=== PATIENT | male | born 1940 | race Caucasian/White ===

== ENCOUNTER → 2017-03-16 | Outpatient (CLI) | payer MEDICARE, BC ==
[2014-08-28 11:11] VITALS: BP 137/82
[~2017-03-16] MED LIST: ACET500T68 PO; AMLO5TAB4 PO; BRIM5DRO2 OS; BRIN10DR OU; CLON1TAB PO; CYAN10005 IM; DULO30CA2 PO; FLUO40CA9 PO; GUAI600T47 PO; HYDR25TA PO; LATA2.5D2 OU; LOSA100T2 PO; MAG355OR17 PO; MAGN2400 PO; MELO15TA6 PO; METH29OI TP; MIRT15TA PO; NICO1PAT25 TD; OLAN10TA9 PO; TAMS0.4C2 PO; TIZA2CAP3 PO; TRAM50TA PO; VIT1TABL32 PO
--- NOTE | 2017-03-16 16:46 | RAD ---
CT head without contrast 03/16/2017 at 1642 hours Indication: Syncope, dizziness, abscess on face. Comparison: CT head 08/21/2014 Technique: Multiple axial CT images of the head were obtained from the skull base to the vertex without intravenous contrast. Findings: The ventricles, sulci and basal cisterns are normal for the patient's age. There is no acute intracranial hemorrhage. No mass, mass effect or midline shift. Normal urbina-white matter differentiation is preserved. Visualized orbits demonstrate bilateral lens replacement. Paranasal sinuses and mastoid air cells are well aerated. Scalp and calvarium are normal. No acute fracture is identified. Impression: No acute intracranial hemorrhage. No evidence for acute or subacute ischemia. PQRS Compliance Statement: One or more of the following individualized dose reduction techniques were utilized for this examination: 1. Automated exposure control 2. Adjustment of the mA and/or kV according to patient size 3. Use of iterative reconstruction technique
[2017-03-16 17:35] LABS: CALCIUM 8.1 mg/dL (8.5-10.1); CREATININE 1.3 mg/dL (0.7-1.3); GFR 53.8; POTASSIUM 4.1 mmol/L (3.5-5.1)
[2017-03-16 17:43] LABS: BASO % 0 % (0-3); EOS # 0.1 x10^3/uL (0.0-0.7); EOS % 0 % (0-3); HEMATOCRIT 34.2 % (39.0-53.0); HEMOGLOBIN 11.3 g/dL (13.0-17.5); LYMPH # 1.9 x10^3/uL (1.0-4.8); LYMPH % 13 % (24-48); MEAN CORPUSCULAR HEMOGLOBIN 30 pg (25-35); MEAN CORPUSCULAR HGB CONC 33 g/dL (31-37); MEAN CORPUSCULAR VOLUME 91 fL (79-100); MONO # 1.4 x10^3/uL (0.0-1.1); MONO % 10 % (0-9); NEUT # 10.5 x10^3uL (1.8-7.7); NEUT % 76 % (31-73); PLATELET COUNT 236 x10^3/uL (140-400); RED BLOOD COUNT 3.75 x10^6/uL (4.30-5.70); RED CELL DISTRIBUTION WIDTH 15.7 % (11.5-14.5); WHITE BLOOD COUNT 13.9 x10^3/uL (4.0-11.0)
--- NOTE | 2017-03-17 07:40 | RAD ---
Chest, 2 views, 03/16/2017: History: Shortness of breath Comparison is made to a study from 07/31/2014. The heart is at the upper limits of normal in size. There is calcific plaquing of the aorta. The pulmonary vascularity is normal. There are densities projected over both hemithoraces due to the patient's known calcific pleural plaquing. No superimposed acute pulmonary radius seen. There is no evidence of pleural fluid. There are mild scattered degenerative changes in the spine. IMPRESSION: 1. Bilateral calcific pleural plaquing. 2. No acute cardiopulmonary abnormality is detected.
[2017-03-17 13:22] LABS: FREE T4 1.04 ng/dL (0.76-1.46); THYROID STIM HORMONE (TSH) 0.451 uIU/mL (0.358-3.740)
== END | disposition home or self-care (01) ==
LOC: RAD 16:12
PROVIDERS: ATTEND Family Medicine
DX: L02.01 Cutaneous abscess of face (principal); J92.9 Pleural plaque without asbestos; R42 Dizziness and giddiness; R55 Syncope and collapse; R06.02 Shortness of breath
CPT/HCPCS: 36415; 70450; 71020; 80048; 84439; 84443; 85027

== ENCOUNTER → 2017-05-18 | Outpatient (CLI) | payer MEDICARE, BC ==
[2014-08-28 11:11] VITALS: BP 137/82
[~2017-05-18] MED LIST changes: +IOHEXOL 240 MG/ML 50ML VIAL. ONE; +IOHEXOL 240 MG/ML 50ML VIAL. PO ONE
--- NOTE | 2017-05-18 19:56 | RAD ---
CT scan of the abdomen and pelvis with oral contrast only 05/18/2017 CLINICAL HISTORY: Epigastric pain and bloating for one month. TECHNIQUE: After the oral and administration of contrast only, contiguous, 3 mm axial sections were obtained through the abdomen and pelvis. One or more of the following individualized dose reduction techniques were utilized for this study: 1. Automated exposure control. 2. Adjustment of the mA and/or kV according to patient size. 3. Use of iterative reconstruction technique. FINDINGS: Images through the lung bases demonstrate linear bands of subsegmental atelectasis involving both lower lobes. Calcified pleural plaques are seen bilaterally. The unenhanced CT appearance of the liver, spleen, pancreas, adrenal glands and kidneys are within normal limits. Moderate atherosclerotic calcification of the abdominal aorta is seen. The abdominal aorta tapers normally. The gallbladder is well-distended. No free fluid or free air is seen within the abdomen. There is no evidence of bowel obstruction. The appendix is well-visualized and is within normal limits. Images through the pelvis demonstrate the urinary bladder distended with urine. Calcifications are seen within the prostate gland. Calcifications are seen within the pelvis consistent with phleboliths. No free fluid is seen. Mild S-shaped curvature of the thoracolumbar spine is seen. Degenerative changes are seen involving the lower thoracic and throughout the lumbar spine and both hips. An acute appearing compression fracture is seen involving the superior endplate of the L3 vertebral body. This vertebral body has lost approximately 25 percent of its height, centrally. No retropulsion of bone fragments into the central spinal canal is seen. IMPRESSION: Acute compression fracture is seen involving the superior endplate of the L3 vertebral body. No retropulsion of bone fragments into the central spinal canal is seen. No additional acute abnormality is seen involving the abdomen or pelvis. Electronically signed by: Dave Mac MD (05/18/2017 7:53 PM) [id number]
== END | disposition home or self-care (01) ==
LOC: CT 17:11
PROVIDERS: ATTEND Family Medicine
DX: J98.11 Atelectasis (principal); J92.9 Pleural plaque without asbestos; I70.0 Atherosclerosis of aorta; K82.8 Other specified diseases of gallbladder; N42.89 Other specified disorders of prostate; M43.8X5 Other specified deforming dorsopathies, thoracolumbar region; M47.894 Other spondylosis, thoracic region; M47.896 Other spondylosis, lumbar region; M16.0 Bilateral primary osteoarthritis of hip; M48.56XA Collapsed vertebra, not elsewhere classified, lumbar region, initial encounter for fracture; R14.0 Abdominal distension (gaseous); R10.13 Epigastric pain
CPT/HCPCS: 74176; Q9966

== ENCOUNTER 2017-05-28 12:07 | Inpatient (IN) | payer MEDICARE, BC ==
[~2017-05-28] VITALS: Ht 167.6 cm; Wt 69.5 kg
[~2017-05-28 12:07] MED LIST changes: +BRIM5DRO2 LEFTEYE; -BRIM5DRO2 OS; -IOHEXOL 240 MG/ML 50ML VIAL. ONE; -IOHEXOL 240 MG/ML 50ML VIAL. PO ONE
--- NOTE | 2017-05-28 12:54 | EKG ---
[address] [address] Test Date: 2017-05-28 Test Time: 12:47:00 Pat Name: SCOTT DUFFY Department: Room: Gender: M Control Panel Tester: : 1940 Requested By: CASH HER Order Number: [id number] Reading MD: Kenneth Sanchez Measurements Intervals [place] Rate: 72 P: 5 SD: 160 QRS: 1 QRSD: 86 T: 19 QT: 380 QTc: 418 Interpretive Statements SINUS RHYTHM LOW LIMB LEAD VOLTAGE QRS(T) CONTOUR ABNORMALITY CONSIDER ANTEROLATERAL MYOCARDIAL DAMAGE POSSIBLY ABNORMAL ECG RI6.01 No previous ECG available for comparison Electronically Signed On 06-11-2017 12:05:08 CDT by Kenneth Sanchez
[2017-05-28 13:08] LABS: BASO # 0.1 x10^3/uL (0.0-0.2); BASO % 1 % (0-3); EOS # 0.1 x10^3/uL (0.0-0.7); EOS % 1 % (0-3); HEMATOCRIT 34.7 % (39.0-53.0); HEMOGLOBIN 12.1 g/dL (13.0-17.5); LYMPH # 2.8 x10^3/uL (1.0-4.8); LYMPH % 24 % (24-48); MEAN CORPUSCULAR HEMOGLOBIN 32 pg (25-35); MEAN CORPUSCULAR HGB CONC 35 g/dL (31-37); MEAN CORPUSCULAR VOLUME 92 fL (79-100); MONO # 0.9 x10^3/uL (0.0-1.1); MONO % 8 % (0-9); NEUT # 7.7 x10^3uL (1.8-7.7); NEUT % 67 % (31-73); PLATELET COUNT 237 x10^3/uL (140-400); RED BLOOD COUNT 3.78 x10^6/uL (4.30-5.70); RED CELL DISTRIBUTION WIDTH 15.9 % (11.5-14.5); WHITE BLOOD COUNT 11.5 x10^3/uL (4.0-11.0)
[2017-05-28 13:24] LABS: ALBUMIN 3.4 g/dL (3.4-5.0); CALCIUM 8.2 mg/dL (8.5-10.1); CREATININE 1.1 mg/dL (0.7-1.3); GFR 65.1; MAGNESIUM 1.9 mg/dL (1.8-2.4); TOTAL BILIRUBIN 0.6 mg/dL (0.2-1.0); TOTAL PROTEIN 6.9 g/dL (6.4-8.2)
[2017-05-28 13:52] LABS: BARBITURATES NEG (NEG); BENZODIAZEPINES POS (NEG); CANNABINOIDS NEG (NEG); COCAINE NEG (NEG); METHADONE NEG (NEG); OPIATES POS (NEG); PHENCYCLIDINE NEG (NEG)
[2017-05-28 13:53] LABS: AMPHETAMINE/METHAMPHETAMINE NEG (NEG)
[2017-05-28 14:05] LABS: BACTERIA,URINE 0 /HPF (0-FEW); BILIRUBIN,URINE NEG (NEG); CLARITY,URINE CLEAR; COLOR,URINE YELLOW; GLUCOSE,URINE NEG (NEG); NITRITE,URINE NEG (NEG); RBC,URINE 0 /HPF (0-2); SQUAMOUS EPITHELIAL CELL,UR OCC /LPF; UROBILINOGEN,URINE 0.2 mg/dL (0.2 mg/dL); WBC,URINE 0 /HPF (0-4)
--- NOTE | 2017-05-28 14:51 | PHYS DOC ---
General Chief Complaint: PSYCH EVALUATION Stated Complaint: DEMENTIA W/BD Time Seen by MD: 12:29 Source: patient, family Exam Limitations: clinical condition Problems: History of Present Illness Initial Comments Patient is a 77-year-old male brought to the ED by his psychiatric evaluation. Patient's spouse states that the patient has had worsening confusion in the last week or so. He was diagnosed with urinary tract infection last week and has been taking Cipro. His spouse states that he has been more confused and that he is a 31 year recovering alcoholic but began drinking alcohol again the past few days. On arrival he does not appear to be intoxicated no odor of alcohol is present, he is alert and interactive disoriented to time and place. He is cooperative and no history is related of DTs or seizure related to alcohol withdrawal. Vital signs are stable and the patient denies any current complaints. Timing/Duration: 1 week, getting worse, changing over time Severity: severe Modifying Factors: improves with other Associated Symptoms: other Allergies: Coded Allergies: Sulfa (Sulfonamide Antibiotics) (Verified Allergy, Intermediate, 05/28/17) prednisone (Verified Allergy, Intermediate, 05/28/17) Past Medical History Medical History: other (arthritis, glaucoma, hypertension, urinary tract infection, dementia) Psychosocial History: other (one prior [facility] admission) Social History Smoker: cigarettes Alcohol: other (31-year-old recovering alcoholic with recent relapse) Drugs: none Review of Systems Constitutional: denies chills, denies fever Respiratory: denies cough, denies shortness of breath Cardiovascular: denies chest pain, denies palpitations Gastrointestinal: denies nausea, denies vomiting Genitourinary: see HPI Musculoskeletal: see HPI, denies neck pain Psychiatric/Neurological: see HPI Physical Exam General Appearance: WD/WN, no apparent distress Eyes: bilateral eye normal inspection, bilateral eye PERRL, bilateral eye EOMI Ear, Nose, Throat: hearing grossly normal, normal ENT inspection (mildly dry mucous membranes), normal pharynx Neck: non-tender, supple Respiratory: chest non-tender, no respiratory distress, other (faint diffuse expiratory wheeze with good air movement) Cardiovascular: normal peripheral pulses, regular rate, rhythm Gastrointestinal: non tender, soft Back: no CVA tenderness, no vertebral tenderness Extremities: non-tender, normal inspection Neurologic/Psychiatric: traffic manager II-XII nml as tested, no motor/sensory deficits, alert, normal mood/affect, other (alert to self disoriented to time and place, cooperative and calm) Skin: normal color, warm/dry Orders, Labs, Meds EKG: Normal sinus rhythm 72 bpm, nonspecific T-wave, or abnormalities no STEMI changes. Interpreted by Dr. Owens. Sodium 138, urinalysis negative, drug screen positive for opiates and benzodiazepines otherwise reassuring workup. Staff notifies me that the patient has been accepted for [facility] admission, he is medically clear. He had his spouse have no questions at this time he has no new or progressive symptoms. IMPRESSIONS: Worsening dementia Urinary tract infection on Cipro Alcoholism relapse Hyponatremia Tobaccoism Departure Disposition: ADMITTED INPATIENT Condition: STABLE Additional Instructions: [facility] admission Dr. Ho is accepting. CASH OWENS DO May 28, 2017 14:51
[2017-05-28] MEDS ORDERED: DULO60CA6 PO (15:13)
[2017-05-28 15:23] VITALS: BP 119/71
[2017-05-28] MEDS ORDERED: DULO30CA2 PO (15:48)
[2017-05-28] MEDS ORDERED: CLOP75TA57 PO (15:48)
[2017-05-28] MEDS ORDERED: METO-239 PO (15:48)
[2017-05-28] MEDS ORDERED: ATOR40TA59 PO (15:48)
[2017-05-28] MEDS ORDERED: SERT50TA PO (15:51)
[2017-05-28] MEDS ORDERED: CIPR500T94 PO (15:51)
[2017-05-28] MEDS ORDERED: OLAN2.5T3 PO (15:51)
[2017-05-28] MEDS ORDERED: ALPR1TAB2 PO (15:51)
[2017-05-28] MEDS ORDERED: AMLO10TA2 PO (16:21)
[2017-05-28] MEDS ORDERED: ASPI81TA44 PO (16:21)
[2017-05-28] MEDS ORDERED: LOSA100T6 PO (16:21)
[2017-05-28] MEDS ORDERED: HYDR-2758 PO (16:21)
[2017-05-28] MEDS ORDERED: MAGNESIUM HYDROXIDE 2,400 MG/30 ML ORAL.SUSP. PO PRN (16:45)
[2017-05-28] MEDS ORDERED: MAG HYDROX/AL HYDROX/SIMETH 30 ML ORAL.SUSP PO PRN (16:45)
[2017-05-28] MEDS ORDERED: METHYL SALICYLATE/MENTHOL TOPICAL OINTMENT 29GM TUBE. TP PRN (16:45)
[2017-05-28] MEDS ORDERED: ALPRAZolam 0.5 MG TABLET PO PRN (19:30)
[2017-05-28] MEDS: OLANZapine 2.5 MG TABLET PO SCH (20:09)
[2017-05-28] MEDS ORDERED: DULoxetine HCL 30 MG CAPSULE.DR PO SCH (21:00)
--- NOTE | 2017-05-28 21:09 | PDOC ---
Exam Kel Demential Exam: Kel Note: Please also refer to the separate dictated note~for this date of service dictated separately.~Patient seen individually. Discussed the patient with Nursing staff reviewed the chart.~Reviewed interim history and current functioning. Reviewed vital signs,~Labs/ Radiology~and current medications noted below. Continue current treatment with the changes noted in the dictated addendum note Assessment: Vital Signs: Vital Signs Date Time Temp Pulse Resp B/P (MAP) Pulse Ox O2 Delivery O2 Flow Rate FiO2 05/28/17 15:23 97.8 79 20 119/71 (87) 98 05/28/17 14:29 Room Air I&O Intake and Output 05/29/17 07:00 Intake Total 240 ml Balance 240 ml Intake Oral 240 ml Labs: Laboratory Tests Test 05/28/17 12:58 05/28/17 13:28 White Blood Count 11.5 x10^3/uL (4.0-11.0) H Red Blood Count 3.78 x10^6/uL (4.30-5.70) L Hemoglobin 12.1 g/dL (13.0-17.5) L Hematocrit 34.7 % (39.0-53.0) L Mean Corpuscular Volume 92 fL (79-100) Mean Corpuscular Hemoglobin 32 pg (25-35) Mean Corpuscular Hemoglobin Concent 35 g/dL (31-37) Red Cell Distribution Width 15.9 % (11.5-14.5) H Platelet Count 237 x10^3/uL (140-400) Neutrophils (%) (Auto) 67 % (31-73) Lymphocytes (%) (Auto) 24 % (24-48) Monocytes (%) (Auto) 8 % (0-9) Eosinophils (%) (Auto) 1 % (0-3) Basophils (%) (Auto) 1 % (0-3) Neutrophils # (Auto) 7.7 x10^3uL (1.8-7.7) Lymphocytes # (Auto) 2.8 x10^3/uL (1.0-4.8) Monocytes # (Auto) 0.9 x10^3/uL (0.0-1.1) Eosinophils # (Auto) 0.1 x10^3/uL (0.0-0.7) Basophils # (Auto) 0.1 x10^3/uL (0.0-0.2) Sodium Level 130 mmol/L (136-145) L Potassium Level 4.0 mmol/L (3.5-5.1) Chloride Level 100 mmol/L (98-107) Carbon Dioxide Level 24 mmol/L (21-32) Anion Gap 6 (6-14) Blood Urea Nitrogen 9 mg/dL (8-26) Creatinine 1.1 mg/dL (0.7-1.3) Estimated GFR (Cockcroft-Gault) 65.1 BUN/Creatinine Ratio 8 (6-20) Glucose Level 100 mg/dL (70-99) H Calcium Level 8.2 mg/dL (8.5-10.1) L Magnesium Level 1.9 mg/dL (1.8-2.4) Total Bilirubin 0.6 mg/dL (0.2-1.0) Aspartate Amino Transferase (AST) 12 U/L (15-37) L Alanine Aminotransferase (ALT) 14 U/L (16-63) L Alkaline Phosphatase 90 U/L (46-116) Total Protein 6.9 g/dL (6.4-8.2) Albumin 3.4 g/dL (3.4-5.0) Albumin/Globulin Ratio 1.0 (1.0-1.7) Ethyl Alcohol Level < 10 mg/dL (0-10) Urine Collection Type Unknown Urine Color Yellow Urine Clarity Clear Urine pH 6.5 Urine Specific [place] <=1.005 Urine Protein Neg (NEG-TRACE) Urine Glucose (UA) Neg mg/dL (NEG) Urine Ketones (Stick) Neg mg/dL (NEG) Urine Blood Neg (NEG) Urine Nitrite Neg (NEG) Urine Bilirubin Neg (NEG) Urine Urobilinogen Dipstick 0.2 mg/dL (0.2 mg/dL) Urine Leukocyte Esterase Neg (NEG) Urine RBC 0 /HPF (0-2) Urine WBC 0 /HPF (0-4) Urine Squamous Epithelial Cells Occ /LPF Urine Bacteria 0 /HPF (0-FEW) Urine Opiates Screen Pos (NEG) Urine Methadone Screen Neg (NEG) Urine Barbiturates Neg (NEG) Urine Phencyclidine Screen Neg (NEG) Urine Amphetamine/Methamphetamine Neg (NEG) Urine Benzodiazepines Screen Pos (NEG) Urine Cocaine Screen Neg (NEG) Urine Cannabinoids Screen Neg (NEG) Urine Ethyl Alcohol Neg (NEG) Current Medications: Meds: Current Medications Influenza Virus Vaccine Quadrival (Fluarix Quad [id number] Syringe) 0.5 ml 1X ONCE VAX IM ; Start 05/29/17 at 09:00; Stop 05/29/17 at 09:01 Acetaminophen (Tylenol) 650 mg PRN Q6HRS PRN PO PAIN / TEMP; Start 05/28/17 at 16:45 Multi-Ingredient Ointment (Analgesic [place]) 1 aubree PRN QID PRN TP MUSCLE PAIN; Start 05/28/17 at 16:45 Al Hydroxide/Mg Hydroxide (Mylanta Plus Xs) 15 ml PRN AFTMEALHC PRN PO DYSPEPSIA; Start 05/28/17 at 16:45 Magnesium Hydroxide (Milk Of Magnesia) 2,400 mg PRN QHS PRN PO CONSTIPATION; Start 05/28/17 at 16:45 Nicotine (Nicoderm Cq 21mg) 1 patch DAILY TD ; Start 05/29/17 at 09:00 Duloxetine HCl (Cymbalta) 90 mg BID PO ; Start 05/28/17 at 21:00; Stop 05/28/17 at 21:00; Status DC Olanzapine (ZyPREXA) 2.5 mg QHS PO Last administered on 05/28/17 20:09; Start 05/28/17 at 21:00 Alprazolam (Xanax) 1 mg PRN TID PRN PO ANXIETY / AGITATION Last administered on 05/28/17 20:09; Start 05/28/17 at 19:30 Duloxetine HCl (Cymbalta) 90 mg DAILY PO ; Start 05/29/17 at 09:00 Active Scripts Active Reported Hydrocodone-Apap 5-325 (Hydrocodone Bit/Acetaminophen) 1 Each Tablet 1 Tab PO PRN Q6HRS PRN Losartan Potassium 100 Mg Tablet 100 Mg PO DAILY Children's Aspirin (Aspirin) 81 Mg Tab.chew 81 Mg PO DAILY Amlodipine Besylate 10 Mg Tablet 1 Tab PO DAILY Cipro (Ciprofloxacin Hcl) 500 Mg Tablet 1 Tab PO BID 8 Days LAST DOSE GIVEN: DATE: TIME: NEXT DOSE DUE: DATE: TIME: FINISH THIS PRESCRIPTION AFTER DOSES ON 06-04-17 Xanax (Alprazolam) 1 Mg Tablet 1 Tab PO TID PRN LAST DOSE GIVEN: DATE: TIME: NEXT DOSE DUE: DATE: TIME: Zyprexa (Olanzapine) 2.5 Mg Tablet 1 Tab PO QHS LAST DOSE GIVEN: DATE: TIME: NEXT DOSE DUE: DATE: TIME: Atorvastatin Calcium 40 Mg Tablet 1 Tab PO DAILY LAST DOSE GIVEN: DATE: TIME: NEXT DOSE DUE: DATE: TIME: Metoprolol Succinate ( Xl ) (Metoprolol Succinate) 25 Mg Tab.er.24h 1 Tab PO DAILY LAST DOSE GIVEN: DATE: TIME: NEXT DOSE DUE: DATE: TIME: Plavix (Clopidogrel Bisulfate) 75 Mg Tablet 1 Tab PO DAILY LAST DOSE GIVEN: DATE: TIME: NEXT DOSE DUE: DATE: TIME: Cymbalta (Duloxetine Hcl) 30 Mg Capsule.dr 3 Cap PO DAILY LAST DOSE GIVEN: DATE: TIME: NEXT DOSE DUE: DATE: TIME: Ocuvite Tablet (Vit A,C & E/Lutein/Minerals) 1 Each Tablet 1 Each PO DAILY LAST DOSE GIVEN: DATE: TIME: NEXT DOSE DUE: DATE: TIME: Tramadol Hcl (Tramadol HCl) 50 Mg Tablet 50 Mg PO PRN BID PRN LAST DOSE GIVEN: DATE: TIME: NEXT DOSE DUE: DATE: TIME: Tamsulosin Hcl 0.4 Mg Cap.er.24h 1 Cap PO HS LAST DOSE GIVEN: DATE: TIME: NEXT DOSE DUE: DATE: TIME: Xalatan (Latanoprost) 2.5 Ml Drops 1 Drop OU HS LAST DOSE GIVEN: DATE: TIME: NEXT DOSE DUE: DATE: TIME: Azopt (Brinzolamide) 10 Ml Drops.susp 1 Drop OU HS LAST DOSE GIVEN: DATE: TIME: NEXT DOSE DUE: DATE: TIME: Combigan Eye Drops (Brimonidine Tartrate/Timolol) 5 Ml Drops 1 Drop LEFTEYE BID LAST DOSE GIVEN: DATE: TIME: NEXT DOSE DUE: DATE: TIME: Diagnosis: Problems: (1) Alzheimer's dementia (2) Dementia with behavioral disturbance (3) Anxiety disorder (4) Impulse control disorder (5) Major depressive disorder, recurrent episode JO DEWEY MD May 28, 2017 21:09
[2017-05-29] MEDS ORDERED: CARV6.25 PO (04:20)
[2017-05-29] MEDS ORDERED: VIT1CAPS17 PO (04:20)
[2017-05-29] MEDS ORDERED: ALPR0.5T6 PO (04:20)
[2017-05-29] MEDS ORDERED: ATORVASTATIN CA80 MG PO (04:59)
[2017-05-29 05:11] LABS: HEMOGLOBIN A1C 5.5 % (4.8-5.6)
[2017-05-29 06:26] VITALS: BP 105/78
[2017-05-29] MEDS: DULoxetine HCL 30 MG CAPSULE.DR PO SCH (07:56)
[2017-05-29] MEDS: NICOTINE 21MG PATCH. TD SCH (07:56)
[2017-05-29] MEDS ORDERED: FLU VACC QS2017-18 (36MOS+)/PF 0.5 ML SYRINGE. VAX IM ONE (09:00)
--- NOTE | 2017-05-29 10:08 | HP ---
ADMIT DATE: 05/28/2017 PSYCHIATRIC ADMISSION HISTORY AND EVALUATION This late entry for 05/28/2017, covers elements not covered in my initial note of 05/28/2017. IDENTIFYING DATA: The patient is a 77-year-old male who was sent to the Emergency Room at [facility] by his primary care physician, Dr. Dalton on account of increased confusion with a relapse of his alcohol abuse within the context of a recent UTI and worsening agitation, behaviors that were unmanageable at home where he lives with his . The patient has failed outpatient psychiatric interventions. Behaviors were deemed dangerous. He was referred by Dr. Dalton to the Emergency Room and after he was evaluated there, felt he needed inpatient psychiatric stabilization and referred to us. CHIEF COMPLAINT: "Yes, I started drinking again. Not very much. Yes, I get confused." HISTORY OF PRESENT ILLNESS: The patient has a history of major depressive disorder; anxiety disorder and impulse control disorder, history of alcohol abuse. He had not been using alcohol for sometime almost 30 years and then restarted use about a week back. This has been progressively increasing with worsening confusion, paranoia, delusion, restlessness, deemed to be a danger living at home with his . He has had sleep and appetite changes. No active suicidal or homicidal ideation, but quite impulsive. PAST PSYCHIATRIC HISTORY: The patient was an inpatient with us several years ago. Since then followed outpatient with Dr. Dalton. He does have short term memory deficits. PAST MEDICAL HISTORY: Recurrent UTIs, hypertension, hyperlipidemia, coronary artery disease, fibromyalgia, arthritis, macular degeneration, stents, back surgery in 11/2016, angina, glaucoma. CT head, no acute changes noted in March of this year. CODE STATUS: Full. Accu-Cheks: None. DIET: Regular. Takes his medications whole. CURRENT PSYCHOTROPICS: Apparently, the patient's was administrating Cymbalta to him 180 mg twice a day and he was in fact prescribed 90 mg twice a day and recently Zoloft was added. We will reduce the Cymbalta down to 90 mg a day for now. He is also on Zyprexa 2.5 mg at bedtime. During his last hospitalization with us few years back, he was on Cymbalta 30 mg a day, Remeron 7.5 at bedtime, Klonopin 1 mg twice a day, Zyprexa 10 mg at bedtime. FAMILY HISTORY: Noncontributory. SOCIAL HISTORY: The patient lives at home with his . Alcohol abuse history as noted above. No physical, sexual or elder abuse history is noted. Not known to be a perpetrator. MENTAL STATUS EXAMINATION: The patient was seen individually evening of 05/28/2017, he was aware that he had arrived from the Emergency Room, a short while prior to my visit with him. He was confused about the date, knew the year was 2016, was getting mixed up about what city this was. Speech is coherent, abstraction fair, computation impaired, short term memory is impaired. Mood is somewhat dysphoric, anxious. Affect is mood congruent, appears somewhat paranoid. No active suicidal or homicidal ideation. Attention span short. Language function intact. Intellect average. Insight limited. Judgment marginal. IMPRESSION: Major depressive disorder, recurrent versus psychotic features; anxiety disorder, unspecified; history of alcohol abuse dependence with recent relapse. Mild cognitive impairment versus major neurocognitive disorder, multifactorial vascular secondary to alcohol with depression, delusions. Rest diagnosis is unchanged as above. PLAN: Admit to the geropsychiatry unit at [facility]. I will see the patient daily individually from a psychiatric standpoint. Medical followup per Dr. Mejia/Dr. Barksdale. Continue current psychotropics, observe baseline, adjust further as clinically indicated. We have reduced the Cymbalta from 180 mg twice a day down to 90 mg a day. Continue Zyprexa 2.5 mg at bedtime for now. MAN Eduin DEWEY MD DR: SANJEEV/margo JOB#: [id number] / [id number]
[2017-05-29 10:36] LABS: THYROID STIM HORMONE (TSH) 3.371 uIU/mL (0.358-3.740)
[2017-05-29] MEDS: ACETAMINOPHEN 325 MG TABLET PO PRN ×2 (11:06→18:20)
[2017-05-29 12:09] LABS: T3 TOTAL 89 ng/dL (71-180); THYROXINE 6.2 ug/dL (4.5-12.0)
--- NOTE | 2017-05-29 16:28 | PDOC1 ---
History of Present Illness Reason for Visit: Confusion History of Present Illness Pt is admitted from home, where he has been living w/ his . His was concerned that pt had started drinking again, and was having a downturn in his behavior. Pt was seen by his PCP's office and advised to be admitted to the [facility] unit. On speaking to pt this afternoon, he states "I am here because my fibromyalgia is acting up." Pt reportedly has a long history of alcoholism but has not drank in some time. He also has anxiety, depression, and dementia. He was diagnosed w/ a UTI on 05/24 and treated w/ Cipro per nursing staff. Pt denies CP, SOA, fever, n/v, difficulty urinating, tremors, hallucinations, or abnormal thoughts. Chief Complaint: PSYCH EVALUATION Allergies: Coded Allergies: Sulfa (Sulfonamide Antibiotics) (Verified Allergy, Intermediate, 05/28/17) prednisone (Verified Allergy, Intermediate, 05/28/17) Past Medical History Cardiac: HTN [employer]: Dementia Psych: Anxiety, Depression Rheumatologic: Fibromyalgia ENT: Other (Glaucoma) Renal/: UTI, Benign prostatic enlarg. Past Surgical History: No pertinent history Family History: No pertinent hx Past Social History Smoke: No Alcohol: other Drugs: None Lives: with Family Review of Systems Review Of Systems Fourteen system , review of systems has been reviewed. See HPI for pertinent positives and negative responses, other chang all other systems are negative, non pertinent or non contributory Allergies: Coded Allergies: Sulfa (Sulfonamide Antibiotics) (Verified Allergy, Intermediate, 05/28/17) prednisone (Verified Allergy, Intermediate, 05/28/17) Medications Current Medications Influenza Virus Vaccine Quadrival (Fluarix Quad [id number] Syringe) 0.5 ml 1X ONCE VAX IM Last administered on 05/29/17 11:28; Start 05/29/17 at 09:00; Stop 05/29/17 at 09:01; Status DC Acetaminophen (Tylenol) 650 mg PRN Q6HRS PRN PO PAIN / TEMP Last administered on 05/29/17 11:06; Start 05/28/17 at 16:45 Multi-Ingredient Ointment (Analgesic [place]) 1 aubree PRN QID PRN TP MUSCLE PAIN; Start 05/28/17 at 16:45 Al Hydroxide/Mg Hydroxide (Mylanta Plus Xs) 15 ml PRN AFTMEALHC PRN PO DYSPEPSIA; Start 05/28/17 at 16:45 Magnesium Hydroxide (Milk Of Magnesia) 2,400 mg PRN QHS PRN PO CONSTIPATION; Start 05/28/17 at 16:45 Nicotine (Nicoderm Cq 21mg) 1 patch DAILY TD Last administered on 05/29/17 07: 56; Start 05/29/17 at 09:00 Duloxetine HCl (Cymbalta) 90 mg BID PO ; Start 05/28/17 at 21:00; Stop 05/28/17 at 21:00; Status DC Olanzapine (ZyPREXA) 2.5 mg QHS PO Last administered on 05/28/17 20:09; Start 05/28/17 at 21:00 Alprazolam (Xanax) 1 mg PRN TID PRN PO ANXIETY / AGITATION Last administered on 05/28/17 20:09; Start 05/28/17 at 19:30; Stop 05/29/17 at 04:22; Status DC Duloxetine HCl (Cymbalta) 90 mg DAILY PO Last administered on 05/29/17 07:56; Start 05/29/17 at 09:00 Alprazolam (Xanax) 0.5 mg PRN TID PRN PO ANXIETY / AGITATION; Start 05/29/17 at 04:30 Active Scripts Active Reported Atorvastatin Calcium 80 Mg Tablet 80 Mg PO QHS Alprazolam 0.5 Mg Tablet 0.5 Mg PO PRN TID PRN Coreg (Carvedilol) 6.25 Mg Tablet 6.25 Mg PO BIDWMEALS Preservision Lutein Softgel (Vit C/[place] Ac/Lut/Copper/Znox) 1 Each Capsule 1 Cap PO DAILY Hydrocodone-Apap 5-325 (Hydrocodone Bit/Acetaminophen) 1 Each Tablet 1 Tab PO PRN Q6HRS PRN Losartan Potassium 100 Mg Tablet 100 Mg PO DAILY Children's Aspirin (Aspirin) 81 Mg Tab.chew 81 Mg PO DAILY Amlodipine Besylate 10 Mg Tablet 10 Mg PO DAILY Zyprexa (Olanzapine) 2.5 Mg Tablet 2.5 Mg PO QHS Metoprolol Succinate ( Xl ) (Metoprolol Succinate) 25 Mg Tab.er.24h 25 Mg PO DAILY Plavix (Clopidogrel Bisulfate) 75 Mg Tablet 75 Mg PO DAILY Cymbalta (Duloxetine Hcl) 30 Mg Capsule. 90 Mg PO DAILY Tamsulosin Hcl 0.4 Mg Cap.er.24h 0.4 Mg PO QHS Xalatan (Latanoprost) 2.5 Ml Drops 1 Drop OU QHS Combigan Eye Drops (Brimonidine Tartrate/Timolol) 5 Ml Drops 1 Drop LEFTEYE BID Exam Vital Signs Vital Signs Date Time Temp Pulse Resp B/P (MAP) Pulse Ox O2 Delivery O2 Flow Rate FiO2 05/29/17 06:26 97.8 81 16 105/78 (87) 95 05/28/17 14:29 Room Air General Appearance: Alert, Oriented X3, Cooperative, No acute distress HEENT: Atraumatic, PERRLA, EOMI, Mucous membr. moist/pink, Other (Neck supple, full ROM, nO JVD, no LAD, no thyromegaly) Respiratory: Clear to auscultation, Normal air movement Heart: Regular rate, Normal S1, Normal S2, No murmurs Abdominal: Normal bowel sounds, Soft, No tenderness, No hepatospenomegaly, No masses Skin: No rashes Neuro: Normal gait, Normal speech, Strength at 5/5 X4 ext, Normal tone, Sensation intact, Cranial nerves 3-12 NL Psych/Mental Status: Mental status NL, Mood NL Assessment/Plan Assessment/Plan 1. Dementia w/ behavioral disturbance: Per Dr. Ho. 2. Depression/anxiety: Per Dr. Ho 3. Hx of alcoholism: Monitor for signs of withdrawal, but pt has not drank in some time. 4. Fibromyalgia: Resume home pain medications. Pt to f/u with PCP after discharge. 5. Hx of UTI: Culture pending. Pt asymptomatic at this time. 6. DVT proph: Unnecessary, pt is fully ambulatory, which he does frequently. COURSE Allergies Coded Allergies Type Severity Reaction Last Updated Verified Sulfa (Sulfonamide Antibiotics) Allergy Intermediate 05/28/17 Yes prednisone Allergy Intermediate 05/28/17 Yes Laboratory Tests Test 05/28/17 19:10 Thyroxine (T4) 6.2 ug/dL (4.5-12.0) Total Triiodothyronine 89 ng/dL (71-180) Current Medications Medications (Trade) Dose Ordered Sig/Vimal Route PRN Reason Start Time Stop Time Status Last Admin Dose Admin Influenza Virus Vaccine Quadrival (Fluarix Quad [id number] Syringe) 0.5 ml 1X ONCE VAX IM 05/29/17 09:00 05/29/17 09:01 DC 05/29/17 11:28 Acetaminophen (Tylenol) 650 mg PRN Q6HRS PRN PO PAIN / TEMP 05/28/17 16:45 05/29/17 11:06 Multi-Ingredient Ointment (Analgesic Asher) 1 aubree PRN QID PRN TP MUSCLE PAIN 05/28/17 16:45 Al Hydroxide/Mg Hydroxide (Mylanta Plus Xs) 15 ml PRN AFTMEALHC PRN PO DYSPEPSIA 05/28/17 16:45 Magnesium Hydroxide (Milk Of Magnesia) 2,400 mg PRN QHS PRN PO CONSTIPATION 05/28/17 16:45 Nicotine (Nicoderm Cq 21mg) 1 patch DAILY TD 05/29/17 09:00 05/29/17 07:56 Duloxetine HCl (Cymbalta) 90 mg BID PO 05/28/17 21:00 05/28/17 21:00 DC Olanzapine (ZyPREXA) 2.5 mg QHS PO 05/28/17 21:00 05/28/17 20:09 Alprazolam (Xanax) 1 mg PRN TID PRN PO ANXIETY / AGITATION 05/28/17 19:30 05/29/17 04:22 DC 05/28/17 20:09 Duloxetine HCl (Cymbalta) 90 mg DAILY PO 05/29/17 09:00 05/29/17 07:56 Alprazolam (Xanax) 0.5 mg PRN TID PRN PO ANXIETY / AGITATION 05/29/17 04:30 I & O 05/30/17 00:00 Intake Total 1320 ml Balance 1320 ml Or Vital Signs Date Time Temp Pulse Resp B/P (MAP) Pulse Ox O2 Delivery O2 Flow Rate FiO2 05/29/17 06:26 97.8 81 16 105/78 (87) 95 05/28/17 14:29 Room Air EKG: NSR w/ no acute ischemic changes. TIGRE TREVINO MD May 29, 2017 16:28
[2017-05-29 17:13] VITALS: BP 150/93
[2017-05-29] MEDS: CARVEDILOL 6.25 MG TABLET PO SCH (17:37)
[2017-05-29] MEDS: ALPRAZolam 0.5 MG TABLET PO PRN (18:58)
[2017-05-29] MEDS: HYDROcodone/APAP 5/325MG 1 TAB TABLET PO PRN (21:05)
[2017-05-29] MEDS: OLANZapine 2.5 MG TABLET PO SCH (21:05)
[2017-05-29] MEDS: ATORVASTATIN CALCIUM 20 MG TABLET PO SCH (21:08)
[2017-05-29] MEDS: TAMSULOSIN 0.4 MG CAP.ER.24H. PO SCH (21:08)
[2017-05-29] MEDS: TIMOLOL 0.5% OPHTH SOLUTION 5ML BOTTLE. OS SCH (21:08)
[2017-05-29] MEDS: BRIMONIDINE 0.2% OPHTH SOLUTION 5ML BOTTLE. OS SCH (21:08)
[2017-05-29] MEDS: LATANOPROST 0.005% OPHTH SOLUTION 2.5ML BOTTLE. OU SCH (21:08)
--- NOTE | 2017-05-29 21:20 | PDOC ---
Exam Kel Demential Exam: Kel Note: Please also refer to the separate dictated note~for this date of service dictated separately.~Patient seen individually. Discussed the patient with Nursing staff reviewed the chart.~Reviewed interim history and current functioning. Reviewed vital signs,~Labs/ Radiology~and current medications noted below. Continue current treatment with the changes noted in the dictated addendum note Assessment: Vital Signs: Vital Signs Date Time Temp Pulse Resp B/P (MAP) Pulse Ox O2 Delivery O2 Flow Rate FiO2 05/29/17 17:37 94 150/93 05/29/17 17:13 98.6 16 98 Room Air I&O Intake and Output 05/30/17 07:00 Intake Total 1680 ml Balance 1680 ml Intake Oral 1680 ml Current Medications: Meds: Current Medications Influenza Virus Vaccine Quadrival (Fluarix Quad [id number] Syringe) 0.5 ml 1X ONCE VAX IM Last administered on 05/29/17 11:28; Start 05/29/17 at 09:00; Stop 05/29/17 at 09:01; Status DC Acetaminophen (Tylenol) 650 mg PRN Q6HRS PRN PO PAIN / TEMP Last administered on 05/29/17 18:20; Start 05/28/17 at 16:45 Multi-Ingredient Ointment (Analgesic [place]) 1 aubree PRN QID PRN TP MUSCLE PAIN; Start 05/28/17 at 16:45 Al Hydroxide/Mg Hydroxide (Mylanta Plus Xs) 15 ml PRN AFTMEALHC PRN PO DYSPEPSIA; Start 05/28/17 at 16:45 Magnesium Hydroxide (Milk Of Magnesia) 2,400 mg PRN QHS PRN PO CONSTIPATION; Start 05/28/17 at 16:45 Nicotine (Nicoderm Cq 21mg) 1 patch DAILY TD Last administered on 05/29/17 07: 56; Start 05/29/17 at 09:00 Duloxetine HCl (Cymbalta) 90 mg BID PO ; Start 05/28/17 at 21:00; Stop 05/28/17 at 21:00; Status DC Olanzapine (ZyPREXA) 2.5 mg QHS PO Last administered on 05/29/17 21:05; Start 05/28/17 at 21:00 Alprazolam (Xanax) 1 mg PRN TID PRN PO ANXIETY / AGITATION Last administered on 05/28/17 20:09; Start 05/28/17 at 19:30; Stop 05/29/17 at 04:22; Status DC Duloxetine HCl (Cymbalta) 90 mg DAILY PO Last administered on 05/29/17 07:56; Start 05/29/17 at 09:00 Alprazolam (Xanax) 0.5 mg PRN TID PRN PO ANXIETY / AGITATION Last administered on 05/29/17 18:58; Start 05/29/17 at 04:30 Amlodipine Besylate (Norvasc) 10 mg DAILY PO ; Start 05/30/17 at 09:00 Aspirin (Children'S Aspirin) 81 mg DAILY PO ; Start 05/30/17 at 09:00 Carvedilol (Coreg) 6.25 mg BIDWMEALS PO Last administered on 05/29/17 17:37; Start 05/29/17 at 17:00 Clopidogrel Bisulfate (Plavix) 75 mg DAILY PO ; Start 05/30/17 at 09:00 Acetaminophen/ Hydrocodone Bitart (Lortab 5/325) 1 tab PRN Q6HRS PRN PO PAIN Last administered on 05/29/17 21:05; Start 05/29/17 at 16:30 Latanoprost (Xalatan) 1 drop QHS OU Last administered on 05/29/17 21:08; Start 05/29/17 at 21:00 Metoprolol Succinate (Toprol Xl) 25 mg DAILY PO ; Start 05/30/17 at 09:00 Tamsulosin HCl (Flomax) 0.4 mg QHS PO Last administered on 05/29/17 21:08; Start 05/29/17 at 21:00 Atorvastatin Calcium (Lipitor) 80 mg QHS PO Last administered on 05/29/17 21: 08; Start 05/29/17 at 21:00 Brimonidine Tartrate (Alphagan) 1 drop BID OS Last administered on 05/29/17 21 :08; Start 05/29/17 at 21:00 Losartan Potassium (Cozaar) 100 mg DAILY PO ; Start 05/30/17 at 09:00 Multivitamins/ Minerals (I-Korey) 1 tab DAILY PO ; Start 05/30/17 at 09:00 Timolol Maleate (Timoptic 0.5% Oph) 1 drop BID OS Last administered on t 21:08; Start 05/29/17 at 21:00 Active Scripts Active Reported Atorvastatin Calcium 80 Mg Tablet 80 Mg PO QHS Alprazolam 0.5 Mg Tablet 0.5 Mg PO PRN TID PRN Coreg (Carvedilol) 6.25 Mg Tablet 6.25 Mg PO BIDWMEALS Preservision Lutein Softgel (Vit C/[place] Ac/Lut/Copper/Znox) 1 Each Capsule 1 Cap PO DAILY Hydrocodone-Apap 5-325 (Hydrocodone Bit/Acetaminophen) 1 Each Tablet 1 Tab PO PRN Q6HRS PRN Losartan Potassium 100 Mg Tablet 100 Mg PO DAILY Children's Aspirin (Aspirin) 81 Mg Tab.chew 81 Mg PO DAILY Amlodipine Besylate 10 Mg Tablet 10 Mg PO DAILY Zyprexa (Olanzapine) 2.5 Mg Tablet 2.5 Mg PO QHS Metoprolol Succinate ( Xl ) (Metoprolol Succinate) 25 Mg Tab.er.24h 25 Mg PO DAILY Plavix (Clopidogrel Bisulfate) 75 Mg Tablet 75 Mg PO DAILY Cymbalta (Duloxetine Hcl) 30 Mg Capsule.dr 90 Mg PO DAILY Tamsulosin Hcl 0.4 Mg Cap.er.24h 0.4 Mg PO QHS Xalatan (Latanoprost) 2.5 Ml Drops 1 Drop OU QHS Combigan Eye Drops (Brimonidine Tartrate/Timolol) 5 Ml Drops 1 Drop LEFTEYE BID Diagnosis: Problems: (1) Alzheimer's dementia (2) Dementia with behavioral disturbance (3) Anxiety disorder (4) Impulse control disorder (5) Major depressive disorder, recurrent episode JO DEWEY MD May 29, 2017 21:20
[2017-05-30 06:25] VITALS: BP 133/66
[2017-05-30] MEDS: CARVEDILOL 6.25 MG TABLET PO SCH ×2 (07:57→16:19)
[2017-05-30] MEDS: NICOTINE 21MG PATCH. TD SCH (07:57)
[2017-05-30] MEDS: DULoxetine HCL 30 MG CAPSULE.DR PO SCH (07:57)
[2017-05-30] MEDS: LOSARTAN 50 MG TABLET. PO SCH (08:00)
[2017-05-30] MEDS: ALPRAZolam 0.5 MG TABLET PO PRN ×3 (08:00→23:34)
[2017-05-30] MEDS: amLODIPine BESYLATE 10 MG TABLET PO SCH (08:00)
[2017-05-30] MEDS: HYDROcodone/APAP 5/325MG 1 TAB TABLET PO PRN ×3 (08:00→21:18)
[2017-05-30] MEDS: MULTIVITAMIN I-VITE TABLET. PO SCH (08:01)
[2017-05-30] MEDS: METOPROLOL SUCC 24HR ER 25 MG TAB.ER.24H. PO SCH (08:01)
[2017-05-30] MEDS: ASPIRIN 81 MG TAB.CHEW PO SCH (08:01)
[2017-05-30] MEDS: CLOPIDOGREL BISULFATE 75 MG TABLET PO SCH (08:01)
[2017-05-30] MEDS: TIMOLOL 0.5% OPHTH SOLUTION 5ML BOTTLE. OS SCH ×2 (08:06→21:07)
[2017-05-30] MEDS: BRIMONIDINE 0.2% OPHTH SOLUTION 5ML BOTTLE. OS SCH ×2 (08:07→21:07)
[2017-05-30] MEDS: busPIRone 5 MG TABLET. PO SCH (16:19)
[2017-05-30 16:34] VITALS: BP 113/76
[2017-05-30] MEDS: LIDOCAINE (700MG/PATCH) PATCH. TD SCH (18:00)
--- NOTE | 2017-05-30 20:15 | PN ---
DATE: 05/29/2017 PSYCHIATRIC PROGRESS NOTE This is a late entry for 05/29/2017, covers elements not covered in my initial note of 05/29/2017. SUBJECTIVE: I met with the patient the evening of 05/29/2017 in his room. He is very anxious, has short term memory deficits, somewhat obsessive, preoccupied, medication compliant, admits to being somewhat sad. REVIEW OF SYSTEMS: No CV, , pulmonary, eye, ENT system symptoms on review. MENTAL STATUS EXAM: Oriented to himself and situation. Insight, judgment, recent memory is impaired. Language function intact. Attention span short. Mood and affect somewhat dysphoric. He does complain of some back pain. IMPRESSION: Unchanged from initial note. PLAN: Continue Zyprexa 2.5 mg at bedtime, Xanax p.r.n., Cymbalta 90 mg a day, both as an antidepressant antianxiety agent and to help with his pain. May also consider adding BuSpar in fact starting 05/30/2017. We will start BuSpar 5 mg twice a day for anxiety. Make further adjustments as clinically indicated. Reviewed drug interactions. Risk/benefit ratio favors no further change. JO DEWEY MD DR: [email or web address]/margo JOB#: [id number] / [id number]
[2017-05-30] MEDS: LATANOPROST 0.005% OPHTH SOLUTION 2.5ML BOTTLE. OU SCH (21:07)
[2017-05-30] MEDS: TAMSULOSIN 0.4 MG CAP.ER.24H. PO SCH (21:08)
[2017-05-30] MEDS: ATORVASTATIN CALCIUM 20 MG TABLET PO SCH (21:08)
[2017-05-30] MEDS: OLANZapine 2.5 MG TABLET PO SCH (21:08)
--- NOTE | 2017-05-30 22:55 | PDOC ---
Exam Kel Demential Exam: Kel Note: Please also refer to the separate dictated note~for this date of service dictated separately.~Patient seen individually. Discussed the patient with Nursing staff reviewed the chart.~Reviewed interim history and current functioning. Reviewed vital signs,~Labs/ Radiology~and current medications noted below. Continue current treatment with the changes noted in the dictated addendum note Assessment: Vital Signs: Vital Signs Date Time Temp Pulse Resp B/P (MAP) Pulse Ox O2 Delivery O2 Flow Rate FiO2 05/30/17 16:34 97.1 78 16 113/76 (88) 96 05/29/17 17:13 Room Air I&O Intake and Output 05/31/17 07:00 Intake Total 600 ml Balance 600 ml Intake Oral 600 ml Current Medications: Meds: Current Medications Influenza Virus Vaccine Quadrival (Fluarix Quad [id number] Syringe) 0.5 ml 1X ONCE VAX IM Last administered on 05/29/17 11:28; Start 05/29/17 at 09:00; Stop 05/29/17 at 09:01; Status DC Acetaminophen (Tylenol) 650 mg PRN Q6HRS PRN PO PAIN / TEMP Last administered on 05/29/17 18:20; Start 05/28/17 at 16:45 Multi-Ingredient Ointment (Analgesic [place]) 1 aubree PRN QID PRN TP MUSCLE PAIN; Start 05/28/17 at 16:45 Al Hydroxide/Mg Hydroxide (Mylanta Plus Xs) 15 ml PRN AFTMEALHC PRN PO DYSPEPSIA; Start 05/28/17 at 16:45 Magnesium Hydroxide (Milk Of Magnesia) 2,400 mg PRN QHS PRN PO CONSTIPATION; Start 05/28/17 at 16:45 Nicotine (Nicoderm Cq 21mg) 1 patch DAILY TD Last administered on 05/30/17 07: 57; Start 05/29/17 at 09:00 Duloxetine HCl (Cymbalta) 90 mg BID PO ; Start 05/28/17 at 21:00; Stop 05/28/17 at 21:00; Status DC Olanzapine (ZyPREXA) 2.5 mg QHS PO Last administered on 05/30/17 21:08; Start 05/28/17 at 21:00 Alprazolam (Xanax) 1 mg PRN TID PRN PO ANXIETY / AGITATION Last administered on 05/28/17 20:09; Start 05/28/17 at 19:30; Stop 05/29/17 at 04:22; Status DC Duloxetine HCl (Cymbalta) 90 mg DAILY PO Last administered on 05/30/17 07:57; Start 05/29/17 at 09:00 Alprazolam (Xanax) 0.5 mg PRN TID PRN PO ANXIETY / AGITATION Last administered on 05/30/17 11:40; Start 05/29/17 at 04:30; Stop 05/30/17 at 18:49; Status DC Amlodipine Besylate (Norvasc) 10 mg DAILY PO Last administered on 05/30/17 08: 00; Start 05/30/17 at 09:00 Aspirin (Children'S Aspirin) 81 mg DAILY PO Last administered on 05/30/17 08: 01; Start 05/30/17 at 09:00 Carvedilol (Coreg) 6.25 mg BIDWMEALS PO Last administered on 05/30/17 16:19; Start 05/29/17 at 17:00 Clopidogrel Bisulfate (Plavix) 75 mg DAILY PO Last administered on 05/30/17 08 :01; Start 05/30/17 at 09:00 Acetaminophen/ Hydrocodone Bitart (Lortab 5/325) 1 tab PRN Q6HRS PRN PO PAIN Last administered on 05/30/17 21:18; Start 05/29/17 at 16:30 Latanoprost (Xalatan) 1 drop QHS OU Last administered on 05/30/17 21:07; Start 05/29/17 at 21:00 Metoprolol Succinate (Toprol Xl) 25 mg DAILY PO Last administered on 05/30/17 08:01; Start 05/30/17 at 09:00 Tamsulosin HCl (Flomax) 0.4 mg QHS PO Last administered on 05/30/17 21:08; Start 05/29/17 at 21:00 Atorvastatin Calcium (Lipitor) 80 mg QHS PO Last administered on 05/30/17 21: 08; Start 05/29/17 at 21:00 Brimonidine Tartrate (Alphagan) 1 drop BID OS Last administered on 05/30/17 21 :07; Start 05/29/17 at 21:00 Losartan Potassium (Cozaar) 100 mg DAILY PO Last administered on 05/30/17 08: 00; Start 05/30/17 at 09:00 Multivitamins/ Minerals (I-[place]) 1 tab DAILY PO Last administered on 05/30/17 08:01; Start 05/30/17 at 09:00 Timolol Maleate (Timoptic 0.5% Oph) 1 drop BID OS Last administered on 21:07; Start 05/29/17 at 21:00 Olanzapine (ZyPREXA ZYDIS) 1.25 mg PRN Q2HR PRN PO ANXIETY; Start 05/30/17 at 12:00 Buspirone HCl (Buspar) 5 mg BID92 PO Last administered on 05/30/17 16:19; Start 05/30/17 at 14:00 Lidocaine (Lidoderm) 1 patch DAILY TD Last administered on 05/30/17 18:00; Start 05/30/17 at 18:00 Alprazolam (Xanax) 0.25 mg PRN Q2HR PRN PO ANXIETY / AGITATION; Start 05/30/17 at 19:00 Naltrexone HCl (Depade) 25 mg DAILY PO ; Start 05/31/17 at 09:00; Stop 05/31/17 at 09:00; Status DC Active Scripts Active Reported Atorvastatin Calcium 80 Mg Tablet 80 Mg PO QHS Alprazolam 0.5 Mg Tablet 0.5 Mg PO PRN TID PRN Coreg (Carvedilol) 6.25 Mg Tablet 6.25 Mg PO BIDWMEALS Preservision Lutein Softgel (Vit C/[place] Ac/Lut/Copper/Znox) 1 Each Capsule 1 Cap PO DAILY Hydrocodone-Apap 5-325 (Hydrocodone Bit/Acetaminophen) 1 Each Tablet 1 Tab PO PRN Q6HRS PRN Losartan Potassium 100 Mg Tablet 100 Mg PO DAILY Children's Aspirin (Aspirin) 81 Mg Tab.chew 81 Mg PO DAILY Amlodipine Besylate 10 Mg Tablet 10 Mg PO DAILY Zyprexa (Olanzapine) 2.5 Mg Tablet 2.5 Mg PO QHS Metoprolol Succinate ( Xl ) (Metoprolol Succinate) 25 Mg Tab.er.24h 25 Mg PO DAILY Plavix (Clopidogrel Bisulfate) 75 Mg Tablet 75 Mg PO DAILY Cymbalta (Duloxetine Hcl) 30 Mg Capsule.dr 90 Mg PO DAILY Tamsulosin Hcl 0.4 Mg Cap.er.24h 0.4 Mg PO QHS Xalatan (Latanoprost) 2.5 Ml Drops 1 Drop OU QHS Combigan Eye Drops (Brimonidine Tartrate/Timolol) 5 Ml Drops 1 Drop LEFTEYE BID Diagnosis: Problems: (1) Alzheimer's dementia (2) Dementia with behavioral disturbance (3) Anxiety disorder (4) Impulse control disorder (5) Major depressive disorder, recurrent episode JO DEWEY MD May 30, 2017 22:55
[2017-05-31 06:34] VITALS: BP 146/79
[2017-05-31] MEDS ORDERED: NALTREXONE HCL 50 MG TABLET PO SCH (09:00)
[2017-05-31] MEDS: MULTIVITAMIN I-VITE TABLET. PO SCH (09:04)
[2017-05-31] MEDS: CARVEDILOL 6.25 MG TABLET PO SCH ×2 (09:04→18:22)
[2017-05-31] MEDS: busPIRone 5 MG TABLET. PO SCH ×2 (09:04→14:57)
[2017-05-31] MEDS: CLOPIDOGREL BISULFATE 75 MG TABLET PO SCH (09:04)
[2017-05-31] MEDS: METOPROLOL SUCC 24HR ER 25 MG TAB.ER.24H. PO SCH (09:04)
[2017-05-31] MEDS: ASPIRIN 81 MG TAB.CHEW PO SCH (09:04)
[2017-05-31] MEDS: amLODIPine BESYLATE 10 MG TABLET PO SCH (09:05)
[2017-05-31] MEDS: DULoxetine HCL 30 MG CAPSULE.DR PO SCH (09:05)
[2017-05-31] MEDS: NICOTINE 21MG PATCH. TD SCH (09:05)
[2017-05-31] MEDS: LIDOCAINE (700MG/PATCH) PATCH. TD SCH (09:07)
[2017-05-31] MEDS: LOSARTAN 50 MG TABLET. PO SCH (09:10)
[2017-05-31] MEDS: BRIMONIDINE 0.2% OPHTH SOLUTION 5ML BOTTLE. OS SCH ×2 (09:11→21:25)
[2017-05-31] MEDS: TIMOLOL 0.5% OPHTH SOLUTION 5ML BOTTLE. OS SCH ×2 (09:11→21:25)
[2017-05-31 09:33] LABS: BASO # 0.1 x10^3/uL (0.0-0.2); BASO % 1 % (0-3); EOS % 0 % (0-3); HEMATOCRIT 35.5 % (39.0-53.0); HEMOGLOBIN 12.2 g/dL (13.0-17.5); LYMPH % 17 % (24-48); MEAN CORPUSCULAR HEMOGLOBIN 31 pg (25-35); MEAN CORPUSCULAR HGB CONC 34 g/dL (31-37); MEAN CORPUSCULAR VOLUME 91 fL (79-100); MONO # 0.5 x10^3/uL (0.0-1.1); MONO % 4 % (0-9); NEUT # 9.5 x10^3uL (1.8-7.7); NEUT % 78 % (31-73); PLATELET COUNT 281 x10^3/uL (140-400); RED BLOOD COUNT 3.89 x10^6/uL (4.30-5.70); RED CELL DISTRIBUTION WIDTH 16.1 % (11.5-14.5); WHITE BLOOD COUNT 12.1 x10^3/uL (4.0-11.0)
[2017-05-31 09:41] LABS: ALBUMIN 3.7 g/dL (3.4-5.0); ALBUMIN/GLOBULIN RATIO 1.1 (1.0-1.7); CALCIUM 8.6 mg/dL (8.5-10.1); CREATININE 1.1 mg/dL (0.7-1.3); GFR 65.1; POTASSIUM 3.9 mmol/L (3.5-5.1); TOTAL BILIRUBIN 0.6 mg/dL (0.2-1.0); TOTAL PROTEIN 7.2 g/dL (6.4-8.2)
[2017-05-31] MEDS: ALPRAZolam 0.5 MG TABLET PO PRN ×2 (11:03→14:58)
[2017-05-31] MEDS: CHOLECALCIFEROL (VITAMIN D3) 50,000 UNIT CAPSULE PO SCH (14:57)
[2017-05-31 16:30] VITALS: BP 133/87
[2017-05-31] MEDS: ATORVASTATIN CALCIUM 20 MG TABLET PO SCH (20:25)
[2017-05-31] MEDS: TAMSULOSIN 0.4 MG CAP.ER.24H. PO SCH (20:25)
[2017-05-31] MEDS: HYDROcodone/APAP 5/325MG 1 TAB TABLET PO PRN (20:28)
[2017-05-31] MEDS ORDERED: QUEtiapine 25 MG TABLET. PO SCH (21:00)
--- NOTE | 2017-05-31 21:11 | PDOC ---
Exam Kel Demential Exam: Kel Note: Please also refer to the separate dictated note~for this date of service dictated separately.~Patient seen individually. Discussed the patient with Nursing staff reviewed the chart.~Reviewed interim history and current functioning. Reviewed vital signs,~Labs/ Radiology~and current medications noted below. Continue current treatment with the changes noted in the dictated addendum note Assessment: Vital Signs: Vital Signs Date Time Temp Pulse Resp B/P (MAP) Pulse Ox O2 Delivery O2 Flow Rate FiO2 05/31/17 20:28 18 Room Air 05/31/17 18:22 95 133/87 05/31/17 16:30 97.6 97 I&O Intake and Output 06/01/17 07:00 Intake Total 1080 ml Balance 1080 ml Intake Oral 1080 ml Labs: Laboratory Tests Test 05/31/17 09:17 White Blood Count 12.1 x10^3/uL (4.0-11.0) H Red Blood Count 3.89 x10^6/uL (4.30-5.70) L Hemoglobin 12.2 g/dL (13.0-17.5) L Hematocrit 35.5 % (39.0-53.0) L Mean Corpuscular Volume 91 fL (79-100) Mean Corpuscular Hemoglobin 31 pg (25-35) Mean Corpuscular Hemoglobin Concent 34 g/dL (31-37) Red Cell Distribution Width 16.1 % (11.5-14.5) H Platelet Count 281 x10^3/uL (140-400) Neutrophils (%) (Auto) 78 % (31-73) H Lymphocytes (%) (Auto) 17 % (24-48) L Monocytes (%) (Auto) 4 % (0-9) Eosinophils (%) (Auto) 0 % (0-3) Basophils (%) (Auto) 1 % (0-3) Neutrophils # (Auto) 9.5 x10^3uL (1.8-7.7) H Lymphocytes # (Auto) 2.0 x10^3/uL (1.0-4.8) Monocytes # (Auto) 0.5 x10^3/uL (0.0-1.1) Eosinophils # (Auto) 0.0 x10^3/uL (0.0-0.7) Basophils # (Auto) 0.1 x10^3/uL (0.0-0.2) Sodium Level 133 mmol/L (136-145) L Potassium Level 3.9 mmol/L (3.5-5.1) Chloride Level 99 mmol/L (98-107) Carbon Dioxide Level 25 mmol/L (21-32) Anion Gap 9 (6-14) Blood Urea Nitrogen 10 mg/dL (8-26) Creatinine 1.1 mg/dL (0.7-1.3) Estimated GFR (Cockcroft-Gault) 65.1 BUN/Creatinine Ratio 9 (6-20) Glucose Level 147 mg/dL (70-99) H Calcium Level 8.6 mg/dL (8.5-10.1) Total Bilirubin 0.6 mg/dL (0.2-1.0) Aspartate Amino Transferase (AST) 18 U/L (15-37) Alanine Aminotransferase (ALT) 19 U/L (16-63) Alkaline Phosphatase 89 U/L (46-116) Total Protein 7.2 g/dL (6.4-8.2) Albumin 3.7 g/dL (3.4-5.0) Albumin/Globulin Ratio 1.1 (1.0-1.7) Current Medications: Meds: Current Medications Influenza Virus Vaccine Quadrival (Fluarix Quad 6806-0249 Syringe) 0.5 ml 1X ONCE VAX IM Last administered on 05/29/17 11:28; Start 05/29/17 at 09:00; Stop 05/29/17 at 09:01; Status DC Acetaminophen (Tylenol) 650 mg PRN Q6HRS PRN PO PAIN / TEMP Last administered on 05/29/17 18:20; Start 05/28/17 at 16:45 Multi-Ingredient Ointment (Analgesic [employer]) 1 aubree PRN QID PRN TP MUSCLE PAIN; Start 05/28/17 at 16:45 Al Hydroxide/Mg Hydroxide (Mylanta Plus Xs) 15 ml PRN AFTMEALHC PRN PO DYSPEPSIA; Start 05/28/17 at 16:45 Magnesium Hydroxide (Milk Of Magnesia) 2,400 mg PRN QHS PRN PO CONSTIPATION; Start 05/28/17 at 16:45 Nicotine (Nicoderm Cq 21mg) 1 patch DAILY TD Last administered on 05/31/17 09: 05; Start 05/29/17 at 09:00 Duloxetine HCl (Cymbalta) 90 mg BID PO ; Start 05/28/17 at 21:00; Stop 05/28/17 at 21:00; Status DC Olanzapine (ZyPREXA) 2.5 mg QHS PO Last administered on 05/30/17 21:08; Start 05/28/17 at 21:00; Stop 05/31/17 at 18:37; Status DC Alprazolam (Xanax) 1 mg PRN TID PRN PO ANXIETY / AGITATION Last administered on 05/28/17 20:09; Start 05/28/17 at 19:30; Stop 05/29/17 at 04:22; Status DC Duloxetine HCl (Cymbalta) 90 mg DAILY PO Last administered on 05/31/17 09:05; Start 05/29/17 at 09:00 Alprazolam (Xanax) 0.5 mg PRN TID PRN PO ANXIETY / AGITATION Last administered on 05/30/17 11:40; Start 05/29/17 at 04:30; Stop 05/30/17 at 18:49; Status DC Amlodipine Besylate (Norvasc) 10 mg DAILY PO Last administered on 05/31/17 09: 05; Start 05/30/17 at 09:00 Aspirin (Children'S Aspirin) 81 mg DAILY PO Last administered on 05/31/17 09: 04; Start 05/30/17 at 09:00 Carvedilol (Coreg) 6.25 mg BIDWMEALS PO Last administered on 05/31/17 18:22; Start 05/29/17 at 17:00 Clopidogrel Bisulfate (Plavix) 75 mg DAILY PO Last administered on 05/31/17 09 :04; Start 05/30/17 at 09:00 Acetaminophen/ Hydrocodone Bitart (Lortab 5/325) 1 tab PRN Q6HRS PRN PO PAIN Last administered on 05/31/17 20:28; Start 05/29/17 at 16:30 Latanoprost (Xalatan) 1 drop QHS OU Last administered on 05/30/17 21:07; Start 05/29/17 at 21:00 Metoprolol Succinate (Toprol Xl) 25 mg DAILY PO Last administered on 05/31/17 09:04; Start 05/30/17 at 09:00 Tamsulosin HCl (Flomax) 0.4 mg QHS PO Last administered on 05/31/17 20:25; Start 05/29/17 at 21:00 Atorvastatin Calcium (Lipitor) 80 mg QHS PO Last administered on 05/31/17 20: 25; Start 05/29/17 at 21:00 Brimonidine Tartrate (Alphagan) 1 drop BID OS Last administered on 05/31/17 09 :11; Start 05/29/17 at 21:00 Losartan Potassium (Cozaar) 100 mg DAILY PO Last administered on 05/31/17 09: 10; Start 05/30/17 at 09:00 Multivitamins/ Minerals (I-[place]) 1 tab DAILY PO Last administered on 05/31/17 09:04; Start 05/30/17 at 09:00 Timolol Maleate (Timoptic 0.5% [facility]) 1 drop BID OS Last administered on 09:11; Start 05/29/17 at 21:00 Olanzapine (ZyPREXA ZYDIS) 1.25 mg PRN Q2HR PRN PO ANXIETY; Start 05/30/17 at 12:00 Buspirone HCl (Buspar) 5 mg BID92 PO Last administered on 05/31/17 14:57; Start 05/30/17 at 14:00 Lidocaine (Lidoderm) 1 patch DAILY TD Last administered on 05/31/17 09:07; Start 05/30/17 at 18:00 Alprazolam (Xanax) 0.25 mg PRN Q2HR PRN PO ANXIETY / AGITATION Last administered on 05/31/17 14:58; Start 05/30/17 at 19:00 Naltrexone HCl (Depade) 25 mg DAILY PO ; Start 05/31/17 at 09:00; Stop 05/31/17 at 09:00; Status DC Vitamin D (Vitamin D3) 50,000 unit WEEKLY PO Last administered on 05/31/17 14: 57; Start 05/31/17 at 14:30 Quetiapine Fumarate (SEROquel) 25 mg QHS PO Last administered on 05/31/17 20: 27; Start 05/31/17 at 21:00 Active Scripts Active Reported Atorvastatin Calcium 80 Mg Tablet 80 Mg PO QHS Alprazolam 0.5 Mg Tablet 0.5 Mg PO PRN TID PRN Coreg (Carvedilol) 6.25 Mg Tablet 6.25 Mg PO BIDWMEALS Preservision Lutein Softgel (Vit C/[place] Ac/Lut/Copper/Znox) 1 Each Capsule 1 Cap PO DAILY Hydrocodone-Apap 5-325 (Hydrocodone Bit/Acetaminophen) 1 Each Tablet 1 Tab PO PRN Q6HRS PRN Losartan Potassium 100 Mg Tablet 100 Mg PO DAILY Children's Aspirin (Aspirin) 81 Mg Tab.chew 81 Mg PO DAILY Amlodipine Besylate 10 Mg Tablet 10 Mg PO DAILY Zyprexa (Olanzapine) 2.5 Mg Tablet 2.5 Mg PO QHS Metoprolol Succinate ( Xl ) (Metoprolol Succinate) 25 Mg Tab.er.24h 25 Mg PO DAILY Plavix (Clopidogrel Bisulfate) 75 Mg Tablet 75 Mg PO DAILY Cymbalta (Duloxetine Hcl) 30 Mg Capsule.dr 90 Mg PO DAILY Tamsulosin Hcl 0.4 Mg Cap.er.24h 0.4 Mg PO QHS Xalatan (Latanoprost) 2.5 Ml Drops 1 Drop OU QHS Combigan Eye Drops (Brimonidine Tartrate/Timolol) 5 Ml Drops 1 Drop LEFTEYE BID Diagnosis: Problems: (1) Alzheimer's dementia (2) Dementia with behavioral disturbance (3) Anxiety disorder (4) Impulse control disorder (5) Major depressive disorder, recurrent episode JO DEWEY MD May 31, 2017 21:11
[2017-05-31] MEDS: LATANOPROST 0.005% OPHTH SOLUTION 2.5ML BOTTLE. OU SCH (21:25)
[2017-06-01 06:27] VITALS: BP 149/73
[2017-06-01] MEDS: NICOTINE 21MG PATCH. TD SCH (08:57)
[2017-06-01] MEDS: LIDOCAINE (700MG/PATCH) PATCH. TD SCH (08:58)
[2017-06-01] MEDS: amLODIPine BESYLATE 10 MG TABLET PO SCH (08:59)
[2017-06-01] MEDS: busPIRone 5 MG TABLET. PO SCH ×2 (08:59→14:35)
[2017-06-01] MEDS: CLOPIDOGREL BISULFATE 75 MG TABLET PO SCH (08:59)
[2017-06-01] MEDS: METOPROLOL SUCC 24HR ER 25 MG TAB.ER.24H. PO SCH (08:59)
[2017-06-01] MEDS: ASPIRIN 81 MG TAB.CHEW PO SCH (09:00)
[2017-06-01] MEDS: DULoxetine HCL 30 MG CAPSULE.DR PO SCH (09:00)
[2017-06-01] MEDS: CARVEDILOL 6.25 MG TABLET PO SCH ×2 (09:00→16:30)
[2017-06-01] MEDS: LOSARTAN 50 MG TABLET. PO SCH (09:00)
[2017-06-01] MEDS: MULTIVITAMIN I-VITE TABLET. PO SCH (09:01)
[2017-06-01] MEDS: TIMOLOL 0.5% OPHTH SOLUTION 5ML BOTTLE. OS SCH ×2 (09:02→20:38)
[2017-06-01] MEDS: BRIMONIDINE 0.2% OPHTH SOLUTION 5ML BOTTLE. OS SCH ×2 (09:02→20:38)
[2017-06-01] MEDS: HYDROcodone/APAP 5/325MG 1 TAB TABLET PO PRN ×2 (11:44→18:49)
[2017-06-01] MEDS: ALPRAZolam 0.5 MG TABLET PO PRN (14:35)
[2017-06-01 16:13] VITALS: BP 103/66
--- NOTE | 2017-06-01 18:01 | PN ---
DATE: 05/30/2017 This is a late entry 05/30/2017, covers the elements not covered in my initial note of 05/30/2017. SUBJECTIVE: I met with the patient evening of 05/30/2017. The patient remains somewhat anxious, restless at times, responds to Xanax, but seems inadequate and we will change the schedule to 0.25 mg q.2 hours p.r.n. anxiety max 2 mg in 24 hours. REVIEW OF SYSTEMS: I met with him in his room. No CV, , pulmonary, eye, ENT system symptoms on review. MENTAL STATUS EXAM: Oriented to himself and situation. Speech is coherent, has some latency. Abstraction fair, computation impaired, language function intact. Short-term memory is impaired. Mood and affect withdrawn. LABORATORY DATA: Reviewed. IMPRESSION: Unchanged from initial note. PLAN: Continue psychotropics as mentioned in my initial note. I had considered adding naltrexone given his history of alcohol abuse. The fact he will be going back home, but he is on narcotics and this may precipitated withdrawal and ineffectiveness of the narcotics and we will avoid this. We will clarify whether we have had to institute something given his history of alcohol abuse and then reconsider other options. Review drug contractions, risk/benefit ratio favors no further. JO DEWEY MD DR: SANJEEV/margo JOB#: [id number] / [id number]
[2017-06-01] MEDS: ATORVASTATIN CALCIUM 20 MG TABLET PO SCH (20:36)
[2017-06-01] MEDS: TAMSULOSIN 0.4 MG CAP.ER.24H. PO SCH (20:38)
[2017-06-01] MEDS: LATANOPROST 0.005% OPHTH SOLUTION 2.5ML BOTTLE. OU SCH (20:39)
[2017-06-01] MEDS: QUEtiapine 50 MG TABLET. PO SCH (20:43)
--- NOTE | 2017-06-01 21:05 | PDOC ---
Exam Kel Demential Exam: Kel Note: Please also refer to the separate dictated note~for this date of service dictated separately.~Patient seen individually. Discussed the patient with Nursing staff reviewed the chart.~Reviewed interim history and current functioning. Reviewed vital signs,~Labs/ Radiology~and current medications noted below. Continue current treatment with the changes noted in the dictated addendum note Assessment: Vital Signs: Vital Signs Date Time Temp Pulse Resp B/P (MAP) Pulse Ox O2 Delivery O2 Flow Rate FiO2 06/01/17 20:31 18 Room Air 06/01/17 18:49 98 06/01/17 16:30 77 103/66 06/01/17 16:13 97.1 I&O Intake and Output 06/02/17 07:00 Intake Total 960 ml Balance 960 ml Intake Oral 960 ml Current Medications: Meds: Current Medications Influenza Virus Vaccine Quadrival (Fluarix Quad 2451-7360 Syringe) 0.5 ml 1X ONCE VAX IM Last administered on 05/29/17 11:28; Start 05/29/17 at 09:00; Stop 05/29/17 at 09:01; Status DC Acetaminophen (Tylenol) 650 mg PRN Q6HRS PRN PO PAIN / TEMP Last administered on 05/29/17 18:20; Start 05/28/17 at 16:45 Multi-Ingredient Ointment (Analgesic [place]) 1 aubree PRN QID PRN TP MUSCLE PAIN; Start 05/28/17 at 16:45 Al Hydroxide/Mg Hydroxide (Mylanta Plus Xs) 15 ml PRN AFTMEALHC PRN PO DYSPEPSIA; Start 05/28/17 at 16:45 Magnesium Hydroxide (Milk Of Magnesia) 2,400 mg PRN QHS PRN PO CONSTIPATION; Start 05/28/17 at 16:45 Nicotine (Nicoderm Cq 21mg) 1 patch DAILY TD Last administered on 06/01/17 08: 57; Start 05/29/17 at 09:00 Duloxetine HCl (Cymbalta) 90 mg BID PO ; Start 05/28/17 at 21:00; Stop 05/28/17 at 21:00; Status DC Olanzapine (ZyPREXA) 2.5 mg QHS PO Last administered on 05/30/17 21:08; Start 05/28/17 at 21:00; Stop 05/31/17 at 18:37; Status DC Alprazolam (Xanax) 1 mg PRN TID PRN PO ANXIETY / AGITATION Last administered on 05/28/17 20:09; Start 05/28/17 at 19:30; Stop 05/29/17 at 04:22; Status DC Duloxetine HCl (Cymbalta) 90 mg DAILY PO Last administered on 06/01/17 09:00; Start 05/29/17 at 09:00 Alprazolam (Xanax) 0.5 mg PRN TID PRN PO ANXIETY / AGITATION Last administered on 05/30/17 11:40; Start 05/29/17 at 04:30; Stop 05/30/17 at 18:49; Status DC Amlodipine Besylate (Norvasc) 10 mg DAILY PO Last administered on 06/01/17 08: 59; Start 05/30/17 at 09:00 Aspirin (Children'S Aspirin) 81 mg DAILY PO Last administered on 06/01/17 09: 00; Start 05/30/17 at 09:00 Carvedilol (Coreg) 6.25 mg BIDWMEALS PO Last administered on 06/01/17 09:00; Start 05/29/17 at 17:00 Clopidogrel Bisulfate (Plavix) 75 mg DAILY PO Last administered on 06/01/17 08 :59; Start 05/30/17 at 09:00 Acetaminophen/ Hydrocodone Bitart (Lortab 5/325) 1 tab PRN Q6HRS PRN PO PAIN Last administered on 06/01/17 18:49; Start 05/29/17 at 16:30 Latanoprost (Xalatan) 1 drop QHS OU Last administered on 06/01/17 20:39; Start 05/29/17 at 21:00 Metoprolol Succinate (Toprol Xl) 25 mg DAILY PO Last administered on 06/01/17 08:59; Start 05/30/17 at 09:00 Tamsulosin HCl (Flomax) 0.4 mg QHS PO Last administered on 06/01/17 20:38; Start 05/29/17 at 21:00 Atorvastatin Calcium (Lipitor) 80 mg QHS PO Last administered on 06/01/17 20: 36; Start 05/29/17 at 21:00 Brimonidine Tartrate (Alphagan) 1 drop BID OS Last administered on 06/01/17 20 :38; Start 05/29/17 at 21:00 Losartan Potassium (Cozaar) 100 mg DAILY PO Last administered on 06/01/17 09: 00; Start 05/30/17 at 09:00 Multivitamins/ Minerals (I-[place]) 1 tab DAILY PO Last administered on 06/01/17 09:01; Start 05/30/17 at 09:00 Timolol Maleate (Timoptic 0.5% [facility]) 1 drop BID OS Last administered on 20:38; Start 05/29/17 at 21:00 Olanzapine (ZyPREXA ZYDIS) 1.25 mg PRN Q2HR PRN PO ANXIETY; Start 05/30/17 at 12:00 Buspirone HCl (Buspar) 5 mg BID92 PO Last administered on 06/01/17 14:35; Start 05/30/17 at 14:00 Lidocaine (Lidoderm) 1 patch DAILY TD Last administered on 06/01/17 08:58; Start 05/30/17 at 18:00 Alprazolam (Xanax) 0.25 mg PRN Q2HR PRN PO ANXIETY / AGITATION Last administered on 06/01/17 14:35; Start 05/30/17 at 19:00 Naltrexone HCl (Depade) 25 mg DAILY PO ; Start 05/31/17 at 09:00; Stop 05/31/17 at 09:00; Status DC Vitamin D (Vitamin D3) 50,000 unit WEEKLY PO Last administered on 05/31/17 14: 57; Start 05/31/17 at 14:30 Quetiapine Fumarate (SEROquel) 25 mg QHS PO Last administered on 05/31/17 20: 27; Start 05/31/17 at 21:00; Stop 06/01/17 at 18:24; Status DC Quetiapine Fumarate (SEROquel) 50 mg QHS PO Last administered on 06/01/17 20: 43; Start 06/01/17 at 21:00 Active Scripts Active Reported Atorvastatin Calcium 80 Mg Tablet 80 Mg PO QHS Alprazolam 0.5 Mg Tablet 0.5 Mg PO PRN TID PRN Coreg (Carvedilol) 6.25 Mg Tablet 6.25 Mg PO BIDWMEALS Preservision Lutein Softgel (Vit C/[place] Ac/Lut/Copper/Znox) 1 Each Capsule 1 Cap PO DAILY Hydrocodone-Apap 5-325 (Hydrocodone Bit/Acetaminophen) 1 Each Tablet 1 Tab PO PRN Q6HRS PRN Losartan Potassium 100 Mg Tablet 100 Mg PO DAILY Children's Aspirin (Aspirin) 81 Mg Tab.chew 81 Mg PO DAILY Amlodipine Besylate 10 Mg Tablet 10 Mg PO DAILY Zyprexa (Olanzapine) 2.5 Mg Tablet 2.5 Mg PO QHS Metoprolol Succinate ( Xl ) (Metoprolol Succinate) 25 Mg Tab.er.24h 25 Mg PO DAILY Plavix (Clopidogrel Bisulfate) 75 Mg Tablet 75 Mg PO DAILY Cymbalta (Duloxetine Hcl) 30 Mg Capsule.dr 90 Mg PO DAILY Tamsulosin Hcl 0.4 Mg Cap.er.24h 0.4 Mg PO QHS Xalatan (Latanoprost) 2.5 Ml Drops 1 Drop OU QHS Combigan Eye Drops (Brimonidine Tartrate/Timolol) 5 Ml Drops 1 Drop LEFTEYE BID Diagnosis: Problems: (1) Alzheimer's dementia (2) Dementia with behavioral disturbance (3) Anxiety disorder (4) Impulse control disorder (5) Major depressive disorder, recurrent episode JO DEWEY MD Jun 01, 2017 21:05
[2017-06-02 06:30] VITALS: BP 114/69
[2017-06-02] MEDS: MULTIVITAMIN I-VITE TABLET. PO SCH (08:26)
[2017-06-02] MEDS: ASPIRIN 81 MG TAB.CHEW PO SCH (08:26)
[2017-06-02] MEDS: CLOPIDOGREL BISULFATE 75 MG TABLET PO SCH (08:26)
[2017-06-02] MEDS: LOSARTAN 50 MG TABLET. PO SCH (08:27)
[2017-06-02] MEDS: CARVEDILOL 6.25 MG TABLET PO SCH ×2 (08:28→16:50)
[2017-06-02] MEDS: amLODIPine BESYLATE 10 MG TABLET PO SCH (08:29)
[2017-06-02] MEDS: busPIRone 5 MG TABLET. PO SCH ×2 (08:29→13:37)
[2017-06-02] MEDS: DULoxetine HCL 30 MG CAPSULE.DR PO SCH (08:29)
[2017-06-02] MEDS: METOPROLOL SUCC 24HR ER 25 MG TAB.ER.24H. PO SCH (08:29)
[2017-06-02] MEDS: NICOTINE 21MG PATCH. TD SCH (08:30)
[2017-06-02] MEDS: LIDOCAINE (700MG/PATCH) PATCH. TD SCH (08:31)
[2017-06-02] MEDS: TIMOLOL 0.5% OPHTH SOLUTION 5ML BOTTLE. OS SCH ×2 (08:32→19:31)
[2017-06-02] MEDS: BRIMONIDINE 0.2% OPHTH SOLUTION 5ML BOTTLE. OS SCH ×2 (08:32→19:31)
[2017-06-02] MEDS: HYDROcodone/APAP 5/325MG 1 TAB TABLET PO PRN ×2 (10:27→16:51)
[2017-06-02] MEDS: ALPRAZolam 0.5 MG TABLET PO PRN ×2 (11:23→16:51)
[2017-06-02 16:21] VITALS: BP 120/70
--- NOTE | 2017-06-02 17:14 | PN ---
DATE: 05/31/2017 This is late entry for 05/31/2017, covers elements not covered in the initial note of 05/31/2017. SUBJECTIVE: I met with the patient on the evening of 05/31/2017. Previous evening, the patient was somewhat withdrawn. During the day on 05/31/2017, he had been wandering, anxious in the evening, obsessive about calling his , somewhat delusional, believes someone hurt him the previous evening. REVIEW OF SYSTEMS: No CV, , pulmonary, eye, ENT system symptoms on review. He does complain of ongoing pain, which is fairly persistent. MENTAL STATUS EXAM: Oriented to himself and situation. Speech is coherent. Abstraction fair, computation impaired, language function intact, attention span short. Mood and affect somewhat depressed, anxious. No suicidal or homicidal ideation. LABORATORY DATA: Reviewed. IMPRESSION: Unchanged from initial note. PLAN: Change the Zyprexa 2.5 mg at bedtime to Seroquel 25 mg at bedtime, may need to increase this in due course. Maintain rest of the psychotropics unchanged. Reviewed drug interactions, risk/benefit ratio favors no further change. MAN Eduin DEWEY MD DR: SANJEEV/margo JOB#: [id number] / [id number]
[2017-06-02] MEDS: QUEtiapine 50 MG TABLET. PO SCH (19:25)
[2017-06-02] MEDS: TAMSULOSIN 0.4 MG CAP.ER.24H. PO SCH (19:25)
[2017-06-02] MEDS: ATORVASTATIN CALCIUM 20 MG TABLET PO SCH (19:28)
[2017-06-02] MEDS: oxyCODONE ER 10 MG TAB.ER.12H PO SCH (19:31)
[2017-06-02] MEDS: LATANOPROST 0.005% OPHTH SOLUTION 2.5ML BOTTLE. OU SCH (19:31)
--- NOTE | 2017-06-02 21:01 | PDOC ---
Exam Kel Demential Exam: Kel Note: Please also refer to the separate dictated note~for this date of service dictated separately.~Patient seen individually. Discussed the patient with Nursing staff reviewed the chart.~Reviewed interim history and current functioning. Reviewed vital signs,~Labs/ Radiology~and current medications noted below. Continue current treatment with the changes noted in the dictated addendum note Assessment: Vital Signs: Vital Signs Date Time Temp Pulse Resp B/P (MAP) Pulse Ox O2 Delivery O2 Flow Rate FiO2 06/02/17 19:31 18 Room Air 06/02/17 16:50 81 120/70 06/02/17 16:21 98.1 97 I&O Intake and Output 06/03/17 07:00 Intake Total 960 ml Balance 960 ml Intake Oral 960 ml Current Medications: Meds: Current Medications Influenza Virus Vaccine Quadrival (Fluarix Quad [id number] Syringe) 0.5 ml 1X ONCE VAX IM Last administered on 05/29/17 11:28; Start 05/29/17 at 09:00; Stop 05/29/17 at 09:01; Status DC Acetaminophen (Tylenol) 650 mg PRN Q6HRS PRN PO PAIN / TEMP Last administered on 05/29/17 18:20; Start 05/28/17 at 16:45 Multi-Ingredient Ointment (Analgesic [place]) 1 aubree PRN QID PRN TP MUSCLE PAIN; Start 05/28/17 at 16:45 Al Hydroxide/Mg Hydroxide (Mylanta Plus Xs) 15 ml PRN AFTMEALHC PRN PO DYSPEPSIA; Start 05/28/17 at 16:45 Magnesium Hydroxide (Milk Of Magnesia) 2,400 mg PRN QHS PRN PO CONSTIPATION; Start 05/28/17 at 16:45 Nicotine (Nicoderm Cq 21mg) 1 patch DAILY TD Last administered on 06/02/17 08: 30; Start 05/29/17 at 09:00 Duloxetine HCl (Cymbalta) 90 mg BID PO ; Start 05/28/17 at 21:00; Stop 05/28/17 at 21:00; Status DC Olanzapine (ZyPREXA) 2.5 mg QHS PO Last administered on 05/30/17 21:08; Start 05/28/17 at 21:00; Stop 05/31/17 at 18:37; Status DC Alprazolam (Xanax) 1 mg PRN TID PRN PO ANXIETY / AGITATION Last administered on 05/28/17 20:09; Start 05/28/17 at 19:30; Stop 05/29/17 at 04:22; Status DC Duloxetine HCl (Cymbalta) 90 mg DAILY PO Last administered on 06/02/17 08:29; Start 05/29/17 at 09:00 Alprazolam (Xanax) 0.5 mg PRN TID PRN PO ANXIETY / AGITATION Last administered on 05/30/17 11:40; Start 05/29/17 at 04:30; Stop 05/30/17 at 18:49; Status DC Amlodipine Besylate (Norvasc) 10 mg DAILY PO Last administered on 06/02/17 08: 29; Start 05/30/17 at 09:00 Aspirin (Children'S Aspirin) 81 mg DAILY PO Last administered on 06/02/17 08: 26; Start 05/30/17 at 09:00 Carvedilol (Coreg) 6.25 mg BIDWMEALS PO Last administered on 06/02/17 16:50; Start 05/29/17 at 17:00 Clopidogrel Bisulfate (Plavix) 75 mg DAILY PO Last administered on 06/02/17 08 :26; Start 05/30/17 at 09:00 Acetaminophen/ Hydrocodone Bitart (Lortab 5/325) 1 tab PRN Q6HRS PRN PO PAIN Last administered on 06/02/17 16:51; Start 05/29/17 at 16:30 Latanoprost (Xalatan) 1 drop QHS OU Last administered on 06/02/17 19:31; Start 05/29/17 at 21:00 Metoprolol Succinate (Toprol Xl) 25 mg DAILY PO Last administered on 06/02/17 08:29; Start 05/30/17 at 09:00 Tamsulosin HCl (Flomax) 0.4 mg QHS PO Last administered on 06/02/17 19:25; Start 05/29/17 at 21:00 Atorvastatin Calcium (Lipitor) 80 mg QHS PO Last administered on 06/02/17 19: 28; Start 05/29/17 at 21:00 Brimonidine Tartrate (Alphagan) 1 drop BID OS Last administered on 06/02/17 19 :31; Start 05/29/17 at 21:00 Losartan Potassium (Cozaar) 100 mg DAILY PO Last administered on 06/02/17 08: 27; Start 05/30/17 at 09:00 Multivitamins/ Minerals (I-[place]) 1 tab DAILY PO Last administered on 06/02/17 08:26; Start 05/30/17 at 09:00 Timolol Maleate (Timoptic 0.5% [facility]) 1 drop BID OS Last administered on 19:31; Start 05/29/17 at 21:00 Olanzapine (ZyPREXA ZYDIS) 1.25 mg PRN Q2HR PRN PO ANXIETY; Start 05/30/17 at 12:00 Buspirone HCl (Buspar) 5 mg BID92 PO Last administered on 06/02/17 13:37; Start 05/30/17 at 14:00 Lidocaine (Lidoderm) 1 patch DAILY TD Last administered on 06/02/17 08:31; Start 05/30/17 at 18:00 Alprazolam (Xanax) 0.25 mg PRN Q2HR PRN PO ANXIETY / AGITATION Last administered on 06/02/17 16:51; Start 05/30/17 at 19:00 Naltrexone HCl (Depade) 25 mg DAILY PO ; Start 05/31/17 at 09:00; Stop 05/31/17 at 09:00; Status DC Vitamin D (Vitamin D3) 50,000 unit WEEKLY PO Last administered on 05/31/17 14: 57; Start 05/31/17 at 14:30 Quetiapine Fumarate (SEROquel) 25 mg QHS PO Last administered on 05/31/17 20: 27; Start 05/31/17 at 21:00; Stop 06/01/17 at 18:24; Status DC Quetiapine Fumarate (SEROquel) 50 mg QHS PO Last administered on 06/02/17 19: 25; Start 06/01/17 at 21:00 Oxycodone HCl (OxyCONTIN) 10 mg Q12HR PO Last administered on 06/02/17 19:31; Start 06/02/17 at 21:00 Quetiapine Fumarate (SEROquel) 12.5 mg BID@0900,1400 PO ; Start 06/03/17 at 09: 00 Active Scripts Active Reported Atorvastatin Calcium 80 Mg Tablet 80 Mg PO QHS Alprazolam 0.5 Mg Tablet 0.5 Mg PO PRN TID PRN Coreg (Carvedilol) 6.25 Mg Tablet 6.25 Mg PO BIDWMEALS Preservision Lutein Softgel (Vit C/[place] Ac/Lut/Copper/Znox) 1 Each Capsule 1 Cap PO DAILY Hydrocodone-Apap 5-325 (Hydrocodone Bit/Acetaminophen) 1 Each Tablet 1 Tab PO PRN Q6HRS PRN Losartan Potassium 100 Mg Tablet 100 Mg PO DAILY Children's Aspirin (Aspirin) 81 Mg Tab.chew 81 Mg PO DAILY Amlodipine Besylate 10 Mg Tablet 10 Mg PO DAILY Zyprexa (Olanzapine) 2.5 Mg Tablet 2.5 Mg PO QHS Metoprolol Succinate ( Xl ) (Metoprolol Succinate) 25 Mg Tab.er.24h 25 Mg PO DAILY Plavix (Clopidogrel Bisulfate) 75 Mg Tablet 75 Mg PO DAILY Cymbalta (Duloxetine Hcl) 30 Mg Capsule.dr 90 Mg PO DAILY Tamsulosin Hcl 0.4 Mg Cap.er.24h 0.4 Mg PO QHS Xalatan (Latanoprost) 2.5 Ml Drops 1 Drop OU QHS Combigan Eye Drops (Brimonidine Tartrate/Timolol) 5 Ml Drops 1 Drop LEFTEYE BID Diagnosis: Problems: (1) Alzheimer's dementia (2) Dementia with behavioral disturbance (3) Anxiety disorder (4) Impulse control disorder (5) Major depressive disorder, recurrent episode JO DEWEY MD Jun 02, 2017 21:01
[2017-06-03 06:04] VITALS: BP 97/56
[2017-06-03] MEDS: busPIRone 5 MG TABLET. PO SCH ×2 (07:52→13:17)
[2017-06-03] MEDS: amLODIPine BESYLATE 10 MG TABLET PO SCH (07:52)
[2017-06-03] MEDS: DULoxetine HCL 30 MG CAPSULE.DR PO SCH (07:53)
[2017-06-03] MEDS: METOPROLOL SUCC 24HR ER 25 MG TAB.ER.24H. PO SCH (07:53)
[2017-06-03] MEDS: CARVEDILOL 6.25 MG TABLET PO SCH ×2 (07:53→15:56)
[2017-06-03] MEDS: NICOTINE 21MG PATCH. TD SCH (07:54)
[2017-06-03] MEDS: CLOPIDOGREL BISULFATE 75 MG TABLET PO SCH (07:54)
[2017-06-03] MEDS: ASPIRIN 81 MG TAB.CHEW PO SCH (07:54)
[2017-06-03] MEDS: MULTIVITAMIN I-VITE TABLET. PO SCH (07:54)
[2017-06-03] MEDS: LOSARTAN 50 MG TABLET. PO SCH (07:54)
[2017-06-03] MEDS: LIDOCAINE (700MG/PATCH) PATCH. TD SCH (07:55)
[2017-06-03] MEDS: TIMOLOL 0.5% OPHTH SOLUTION 5ML BOTTLE. OS SCH ×2 (07:59→19:36)
[2017-06-03] MEDS: oxyCODONE ER 10 MG TAB.ER.12H PO SCH ×2 (07:59→19:36)
[2017-06-03] MEDS: BRIMONIDINE 0.2% OPHTH SOLUTION 5ML BOTTLE. OS SCH ×2 (07:59→19:36)
[2017-06-03] MEDS: QUEtiapine 25 MG TABLET. PO SCH ×2 (08:00→13:17)
[2017-06-03 08:20] VITALS: BP 124/78
--- NOTE | 2017-06-03 08:23 | PN ---
DATE: 06/01/2017 PSYCHIATRIC PROGRESS NOTE This is a late entry 06/01/2017, covers elements not covered in my initial order on 06/01/2017. I met with the patient evening of 06/01/2017. He continues to be somewhat anxious, preoccupied with pain, slept 5-3/4 hours previous night. He is either asking for pain medications or anxiety medications per nursing report. REVIEW OF SYSTEMS: Positive for chronic pain. No CV, , pulmonary, eye, ENT system symptoms on review. MENTAL STATUS EXAM: Oriented to himself and situation. Speech is coherent, abstraction fair, computation impaired, language function intact. Attention span short. No active suicidal or homicidal ideation. LABORATORY DATA: Reviewed. IMPRESSION: Unchanged from initial note. PLAN: Increase Seroquel from 25 mg at bedtime to 50 mg at bedtime. Rest of the psychotropics will remain unchanged. Reviewed drug interactions. Risk/benefit ratio favors no further. JO DEWEY MD DR: SANJEEV/margo JOB#: [id number] / [id number]
[2017-06-03] MEDS: ALPRAZolam 0.5 MG TABLET PO PRN ×2 (09:47→15:55)
[2017-06-03] MEDS: ACETAMINOPHEN 325 MG TABLET PO PRN (10:30)
[2017-06-03] MEDS: HYDROcodone/APAP 5/325MG 1 TAB TABLET PO PRN (13:17)
[2017-06-03 16:27] VITALS: BP 125/85
[2017-06-03] MEDS: QUEtiapine 50 MG TABLET. PO SCH (19:34)
[2017-06-03] MEDS: TAMSULOSIN 0.4 MG CAP.ER.24H. PO SCH (19:34)
[2017-06-03] MEDS: ATORVASTATIN CALCIUM 20 MG TABLET PO SCH (19:35)
[2017-06-03] MEDS: LATANOPROST 0.005% OPHTH SOLUTION 2.5ML BOTTLE. OU SCH (19:36)
--- NOTE | 2017-06-03 20:54 | PDOC ---
Exam Kel Demential Exam: Kel Note: Please also refer to the separate dictated note~for this date of service dictated separately.~Patient seen individually. Discussed the patient with Nursing staff reviewed the chart.~Reviewed interim history and current functioning. Reviewed vital signs,~Labs/ Radiology~and current medications noted below. Continue current treatment with the changes noted in the dictated addendum note Assessment: Vital Signs: Vital Signs Date Time Temp Pulse Resp B/P (MAP) Pulse Ox O2 Delivery O2 Flow Rate FiO2 06/03/17 19:36 18 98 Room Air 06/03/17 16:27 98.9 79 125/85 (98) I&O Intake and Output 06/04/17 07:00 Intake Total 1520 ml Balance 1520 ml Intake Oral 1520 ml Current Medications: Meds: Current Medications Influenza Virus Vaccine Quadrival (Fluarix Quad 7134-0896 Syringe) 0.5 ml 1X ONCE VAX IM Last administered on 05/29/17 11:28; Start 05/29/17 at 09:00; Stop 05/29/17 at 09:01; Status DC Acetaminophen (Tylenol) 650 mg PRN Q6HRS PRN PO PAIN / TEMP Last administered on 06/03/17 10:30; Start 05/28/17 at 16:45 Multi-Ingredient Ointment (Analgesic [place]) 1 aubree PRN QID PRN TP MUSCLE PAIN; Start 05/28/17 at 16:45 Al Hydroxide/Mg Hydroxide (Mylanta Plus Xs) 15 ml PRN AFTMEALHC PRN PO DYSPEPSIA; Start 05/28/17 at 16:45 Magnesium Hydroxide (Milk Of Magnesia) 2,400 mg PRN QHS PRN PO CONSTIPATION; Start 05/28/17 at 16:45 Nicotine (Nicoderm Cq 21mg) 1 patch DAILY TD Last administered on 06/03/17 07: 54; Start 05/29/17 at 09:00 Duloxetine HCl (Cymbalta) 90 mg BID PO ; Start 05/28/17 at 21:00; Stop 05/28/17 at 21:00; Status DC Olanzapine (ZyPREXA) 2.5 mg QHS PO Last administered on 05/30/17 21:08; Start 05/28/17 at 21:00; Stop 05/31/17 at 18:37; Status DC Alprazolam (Xanax) 1 mg PRN TID PRN PO ANXIETY / AGITATION Last administered on 05/28/17 20:09; Start 05/28/17 at 19:30; Stop 05/29/17 at 04:22; Status DC Duloxetine HCl (Cymbalta) 90 mg DAILY PO Last administered on 06/03/17 07:53; Start 05/29/17 at 09:00 Alprazolam (Xanax) 0.5 mg PRN TID PRN PO ANXIETY / AGITATION Last administered on 05/30/17 11:40; Start 05/29/17 at 04:30; Stop 05/30/17 at 18:49; Status DC Amlodipine Besylate (Norvasc) 10 mg DAILY PO Last administered on 06/03/17 07: 52; Start 05/30/17 at 09:00 Aspirin (Children'S Aspirin) 81 mg DAILY PO Last administered on 06/03/17 07: 54; Start 05/30/17 at 09:00 Carvedilol (Coreg) 6.25 mg BIDWMEALS PO Last administered on 06/03/17 15:56; Start 05/29/17 at 17:00 Clopidogrel Bisulfate (Plavix) 75 mg DAILY PO Last administered on 06/03/17 07 :54; Start 05/30/17 at 09:00 Acetaminophen/ Hydrocodone Bitart (Lortab 5/325) 1 tab PRN Q6HRS PRN PO PAIN Last administered on 06/03/17 13:17; Start 05/29/17 at 16:30 Latanoprost (Xalatan) 1 drop QHS OU Last administered on 06/03/17 19:36; Start 05/29/17 at 21:00 Metoprolol Succinate (Toprol Xl) 25 mg DAILY PO Last administered on 06/03/17 07:53; Start 05/30/17 at 09:00 Tamsulosin HCl (Flomax) 0.4 mg QHS PO Last administered on 06/03/17 19:34; Start 05/29/17 at 21:00 Atorvastatin Calcium (Lipitor) 80 mg QHS PO Last administered on 06/03/17 19: 35; Start 05/29/17 at 21:00 Brimonidine Tartrate (Alphagan) 1 drop BID OS Last administered on 06/03/17 19 :36; Start 05/29/17 at 21:00 Losartan Potassium (Cozaar) 100 mg DAILY PO Last administered on 06/03/17 07: 54; Start 05/30/17 at 09:00 Multivitamins/ Minerals (I-[place]) 1 tab DAILY PO Last administered on 06/03/17 07:54; Start 05/30/17 at 09:00 Timolol Maleate (Timoptic 0.5% [facility]) 1 drop BID OS Last administered on 19:36; Start 05/29/17 at 21:00 Olanzapine (ZyPREXA ZYDIS) 1.25 mg PRN Q2HR PRN PO ANXIETY; Start 05/30/17 at 12:00 Buspirone HCl (Buspar) 5 mg BID92 PO Last administered on 06/03/17 13:17; Start 05/30/17 at 14:00 Lidocaine (Lidoderm) 1 patch DAILY TD Last administered on 06/03/17 07:55; Start 05/30/17 at 18:00 Alprazolam (Xanax) 0.25 mg PRN Q2HR PRN PO ANXIETY / AGITATION Last administered on 06/03/17 15:55; Start 05/30/17 at 19:00 Naltrexone HCl (Depade) 25 mg DAILY PO ; Start 05/31/17 at 09:00; Stop 05/31/17 at 09:00; Status DC Vitamin D (Vitamin D3) 50,000 unit WEEKLY PO Last administered on 05/31/17 14: 57; Start 05/31/17 at 14:30 Quetiapine Fumarate (SEROquel) 25 mg QHS PO Last administered on 05/31/17 20: 27; Start 05/31/17 at 21:00; Stop 06/01/17 at 18:24; Status DC Quetiapine Fumarate (SEROquel) 50 mg QHS PO Last administered on 06/03/17 19: 34; Start 06/01/17 at 21:00 Oxycodone HCl (OxyCONTIN) 10 mg Q12HR PO Last administered on 06/03/17 19:36; Start 06/02/17 at 21:00 Quetiapine Fumarate (SEROquel) 12.5 mg BID@0900,1400 PO Last administered on t 13:17; Start 06/03/17 at 09:00 Active Scripts Active Reported Atorvastatin Calcium 80 Mg Tablet 80 Mg PO QHS Alprazolam 0.5 Mg Tablet 0.5 Mg PO PRN TID PRN Coreg (Carvedilol) 6.25 Mg Tablet 6.25 Mg PO BIDWMEALS Preservision Lutein Softgel (Vit C/[place] Ac/Lut/Copper/Znox) 1 Each Capsule 1 Cap PO DAILY Hydrocodone-Apap 5-325 (Hydrocodone Bit/Acetaminophen) 1 Each Tablet 1 Tab PO PRN Q6HRS PRN Losartan Potassium 100 Mg Tablet 100 Mg PO DAILY Children's Aspirin (Aspirin) 81 Mg Tab.chew 81 Mg PO DAILY Amlodipine Besylate 10 Mg Tablet 10 Mg PO DAILY Zyprexa (Olanzapine) 2.5 Mg Tablet 2.5 Mg PO QHS Metoprolol Succinate ( Xl ) (Metoprolol Succinate) 25 Mg Tab.er.24h 25 Mg PO DAILY Plavix (Clopidogrel Bisulfate) 75 Mg Tablet 75 Mg PO DAILY Cymbalta (Duloxetine Hcl) 30 Mg Capsule.dr 90 Mg PO DAILY Tamsulosin Hcl 0.4 Mg Cap.er.24h 0.4 Mg PO QHS Xalatan (Latanoprost) 2.5 Ml Drops 1 Drop OU QHS Combigan Eye Drops (Brimonidine Tartrate/Timolol) 5 Ml Drops 1 Drop LEFTEYE BID Diagnosis: Problems: (1) Alzheimer's dementia (2) Dementia with behavioral disturbance (3) Anxiety disorder (4) Impulse control disorder (5) Major depressive disorder, recurrent episode JO DEWEY MD Jun 03, 2017 20:54
[2017-06-04 06:23] VITALS: BP 111/73
[2017-06-04] MEDS: NICOTINE 21MG PATCH. TD SCH (08:31)
[2017-06-04] MEDS: busPIRone 5 MG TABLET. PO SCH ×2 (08:32→12:58)
[2017-06-04] MEDS: MULTIVITAMIN I-VITE TABLET. PO SCH (08:32)
[2017-06-04] MEDS: METOPROLOL SUCC 24HR ER 25 MG TAB.ER.24H. PO SCH (08:32)
[2017-06-04] MEDS: QUEtiapine 25 MG TABLET. PO SCH ×2 (08:32→12:58)
[2017-06-04] MEDS: LIDOCAINE (700MG/PATCH) PATCH. TD SCH (08:32)
[2017-06-04] MEDS: CLOPIDOGREL BISULFATE 75 MG TABLET PO SCH (08:32)
[2017-06-04] MEDS: DULoxetine HCL 30 MG CAPSULE.DR PO SCH (08:33)
[2017-06-04] MEDS: ASPIRIN 81 MG TAB.CHEW PO SCH (08:33)
[2017-06-04] MEDS: CARVEDILOL 6.25 MG TABLET PO SCH ×2 (08:33→17:14)
[2017-06-04] MEDS: amLODIPine BESYLATE 10 MG TABLET PO SCH (08:33)
[2017-06-04] MEDS: LOSARTAN 50 MG TABLET. PO SCH (08:33)
[2017-06-04] MEDS: TIMOLOL 0.5% OPHTH SOLUTION 5ML BOTTLE. OS SCH ×2 (08:34→19:42)
[2017-06-04] MEDS: BRIMONIDINE 0.2% OPHTH SOLUTION 5ML BOTTLE. OS SCH ×2 (08:34→19:42)
[2017-06-04] MEDS: oxyCODONE ER 10 MG TAB.ER.12H PO SCH ×2 (08:35→19:43)
--- NOTE | 2017-06-04 08:46 | PN ---
DATE: 06/02/2017 PSYCHIATRIC PROGRESS NOTE This late entry 06/02/2017, covers elements not covered in my initial note on 06/02/2017. I met with the patient evening of 06/02/2017. He continues to be medication seeking per nursing staff, asking either for his narcotics or something for anxiety, he seems fairly persistent. REVIEW OF SYSTEMS: Positive for back pain, somatic symptoms. No CV, , pulmonary, eye system symptoms on review. MENTAL STATUS EXAM: I met with the patient several times as he would follow me around after the initial visit, ____ further questions but reasonably oriented. Speech is coherent, abstraction fair, computation impaired, language function intact, attention span short. Mood and affect, somewhat anxious, dysphoric. No suicidal or homicidal ideation. LABORATORY DATA: Reviewed. IMPRESSION: Unchanged from initial note. PLAN: Start Seroquel 12.5 mg at 9:00 a.m., 2:00 p.m. Maintain the rest of the psychotropics including Seroquel 50 mg at bedtime, Cymbalta 90 mg a day, Xanax p.r.n., BuSpar 5 mg twice a day. Reviewed drug interactions risk/benefit ratio favors no further change at this time. JO DEWEY MD DR: SANJEEV/margo JOB#: [id number] / [id number]
[2017-06-04] MEDS: ALPRAZolam 0.5 MG TABLET PO PRN ×2 (09:11→19:38)
[2017-06-04] MEDS: ACETAMINOPHEN 325 MG TABLET PO PRN (16:00)
[2017-06-04 16:35] VITALS: BP 116/82
[2017-06-04] MEDS: ATORVASTATIN CALCIUM 20 MG TABLET PO SCH (19:38)
[2017-06-04] MEDS: TAMSULOSIN 0.4 MG CAP.ER.24H. PO SCH (19:38)
[2017-06-04] MEDS: QUEtiapine 50 MG TABLET. PO SCH (19:38)
[2017-06-04] MEDS: LATANOPROST 0.005% OPHTH SOLUTION 2.5ML BOTTLE. OU SCH (19:42)
--- NOTE | 2017-06-04 22:24 | PDOC ---
Exam Kel Demential Exam: Kel Note: Please also refer to the separate dictated note~for this date of service dictated separately.~Patient seen individually. Discussed the patient with Nursing staff reviewed the chart.~Reviewed interim history and current functioning. Reviewed vital signs,~Labs/ Radiology~and current medications noted below. Continue current treatment with the changes noted in the dictated addendum note Assessment: Vital Signs: Vital Signs Date Time Temp Pulse Resp B/P (MAP) Pulse Ox O2 Delivery O2 Flow Rate FiO2 06/04/17 19:43 95 06/04/17 17:14 80 116/82 06/04/17 16:35 98.2 16 06/03/17 23:38 Room Air I&O Intake and Output 06/05/17 07:00 Intake Total 1200 ml Balance 1200 ml Intake Oral 1200 ml Current Medications: Meds: Current Medications Influenza Virus Vaccine Quadrival (Fluarix Quad 4224-4948 Syringe) 0.5 ml 1X ONCE VAX IM Last administered on 05/29/17 11:28; Start 05/29/17 at 09:00; Stop 05/29/17 at 09:01; Status DC Acetaminophen (Tylenol) 650 mg PRN Q6HRS PRN PO PAIN / TEMP Last administered on 06/04/17 16:00; Start 05/28/17 at 16:45 Multi-Ingredient Ointment (Analgesic [place]) 1 aubree PRN QID PRN TP MUSCLE PAIN; Start 05/28/17 at 16:45 Al Hydroxide/Mg Hydroxide (Mylanta Plus Xs) 15 ml PRN AFTMEALHC PRN PO DYSPEPSIA; Start 05/28/17 at 16:45 Magnesium Hydroxide (Milk Of Magnesia) 2,400 mg PRN QHS PRN PO CONSTIPATION; Start 05/28/17 at 16:45 Nicotine (Nicoderm Cq 21mg) 1 patch DAILY TD Last administered on 06/04/17 08: 31; Start 05/29/17 at 09:00 Duloxetine HCl (Cymbalta) 90 mg BID PO ; Start 05/28/17 at 21:00; Stop 05/28/17 at 21:00; Status DC Olanzapine (ZyPREXA) 2.5 mg QHS PO Last administered on 05/30/17 21:08; Start 05/28/17 at 21:00; Stop 05/31/17 at 18:37; Status DC Alprazolam (Xanax) 1 mg PRN TID PRN PO ANXIETY / AGITATION Last administered on 05/28/17 20:09; Start 05/28/17 at 19:30; Stop 05/29/17 at 04:22; Status DC Duloxetine HCl (Cymbalta) 90 mg DAILY PO Last administered on 06/04/17 08:33; Start 05/29/17 at 09:00 Alprazolam (Xanax) 0.5 mg PRN TID PRN PO ANXIETY / AGITATION Last administered on 05/30/17 11:40; Start 05/29/17 at 04:30; Stop 05/30/17 at 18:49; Status DC Amlodipine Besylate (Norvasc) 10 mg DAILY PO Last administered on 06/04/17 08: 33; Start 05/30/17 at 09:00 Aspirin (Children'S Aspirin) 81 mg DAILY PO Last administered on 06/04/17 08: 33; Start 05/30/17 at 09:00 Carvedilol (Coreg) 6.25 mg BIDWMEALS PO Last administered on 06/04/17 17:14; Start 05/29/17 at 17:00 Clopidogrel Bisulfate (Plavix) 75 mg DAILY PO Last administered on 06/04/17 08 :32; Start 05/30/17 at 09:00 Acetaminophen/ Hydrocodone Bitart (Lortab 5/325) 1 tab PRN Q6HRS PRN PO PAIN Last administered on 06/03/17 13:17; Start 05/29/17 at 16:30 Latanoprost (Xalatan) 1 drop QHS OU Last administered on 06/04/17 19:42; Start 05/29/17 at 21:00 Metoprolol Succinate (Toprol Xl) 25 mg DAILY PO Last administered on 06/04/17 08:32; Start 05/30/17 at 09:00 Tamsulosin HCl (Flomax) 0.4 mg QHS PO Last administered on 06/04/17 19:38; Start 05/29/17 at 21:00 Atorvastatin Calcium (Lipitor) 80 mg QHS PO Last administered on 06/04/17 19: 38; Start 05/29/17 at 21:00 Brimonidine Tartrate (Alphagan) 1 drop BID OS Last administered on 06/04/17 19 :42; Start 05/29/17 at 21:00 Losartan Potassium (Cozaar) 100 mg DAILY PO Last administered on 06/04/17 08: 33; Start 05/30/17 at 09:00 Multivitamins/ Minerals (I-[place]) 1 tab DAILY PO Last administered on 06/04/17 08:32; Start 05/30/17 at 09:00 Timolol Maleate (Timoptic 0.5% [facility]) 1 drop BID OS Last administered on 19:42; Start 05/29/17 at 21:00 Olanzapine (ZyPREXA ZYDIS) 1.25 mg PRN Q2HR PRN PO ANXIETY; Start 05/30/17 at 12:00 Buspirone HCl (Buspar) 5 mg BID92 PO Last administered on 06/04/17 12:58; Start 05/30/17 at 14:00; Stop 06/04/17 at 18:52; Status DC Lidocaine (Lidoderm) 1 patch DAILY TD Last administered on 06/04/17 08:32; Start 05/30/17 at 18:00 Alprazolam (Xanax) 0.25 mg PRN Q2HR PRN PO ANXIETY / AGITATION Last administered on 06/04/17 19:38; Start 05/30/17 at 19:00 Naltrexone HCl (Depade) 25 mg DAILY PO ; Start 05/31/17 at 09:00; Stop 05/31/17 at 09:00; Status DC Vitamin D (Vitamin D3) 50,000 unit WEEKLY PO Last administered on 05/31/17 14: 57; Start 05/31/17 at 14:30 Quetiapine Fumarate (SEROquel) 25 mg QHS PO Last administered on 05/31/17 20: 27; Start 05/31/17 at 21:00; Stop 06/01/17 at 18:24; Status DC Quetiapine Fumarate (SEROquel) 50 mg QHS PO Last administered on 06/04/17 19: 38; Start 06/01/17 at 21:00 Oxycodone HCl (OxyCONTIN) 10 mg Q12HR PO Last administered on 9/29/17at 19:43; Start 06/02/17 at 21:00 Quetiapine Fumarate (SEROquel) 12.5 mg BID@0900,1400 PO Last administered on t 12:58; Start 06/03/17 at 09:00; Stop 06/04/17 at 18:52; Status DC Quetiapine Fumarate (SEROquel) 25 mg BID@0900,1400 PO ; Start 06/05/17 at 09:00 Active Scripts Active Reported Atorvastatin Calcium 80 Mg Tablet 80 Mg PO QHS Alprazolam 0.5 Mg Tablet 0.5 Mg PO PRN TID PRN Coreg (Carvedilol) 6.25 Mg Tablet 6.25 Mg PO BIDWMEALS Preservision Lutein Softgel (Vit C/[place] Ac/Lut/Copper/Znox) 1 Each Capsule 1 Cap PO DAILY Hydrocodone-Apap 5-325 (Hydrocodone Bit/Acetaminophen) 1 Each Tablet 1 Tab PO PRN Q6HRS PRN Losartan Potassium 100 Mg Tablet 100 Mg PO DAILY Children's Aspirin (Aspirin) 81 Mg Tab.chew 81 Mg PO DAILY Amlodipine Besylate 10 Mg Tablet 10 Mg PO DAILY Zyprexa (Olanzapine) 2.5 Mg Tablet 2.5 Mg PO QHS Metoprolol Succinate ( Xl ) (Metoprolol Succinate) 25 Mg Tab.er.24h 25 Mg PO DAILY Plavix (Clopidogrel Bisulfate) 75 Mg Tablet 75 Mg PO DAILY Cymbalta (Duloxetine Hcl) 30 Mg Capsule.dr 90 Mg PO DAILY Tamsulosin Hcl 0.4 Mg Cap.er.24h 0.4 Mg PO QHS Xalatan (Latanoprost) 2.5 Ml Drops 1 Drop OU QHS Combigan Eye Drops (Brimonidine Tartrate/Timolol) 5 Ml Drops 1 Drop LEFTEYE BID Diagnosis: Problems: (1) Alzheimer's dementia (2) Dementia with behavioral disturbance (3) Anxiety disorder (4) Impulse control disorder (5) Major depressive disorder, recurrent episode JO DEWEY MD Jun 04, 2017 22:24
[2017-06-05 06:13] VITALS: BP 100/63
[2017-06-05] MEDS: DULoxetine HCL 30 MG CAPSULE.DR PO SCH (08:23)
[2017-06-05] MEDS: ASPIRIN 81 MG TAB.CHEW PO SCH (08:23)
[2017-06-05] MEDS: METOPROLOL SUCC 24HR ER 25 MG TAB.ER.24H. PO SCH (08:23)
[2017-06-05] MEDS: MULTIVITAMIN I-VITE TABLET. PO SCH (08:24)
[2017-06-05] MEDS: LOSARTAN 50 MG TABLET. PO SCH (08:24)
[2017-06-05] MEDS: CLOPIDOGREL BISULFATE 75 MG TABLET PO SCH (08:24)
[2017-06-05] MEDS: CARVEDILOL 6.25 MG TABLET PO SCH ×2 (08:24→18:03)
[2017-06-05] MEDS: oxyCODONE ER 10 MG TAB.ER.12H PO SCH ×2 (08:25→19:59)
[2017-06-05] MEDS: amLODIPine BESYLATE 10 MG TABLET PO SCH (08:25)
[2017-06-05] MEDS: NICOTINE 21MG PATCH. TD SCH (08:27)
[2017-06-05] MEDS: TIMOLOL 0.5% OPHTH SOLUTION 5ML BOTTLE. OS SCH ×2 (08:29→19:56)
[2017-06-05] MEDS: BRIMONIDINE 0.2% OPHTH SOLUTION 5ML BOTTLE. OS SCH ×2 (08:29→19:56)
[2017-06-05] MEDS: LIDOCAINE (700MG/PATCH) PATCH. TD SCH (08:29)
[2017-06-05] MEDS: QUEtiapine 25 MG TABLET. PO SCH ×2 (08:29→14:11)
--- NOTE | 2017-06-05 09:56 | PN ---
DATE: 06/03/2017 This late entry for 06/03/2017 covers elements not covered in my initial note of 06/03/2017. SUBJECTIVE: The patient was staffed at a treatment team meeting in the morning of 06/03/2017 and the patient's attended this conference. Lengthy discussion about the patient's history, chronic pain, anxiety, no recent alcohol usage, even though at being led to believe he had been abusing alcohol right before admission. In fact, he has not used any for 30 years, did buy some recently, but took it away. Sleeping 6 to 7 hours. Appetite greater than 80%, somewhat withdrawn. REVIEW OF SYSTEMS: Still has some complaints of back pain. No CV, , pulmonary, eye, ENT system symptoms on review, but for the first time evening of 06/03/2017, he told me the pain was better. MENTAL STATUS EXAM: Oriented to himself and situation. Speech is coherent, has some latency. Abstraction fair, computation impaired, language function intact, attention span short. Mood and affect still somewhat dysphoric, anxious, but improved. LABORATORY DATA: Reviewed. IMPRESSION: Unchanged from initial note. PLAN: Continue current psychotropics. May need to increase Seroquel in due course. Discussed with the about the dosage of Cymbalta at 180 mg twice a day prior to admission and cautioned her to keep close tabs on his psychotropics post-discharge and that he was down to 90 mg a day of Cymbalta. JO DEWEY MD DR: SANJEEV/margo JOB#: [id number] / [id number]
[2017-06-05 17:19] VITALS: BP_SYST 66
[2017-06-05] MEDS: QUEtiapine 50 MG TABLET. PO SCH (19:56)
[2017-06-05] MEDS: LATANOPROST 0.005% OPHTH SOLUTION 2.5ML BOTTLE. OU SCH (19:56)
[2017-06-05] MEDS: ATORVASTATIN CALCIUM 20 MG TABLET PO SCH (19:56)
[2017-06-05] MEDS: TAMSULOSIN 0.4 MG CAP.ER.24H. PO SCH (19:56)
--- NOTE | 2017-06-05 23:09 | PDOC ---
Exam Kel Demential Exam: Kel Note: Please also refer to the separate dictated note~for this date of service dictated separately.~Patient seen individually. Discussed the patient with Nursing staff reviewed the chart.~Reviewed interim history and current functioning. Reviewed vital signs,~Labs/ Radiology~and current medications noted below. Continue current treatment with the changes noted in the dictated addendum note Assessment: Vital Signs: Vital Signs Date Time Temp Pulse Resp B/P (MAP) Pulse Ox O2 Delivery O2 Flow Rate FiO2 06/05/17 18:03 73 133/74 06/05/17 17:19 98.1 20 99 06/05/17 08:25 Room Air I&O Intake and Output 06/06/17 07:00 Intake Total 840 ml Balance 840 ml Intake Oral 840 ml Current Medications: Meds: Current Medications Influenza Virus Vaccine Quadrival (Fluarix Quad [id number] Syringe) 0.5 ml 1X ONCE VAX IM Last administered on 05/29/17 11:28; Start 05/29/17 at 09:00; Stop 05/29/17 at 09:01; Status DC Acetaminophen (Tylenol) 650 mg PRN Q6HRS PRN PO PAIN / TEMP Last administered on 06/04/17 16:00; Start 05/28/17 at 16:45 Multi-Ingredient Ointment (Analgesic [place]) 1 aubree PRN QID PRN TP MUSCLE PAIN; Start 05/28/17 at 16:45 Al Hydroxide/Mg Hydroxide (Mylanta Plus Xs) 15 ml PRN AFTMEALHC PRN PO DYSPEPSIA; Start 05/28/17 at 16:45 Magnesium Hydroxide (Milk Of Magnesia) 2,400 mg PRN QHS PRN PO CONSTIPATION; Start 05/28/17 at 16:45 Nicotine (Nicoderm Cq 21mg) 1 patch DAILY TD Last administered on 06/05/17 08: 27; Start 05/29/17 at 09:00 Duloxetine HCl (Cymbalta) 90 mg BID PO ; Start 05/28/17 at 21:00; Stop 05/28/17 at 21:00; Status DC Olanzapine (ZyPREXA) 2.5 mg QHS PO Last administered on 05/30/17 21:08; Start 05/28/17 at 21:00; Stop 05/31/17 at 18:37; Status DC Alprazolam (Xanax) 1 mg PRN TID PRN PO ANXIETY / AGITATION Last administered on 05/28/17 20:09; Start 05/28/17 at 19:30; Stop 05/29/17 at 04:22; Status DC Duloxetine HCl (Cymbalta) 90 mg DAILY PO Last administered on 06/05/17 08:23; Start 05/29/17 at 09:00 Alprazolam (Xanax) 0.5 mg PRN TID PRN PO ANXIETY / AGITATION Last administered on 05/30/17 11:40; Start 05/29/17 at 04:30; Stop 05/30/17 at 18:49; Status DC Amlodipine Besylate (Norvasc) 10 mg DAILY PO Last administered on 06/05/17 08: 25; Start 05/30/17 at 09:00 Aspirin (Children'S Aspirin) 81 mg DAILY PO Last administered on 06/05/17 08: 23; Start 05/30/17 at 09:00 Carvedilol (Coreg) 6.25 mg BIDWMEALS PO Last administered on 06/05/17 18:03; Start 05/29/17 at 17:00 Clopidogrel Bisulfate (Plavix) 75 mg DAILY PO Last administered on 06/05/17 08 :24; Start 05/30/17 at 09:00 Acetaminophen/ Hydrocodone Bitart (Lortab 5/325) 1 tab PRN Q6HRS PRN PO PAIN Last administered on 06/03/17 13:17; Start 05/29/17 at 16:30 Latanoprost (Xalatan) 1 drop QHS OU Last administered on 06/05/17 19:56; Start 05/29/17 at 21:00 Metoprolol Succinate (Toprol Xl) 25 mg DAILY PO Last administered on 06/05/17 08:23; Start 05/30/17 at 09:00 Tamsulosin HCl (Flomax) 0.4 mg QHS PO Last administered on 06/05/17 19:56; Start 05/29/17 at 21:00 Atorvastatin Calcium (Lipitor) 80 mg QHS PO Last administered on 06/05/17 19: 56; Start 05/29/17 at 21:00 Brimonidine Tartrate (Alphagan) 1 drop BID OS Last administered on 06/05/17 19 :56; Start 05/29/17 at 21:00 Losartan Potassium (Cozaar) 100 mg DAILY PO Last administered on 06/05/17 08: 24; Start 05/30/17 at 09:00 Multivitamins/ Minerals (I-[place]) 1 tab DAILY PO Last administered on 06/05/17 08:24; Start 05/30/17 at 09:00 Timolol Maleate (Timoptic 0.5% [facility]) 1 drop BID OS Last administered on 19:56; Start 05/29/17 at 21:00 Olanzapine (ZyPREXA ZYDIS) 1.25 mg PRN Q2HR PRN PO ANXIETY; Start 05/30/17 at 12:00 Buspirone HCl (Buspar) 5 mg BID92 PO Last administered on 06/04/17 12:58; Start 05/30/17 at 14:00; Stop 06/04/17 at 18:52; Status DC Lidocaine (Lidoderm) 1 patch DAILY TD Last administered on 06/05/17 08:29; Start 05/30/17 at 18:00 Alprazolam (Xanax) 0.25 mg PRN Q2HR PRN PO ANXIETY / AGITATION Last administered on 06/04/17 19:38; Start 05/30/17 at 19:00 Naltrexone HCl (Depade) 25 mg DAILY PO ; Start 05/31/17 at 09:00; Stop 05/31/17 at 09:00; Status DC Vitamin D (Vitamin D3) 50,000 unit WEEKLY PO Last administered on 05/31/17 14: 57; Start 05/31/17 at 14:30 Quetiapine Fumarate (SEROquel) 25 mg QHS PO Last administered on 05/31/17 20: 27; Start 05/31/17 at 21:00; Stop 06/01/17 at 18:24; Status DC Quetiapine Fumarate (SEROquel) 50 mg QHS PO Last administered on 06/05/17 19: 56; Start 06/01/17 at 21:00 Oxycodone HCl (OxyCONTIN) 10 mg Q12HR PO Last administered on 06/05/17 19:59; Start 06/02/17 at 21:00 Quetiapine Fumarate (SEROquel) 12.5 mg BID@0900,1400 PO Last administered on 12:58; Start 06/03/17 at 09:00; Stop 06/04/17 at 18:52; Status DC Quetiapine Fumarate (SEROquel) 25 mg BID@0900,1400 PO Last administered on 06/05 14:11; Start 06/05/17 at 09:00 Active Scripts Active Reported Atorvastatin Calcium 80 Mg Tablet 80 Mg PO QHS Alprazolam 0.5 Mg Tablet 0.5 Mg PO PRN TID PRN Coreg (Carvedilol) 6.25 Mg Tablet 6.25 Mg PO BIDWMEALS Preservision Lutein Softgel (Vit C/[place] Ac/Lut/Copper/Znox) 1 Each Capsule 1 Cap PO DAILY Hydrocodone-Apap 5-325 (Hydrocodone Bit/Acetaminophen) 1 Each Tablet 1 Tab PO PRN Q6HRS PRN Losartan Potassium 100 Mg Tablet 100 Mg PO DAILY Children's Aspirin (Aspirin) 81 Mg Tab.chew 81 Mg PO DAILY Amlodipine Besylate 10 Mg Tablet 10 Mg PO DAILY Zyprexa (Olanzapine) 2.5 Mg Tablet 2.5 Mg PO QHS Metoprolol Succinate ( Xl ) (Metoprolol Succinate) 25 Mg Tab.er.24h 25 Mg PO DAILY Plavix (Clopidogrel Bisulfate) 75 Mg Tablet 75 Mg PO DAILY Cymbalta (Duloxetine Hcl) 30 Mg Capsule.dr 90 Mg PO DAILY Tamsulosin Hcl 0.4 Mg Cap.er.24h 0.4 Mg PO QHS Xalatan (Latanoprost) 2.5 Ml Drops 1 Drop OU QHS Combigan Eye Drops (Brimonidine Tartrate/Timolol) 5 Ml Drops 1 Drop LEFTEYE BID Diagnosis: Problems: (1) Alzheimer's dementia (2) Dementia with behavioral disturbance (3) Anxiety disorder (4) Impulse control disorder (5) Major depressive disorder, recurrent episode JO DEWEY MD Jun 05, 2017 23:09
--- NOTE | 2017-06-06 01:22 | PN ---
DATE: 06/04/2017 This late entry for 06/04/2017 covers elements not covered in my initial note of 06/04/2017. SUBJECTIVE: I met with the patient the evening of 06/04/2017 in his room and in the dining room separately. He has been withdrawn medication seeking, anxious, a little labile, per nursing report, not as well as he was doing the day before. REVIEW OF SYSTEMS: Positive for some back pain. No CV, , pulmonary, eye, ENT system symptoms on review. MENTAL STATUS EXAMINATION: Reasonably oriented. Speech is coherent, abstraction fair, computation impaired, language function intact, attention span short. Mood and affect still somewhat anxious, labile, but showing improvement. LABORATORY DATA: Reviewed. IMPRESSION: Unchanged from initial note. PLAN: Increase Seroquel from 12.5 mg b.i.d. to 25 mg b.i.d., stop the BuSpar as it probably has a little beneficial effect at this stage. Maintain Cymbalta along with Xanax p.r.n., Seroquel 50 mg at bedtime, Zyprexa p.r.n. Adjust further as clinically indicated. Reviewed drug interactions, risk/benefit ratio favors no further change. JO DEWEY MD DR: SANJEEV/margo JOB#: [id number] / [id number]
[2017-06-06 06:19] VITALS: BP 93/54
[2017-06-06] MEDS: CARVEDILOL 6.25 MG TABLET PO SCH ×2 (08:00→17:00)
[2017-06-06] MEDS: MULTIVITAMIN I-VITE TABLET. PO SCH (08:13)
[2017-06-06] MEDS: CLOPIDOGREL BISULFATE 75 MG TABLET PO SCH (08:14)
[2017-06-06] MEDS: oxyCODONE ER 10 MG TAB.ER.12H PO SCH ×2 (08:14→19:50)
[2017-06-06] MEDS: QUEtiapine 25 MG TABLET. PO SCH ×2 (08:14→14:45)
[2017-06-06] MEDS: ASPIRIN 81 MG TAB.CHEW PO SCH (08:14)
[2017-06-06] MEDS: DULoxetine HCL 30 MG CAPSULE.DR PO SCH (08:14)
[2017-06-06] MEDS: LIDOCAINE (700MG/PATCH) PATCH. TD SCH (08:15)
[2017-06-06] MEDS: NICOTINE 21MG PATCH. TD SCH (08:15)
[2017-06-06] MEDS: METOPROLOL SUCC 24HR ER 25 MG TAB.ER.24H. PO SCH (08:16)
[2017-06-06] MEDS: amLODIPine BESYLATE 10 MG TABLET PO SCH (08:16)
[2017-06-06] MEDS: LOSARTAN 50 MG TABLET. PO SCH (08:17)
[2017-06-06] MEDS: TIMOLOL 0.5% OPHTH SOLUTION 5ML BOTTLE. OS SCH ×2 (08:18→19:51)
[2017-06-06] MEDS: BRIMONIDINE 0.2% OPHTH SOLUTION 5ML BOTTLE. OS SCH ×2 (08:18→19:51)
[2017-06-06] MEDS: HYDROcodone/APAP 5/325MG 1 TAB TABLET PO PRN (14:46)
[2017-06-06 16:42] VITALS: BP 100/69
[2017-06-06] MEDS: QUEtiapine 50 MG TABLET. PO SCH (19:48)
[2017-06-06] MEDS: TAMSULOSIN 0.4 MG CAP.ER.24H. PO SCH (19:49)
[2017-06-06] MEDS: ATORVASTATIN CALCIUM 20 MG TABLET PO SCH (19:49)
[2017-06-06] MEDS: LATANOPROST 0.005% OPHTH SOLUTION 2.5ML BOTTLE. OU SCH (19:51)
--- NOTE | 2017-06-06 21:22 | PDOC ---
Exam Kel Demential Exam: Kel Note: Please also refer to the separate dictated note~for this date of service dictated separately.~Patient seen individually. Discussed the patient with Nursing staff reviewed the chart.~Reviewed interim history and current functioning. Reviewed vital signs,~Labs/ Radiology~and current medications noted below. Continue current treatment with the changes noted in the dictated addendum note Assessment: Vital Signs: Vital Signs Date Time Temp Pulse Resp B/P (MAP) Pulse Ox O2 Delivery O2 Flow Rate FiO2 06/06/17 19:50 22 Room Air 06/06/17 17:00 83 100/69 06/06/17 16:42 98.9 96 I&O Intake and Output 06/07/17 07:00 Intake Total 840 ml Balance 840 ml Intake Oral 840 ml Current Medications: Meds: Current Medications Influenza Virus Vaccine Quadrival (Fluarix Quad 8847-6269 Syringe) 0.5 ml 1X ONCE VAX IM Last administered on 05/29/17 11:28; Start 05/29/17 at 09:00; Stop 05/29/17 at 09:01; Status DC Acetaminophen (Tylenol) 650 mg PRN Q6HRS PRN PO PAIN / TEMP Last administered on 06/04/17 16:00; Start 05/28/17 at 16:45 Multi-Ingredient Ointment (Analgesic [place]) 1 aubree PRN QID PRN TP MUSCLE PAIN; Start 05/28/17 at 16:45 Al Hydroxide/Mg Hydroxide (Mylanta Plus Xs) 15 ml PRN AFTMEALHC PRN PO DYSPEPSIA; Start 05/28/17 at 16:45 Magnesium Hydroxide (Milk Of Magnesia) 2,400 mg PRN QHS PRN PO CONSTIPATION; Start 05/28/17 at 16:45 Nicotine (Nicoderm Cq 21mg) 1 patch DAILY TD Last administered on 06/06/17 08: 15; Start 05/29/17 at 09:00 Duloxetine HCl (Cymbalta) 90 mg BID PO ; Start 05/28/17 at 21:00; Stop 05/28/17 at 21:00; Status DC Olanzapine (ZyPREXA) 2.5 mg QHS PO Last administered on 05/30/17 21:08; Start 05/28/17 at 21:00; Stop 05/31/17 at 18:37; Status DC Alprazolam (Xanax) 1 mg PRN TID PRN PO ANXIETY / AGITATION Last administered on 05/28/17 20:09; Start 05/28/17 at 19:30; Stop 05/29/17 at 04:22; Status DC Duloxetine HCl (Cymbalta) 90 mg DAILY PO Last administered on 06/06/17 08:14; Start 05/29/17 at 09:00 Alprazolam (Xanax) 0.5 mg PRN TID PRN PO ANXIETY / AGITATION Last administered on 05/30/17 11:40; Start 05/29/17 at 04:30; Stop 05/30/17 at 18:49; Status DC Amlodipine Besylate (Norvasc) 10 mg DAILY PO Last administered on 06/05/17 08: 25; Start 05/30/17 at 09:00 Aspirin (Children'S Aspirin) 81 mg DAILY PO Last administered on 06/06/17 08: 14; Start 05/30/17 at 09:00 Carvedilol (Coreg) 6.25 mg BIDWMEALS PO Last administered on 06/05/17 18:03; Start 05/29/17 at 17:00 Clopidogrel Bisulfate (Plavix) 75 mg DAILY PO Last administered on 06/06/17 08 :14; Start 05/30/17 at 09:00 Acetaminophen/ Hydrocodone Bitart (Lortab 5/325) 1 tab PRN Q6HRS PRN PO PAIN Last administered on 06/06/17 14:46; Start 05/29/17 at 16:30 Latanoprost (Xalatan) 1 drop QHS OU Last administered on 06/06/17 19:51; Start 05/29/17 at 21:00 Metoprolol Succinate (Toprol Xl) 25 mg DAILY PO Last administered on 06/05/17 08:23; Start 05/30/17 at 09:00 Tamsulosin HCl (Flomax) 0.4 mg QHS PO Last administered on 06/06/17 19:49; Start 05/29/17 at 21:00 Atorvastatin Calcium (Lipitor) 80 mg QHS PO Last administered on 06/06/17 19: 49; Start 05/29/17 at 21:00 Brimonidine Tartrate (Alphagan) 1 drop BID OS Last administered on 06/06/17 19 :51; Start 05/29/17 at 21:00 Losartan Potassium (Cozaar) 100 mg DAILY PO Last administered on 06/05/17 08: 24; Start 05/30/17 at 09:00 Multivitamins/ Minerals (I-[place]) 1 tab DAILY PO Last administered on 06/06/17 08:13; Start 05/30/17 at 09:00 Timolol Maleate (Timoptic 0.5% [facility]) 1 drop BID OS Last administered on 19:51; Start 05/29/17 at 21:00 Olanzapine (ZyPREXA ZYDIS) 1.25 mg PRN Q2HR PRN PO ANXIETY; Start 05/30/17 at 12:00 Buspirone HCl (Buspar) 5 mg BID92 PO Last administered on 06/04/17 12:58; Start 05/30/17 at 14:00; Stop 06/04/17 at 18:52; Status DC Lidocaine (Lidoderm) 1 patch DAILY TD Last administered on 06/06/17 08:15; Start 05/30/17 at 18:00 Alprazolam (Xanax) 0.25 mg PRN Q2HR PRN PO ANXIETY / AGITATION Last administered on 06/04/17 19:38; Start 05/30/17 at 19:00 Naltrexone HCl (Depade) 25 mg DAILY PO ; Start 05/31/17 at 09:00; Stop 05/31/17 at 09:00; Status DC Vitamin D (Vitamin D3) 50,000 unit WEEKLY PO Last administered on 05/31/17 14: 57; Start 05/31/17 at 14:30 Quetiapine Fumarate (SEROquel) 25 mg QHS PO Last administered on 05/31/17 20: 27; Start 05/31/17 at 21:00; Stop 06/01/17 at 18:24; Status DC Quetiapine Fumarate (SEROquel) 50 mg QHS PO Last administered on 06/06/17 19: 48; Start 06/01/17 at 21:00 Oxycodone HCl (OxyCONTIN) 10 mg Q12HR PO Last administered on 06/06/17 19:50; Start 06/02/17 at 21:00 Quetiapine Fumarate (SEROquel) 12.5 mg BID@0900,1400 PO Last administered on 12:58; Start 06/03/17 at 09:00; Stop 06/04/17 at 18:52; Status DC Quetiapine Fumarate (SEROquel) 25 mg BID@0900,1400 PO Last administered on 06/06 14:45; Start 06/05/17 at 09:00 Active Scripts Active Reported Atorvastatin Calcium 80 Mg Tablet 80 Mg PO QHS Alprazolam 0.5 Mg Tablet 0.5 Mg PO PRN TID PRN Coreg (Carvedilol) 6.25 Mg Tablet 6.25 Mg PO BIDWMEALS Preservision Lutein Softgel (Vit C/[place] Ac/Lut/Copper/Znox) 1 Each Capsule 1 Cap PO DAILY Hydrocodone-Apap 5-325 (Hydrocodone Bit/Acetaminophen) 1 Each Tablet 1 Tab PO PRN Q6HRS PRN Losartan Potassium 100 Mg Tablet 100 Mg PO DAILY Children's Aspirin (Aspirin) 81 Mg Tab.chew 81 Mg PO DAILY Amlodipine Besylate 10 Mg Tablet 10 Mg PO DAILY Zyprexa (Olanzapine) 2.5 Mg Tablet 2.5 Mg PO QHS Metoprolol Succinate ( Xl ) (Metoprolol Succinate) 25 Mg Tab.er.24h 25 Mg PO DAILY Plavix (Clopidogrel Bisulfate) 75 Mg Tablet 75 Mg PO DAILY Cymbalta (Duloxetine Hcl) 30 Mg Capsule.dr 90 Mg PO DAILY Tamsulosin Hcl 0.4 Mg Cap.er.24h 0.4 Mg PO QHS Xalatan (Latanoprost) 2.5 Ml Drops 1 Drop OU QHS Combigan Eye Drops (Brimonidine Tartrate/Timolol) 5 Ml Drops 1 Drop LEFTEYE BID Diagnosis: Problems: (1) Alzheimer's dementia (2) Dementia with behavioral disturbance (3) Anxiety disorder (4) Impulse control disorder (5) Major depressive disorder, recurrent episode JO DEWEY MD Jun 06, 2017 21:22
--- NOTE | 2017-06-07 05:03 | PN ---
DATE: 06/05/2017 PSYCHIATRIC PROGRESS NOTE This late entry 06/05/2017, covers elements not covered in my initial note of 06/05/2017. I met with the patient evening on 06/05/2017. Overall, the patient has been anxious, cooperative, still complaining of back pain. He is cooperative with meds and , somewhat withdrawn. REVIEW OF SYSTEMS: Positive for pain. No CV, , pulmonary, eye system symptoms on review, still complains of being anxious. MENTAL STATUS EXAM: Reasonably oriented. Speech is coherent, abstraction fair, computation impaired, language function intact. Mood and affect still remains anxious, labile at times, but better. LABORATORY DATA: Reviewed. IMPRESSION: Unchanged from initial note. PLAN: Seroquel has been increased to 25 mg twice a day. Reviewed drug interactions, risk/benefit ratio favors no further change, continue psychotropics mentioned in my initial note. JO DEWEY MD DR: SANJEEV/margo JOB#: [id number] / [id number]
[2017-06-07 06:02] VITALS: BP 112/72
[2017-06-07] MEDS: TIMOLOL 0.5% OPHTH SOLUTION 5ML BOTTLE. OS SCH ×2 (08:38→19:51)
[2017-06-07] MEDS: BRIMONIDINE 0.2% OPHTH SOLUTION 5ML BOTTLE. OS SCH ×2 (08:38→19:51)
[2017-06-07] MEDS: ASPIRIN 81 MG TAB.CHEW PO SCH (08:39)
[2017-06-07] MEDS: MULTIVITAMIN I-VITE TABLET. PO SCH (08:39)
[2017-06-07] MEDS: DULoxetine HCL 30 MG CAPSULE.DR PO SCH (08:39)
[2017-06-07] MEDS: CLOPIDOGREL BISULFATE 75 MG TABLET PO SCH (08:40)
[2017-06-07] MEDS: oxyCODONE ER 10 MG TAB.ER.12H PO SCH ×2 (08:40→19:50)
[2017-06-07] MEDS: NICOTINE 21MG PATCH. TD SCH (08:40)
[2017-06-07] MEDS: CHOLECALCIFEROL (VITAMIN D3) 50,000 UNIT CAPSULE PO SCH (08:40)
[2017-06-07] MEDS: LIDOCAINE (700MG/PATCH) PATCH. TD SCH (08:40)
[2017-06-07] MEDS: QUEtiapine 25 MG TABLET. PO SCH ×2 (08:40→14:08)
[2017-06-07 10:11] LABS: BASO # 0.1 x10^3/uL (0.0-0.2); BASO % 1 % (0-3); EOS % 0 % (0-3); HEMATOCRIT 32.6 % (39.0-53.0); HEMOGLOBIN 11.5 g/dL (13.0-17.5); LYMPH # 1.8 x10^3/uL (1.0-4.8); LYMPH % 19 % (24-48); MEAN CORPUSCULAR HEMOGLOBIN 33 pg (25-35); MEAN CORPUSCULAR HGB CONC 35 g/dL (31-37); MEAN CORPUSCULAR VOLUME 92 fL (79-100); MONO # 0.5 x10^3/uL (0.0-1.1); MONO % 5 % (0-9); NEUT # 7.1 x10^3uL (1.8-7.7); NEUT % 75 % (31-73); PLATELET COUNT 249 x10^3/uL (140-400); RED BLOOD COUNT 3.53 x10^6/uL (4.30-5.70); RED CELL DISTRIBUTION WIDTH 15.8 % (11.5-14.5); WHITE BLOOD COUNT 9.5 x10^3/uL (4.0-11.0)
[2017-06-07 10:30] LABS: ALBUMIN 3.5 g/dL (3.4-5.0); ALBUMIN/GLOBULIN RATIO 1.1 (1.0-1.7); CALCIUM 8.5 mg/dL (8.5-10.1); GFR 72.6; POTASSIUM 4.2 mmol/L (3.5-5.1); TOTAL BILIRUBIN 0.5 mg/dL (0.2-1.0); TOTAL PROTEIN 6.7 g/dL (6.4-8.2)
[2017-06-07 11:59] VITALS: BP 147/79
[2017-06-07] MEDS: CARVEDILOL 6.25 MG TABLET PO SCH ×2 (12:02→17:26)
[2017-06-07] MEDS: amLODIPine BESYLATE 10 MG TABLET PO SCH (12:03)
[2017-06-07] MEDS: LOSARTAN 50 MG TABLET. PO SCH (12:03)
[2017-06-07] MEDS: METOPROLOL SUCC 24HR ER 25 MG TAB.ER.24H. PO SCH (12:04)
[2017-06-07] MEDS: HYDROcodone/APAP 5/325MG 1 TAB TABLET PO PRN (14:08)
[2017-06-07 16:52] VITALS: BP 120/77
[2017-06-07] MEDS: TAMSULOSIN 0.4 MG CAP.ER.24H. PO SCH (19:49)
[2017-06-07] MEDS: ACETAMINOPHEN 325 MG TABLET PO PRN (19:50)
[2017-06-07] MEDS: ATORVASTATIN CALCIUM 20 MG TABLET PO SCH (19:50)
[2017-06-07] MEDS: QUEtiapine 50 MG TABLET. PO SCH (19:50)
[2017-06-07] MEDS: LATANOPROST 0.005% OPHTH SOLUTION 2.5ML BOTTLE. OU SCH (19:51)
--- NOTE | 2017-06-07 21:14 | PDOC ---
Exam Kel Demential Exam: Kel Note: Please also refer to the separate dictated note~for this date of service dictated separately.~Patient seen individually. Discussed the patient with Nursing staff reviewed the chart.~Reviewed interim history and current functioning. Reviewed vital signs,~Labs/ Radiology~and current medications noted below. Continue current treatment with the changes noted in the dictated addendum note Assessment: Vital Signs: Vital Signs Date Time Temp Pulse Resp B/P (MAP) Pulse Ox O2 Delivery O2 Flow Rate FiO2 06/07/17 19:50 18 97 Room Air 06/07/17 17:26 70 120/77 06/07/17 16:52 99.0 I&O Intake and Output 06/08/17 07:00 Intake Total 930 ml Balance 930 ml Intake Oral 930 ml Labs: Laboratory Tests Test 06/07/17 10:01 White Blood Count 9.5 x10^3/uL (4.0-11.0) Red Blood Count 3.53 x10^6/uL (4.30-5.70) L Hemoglobin 11.5 g/dL (13.0-17.5) L Hematocrit 32.6 % (39.0-53.0) L Mean Corpuscular Volume 92 fL (79-100) Mean Corpuscular Hemoglobin 33 pg (25-35) Mean Corpuscular Hemoglobin Concent 35 g/dL (31-37) Red Cell Distribution Width 15.8 % (11.5-14.5) H Platelet Count 249 x10^3/uL (140-400) Neutrophils (%) (Auto) 75 % (31-73) H Lymphocytes (%) (Auto) 19 % (24-48) L Monocytes (%) (Auto) 5 % (0-9) Eosinophils (%) (Auto) 0 % (0-3) Basophils (%) (Auto) 1 % (0-3) Neutrophils # (Auto) 7.1 x10^3uL (1.8-7.7) Lymphocytes # (Auto) 1.8 x10^3/uL (1.0-4.8) Monocytes # (Auto) 0.5 x10^3/uL (0.0-1.1) Eosinophils # (Auto) 0.0 x10^3/uL (0.0-0.7) Basophils # (Auto) 0.1 x10^3/uL (0.0-0.2) Sodium Level 134 mmol/L (136-145) L Potassium Level 4.2 mmol/L (3.5-5.1) Chloride Level 103 mmol/L (98-107) Carbon Dioxide Level 27 mmol/L (21-32) Anion Gap 4 (6-14) L Blood Urea Nitrogen 15 mg/dL (8-26) Creatinine 1.0 mg/dL (0.7-1.3) Estimated GFR (Cockcroft-Gault) 72.6 BUN/Creatinine Ratio 15 (6-20) Glucose Level 112 mg/dL (70-99) H Calcium Level 8.5 mg/dL (8.5-10.1) Total Bilirubin 0.5 mg/dL (0.2-1.0) Aspartate Amino Transferase (AST) 13 U/L (15-37) L Alanine Aminotransferase (ALT) 18 U/L (16-63) Alkaline Phosphatase 77 U/L (46-116) Total Protein 6.7 g/dL (6.4-8.2) Albumin 3.5 g/dL (3.4-5.0) Albumin/Globulin Ratio 1.1 (1.0-1.7) Current Medications: Meds: Current Medications Influenza Virus Vaccine Quadrival (Fluarix Quad [id number] Syringe) 0.5 ml 1X ONCE VAX IM Last administered on 05/29/17 11:28; Start 05/29/17 at 09:00; Stop 05/29/17 at 09:01; Status DC Acetaminophen (Tylenol) 650 mg PRN Q6HRS PRN PO PAIN / TEMP Last administered on 06/07/17 19:50; Start 05/28/17 at 16:45 Multi-Ingredient Ointment (Analgesic [place]) 1 aubree PRN QID PRN TP MUSCLE PAIN; Start 05/28/17 at 16:45 Al Hydroxide/Mg Hydroxide (Mylanta Plus Xs) 15 ml PRN AFTMEALHC PRN PO DYSPEPSIA; Start 05/28/17 at 16:45 Magnesium Hydroxide (Milk Of Magnesia) 2,400 mg PRN QHS PRN PO CONSTIPATION; Start 05/28/17 at 16:45 Nicotine (Nicoderm Cq 21mg) 1 patch DAILY TD Last administered on 06/07/17 08: 40; Start 05/29/17 at 09:00 Duloxetine HCl (Cymbalta) 90 mg BID PO ; Start 05/28/17 at 21:00; Stop 05/28/17 at 21:00; Status DC Olanzapine (ZyPREXA) 2.5 mg QHS PO Last administered on 05/30/17 21:08; Start 05/28/17 at 21:00; Stop 05/31/17 at 18:37; Status DC Alprazolam (Xanax) 1 mg PRN TID PRN PO ANXIETY / AGITATION Last administered on 05/28/17 20:09; Start 05/28/17 at 19:30; Stop 05/29/17 at 04:22; Status DC Duloxetine HCl (Cymbalta) 90 mg DAILY PO Last administered on 06/07/17 08:39; Start 05/29/17 at 09:00 Alprazolam (Xanax) 0.5 mg PRN TID PRN PO ANXIETY / AGITATION Last administered on 05/30/17 11:40; Start 05/29/17 at 04:30; Stop 05/30/17 at 18:49; Status DC Amlodipine Besylate (Norvasc) 10 mg DAILY PO Last administered on 06/07/17 12: 03; Start 05/30/17 at 09:00 Aspirin (Children'S Aspirin) 81 mg DAILY PO Last administered on 06/07/17 08: 39; Start 05/30/17 at 09:00 Carvedilol (Coreg) 6.25 mg BIDWMEALS PO Last administered on 06/07/17 17:26; Start 05/29/17 at 17:00 Clopidogrel Bisulfate (Plavix) 75 mg DAILY PO Last administered on 06/07/17 08 :40; Start 05/30/17 at 09:00 Acetaminophen/ Hydrocodone Bitart (Lortab 5/325) 1 tab PRN Q6HRS PRN PO PAIN Last administered on 06/07/17 14:08; Start 05/29/17 at 16:30 Latanoprost (Xalatan) 1 drop QHS OU Last administered on 06/07/17 19:51; Start 05/29/17 at 21:00 Metoprolol Succinate (Toprol Xl) 25 mg DAILY PO Last administered on 06/07/17 12:04; Start 05/30/17 at 09:00 Tamsulosin HCl (Flomax) 0.4 mg QHS PO Last administered on 06/07/17 19:49; Start 05/29/17 at 21:00 Atorvastatin Calcium (Lipitor) 80 mg QHS PO Last administered on 06/07/17 19: 50; Start 05/29/17 at 21:00 Brimonidine Tartrate (Alphagan) 1 drop BID OS Last administered on 06/07/17 19 :51; Start 05/29/17 at 21:00 Losartan Potassium (Cozaar) 100 mg DAILY PO Last administered on 06/07/17 12: 03; Start 05/30/17 at 09:00 Multivitamins/ Minerals (I-[place]) 1 tab DAILY PO Last administered on 06/07/17 08:39; Start 05/30/17 at 09:00 Timolol Maleate (Timoptic 0.5% [facility]) 1 drop BID OS Last administered on 19:51; Start 05/29/17 at 21:00 Olanzapine (ZyPREXA ZYDIS) 1.25 mg PRN Q2HR PRN PO ANXIETY; Start 05/30/17 at 12:00 Buspirone HCl (Buspar) 5 mg BID92 PO Last administered on 06/04/17 12:58; Start 05/30/17 at 14:00; Stop 06/04/17 at 18:52; Status DC Lidocaine (Lidoderm) 1 patch DAILY TD Last administered on 06/07/17 08:40; Start 05/30/17 at 18:00 Alprazolam (Xanax) 0.25 mg PRN Q2HR PRN PO ANXIETY / AGITATION Last administered on 06/04/17 19:38; Start 05/30/17 at 19:00 Naltrexone HCl (Depade) 25 mg DAILY PO ; Start 05/31/17 at 09:00; Stop 05/31/17 at 09:00; Status DC Vitamin D (Vitamin D3) 50,000 unit WEEKLY PO Last administered on 06/07/17 08: 40; Start 05/31/17 at 14:30 Quetiapine Fumarate (SEROquel) 25 mg QHS PO Last administered on 05/31/17 20: 27; Start 05/31/17 at 21:00; Stop 06/01/17 at 18:24; Status DC Quetiapine Fumarate (SEROquel) 50 mg QHS PO Last administered on 06/07/17 19: 50; Start 06/01/17 at 21:00 Oxycodone HCl (OxyCONTIN) 10 mg Q12HR PO Last administered on 06/07/17 19:50; Start 06/02/17 at 21:00 Quetiapine Fumarate (SEROquel) 12.5 mg BID@0900,1400 PO Last administered on 12:58; Start 06/03/17 at 09:00; Stop 06/04/17 at 18:52; Status DC Quetiapine Fumarate (SEROquel) 25 mg BID@0900,1400 PO Last administered on 06/07 14:08; Start 06/05/17 at 09:00; Stop 06/07/17 at 18:15; Status DC Quetiapine Fumarate (SEROquel) 37.5 mg BID@0900,1400 PO ; Start 06/08/17 at 09: 00 Active Scripts Active Reported Atorvastatin Calcium 80 Mg Tablet 80 Mg PO QHS Alprazolam 0.5 Mg Tablet 0.5 Mg PO PRN TID PRN Coreg (Carvedilol) 6.25 Mg Tablet 6.25 Mg PO BIDWMEALS Preservision Lutein Softgel (Vit C/[place] Ac/Lut/Copper/Znox) 1 Each Capsule 1 Cap PO DAILY Hydrocodone-Apap 5-325 (Hydrocodone Bit/Acetaminophen) 1 Each Tablet 1 Tab PO PRN Q6HRS PRN Losartan Potassium 100 Mg Tablet 100 Mg PO DAILY Children's Aspirin (Aspirin) 81 Mg Tab.chew 81 Mg PO DAILY Amlodipine Besylate 10 Mg Tablet 10 Mg PO DAILY Zyprexa (Olanzapine) 2.5 Mg Tablet 2.5 Mg PO QHS Metoprolol Succinate ( Xl ) (Metoprolol Succinate) 25 Mg Tab.er.24h 25 Mg PO DAILY Plavix (Clopidogrel Bisulfate) 75 Mg Tablet 75 Mg PO DAILY Cymbalta (Duloxetine Hcl) 30 Mg Capsule.dr 90 Mg PO DAILY Tamsulosin Hcl 0.4 Mg Cap.er.24h 0.4 Mg PO QHS Xalatan (Latanoprost) 2.5 Ml Drops 1 Drop OU QHS Combigan Eye Drops (Brimonidine Tartrate/Timolol) 5 Ml Drops 1 Drop LEFTEYE BID Diagnosis: Problems: (1) Alzheimer's dementia (2) Dementia with behavioral disturbance (3) Anxiety disorder (4) Impulse control disorder (5) Major depressive disorder, recurrent episode JO DEWEY MD Jun 07, 2017 21:14
--- NOTE | 2017-06-08 01:24 | PN ---
DATE: 06/06/2017 PSYCHIATRIC PROGRESS NOTE This is a late entry for 06/06/2017, covers elements not covered in my initial note of 06/06/2017. SUBJECTIVE: I met with the patient the evening of 06/06/2017. The patient slept 8 hours the previous evening, still fixated on pain. States pain is 10/10, somewhat withdrawn as I met with him; however, he stated he felt better, felt less anxious. REVIEW OF SYSTEMS: Positive for ongoing pain. No CV, , pulmonary, eye system symptoms on review. MENTAL STATUS EXAM: Reasonably oriented. Speech is coherent, pleasant, verbal, abstraction fair, computation impaired, language function intact, attention span short. Mood and affect, less anxious, less labile. Mood is somewhat better. LABORATORY DATA: Reviewed. IMPRESSION: Unchanged from initial note. PLAN: Continue current psychotropics mentioned in my initial note. Reviewed drug interactions. Risk/benefit ratio favors no further change. JO DEWEY MD DR: SANJEEV/margo JOB#: [id number] / [id number]
[2017-06-08 05:57] VITALS: BP 136/81
[2017-06-08] MEDS: LIDOCAINE (700MG/PATCH) PATCH. TD SCH (08:17)
[2017-06-08] MEDS: NICOTINE 21MG PATCH. TD SCH (08:17)
[2017-06-08] MEDS: METOPROLOL SUCC 24HR ER 25 MG TAB.ER.24H. PO SCH (08:18)
[2017-06-08] MEDS: ASPIRIN 81 MG TAB.CHEW PO SCH (08:18)
[2017-06-08] MEDS: amLODIPine BESYLATE 10 MG TABLET PO SCH (08:18)
[2017-06-08] MEDS: MULTIVITAMIN I-VITE TABLET. PO SCH (08:19)
[2017-06-08] MEDS: CARVEDILOL 6.25 MG TABLET PO SCH ×2 (08:19→16:43)
[2017-06-08] MEDS: DULoxetine HCL 30 MG CAPSULE.DR PO SCH (08:19)
[2017-06-08] MEDS: LOSARTAN 50 MG TABLET. PO SCH (08:19)
[2017-06-08] MEDS: CLOPIDOGREL BISULFATE 75 MG TABLET PO SCH (08:19)
[2017-06-08] MEDS: QUEtiapine 25 MG TABLET. PO SCH ×2 (08:23→14:37)
[2017-06-08] MEDS: CYANOCOBALAMIN (VITAMIN B-12) 1,000 MCG TABLET. PO SCH (08:23)
[2017-06-08] MEDS: oxyCODONE ER 10 MG TAB.ER.12H PO SCH ×2 (08:23→20:09)
[2017-06-08] MEDS: BRIMONIDINE 0.2% OPHTH SOLUTION 5ML BOTTLE. OS SCH ×2 (08:26→20:09)
[2017-06-08] MEDS: TIMOLOL 0.5% OPHTH SOLUTION 5ML BOTTLE. OS SCH ×2 (08:26→20:09)
[2017-06-08] MEDS: ACETAMINOPHEN 325 MG TABLET PO PRN (11:25)
[2017-06-08 16:01] VITALS: BP 139/67
[2017-06-08] MEDS: HYDROcodone/APAP 5/325MG 1 TAB TABLET PO PRN (16:43)
[2017-06-08] MEDS: QUEtiapine 50 MG TABLET. PO SCH (20:04)
[2017-06-08] MEDS: ATORVASTATIN CALCIUM 20 MG TABLET PO SCH (20:04)
[2017-06-08] MEDS: TAMSULOSIN 0.4 MG CAP.ER.24H. PO SCH (20:04)
[2017-06-08] MEDS: LATANOPROST 0.005% OPHTH SOLUTION 2.5ML BOTTLE. OU SCH (20:09)
--- NOTE | 2017-06-08 20:57 | PDOC ---
Exam Kel Demential Exam: Kel Note: Please also refer to the separate dictated note~for this date of service dictated separately.~Patient seen individually. Discussed the patient with Nursing staff reviewed the chart.~Reviewed interim history and current functioning. Reviewed vital signs,~Labs/ Radiology~and current medications noted below. Continue current treatment with the changes noted in the dictated addendum note Assessment: Vital Signs: Vital Signs Date Time Temp Pulse Resp B/P (MAP) Pulse Ox O2 Delivery O2 Flow Rate FiO2 06/08/17 17:56 94 06/08/17 16:43 72 139/67 06/08/17 16:01 97.4 18 06/08/17 05:57 Room Air I&O Intake and Output 06/09/17 07:00 Intake Total 1080 ml Balance 1080 ml Intake Oral 1080 ml Current Medications: Meds: Current Medications Influenza Virus Vaccine Quadrival (Fluarix Quad [id number] Syringe) 0.5 ml 1X ONCE VAX IM Last administered on 05/29/17 11:28; Start 05/29/17 at 09:00; Stop 05/29/17 at 09:01; Status DC Acetaminophen (Tylenol) 650 mg PRN Q6HRS PRN PO PAIN / TEMP Last administered on 06/08/17 11:25; Start 05/28/17 at 16:45 Multi-Ingredient Ointment (Analgesic [place]) 1 aubree PRN QID PRN TP MUSCLE PAIN; Start 05/28/17 at 16:45 Al Hydroxide/Mg Hydroxide (Mylanta Plus Xs) 15 ml PRN AFTMEALHC PRN PO DYSPEPSIA; Start 05/28/17 at 16:45 Magnesium Hydroxide (Milk Of Magnesia) 2,400 mg PRN QHS PRN PO CONSTIPATION; Start 05/28/17 at 16:45 Nicotine (Nicoderm Cq 21mg) 1 patch DAILY TD Last administered on 06/08/17 08: 17; Start 05/29/17 at 09:00 Duloxetine HCl (Cymbalta) 90 mg BID PO ; Start 05/28/17 at 21:00; Stop 05/28/17 at 21:00; Status DC Olanzapine (ZyPREXA) 2.5 mg QHS PO Last administered on 05/30/17 21:08; Start 05/28/17 at 21:00; Stop 05/31/17 at 18:37; Status DC Alprazolam (Xanax) 1 mg PRN TID PRN PO ANXIETY / AGITATION Last administered on 05/28/17 20:09; Start 05/28/17 at 19:30; Stop 05/29/17 at 04:22; Status DC Duloxetine HCl (Cymbalta) 90 mg DAILY PO Last administered on 06/08/17 08:19; Start 05/29/17 at 09:00 Alprazolam (Xanax) 0.5 mg PRN TID PRN PO ANXIETY / AGITATION Last administered on 05/30/17 11:40; Start 05/29/17 at 04:30; Stop 05/30/17 at 18:49; Status DC Amlodipine Besylate (Norvasc) 10 mg DAILY PO Last administered on 06/08/17 08: 18; Start 05/30/17 at 09:00 Aspirin (Children'S Aspirin) 81 mg DAILY PO Last administered on 06/08/17 08: 18; Start 05/30/17 at 09:00 Carvedilol (Coreg) 6.25 mg BIDWMEALS PO Last administered on 06/08/17 16:43; Start 05/29/17 at 17:00 Clopidogrel Bisulfate (Plavix) 75 mg DAILY PO Last administered on 06/08/17 08 :19; Start 05/30/17 at 09:00 Acetaminophen/ Hydrocodone Bitart (Lortab 5/325) 1 tab PRN Q6HRS PRN PO PAIN Last administered on 06/08/17 16:43; Start 05/29/17 at 16:30 Latanoprost (Xalatan) 1 drop QHS OU Last administered on 06/08/17 20:09; Start 05/29/17 at 21:00 Metoprolol Succinate (Toprol Xl) 25 mg DAILY PO Last administered on 06/08/17 08:18; Start 05/30/17 at 09:00 Tamsulosin HCl (Flomax) 0.4 mg QHS PO Last administered on 06/08/17 20:04; Start 05/29/17 at 21:00 Atorvastatin Calcium (Lipitor) 80 mg QHS PO Last administered on 06/08/17 20: 04; Start 05/29/17 at 21:00 Brimonidine Tartrate (Alphagan) 1 drop BID OS Last administered on 06/08/17 20 :09; Start 05/29/17 at 21:00 Losartan Potassium (Cozaar) 100 mg DAILY PO Last administered on 06/08/17 08: 19; Start 05/30/17 at 09:00 Multivitamins/ Minerals (I-[place]) 1 tab DAILY PO Last administered on 06/08/17 08:19; Start 05/30/17 at 09:00 Timolol Maleate (Timoptic 0.5% [facility]) 1 drop BID OS Last administered on 20:09; Start 05/29/17 at 21:00 Olanzapine (ZyPREXA ZYDIS) 1.25 mg PRN Q2HR PRN PO ANXIETY; Start 05/30/17 at 12:00 Buspirone HCl (Buspar) 5 mg BID92 PO Last administered on 06/04/17 12:58; Start 05/30/17 at 14:00; Stop 06/04/17 at 18:52; Status DC Lidocaine (Lidoderm) 1 patch DAILY TD Last administered on 06/08/17 08:17; Start 05/30/17 at 18:00 Alprazolam (Xanax) 0.25 mg PRN Q2HR PRN PO ANXIETY / AGITATION Last administered on 06/04/17 19:38; Start 05/30/17 at 19:00 Naltrexone HCl (Depade) 25 mg DAILY PO ; Start 05/31/17 at 09:00; Stop 05/31/17 at 09:00; Status DC Vitamin D (Vitamin D3) 50,000 unit WEEKLY PO Last administered on 06/07/17 08: 40; Start 05/31/17 at 14:30 Quetiapine Fumarate (SEROquel) 25 mg QHS PO Last administered on 05/31/17 20: 27; Start 05/31/17 at 21:00; Stop 06/01/17 at 18:24; Status DC Quetiapine Fumarate (SEROquel) 50 mg QHS PO Last administered on 06/08/17 20: 04; Start 06/01/17 at 21:00 Oxycodone HCl (OxyCONTIN) 10 mg Q12HR PO Last administered on 10/3/17at 20:09; Start 06/02/17 at 21:00 Quetiapine Fumarate (SEROquel) 12.5 mg BID@0900,1400 PO Last administered on 12:58; Start 06/03/17 at 09:00; Stop 06/04/17 at 18:52; Status DC Quetiapine Fumarate (SEROquel) 25 mg BID@0900,1400 PO Last administered on 06/07 14:08; Start 06/05/17 at 09:00; Stop 06/07/17 at 18:15; Status DC Quetiapine Fumarate (SEROquel) 37.5 mg BID@0900,1400 PO Last administered on 14:37; Start 06/08/17 at 09:00 Cyanocobalamin (Vitamin B-12) 1,000 mcg DAILY PO Last administered on 08:23; Start 06/08/17 at 09:00 Active Scripts Active Reported Atorvastatin Calcium 80 Mg Tablet 80 Mg PO QHS Alprazolam 0.5 Mg Tablet 0.5 Mg PO PRN TID PRN Coreg (Carvedilol) 6.25 Mg Tablet 6.25 Mg PO BIDWMEALS Preservision Lutein Softgel (Vit C/[place] Ac/Lut/Copper/Znox) 1 Each Capsule 1 Cap PO DAILY Hydrocodone-Apap 5-325 (Hydrocodone Bit/Acetaminophen) 1 Each Tablet 1 Tab PO PRN Q6HRS PRN Losartan Potassium 100 Mg Tablet 100 Mg PO DAILY Children's Aspirin (Aspirin) 81 Mg Tab.chew 81 Mg PO DAILY Amlodipine Besylate 10 Mg Tablet 10 Mg PO DAILY Zyprexa (Olanzapine) 2.5 Mg Tablet 2.5 Mg PO QHS Metoprolol Succinate ( Xl ) (Metoprolol Succinate) 25 Mg Tab.er.24h 25 Mg PO DAILY Plavix (Clopidogrel Bisulfate) 75 Mg Tablet 75 Mg PO DAILY Cymbalta (Duloxetine Hcl) 30 Mg Capsule.dr 90 Mg PO DAILY Tamsulosin Hcl 0.4 Mg Cap.er.24h 0.4 Mg PO QHS Xalatan (Latanoprost) 2.5 Ml Drops 1 Drop OU QHS Combigan Eye Drops (Brimonidine Tartrate/Timolol) 5 Ml Drops 1 Drop LEFTEYE BID Diagnosis: Problems: (1) Dementia with behavioral disturbance (2) Alzheimer's dementia (3) Anxiety disorder (4) Impulse control disorder (5) Major depressive disorder, recurrent episode JO DEWEY MD Jun 08, 2017 20:57
--- NOTE | 2017-06-08 23:30 | PN ---
DATE: 06/07/2017 This late entry 06/07/2017 covers elements not covered in my initial note of 06/07/2017. I met with the patient evening of 06/07/2017. Overall, the patient still remains somatically preoccupied, but as I met with him, he is less fixated on this and said he felt better. REVIEW OF SYSTEMS: Still positive for back pain. No CV, , pulmonary, eye, ENT system symptoms on review. MENTAL STATUS EXAM: Reasonably oriented. Speech is coherent, abstraction fair, computation impaired, language function intact, attention span short. Mood and affect less labile, less anxious, less dysphoric. LABORATORY DATA: Reviewed. IMPRESSION: Unchanged from initial note. PLAN: Increase Seroquel from 25 mg twice a day to 37.5 mg twice a day. Maintain Cymbalta along with Seroquel 50 mg at bedtime, Zyprexa p.r.n., Xanax p.r.n. Reviewed drug interactions, risk/benefit ratio favors no further. MAN Eduin DEWEY MD DR: SANJEEV/margo JOB#: [id number] / [id number]
[2017-06-09 06:32] VITALS: BP 145/64
[2017-06-09] MEDS: LOSARTAN 50 MG TABLET. PO SCH (07:29)
[2017-06-09] MEDS: ASPIRIN 81 MG TAB.CHEW PO SCH (07:29)
[2017-06-09] MEDS: QUEtiapine 25 MG TABLET. PO SCH ×2 (07:31→13:54)
[2017-06-09] MEDS: CYANOCOBALAMIN (VITAMIN B-12) 1,000 MCG TABLET. PO SCH (07:31)
[2017-06-09] MEDS: CLOPIDOGREL BISULFATE 75 MG TABLET PO SCH (07:31)
[2017-06-09] MEDS: CARVEDILOL 6.25 MG TABLET PO SCH ×2 (07:31→17:00)
[2017-06-09] MEDS: MULTIVITAMIN I-VITE TABLET. PO SCH (07:32)
[2017-06-09] MEDS: METOPROLOL SUCC 24HR ER 25 MG TAB.ER.24H. PO SCH (07:32)
[2017-06-09] MEDS: amLODIPine BESYLATE 10 MG TABLET PO SCH (07:32)
[2017-06-09] MEDS: DULoxetine HCL 30 MG CAPSULE.DR PO SCH (07:32)
[2017-06-09] MEDS: NICOTINE 21MG PATCH. TD SCH (07:33)
[2017-06-09] MEDS: TIMOLOL 0.5% OPHTH SOLUTION 5ML BOTTLE. OS SCH ×2 (07:33→19:30)
[2017-06-09] MEDS: LIDOCAINE (700MG/PATCH) PATCH. TD SCH (07:33)
[2017-06-09] MEDS: BRIMONIDINE 0.2% OPHTH SOLUTION 5ML BOTTLE. OS SCH ×2 (07:33→19:29)
[2017-06-09] MEDS: oxyCODONE ER 10 MG TAB.ER.12H PO SCH ×2 (07:36→19:29)
[2017-06-09] MEDS: ACETAMINOPHEN 325 MG TABLET PO PRN ×2 (13:54→19:29)
[2017-06-09 16:49] VITALS: BP 98/62
[2017-06-09] MEDS: TAMSULOSIN 0.4 MG CAP.ER.24H. PO SCH (19:29)
[2017-06-09] MEDS: LATANOPROST 0.005% OPHTH SOLUTION 2.5ML BOTTLE. OU SCH (19:29)
[2017-06-09] MEDS: QUEtiapine 50 MG TABLET. PO SCH (19:29)
[2017-06-09] MEDS: ATORVASTATIN CALCIUM 20 MG TABLET PO SCH (19:39)
--- NOTE | 2017-06-09 21:09 | PDOC ---
Exam Kel Demential Exam: Kel Note: Please also refer to the separate dictated note~for this date of service dictated separately.~Patient seen individually. Discussed the patient with Nursing staff reviewed the chart.~Reviewed interim history and current functioning. Reviewed vital signs,~Labs/ Radiology~and current medications noted below. Continue current treatment with the changes noted in the dictated addendum note Assessment: Vital Signs: Vital Signs Date Time Temp Pulse Resp B/P (MAP) Pulse Ox O2 Delivery O2 Flow Rate FiO2 06/09/17 19:29 Room Air 06/09/17 16:49 99.4 76 16 98/62 (14) 96 I&O Intake and Output 06/10/17 07:00 Intake Total 1380 ml Balance 1380 ml Intake Oral 1380 ml Current Medications: Meds: Current Medications Influenza Virus Vaccine Quadrival (Fluarix Quad 1259-5820 Syringe) 0.5 ml 1X ONCE VAX IM Last administered on 05/29/17 11:28; Start 05/29/17 at 09:00; Stop 05/29/17 at 09:01; Status DC Acetaminophen (Tylenol) 650 mg PRN Q6HRS PRN PO PAIN / TEMP Last administered on 06/09/17 19:29; Start 05/28/17 at 16:45 Multi-Ingredient Ointment (Analgesic [place]) 1 aubree PRN QID PRN TP MUSCLE PAIN; Start 05/28/17 at 16:45 Al Hydroxide/Mg Hydroxide (Mylanta Plus Xs) 15 ml PRN AFTMEALHC PRN PO DYSPEPSIA; Start 05/28/17 at 16:45 Magnesium Hydroxide (Milk Of Magnesia) 2,400 mg PRN QHS PRN PO CONSTIPATION; Start 05/28/17 at 16:45 Nicotine (Nicoderm Cq 21mg) 1 patch DAILY TD Last administered on 06/09/17 07: 33; Start 05/29/17 at 09:00 Duloxetine HCl (Cymbalta) 90 mg BID PO ; Start 05/28/17 at 21:00; Stop 05/28/17 at 21:00; Status DC Olanzapine (ZyPREXA) 2.5 mg QHS PO Last administered on 05/30/17 21:08; Start 05/28/17 at 21:00; Stop 05/31/17 at 18:37; Status DC Alprazolam (Xanax) 1 mg PRN TID PRN PO ANXIETY / AGITATION Last administered on 05/28/17 20:09; Start 05/28/17 at 19:30; Stop 05/29/17 at 04:22; Status DC Duloxetine HCl (Cymbalta) 90 mg DAILY PO Last administered on 06/09/17 07:32; Start 05/29/17 at 09:00 Alprazolam (Xanax) 0.5 mg PRN TID PRN PO ANXIETY / AGITATION Last administered on 05/30/17 11:40; Start 05/29/17 at 04:30; Stop 05/30/17 at 18:49; Status DC Amlodipine Besylate (Norvasc) 10 mg DAILY PO Last administered on 06/09/17 07: 32; Start 05/30/17 at 09:00 Aspirin (Children'S Aspirin) 81 mg DAILY PO Last administered on 06/09/17 07: 29; Start 05/30/17 at 09:00 Carvedilol (Coreg) 6.25 mg BIDWMEALS PO Last administered on 06/09/17 07:31; Start 05/29/17 at 17:00 Clopidogrel Bisulfate (Plavix) 75 mg DAILY PO Last administered on 06/09/17 07 :31; Start 05/30/17 at 09:00 Acetaminophen/ Hydrocodone Bitart (Lortab 5/325) 1 tab PRN Q6HRS PRN PO PAIN Last administered on 06/08/17 16:43; Start 05/29/17 at 16:30 Latanoprost (Xalatan) 1 drop QHS OU Last administered on 06/09/17 19:29; Start 05/29/17 at 21:00 Metoprolol Succinate (Toprol Xl) 25 mg DAILY PO Last administered on 06/09/17 07:32; Start 05/30/17 at 09:00 Tamsulosin HCl (Flomax) 0.4 mg QHS PO Last administered on 06/09/17 19:29; Start 05/29/17 at 21:00 Atorvastatin Calcium (Lipitor) 80 mg QHS PO Last administered on 06/09/17 19: 39; Start 05/29/17 at 21:00 Brimonidine Tartrate (Alphagan) 1 drop BID OS Last administered on 06/09/17 19 :29; Start 05/29/17 at 21:00 Losartan Potassium (Cozaar) 100 mg DAILY PO Last administered on 06/09/17 07: 29; Start 05/30/17 at 09:00 Multivitamins/ Minerals (I-[place]) 1 tab DAILY PO Last administered on 06/09/17 07:32; Start 05/30/17 at 09:00 Timolol Maleate (Timoptic 0.5% [facility]) 1 drop BID OS Last administered on 19:30; Start 05/29/17 at 21:00 Olanzapine (ZyPREXA ZYDIS) 1.25 mg PRN Q2HR PRN PO ANXIETY; Start 05/30/17 at 12:00 Buspirone HCl (Buspar) 5 mg BID92 PO Last administered on 06/04/17 12:58; Start 05/30/17 at 14:00; Stop 06/04/17 at 18:52; Status DC Lidocaine (Lidoderm) 1 patch DAILY TD Last administered on 06/09/17 07:33; Start 05/30/17 at 18:00 Alprazolam (Xanax) 0.25 mg PRN Q2HR PRN PO ANXIETY / AGITATION Last administered on 06/04/17 19:38; Start 05/30/17 at 19:00 Naltrexone HCl (Depade) 25 mg DAILY PO ; Start 05/31/17 at 09:00; Stop 05/31/17 at 09:00; Status DC Vitamin D (Vitamin D3) 50,000 unit WEEKLY PO Last administered on 06/07/17 08: 40; Start 05/31/17 at 14:30 Quetiapine Fumarate (SEROquel) 25 mg QHS PO Last administered on 05/31/17 20: 27; Start 05/31/17 at 21:00; Stop 06/01/17 at 18:24; Status DC Quetiapine Fumarate (SEROquel) 50 mg QHS PO Last administered on 06/09/17 19: 29; Start 06/01/17 at 21:00 Oxycodone HCl (OxyCONTIN) 10 mg Q12HR PO Last administered on 06/09/17 19:29; Start 9/27/17 at 21:00 Quetiapine Fumarate (SEROquel) 12.5 mg BID@0900,1400 PO Last administered on 12:58; Start 06/03/17 at 09:00; Stop 06/04/17 at 18:52; Status DC Quetiapine Fumarate (SEROquel) 25 mg BID@0900,1400 PO Last administered on 06/07 14:08; Start 06/05/17 at 09:00; Stop 06/07/17 at 18:15; Status DC Quetiapine Fumarate (SEROquel) 37.5 mg BID@0900,1400 PO Last administered on 13:54; Start 06/08/17 at 09:00 Cyanocobalamin (Vitamin B-12) 1,000 mcg DAILY PO Last administered on 07:31; Start 06/08/17 at 09:00 Active Scripts Active Reported Atorvastatin Calcium 80 Mg Tablet 80 Mg PO QHS Alprazolam 0.5 Mg Tablet 0.5 Mg PO PRN TID PRN Coreg (Carvedilol) 6.25 Mg Tablet 6.25 Mg PO BIDWMEALS Preservision Lutein Softgel (Vit C/[place] Ac/Lut/Copper/Znox) 1 Each Capsule 1 Cap PO DAILY Hydrocodone-Apap 5-325 (Hydrocodone Bit/Acetaminophen) 1 Each Tablet 1 Tab PO PRN Q6HRS PRN Losartan Potassium 100 Mg Tablet 100 Mg PO DAILY Children's Aspirin (Aspirin) 81 Mg Tab.chew 81 Mg PO DAILY Amlodipine Besylate 10 Mg Tablet 10 Mg PO DAILY Zyprexa (Olanzapine) 2.5 Mg Tablet 2.5 Mg PO QHS Metoprolol Succinate ( Xl ) (Metoprolol Succinate) 25 Mg Tab.er.24h 25 Mg PO DAILY Plavix (Clopidogrel Bisulfate) 75 Mg Tablet 75 Mg PO DAILY Cymbalta (Duloxetine Hcl) 30 Mg Capsule.dr 90 Mg PO DAILY Tamsulosin Hcl 0.4 Mg Cap.er.24h 0.4 Mg PO QHS Xalatan (Latanoprost) 2.5 Ml Drops 1 Drop OU QHS Combigan Eye Drops (Brimonidine Tartrate/Timolol) 5 Ml Drops 1 Drop LEFTEYE BID Diagnosis: Problems: (1) Alzheimer's dementia (2) Dementia with behavioral disturbance (3) Anxiety disorder (4) Impulse control disorder (5) Major depressive disorder, recurrent episode JO DEWEY MD Jun 09, 2017 21:09
--- NOTE | 2017-06-09 23:33 | PN ---
DATE: 06/08/2017 PSYCHIATRIC PROGRESS NOTE This is a late entry for 06/08/2017, covers elements not covered in my initial note of 06/08/2017. SUBJECTIVE: I met with the patient the evening of 06/08/2017. The patient has been up and about, and states the pain is less 5 on a scale of 0 to 10, perhaps 7 at times whereas it was consistently 10/10 in the past. He is less anxious as well. REVIEW OF SYSTEMS: Still complains of back pain. No CV, , pulmonary, eye, ENT system symptoms on review. MENTAL STATUS EXAM: Reasonably oriented. Speech is coherent, abstraction fair, computation impaired, language function intact, attention span short. Mood and affect, less anxious, less labile. LABORATORY DATA: Reviewed. IMPRESSION: Unchanged from initial note. PLAN: Continue current psychotropics. Seroquel was increased. Cymbalta is 90 mg a day, Zyprexa as p.r.n. Reviewed drug interactions. Risk/benefit ratio favors no further change. MAN Eduin DEWEY MD DR: SANJEEV/margo JOB#: [id number] / [id number]
[2017-06-10 06:47] VITALS: BP 123/69
[2017-06-10] MEDS: NICOTINE 21MG PATCH. TD SCH (08:40)
[2017-06-10] MEDS: LIDOCAINE (700MG/PATCH) PATCH. TD SCH (08:40)
[2017-06-10] MEDS: ASPIRIN 81 MG TAB.CHEW PO SCH (08:41)
[2017-06-10] MEDS: DULoxetine HCL 30 MG CAPSULE.DR PO SCH (08:41)
[2017-06-10] MEDS: CLOPIDOGREL BISULFATE 75 MG TABLET PO SCH (08:41)
[2017-06-10] MEDS: CARVEDILOL 6.25 MG TABLET PO SCH ×2 (08:41→17:00)
[2017-06-10] MEDS: MULTIVITAMIN I-VITE TABLET. PO SCH (08:41)
[2017-06-10] MEDS: LOSARTAN 50 MG TABLET. PO SCH (08:42)
[2017-06-10] MEDS: amLODIPine BESYLATE 10 MG TABLET PO SCH (08:42)
[2017-06-10] MEDS: METOPROLOL SUCC 24HR ER 25 MG TAB.ER.24H. PO SCH (08:42)
[2017-06-10] MEDS: TIMOLOL 0.5% OPHTH SOLUTION 5ML BOTTLE. OS SCH ×2 (08:43→19:54)
[2017-06-10] MEDS: CYANOCOBALAMIN (VITAMIN B-12) 1,000 MCG TABLET. PO SCH (08:43)
[2017-06-10] MEDS: QUEtiapine 25 MG TABLET. PO SCH ×2 (08:43→13:30)
[2017-06-10] MEDS: BRIMONIDINE 0.2% OPHTH SOLUTION 5ML BOTTLE. OS SCH ×2 (08:44→19:54)
[2017-06-10] MEDS: oxyCODONE ER 10 MG TAB.ER.12H PO SCH ×2 (08:44→19:50)
[2017-06-10] MEDS: ACETAMINOPHEN 325 MG TABLET PO PRN (13:29)
[2017-06-10 16:30] VITALS: BP 98/66
[2017-06-10] MEDS: TAMSULOSIN 0.4 MG CAP.ER.24H. PO SCH (19:51)
[2017-06-10] MEDS: ATORVASTATIN CALCIUM 20 MG TABLET PO SCH (19:51)
[2017-06-10] MEDS: QUEtiapine 50 MG TABLET. PO SCH (19:54)
[2017-06-10] MEDS: LATANOPROST 0.005% OPHTH SOLUTION 2.5ML BOTTLE. OU SCH (19:54)
--- NOTE | 2017-06-10 21:12 | PDOC ---
Exam Kel Demential Exam: Kel Note: Please also refer to the separate dictated note~for this date of service dictated separately.~Patient seen individually. Discussed the patient with Nursing staff reviewed the chart.~Reviewed interim history and current functioning. Reviewed vital signs,~Labs/ Radiology~and current medications noted below. Continue current treatment with the changes noted in the dictated addendum note Assessment: Vital Signs: Vital Signs Date Time Temp Pulse Resp B/P (MAP) Pulse Ox O2 Delivery O2 Flow Rate FiO2 06/10/17 19:50 Room Air 06/10/17 17:00 72 98/66 06/10/17 16:30 97.8 18 98 I&O Intake and Output 06/11/17 07:00 Intake Total 1020 ml Balance 1020 ml Intake Oral 1020 ml Current Medications: Meds: Current Medications Influenza Virus Vaccine Quadrival (Fluarix Quad 0868-5684 Syringe) 0.5 ml 1X ONCE VAX IM Last administered on 05/29/17 11:28; Start 05/29/17 at 09:00; Stop 05/29/17 at 09:01; Status DC Acetaminophen (Tylenol) 650 mg PRN Q6HRS PRN PO PAIN / TEMP Last administered on 06/10/17 13:29; Start 05/28/17 at 16:45 Multi-Ingredient Ointment (Analgesic [place]) 1 aubree PRN QID PRN TP MUSCLE PAIN; Start 05/28/17 at 16:45 Al Hydroxide/Mg Hydroxide (Mylanta Plus Xs) 15 ml PRN AFTMEALHC PRN PO DYSPEPSIA; Start 05/28/17 at 16:45 Magnesium Hydroxide (Milk Of Magnesia) 2,400 mg PRN QHS PRN PO CONSTIPATION; Start 05/28/17 at 16:45 Nicotine (Nicoderm Cq 21mg) 1 patch DAILY TD Last administered on 06/10/17 08: 40; Start 05/29/17 at 09:00 Duloxetine HCl (Cymbalta) 90 mg BID PO ; Start 05/28/17 at 21:00; Stop 05/28/17 at 21:00; Status DC Olanzapine (ZyPREXA) 2.5 mg QHS PO Last administered on 05/30/17 21:08; Start 05/28/17 at 21:00; Stop 05/31/17 at 18:37; Status DC Alprazolam (Xanax) 1 mg PRN TID PRN PO ANXIETY / AGITATION Last administered on 05/28/17 20:09; Start 05/28/17 at 19:30; Stop 05/29/17 at 04:22; Status DC Duloxetine HCl (Cymbalta) 90 mg DAILY PO Last administered on 06/10/17 08:41; Start 05/29/17 at 09:00 Alprazolam (Xanax) 0.5 mg PRN TID PRN PO ANXIETY / AGITATION Last administered on 05/30/17 11:40; Start 05/29/17 at 04:30; Stop 05/30/17 at 18:49; Status DC Amlodipine Besylate (Norvasc) 10 mg DAILY PO Last administered on 06/10/17 08: 42; Start 05/30/17 at 09:00 Aspirin (Children'S Aspirin) 81 mg DAILY PO Last administered on 06/10/17 08: 41; Start 05/30/17 at 09:00 Carvedilol (Coreg) 6.25 mg BIDWMEALS PO Last administered on 06/10/17 08:41; Start 05/29/17 at 17:00 Clopidogrel Bisulfate (Plavix) 75 mg DAILY PO Last administered on 06/10/17 08 :41; Start 05/30/17 at 09:00 Acetaminophen/ Hydrocodone Bitart (Lortab 5/325) 1 tab PRN Q6HRS PRN PO PAIN Last administered on 06/08/17 16:43; Start 05/29/17 at 16:30 Latanoprost (Xalatan) 1 drop QHS OU Last administered on 06/10/17 19:54; Start 05/29/17 at 21:00 Metoprolol Succinate (Toprol Xl) 25 mg DAILY PO Last administered on 06/10/17 08:42; Start 05/30/17 at 09:00 Tamsulosin HCl (Flomax) 0.4 mg QHS PO Last administered on 06/10/17 19:51; Start 05/29/17 at 21:00 Atorvastatin Calcium (Lipitor) 80 mg QHS PO Last administered on 06/10/17 19: 51; Start 05/29/17 at 21:00 Brimonidine Tartrate (Alphagan) 1 drop BID OS Last administered on 06/10/17 19 :54; Start 05/29/17 at 21:00 Losartan Potassium (Cozaar) 100 mg DAILY PO Last administered on 06/10/17 08: 42; Start 05/30/17 at 09:00 Multivitamins/ Minerals (I-[place]) 1 tab DAILY PO Last administered on 06/10/17 08:41; Start 05/30/17 at 09:00 Timolol Maleate (Timoptic 0.5% [facility]) 1 drop BID OS Last administered on 19:54; Start 05/29/17 at 21:00 Olanzapine (ZyPREXA ZYDIS) 1.25 mg PRN Q2HR PRN PO ANXIETY; Start 05/30/17 at 12:00 Buspirone HCl (Buspar) 5 mg BID92 PO Last administered on 06/04/17 12:58; Start 05/30/17 at 14:00; Stop 06/04/17 at 18:52; Status DC Lidocaine (Lidoderm) 1 patch DAILY TD Last administered on 06/10/17 08:40; Start 05/30/17 at 18:00 Alprazolam (Xanax) 0.25 mg PRN Q2HR PRN PO ANXIETY / AGITATION Last administered on 06/04/17 19:38; Start 05/30/17 at 19:00 Naltrexone HCl (Depade) 25 mg DAILY PO ; Start 05/31/17 at 09:00; Stop 05/31/17 at 09:00; Status DC Vitamin D (Vitamin D3) 50,000 unit WEEKLY PO Last administered on 06/07/17 08: 40; Start 05/31/17 at 14:30 Quetiapine Fumarate (SEROquel) 25 mg QHS PO Last administered on 05/31/17 20: 27; Start 05/31/17 at 21:00; Stop 06/01/17 at 18:24; Status DC Quetiapine Fumarate (SEROquel) 50 mg QHS PO Last administered on 06/10/17 19: 54; Start 06/01/17 at 21:00 Oxycodone HCl (OxyCONTIN) 10 mg Q12HR PO Last administered on 06/10/17 19:50; Start 06/02/17 at 21:00 Quetiapine Fumarate (SEROquel) 12.5 mg BID@0900,1400 PO Last administered on 12:58; Start 06/03/17 at 09:00; Stop 06/04/17 at 18:52; Status DC Quetiapine Fumarate (SEROquel) 25 mg BID@0900,1400 PO Last administered on 06/07 14:08; Start 06/05/17 at 09:00; Stop 06/07/17 at 18:15; Status DC Quetiapine Fumarate (SEROquel) 37.5 mg BID@0900,1400 PO Last administered on 13:30; Start 06/08/17 at 09:00 Cyanocobalamin (Vitamin B-12) 1,000 mcg DAILY PO Last administered on 08:43; Start 06/08/17 at 09:00 Active Scripts Active Reported Atorvastatin Calcium 80 Mg Tablet 80 Mg PO QHS Alprazolam 0.5 Mg Tablet 0.5 Mg PO PRN TID PRN Coreg (Carvedilol) 6.25 Mg Tablet 6.25 Mg PO BIDWMEALS Preservision Lutein Softgel (Vit C/[place] Ac/Lut/Copper/Znox) 1 Each Capsule 1 Cap PO DAILY Hydrocodone-Apap 5-325 (Hydrocodone Bit/Acetaminophen) 1 Each Tablet 1 Tab PO PRN Q6HRS PRN Losartan Potassium 100 Mg Tablet 100 Mg PO DAILY Children's Aspirin (Aspirin) 81 Mg Tab.chew 81 Mg PO DAILY Amlodipine Besylate 10 Mg Tablet 10 Mg PO DAILY Zyprexa (Olanzapine) 2.5 Mg Tablet 2.5 Mg PO QHS Metoprolol Succinate ( Xl ) (Metoprolol Succinate) 25 Mg Tab.er.24h 25 Mg PO DAILY Plavix (Clopidogrel Bisulfate) 75 Mg Tablet 75 Mg PO DAILY Cymbalta (Duloxetine Hcl) 30 Mg Capsule.dr 90 Mg PO DAILY Tamsulosin Hcl 0.4 Mg Cap.er.24h 0.4 Mg PO QHS Xalatan (Latanoprost) 2.5 Ml Drops 1 Drop OU QHS Combigan Eye Drops (Brimonidine Tartrate/Timolol) 5 Ml Drops 1 Drop LEFTEYE BID Diagnosis: Problems: (1) Alzheimer's dementia (2) Dementia with behavioral disturbance (3) Anxiety disorder (4) Impulse control disorder (5) Major depressive disorder, recurrent episode JO DEWEY MD Jun 10, 2017 21:12
[2017-06-11] MEDS ORDERED: ACET500T68 PO (00:16)
[2017-06-11] MEDS ORDERED: CYAN10005 PO (00:28)
[2017-06-11] MEDS ORDERED: MAG30ORA2 PO (00:37)
[2017-06-11] MEDS ORDERED: MAGN400O7 PO (00:44)
[2017-06-11] MEDS ORDERED: METH29OI TP (00:46)
[2017-06-11] MEDS ORDERED: NICO1PAT21 TD (00:51)
[2017-06-11] MEDS ORDERED: OLAN2.5T3 PO (00:56)
[2017-06-11] MEDS ORDERED: QUET50TA5 PO ×2 (01:01→01:04)
[2017-06-11] MEDS ORDERED: OXYC10TA45 PO (01:06)
[2017-06-11] MEDS ORDERED: LIDO700A39 TP (01:12)
[2017-06-11] MEDS ORDERED: CHOL500050 PO (01:16)
[2017-06-11] MEDS ORDERED: QUET25TA5 PO (01:20)
[2017-06-11] MEDS ORDERED: OLAN5TAB5 PO (01:23)
[2017-06-11 06:10] VITALS: BP 126/75
[2017-06-11] MEDS: CARVEDILOL 6.25 MG TABLET PO SCH (08:10)
[2017-06-11] MEDS: MULTIVITAMIN I-VITE TABLET. PO SCH (08:10)
[2017-06-11] MEDS: NICOTINE 21MG PATCH. TD SCH (08:10)
[2017-06-11] MEDS: ASPIRIN 81 MG TAB.CHEW PO SCH (08:10)
[2017-06-11] MEDS: CYANOCOBALAMIN (VITAMIN B-12) 1,000 MCG TABLET. PO SCH (08:10)
[2017-06-11] MEDS: DULoxetine HCL 30 MG CAPSULE.DR PO SCH (08:11)
[2017-06-11] MEDS: CLOPIDOGREL BISULFATE 75 MG TABLET PO SCH (08:11)
[2017-06-11] MEDS: amLODIPine BESYLATE 10 MG TABLET PO SCH (08:11)
[2017-06-11] MEDS: METOPROLOL SUCC 24HR ER 25 MG TAB.ER.24H. PO SCH (08:11)
[2017-06-11 08:12] VITALS: BP 126/75
[2017-06-11] MEDS: LOSARTAN 50 MG TABLET. PO SCH (08:12)
[2017-06-11] MEDS: QUEtiapine 25 MG TABLET. PO SCH (08:13)
[2017-06-11] MEDS: TIMOLOL 0.5% OPHTH SOLUTION 5ML BOTTLE. OS SCH (08:15)
[2017-06-11] MEDS: BRIMONIDINE 0.2% OPHTH SOLUTION 5ML BOTTLE. OS SCH (08:15)
[2017-06-11] MEDS: LIDOCAINE (700MG/PATCH) PATCH. TD SCH (08:15)
[2017-06-11] MEDS: oxyCODONE ER 10 MG TAB.ER.12H PO SCH (08:15)
--- NOTE | 2017-06-11 21:13 | PN ---
DATE: 06/09/2017 This late entry 06/09/2017 covers elements not covered in my initial order of 06/09/2017. SUBJECTIVE: I met with the patient evening of 06/09/2017. Overall, the patient has been coming out for activities, states his pain is better, 6 on a scale of 0-10, which is an improvement from the 7-10 he was having previously. REVIEW OF SYSTEMS: Still complains of some back pain. No CV, , pulmonary, eye, ENT system symptoms on review. MENTAL STATUS EXAM: Reasonably oriented. Speech is coherent, abstraction fair, computation impaired, language function intact. Mood and affect showing improvement. LABORATORY DATA: Reviewed. IMPRESSION: Unchanged from initial note. PLAN: Continue current psychotropics, reviewed drug interactions. Risk/benefit ratio favors no further change. MAN Eduin DEWEY MD DR: SANJEEV/margo JOB#: [id number] / [id number]
--- NOTE | 2017-06-11 21:22 | PDOC ---
Exam Kel Demential Exam: Kel Note: Please also refer to the separate dictated note~for this date of service dictated separately.~Patient seen individually. Discussed the patient with Nursing staff reviewed the chart.~Reviewed interim history and current functioning. Reviewed vital signs,~Labs/ Radiology~and current medications noted below. Continue current treatment with the changes noted in the dictated addendum note Assessment: Vital Signs: Vital Signs Date Time Temp Pulse Resp B/P (MAP) Pulse Ox O2 Delivery O2 Flow Rate FiO2 06/11/17 08:15 97 06/11/17 08:12 84 126/75 06/11/17 06:10 97.6 18 06/10/17 19:50 Room Air I&O Intake and Output 06/12/17 07:00 Intake Total 480 ml Balance 480 ml Intake Oral 480 ml Current Medications: Meds: Current Medications Influenza Virus Vaccine Quadrival (Fluarix Quad [id number] Syringe) 0.5 ml 1X ONCE VAX IM Last administered on 05/29/17 11:28; Start 05/29/17 at 09:00; Stop 05/29/17 at 09:01; Status DC Acetaminophen (Tylenol) 650 mg PRN Q6HRS PRN PO PAIN / TEMP Last administered on 06/10/17 13:29; Start 05/28/17 at 16:45; Stop 06/11/17 at 11:16; Status DC Multi-Ingredient Ointment (Analgesic [place]) 1 mónica PRN QID PRN TP MUSCLE PAIN; Start 05/28/17 at 16:45; Stop 06/11/17 at 11:16; Status DC Al Hydroxide/Mg Hydroxide (Mylanta Plus Xs) 15 ml PRN AFTMEALHC PRN PO DYSPEPSIA; Start 05/28/17 at 16:45; Stop 06/11/17 at 11:16; Status DC Magnesium Hydroxide (Milk Of Magnesia) 2,400 mg PRN QHS PRN PO CONSTIPATION; Start 05/28/17 at 16:45; Stop 06/11/17 at 11:16; Status DC Nicotine (Nicoderm Cq 21mg) 1 patch DAILY TD Last administered on 06/11/17 08: 10; Start 05/29/17 at 09:00; Stop 06/11/17 at 11:16; Status DC Duloxetine HCl (Cymbalta) 90 mg BID PO ; Start 05/28/17 at 21:00; Stop 05/28/17 at 21:00; Status DC Olanzapine (ZyPREXA) 2.5 mg QHS PO Last administered on 05/30/17 21:08; Start 05/28/17 at 21:00; Stop 05/31/17 at 18:37; Status DC Alprazolam (Xanax) 1 mg PRN TID PRN PO ANXIETY / AGITATION Last administered on 05/28/17 20:09; Start 05/28/17 at 19:30; Stop 05/29/17 at 04:22; Status DC Duloxetine HCl (Cymbalta) 90 mg DAILY PO Last administered on 06/11/17 08:11; Start 05/29/17 at 09:00; Stop 06/11/17 at 11:16; Status DC Alprazolam (Xanax) 0.5 mg PRN TID PRN PO ANXIETY / AGITATION Last administered on 05/30/17 11:40; Start 05/29/17 at 04:30; Stop 05/30/17 at 18:49; Status DC Amlodipine Besylate (Norvasc) 10 mg DAILY PO Last administered on 06/11/17 08: 11; Start 05/30/17 at 09:00; Stop 06/11/17 at 11:16; Status DC Aspirin (Children'S Aspirin) 81 mg DAILY PO Last administered on 06/11/17 08: 10; Start 05/30/17 at 09:00; Stop 06/11/17 at 11:16; Status DC Carvedilol (Coreg) 6.25 mg BIDWMEALS PO Last administered on 06/11/17 08:10; Start 05/29/17 at 17:00; Stop 06/11/17 at 11:16; Status DC Clopidogrel Bisulfate (Plavix) 75 mg DAILY PO Last administered on 06/11/17 08 :11; Start 05/30/17 at 09:00; Stop 06/11/17 at 11:16; Status DC Acetaminophen/ Hydrocodone Bitart (Lortab 5/325) 1 tab PRN Q6HRS PRN PO PAIN Last administered on 06/08/17 16:43; Start 05/29/17 at 16:30; Stop 06/11/17 at 11:16; Status DC Latanoprost (Xalatan) 1 drop QHS OU Last administered on 06/10/17 19:54; Start 05/29/17 at 21:00; Stop 06/11/17 at 11:16; Status DC Metoprolol Succinate (Toprol Xl) 25 mg DAILY PO Last administered on 06/11/17 08:11; Start 05/30/17 at 09:00; Stop 06/11/17 at 11:16; Status DC Tamsulosin HCl (Flomax) 0.4 mg QHS PO Last administered on 06/10/17 19:51; Start 05/29/17 at 21:00; Stop 06/11/17 at 11:16; Status DC Atorvastatin Calcium (Lipitor) 80 mg QHS PO Last administered on 06/10/17 19: 51; Start 05/29/17 at 21:00; Stop 06/11/17 at 11:16; Status DC Brimonidine Tartrate (Alphagan) 1 drop BID OS Last administered on 06/11/17 08 :15; Start 05/29/17 at 21:00; Stop 06/11/17 at 11:16; Status DC Losartan Potassium (Cozaar) 100 mg DAILY PO Last administered on 06/11/17 08: 12; Start 05/30/17 at 09:00; Stop 06/11/17 at 11:16; Status DC Multivitamins/ Minerals (I-[place]) 1 tab DAILY PO Last administered on 06/11/17 08:10; Start 05/30/17 at 09:00; Stop 06/11/17 at 11:16; Status DC Timolol Maleate (Timoptic 0.5% [facility]) 1 drop BID OS Last administered on 08:15; Start 05/29/17 at 21:00; Stop 06/11/17 at 11:16; Status DC Olanzapine (ZyPREXA ZYDIS) 1.25 mg PRN Q2HR PRN PO ANXIETY; Start 05/30/17 at 12:00; Stop 06/11/17 at 11:16; Status DC Buspirone HCl (Buspar) 5 mg BID92 PO Last administered on 06/04/17 12:58; Start 05/30/17 at 14:00; Stop 06/04/17 at 18:52; Status DC Lidocaine (Lidoderm) 1 patch DAILY TD Last administered on 06/11/17 08:15; Start 05/30/17 at 18:00; Stop 06/11/17 at 11:16; Status DC Alprazolam (Xanax) 0.25 mg PRN Q2HR PRN PO ANXIETY / AGITATION Last administered on 06/04/17 19:38; Start 05/30/17 at 19:00; Stop 06/11/17 at 11:16 ; Status DC Naltrexone HCl (Depade) 25 mg DAILY PO ; Start 05/31/17 at 09:00; Stop 05/31/17 at 09:00; Status DC Vitamin D (Vitamin D3) 50,000 unit WEEKLY PO Last administered on 06/07/17 08: 40; Start 05/31/17 at 14:30; Stop 06/11/17 at 11:16; Status DC Quetiapine Fumarate (SEROquel) 25 mg QHS PO Last administered on 05/31/17 20: 27; Start 05/31/17 at 21:00; Stop 06/01/17 at 18:24; Status DC Quetiapine Fumarate (SEROquel) 50 mg QHS PO Last administered on 06/10/17 19: 54; Start 06/01/17 at 21:00; Stop 06/11/17 at 11:16; Status DC Oxycodone HCl (OxyCONTIN) 10 mg Q12HR PO Last administered on 06/11/17 08:15; Start 06/02/17 at 21:00; Stop 06/11/17 at 11:16; Status DC Quetiapine Fumarate (SEROquel) 12.5 mg BID@0900,1400 PO Last administered on 12:58; Start 06/03/17 at 09:00; Stop 06/04/17 at 18:52; Status DC Quetiapine Fumarate (SEROquel) 25 mg BID@0900,1400 PO Last administered on 06/07 14:08; Start 06/05/17 at 09:00; Stop 06/07/17 at 18:15; Status DC Quetiapine Fumarate (SEROquel) 37.5 mg BID@0900,1400 PO Last administered on 08:13; Start 06/08/17 at 09:00; Stop 06/11/17 at 11:16; Status DC Cyanocobalamin (Vitamin B-12) 1,000 mcg DAILY PO Last administered on 08:10; Start 06/08/17 at 09:00; Stop 06/11/17 at 11:16; Status DC Active Scripts Active Reported Zyprexa Zydis (Olanzapine) 5 Mg Tab.rapdis 1.25 Mg PO PRN Q2HR PRN MDD 10mg/ 24hrs Seroquel (Quetiapine Fumarate) 25 Mg Tablet 37.5 Mg PO BID92 Vitamin D3 (Cholecalciferol (Vitamin D3)) 50,000 Unit Capsule 50,000 Unit PO QM start date: 05/31/17 Lidocaine 1 Each Adh..patch 1 Patch TP DAILY Oxycontin (Oxycodone HCl) 10 Mg Tab.er.12h 10 Mg PO BID Seroquel (Quetiapine Fumarate) 50 Mg Tablet 50 Mg PO QHS NICODERM CQ 21mg (Nicotine) 1 Each Patch.td24 1 Patch TD DAILY Analgesic [place] (Methyl Salicylate/Menthol) 28 Gm Oint...g. 1 Mónica TP QIDPRN PRN Milk Of Magnesia (Magnesium Hydroxide) 400 Mg/5 Ml Oral.susp 2,400 Mg PO PRN HS Mag-Al Plus Xs Suspension (Mag Hydrox/Al Hydrox/Simeth) 30 Ml Oral.susp 15 Ml PO PRN AFTMEALHC PRN Vitamin B-12 (Cyanocobalamin (Vitamin B-12)) 1,000 Mcg Tablet 1,000 Mcg PO DAILY Acetaminophen 500 Mg Tablet 650 Mg PO PRN Q6HRS PRN MDD 4000 mg/24 hrs Atorvastatin Calcium 80 Mg Tablet 80 Mg PO QHS Coreg (Carvedilol) 6.25 Mg Tablet 6.25 Mg PO BIDWMEALS Preservision Lutein Softgel (Vit C/[place] Ac/Lut/Copper/Znox) 1 Each Capsule 1 Cap PO DAILY Hydrocodone-Apap 5-325 (Hydrocodone Bit/Acetaminophen) 1 Each Tablet 1 Tab PO PRN Q6HRS PRN MDD 4000 mg/ 24 hrs Losartan Potassium 100 Mg Tablet 100 Mg PO DAILY Children's Aspirin (Aspirin) 81 Mg Tab.chew 81 Mg PO DAILY Amlodipine Besylate 10 Mg Tablet 10 Mg PO DAILY Metoprolol Succinate ( Xl ) (Metoprolol Succinate) 25 Mg Tab.er.24h 25 Mg PO DAILY Plavix (Clopidogrel Bisulfate) 75 Mg Tablet 75 Mg PO DAILY Cymbalta (Duloxetine Hcl) 30 Mg Capsule.dr 90 Mg PO DAILY Tamsulosin Hcl 0.4 Mg Cap.er.24h 0.4 Mg PO QHS Xalatan (Latanoprost) 2.5 Ml Drops 1 Drop OU QHS Combigan Eye Drops (Brimonidine Tartrate/Timolol) 5 Ml Drops 1 Drop LEFTEYE BID Diagnosis: Problems: (1) Alzheimer's dementia (2) Anxiety disorder (3) Impulse control disorder (4) Major depressive disorder, recurrent episode JO DEWEY MD Jun 11, 2017 21:22
--- NOTE | 2017-06-12 02:21 | PN ---
DATE: 06/10/2017 PSYCHIATRIC PROGRESS NOTE This is a late entry for 06/10/2017, covers elements not covered in my initial note of 06/10/2017. SUBJECTIVE: I met with the patient individually the evening of 06/10/2017. Staffed at treatment team meeting with the entire team the morning of 06/10/2017 and the patient's attended the conference. Discussed the patient's progress. was pleased that he is much less anxious, less fixated on his pain. REVIEW OF SYSTEMS: Still complains of back pain 5 on a scale of 0-10, which is an improvement. No CV, , pulmonary, eye system symptoms on review. MENTAL STATUS EXAM: Reasonably oriented. Speech is coherent, abstraction fair, computation impaired, language function intact, attention span short. Mood and affect showing improvement and less lability. LABORATORY DATA: Reviewed. IMPRESSION: Unchanged from initial note. PLAN: Continue current psychotropics. Reviewed drug interactions. Risk/benefit ratio favors no further change. Seroquel was increased and seems to be helping. JO DEWEY MD DR: [email or web address]/margo JOB#: [id number] / [id number]
--- NOTE | 2017-06-12 12:18 | DS ---
DATE OF DISCHARGE: 06/11/2017 This is a late entry 06/11 covers elements not covered in my initial note of 06/11. REASON FOR ADMISSION: Please refer to the admission history for details. Briefly, the patient is a 77-year-old male who lives at home with his , referred from the Emergency Room at [facility] where he presented with increased confusion. Reportedly, he was drinking again after 30 years, but this was clarified during the hospitalization that even though he went and bought some alcohol, the removed it and he in fact did not have a drink. He had just recovered from the UTI. He was more anxious, labile, depressed, confused. He had failed outpatient psychiatric interventions. Behaviors were deemed dangerous, unmanageable outside the acute inpatient facility, referred for inpatient psychiatric stabilization. SIGNIFICANT FINDING AND CLINICAL COURSE: He is referred by his primary care physician, Dr. Dalton. Following admission, the patient was seen daily individually by myself, followed medically by Dr. Mejia/Dr. Barksdale. Adjustments were made in his psychotropics. At one point, it appears as an outpatient on account of some communication difficulties. He was on Cymbalta 180 mg twice a day. He was dropped down to 90 mg a day of Cymbalta, seemed to respond additionally to a combination of Seroquel 50 mg at bedtime and 37.5 mg 0900 and 1400 and Zyprexa p.r.n. along with Xanax p.r.n. Gradually, the patient's mood appeared to improve. Anxiety was better. He was less fixated on this pain and somatic symptoms even though they persisted. Prior to discharge on 06/11/2017, he still complained of some back pain. REVIEW OF SYSTEMS: No CV, , pulmonary, eye, ENT system symptoms on review. MENTAL STATUS EXAM: The patient is reasonably oriented. Speech coherent, abstraction fair, computation somewhat impaired, language function intact. Mood and affect improved. No suicidal or homicidal ideation, no psychotic symptoms prior to discharge. FINAL DIAGNOSES: Major depressive disorder, recurrent, severe, in partial remission; anxiety disorder, unspecified; cognitive disorder, unspecified; chronic. Rest diagnosis is unchanged from admission. DISCHARGE MEDICATIONS: Please refer to the MRAD. Outpatient psychiatric and medical followup at the alf. Time for discharge day management is greater than 30 minutes. MAN Eduin DEWEY MD DR: Fernanda JOB#: [id number] / [id number]
== END 2017-06-11 11:16 | disposition home or self-care (01) | DRG 57 ==
LOC: ER 12:07 → GEROPSY 14:36
PROVIDERS: ADMIT Psychiatry & Neurology Psychiatry; ATTEND Psychiatry & Neurology Psychiatry
DX: G30.9 Alzheimer's disease, unspecified (principal); F02.81 Dementia in other diseases classified elsewhere, unspecified severity, with behavioral disturbance; F33.2 Major depressive disorder, recurrent severe without psychotic features; E87.1 Hypo-osmolality and hyponatremia; F22 Delusional disorders; E78.5 Hyperlipidemia, unspecified; F10.21 Alcohol dependence, in remission; F17.210 Nicotine dependence, cigarettes, uncomplicated; F41.9 Anxiety disorder, unspecified; F33.41 Major depressive disorder, recurrent, in partial remission; F63.9 Impulse disorder, unspecified; G89.29 Other chronic pain; M19.90 Unspecified osteoarthritis, unspecified site; M54.9 Dorsalgia, unspecified; H35.30 Unspecified macular degeneration; H40.9 Unspecified glaucoma; I10 Essential (primary) hypertension; I25.10 Atherosclerotic heart disease of native coronary artery without angina pectoris; M79.7 Fibromyalgia; Z87.440 Personal history of urinary (tract) infections; Z79.899 Other long term (current) drug therapy; Z88.8 Allergy status to other drugs, medicaments and biological substances; Z88.2 Allergy status to sulfonamides
CPT/HCPCS: 36415; 51701; 80053; 80061; 80307; 81001; 82306; 82607; 83036; 83540; 83550; 83735; 84436; 84443; 84480; 85025; 86592; 86593; 90686; 93005; 99406; G0480; 99285-25; G0479

== ENCOUNTER 2018-05-20 11:17 | Inpatient (IN) | payer MEDICARE, BC ==
[~2018-05-20] VITALS: Ht 167.6 cm; Wt 71.7 kg
[~2018-05-20 11:17] MED LIST changes: +ALPR0.5T6 PO; +ALPR1TAB2 PO; +AMLO10TA6 PO; +ASPI81TA59 PO; +ATOR40TA59 PO; +ATORVASTATIN CA80 MG PO; +CARV6.25 PO; +CHOL500050 PO; +CIPR500T94 PO; +CLOP75TA57 PO; +CYAN10005 PO; +DULO60CA6 PO; +HYDR-2758 PO; +LIDO700A39 TP; +LOSA100T7 PO; +MAG30ORA2 PO; +MAGN400O7 PO; +METO-239 PO; +NICO1PAT21 TD; +OLAN2.5T3 PO; +OLAN5TAB5 PO; +OXYC10TA45 PO; +QUET25TA5 PO; +QUET50TA5 PO; +SERT50TA PO; +VIT1CAPS17 PO
--- NOTE | 2018-05-20 12:29 | EKG ---
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
[2018-05-20 12:32] LABS: BASO # 0.1 x10^3/uL (0.0-0.2); BASO % 1 % (0-3); EOS # 0.1 x10^3/uL (0.0-0.7); EOS % 1 % (0-3); HEMOGLOBIN 11.4 g/dL (13.0-17.5); LYMPH # 2.3 x10^3/uL (1.0-4.8); LYMPH % 20 % (24-48); MEAN CORPUSCULAR HEMOGLOBIN 32 pg (25-35); MEAN CORPUSCULAR HGB CONC 34 g/dL (31-37); MEAN CORPUSCULAR VOLUME 93 fL (79-100); MONO # 0.8 x10^3/uL (0.0-1.1); MONO % 7 % (0-9); NEUT # 8.1 x10^3uL (1.8-7.7); NEUT % 72 % (31-73); PLATELET COUNT 280 x10^3/uL (140-400); RED BLOOD COUNT 3.53 x10^6/uL (4.30-5.70); WHITE BLOOD COUNT 11.3 x10^3/uL (4.0-11.0)
[2018-05-20 12:48] LABS: ALBUMIN 3.6 g/dL (3.4-5.0); ALBUMIN/GLOBULIN RATIO 1.1 (1.0-1.7); CALCIUM 8.4 mg/dL (8.5-10.1); GFR 72.5; MAGNESIUM 1.8 mg/dL (1.8-2.4); POTASSIUM 4.1 mmol/L (3.5-5.1); TOTAL BILIRUBIN 0.5 mg/dL (0.2-1.0); TOTAL PROTEIN 6.9 g/dL (6.4-8.2)
--- NOTE | 2018-05-20 13:13 | PHYS DOC ---
Past History Past Medical History: Arthritis, Glaucoma, Hypertension, UTI Past Surgical History: Other Alcohol Use: Heavy Drug Use: None Adult General Chief Complaint Chief Complaint: PSYCH EVALUATION [facility] Patient is a 78 year old male who brought in for psychiatric evaluation. Patient states he had remote history of alcoholism and was sober for about 30 years but for the last 2 weeks started to drink 1 pint of hard liquor every day. Patient told his that he wanted to drink alcohol to patient states he had several guns in home and she has to hide them from him. Patient denies suicidal and homicidal ideation and states he is drinking alcohol because of his chronic back pain does not getting better with pain medication. Review of Systems Review of Systems Constitutional: Denies fever or chills [] Eyes: Denies change in visual acuity, redness, or eye pain [] HENT: Denies nasal congestion or sore throat [] Respiratory: Denies cough or shortness of breath [] Cardiovascular: No additional information not addressed in HPI [] GI: Denies abdominal pain, nausea, vomiting, bloody stools or diarrhea [] : Denies dysuria or hematuria [] Musculoskeletal: Reports back pain Integument: Denies rash or skin lesions [] Neurologic: Denies headache, focal weakness or sensory changes [] Endocrine: Denies polyuria or polydipsia [] All other systems were reviewed and found to be within normal limits, except as documented in this note. Allergies Allergies Allergies Coded Allergies Type Severity Reaction Last Updated Verified Sulfa (Sulfonamide Antibiotics) Allergy Intermediate 05/28/17 Yes prednisone Allergy Intermediate 05/28/17 Yes Physical Exam Physical Exam Constitutional: Well nourished, mild distress, non-toxic appearance. [] HENT: Normocephalic, atraumatic, bilateral external ears normal, oropharynx moist, no oral exudates, nose normal. [] Eyes: PERRLA, EOMI, conjunctiva normal, no discharge. [] Neck: Normal range of motion, no tenderness, supple, no stridor. [] Cardiovascular:Heart rate regular rhythm, no murmur [] Lungs & Thorax: Bilateral breath sounds clear to auscultation [] Abdomen: Bowel sounds normal, soft, no tenderness, no masses, no pulsatile masses. [] Skin: Warm, dry, no erythema, no rash. [] Back: No tenderness, no CVA tenderness. [] Extremities: No tenderness, no cyanosis, no clubbing, ROM intact, no edema. [] Neurologic: Alert and oriented X 3, normal motor function, normal sensory function, no focal deficits noted. [] Psychologic: Affect anxious, judgement normal, mood normal. [] Current Patient Data Lab Results Laboratory Tests Test 05/20/18 12:17 White Blood Count 11.3 x10^3/uL (4.0-11.0) H Red Blood Count 3.53 x10^6/uL (4.30-5.70) L Hemoglobin 11.4 g/dL (13.0-17.5) L Hematocrit 33.0 % (39.0-53.0) L Mean Corpuscular Volume 93 fL (79-100) Mean Corpuscular Hemoglobin 32 pg (25-35) Mean Corpuscular Hemoglobin Concent 34 g/dL (31-37) Red Cell Distribution Width 15.0 % (11.5-14.5) H Platelet Count 280 x10^3/uL (140-400) Neutrophils (%) (Auto) 72 % (31-73) Lymphocytes (%) (Auto) 20 % (24-48) L Monocytes (%) (Auto) 7 % (0-9) Eosinophils (%) (Auto) 1 % (0-3) Basophils (%) (Auto) 1 % (0-3) Neutrophils # (Auto) 8.1 x10^3uL (1.8-7.7) H Lymphocytes # (Auto) 2.3 x10^3/uL (1.0-4.8) Monocytes # (Auto) 0.8 x10^3/uL (0.0-1.1) Eosinophils # (Auto) 0.1 x10^3/uL (0.0-0.7) Basophils # (Auto) 0.1 x10^3/uL (0.0-0.2) Sodium Level 129 mmol/L (136-145) L Potassium Level 4.1 mmol/L (3.5-5.1) Chloride Level 95 mmol/L (98-107) L Carbon Dioxide Level 25 mmol/L (21-32) Anion Gap 9 (6-14) Blood Urea Nitrogen 9 mg/dL (8-26) Creatinine 1.0 mg/dL (0.7-1.3) Estimated GFR (Cockcroft-Gault) 72.5 BUN/Creatinine Ratio 9 (6-20) Glucose Level 87 mg/dL (70-99) Calcium Level 8.4 mg/dL (8.5-10.1) L Magnesium Level 1.8 mg/dL (1.8-2.4) Total Bilirubin 0.5 mg/dL (0.2-1.0) Aspartate Amino Transferase (AST) 15 U/L (15-37) Alanine Aminotransferase (ALT) 16 U/L (16-63) Alkaline Phosphatase 81 U/L (46-116) Total Protein 6.9 g/dL (6.4-8.2) Albumin 3.6 g/dL (3.4-5.0) Albumin/Globulin Ratio 1.1 (1.0-1.7) Ethyl Alcohol Level < 10 mg/dL (0-10) EKG EKG Interpreted by me. EKG at 1225 showed normal sinus rhythm at rate of 67, leftward axis, no acute ST and T wave abnormality Radiology/Procedures Radiology/Procedures EKG interpreted by me. EKG at 1220 showed normal sinus rhythm at rate of 67, no acute ST and T-wave abnormalities Course & Med Decision Making Course & Med Decision Making Pertinent Labs reviewed. (See chart for details) Evaluation of patient in ER showed 78-year-old male patient with history of alcoholism was started to drink alcohol for the last 2 week every day and sounded suicidal for his . Patient had unremarkable physical exam in ER except for anxiety. Because of history of drinking alcohol daily for 2 weeks plan to admit patient to hospitalist for detox and thenpossible admission for suicidal evaluation. Dr. Owens accepted admission at 1247. [] Dragon Disclaimer Dragon Disclaimer This electronic medical record was generated, in whole or in part, using a voice recognition dictation system. Departure Departure: Impression: Primary Impression: Delirium tremens Additional Impressions: Alcohol abuse Tobacco abuse Anxiety disorder Chronic back pain Suicidal ideation Disposition: 09 ADMITTED INPATIENT (1248) Admitting Physician: Other (Dr Owens) Condition: IMPROVED Referrals: GWEN LLANOS DO (PCP) Problem Qualifiers CURLY WINSTON MD May 20, 2018 13:13
[2018-05-20 13:19] LABS: BARBITURATES NEG (NEG); BENZODIAZEPINES NEG (NEG); CANNABINOIDS NEG (NEG); COCAINE NEG (NEG); METHADONE NEG (NEG); OPIATES NEG (NEG); PHENCYCLIDINE NEG (NEG)
[2018-05-20 13:21] LABS: AMPHETAMINE/METHAMPHETAMINE NEG (NEG)
[2018-05-20 13:23] LABS: BILIRUBIN,URINE NEG (NEG); CLARITY,URINE HAZY; COLOR,URINE YELLOW; GLUCOSE,URINE NEG (NEG)
[2018-05-20 13:24] LABS: BACTERIA,URINE 0 /HPF (0-FEW); NITRITE,URINE NEG (NEG); SQUAMOUS EPITHELIAL CELL,UR OCC /LPF; UROBILINOGEN,URINE 0.2 mg/dL (0.2 mg/dL)
[2018-05-20] MEDS ORDERED: LORazepam 2 MG/ML VIAL IV ONE (14:15)
[2018-05-20 16:16] VITALS: BP 166/91
[2018-05-20] MEDS ORDERED: LORazepam 1 MG TABLET PO PRN (16:30)
[2018-05-20] MEDS ORDERED: diphenhydrAMINE 50 MG/ML VIAL IVP PRN (16:30)
[2018-05-20] MEDS ORDERED: cloNIDine HCL 0.1 MG TABLET PO PRN (16:30)
[2018-05-20] MEDS ORDERED: HALOPERIDOL LACT 5 MG/ML VIAL. IM PRN (16:30)
[2018-05-20] MEDS ORDERED: CLON1TAB4 PO (16:32)
[2018-05-20] MEDS ORDERED: TIZA4TAB8 PO (16:32)
[2018-05-20] MEDS ORDERED: PANT40TA5 PO (16:32)
[2018-05-20] MEDS: CARVEDILOL 6.25 MG TABLET PO SCH (17:01)
[2018-05-20] MEDS: oxyCODONE IR 5 MG TABLET PO PRN (17:02)
[2018-05-20] MEDS: MVI, ADULT NO.4 WITH VIT K 10 ML, THIAMINE INJ 100 MG, FOLIC ACID INJ 1 MG in IV NORMAL... IV SCH ×4 (18:17)
[2018-05-20 18:27] VITALS: BP 144/82
[2018-05-20] MEDS: LORazepam 2 MG/ML VIAL IV PRN (19:07)
[2018-05-20] MEDS: tiZANidine 4 MG TABLET. PO SCH (19:46)
[2018-05-20] MEDS: BRIMONIDINE 0.2% OPHTH SOLUTION 5ML BOTTLE. OS SCH (19:46)
[2018-05-20] MEDS: LATANOPROST 0.005% OPHTH SOLUTION 2.5ML BOTTLE. OU SCH (19:46)
[2018-05-20] MEDS: TIMOLOL 0.5% OPHTH SOLUTION 5ML BOTTLE. OS SCH (19:46)
[2018-05-20] MEDS: QUEtiapine 50 MG TABLET. PO SCH (19:47)
[2018-05-20] MEDS: TAMSULOSIN 0.4 MG CAP.ER.24H. PO SCH (19:47)
[2018-05-20] MEDS: ATORVASTATIN CALCIUM 20 MG TABLET PO SCH (19:50)
[2018-05-20 22:19] VITALS: BP 127/72
[2018-05-21] MEDS: oxyCODONE IR 5 MG TABLET PO PRN ×3 (00:27→23:28)
[2018-05-21] MEDS ORDERED: Influenza vaccine per PROTOCOL. MC PRN (04:30)
[2018-05-21 06:38] VITALS: BP 137/75
[2018-05-21 06:46] LABS: BASO # 0.1 x10^3/uL (0.0-0.2); BASO % 1 % (0-3); EOS # 0.1 x10^3/uL (0.0-0.7); EOS % 2 % (0-3); HEMATOCRIT 35.7 % (39.0-53.0); HEMOGLOBIN 11.7 g/dL (13.0-17.5); LYMPH % 38 % (24-48); MEAN CORPUSCULAR HEMOGLOBIN 33 pg (25-35); MEAN CORPUSCULAR HGB CONC 33 g/dL (31-37); MEAN CORPUSCULAR VOLUME 100 fL (79-100); MONO # 0.7 x10^3/uL (0.0-1.1); MONO % 9 % (0-9); NEUT % 51 % (31-73); PLATELET COUNT 248 x10^3/uL (140-400); RED BLOOD COUNT 3.56 x10^6/uL (4.30-5.70); RED CELL DISTRIBUTION WIDTH 15.6 % (11.5-14.5); WHITE BLOOD COUNT 7.9 x10^3/uL (4.0-11.0)
[2018-05-21 06:57] LABS: ALBUMIN 2.7 g/dL (3.4-5.0); ALBUMIN/GLOBULIN RATIO 0.8 (1.0-1.7); CALCIUM 8.1 mg/dL (8.5-10.1); CREATININE 0.8 mg/dL (0.7-1.3); GFR 93.7; TOTAL BILIRUBIN 0.4 mg/dL (0.2-1.0); TOTAL PROTEIN 6.2 g/dL (6.4-8.2)
[2018-05-21 06:58] LABS: POTASSIUM 4.3 mmol/L (3.5-5.1)
[2018-05-21] MEDS: METOPROLOL SUCC 24HR ER 25 MG TAB.ER.24H. PO SCH (08:54)
[2018-05-21] MEDS: MULTIVITAMIN I-VITE TABLET. PO SCH (08:54)
[2018-05-21] MEDS: DULoxetine HCL 30 MG CAPSULE.DR PO SCH (08:54)
[2018-05-21] MEDS: CLOPIDOGREL BISULFATE 75 MG TABLET PO SCH (08:55)
[2018-05-21] MEDS: tiZANidine 4 MG TABLET. PO SCH ×3 (08:55→20:24)
[2018-05-21] MEDS: PANTOPRAZOLE 40 MG TABLET. PO SCH (08:55)
[2018-05-21] MEDS: QUEtiapine 25 MG TABLET. PO SCH ×2 (08:55→16:14)
[2018-05-21] MEDS: CARVEDILOL 6.25 MG TABLET PO SCH ×2 (08:56→16:35)
[2018-05-21] MEDS: LIDOCAINE (700MG/PATCH) PATCH. TD SCH (08:56)
[2018-05-21] MEDS: ASPIRIN 81 MG TAB.CHEW PO SCH (08:56)
[2018-05-21] MEDS: CYANOCOBALAMIN (VITAMIN B-12) 1,000 MCG TABLET. PO SCH (08:56)
[2018-05-21] MEDS: TIMOLOL 0.5% OPHTH SOLUTION 5ML BOTTLE. OS SCH ×2 (08:57→20:24)
[2018-05-21] MEDS: BRIMONIDINE 0.2% OPHTH SOLUTION 5ML BOTTLE. OS SCH ×2 (08:57→20:24)
[2018-05-21] MEDS: MVI, ADULT NO.4 WITH VIT K 10 ML, THIAMINE INJ 100 MG, FOLIC ACID INJ 1 MG in IV NORMAL... IV SCH ×4 (08:58)
[2018-05-21 11:00] VITALS: BP 116/74
--- NOTE | 2018-05-21 14:39 | PDOC1 ---
History of Present Illness History of Present Illness 78-year-old male brought to the ED by his for psychiatric evaluation. 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 He is followed by pain management and was scheduled for an ablation in however suffered an CT and is status post stent. He cannot undergo any procedures until June due to the stent. His PCP move away from the area and his current doctor discontinued his pain medications. Patient has extensive alcohol abuse history and has been sober for 30 years. Two weeks ago, reportedly to treat his back pain and insomnia he started drinking again 1/2-1 pint liquor per day. His found out about a week ago and has been "encouraging" him to stop drinking. Yesterday patient reportedly said something to his about not wanting to live with this pain. She reportedly hid the guns in the home and brought him to the ED. He does have history of D/Ts 30 years ago, and his last drink was 0400 on 05/20. His EKG was normal sinus rhythm [address] abnormalities, sodium 119 overall labs were unremarkable urine drug screen was negative and alcohol level <10. I find him today eating lunch in no distress. He denies any withdrawal symptoms and no tremor is noted. He denies suicidal ideation, he is frustrated about his back pain complaints which have been controlled since admission with oxycodone 5 mg every 6 hours when necessary. 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 See HPI for pertinent positives and negative responses, other chang all other systems are negative, non pertinent or non contributory Medications Current Medications Lorazepam (Ativan) 1 mg 1X ONCE IV Last administered on 05/20/18at 14:00; Start 05/20/18 at 14:15; Stop 05/20/18 at 14:16; Status DC Multivitamins/ Minerals 10 ml/ Thiamine HCl 100 mg/Folic Acid 1 mg/Sodium Chloride 1,011.2 ml @ 100 mls/ hr DAILY IV ; Start 05/21/18 at 18:00; Stop at 18:00; Status DC Lorazepam (Ativan) 4 mg PRN Q1HR PRN PO For CIWA 8-14 Last administered on 05/20at 17:00; Start 05/20/18 at 16:30 Lorazepam (Ativan) 2 mg PRN Q1HR PRN IV For CIWA 8-14 Last administered on 05/20at 19:07; Start 05/20/18 at 16:30 Haloperidol Lactate (Haldol) 5 mg PRN Q4HRS PRN IM Hallucinatns,Confusn, Delirium; Start 05/20/18 at 16:30 Diphenhydramine HCl (Benadryl) 25 mg PRN Q15MIN PRN IVP EPS symptoms 2'Haldol admin; Start 05/20/18 at 16:30 Clonidine HCl (Catapres) 0.1 mg PRN Q1HR PRN PO SBP>180 OR DBP>100, MR X 3; Start 05/20/18 at 16:30 Multivitamins/ Minerals 10 ml/ Thiamine HCl 100 mg/Folic Acid 1 mg/Sodium Chloride 1,011.2 ml @ 100 mls/ hr DAILY IV Last administered on 05/21/18at 08: 58; Start 05/20/18 at 18:00 Vitamin D (Vitamin D3) 50,000 unit QM PO ; Start 05/23/18 at 16:00 Clopidogrel Bisulfate (Plavix) 75 mg DAILY PO Last administered on 05/21/18at 08 :55; Start 05/21/18 at 09:00 Cyanocobalamin (Vitamin B-12) 1,000 mcg DAILY PO Last administered on at 08:56; Start 05/21/18 at 09:00 Metoprolol Succinate (Toprol Xl) 25 mg DAILY PO Last administered on 05/21/18at 08:54; Start 05/21/18 at 09:00 Olanzapine (ZyPREXA ZYDIS) 1.25 mg PRN Q2HR PRN PO PSYCHOSIS Last administered on 05/20/18at 19:46; Start 05/20/18 at 16:45 Tamsulosin HCl (Flomax) 0.4 mg QHS PO Last administered on 05/20/18 19:47; Start 05/20/18 at 21:00 Aspirin (Children'S Aspirin) 81 mg DAILYWBKFT PO Last administered on 08:56; Start 05/21/18 at 08:00 Atorvastatin Calcium (Lipitor) 80 mg QHS PO Last administered on 05/20/18 19: 50; Start 05/20/18 at 21:00 Brimonidine Tartrate (Alphagan) 1 drop BID OS Last administered on 05/21/18 08 :57; Start 05/20/18 at 21:00 Carvedilol (Coreg) 6.25 mg BIDWMEALS PO Last administered on 05/21/18 08:56; Start 05/20/18 at 17:00 Duloxetine HCl (Cymbalta) 90 mg DAILY PO Last administered on 05/21/18 08:54; Start 05/21/18 at 09:00 Latanoprost (Xalatan) 1 drop QHS OU Last administered on 05/20/18 19:46; Start 05/20/18 at 21:00 Lidocaine (Lidoderm) 1 patch DAILY TD Last administered on 05/21/18 08:56; Start 05/21/18 at 09:00 Pantoprazole Sodium (Protonix) 40 mg DAILYAC PO Last administered on 05/21/18 08:55; Start 05/21/18 at 07:30 Quetiapine Fumarate (SEROquel) 37.5 mg BID92 PO Last administered on 05/21/18 08:55; Start 05/21/18 at 09:00 Quetiapine Fumarate (SEROquel) 50 mg QHS PO Last administered on 05/20/18 19: 47; Start 05/20/18 at 21:00 Tizanidine HCl (Zanaflex) 2 mg TID PO Last administered on 05/21/18 08:55; Start 05/20/18 at 21:00 Multivitamins/ Minerals (I-Korey) 1 tab DAILY PO Last administered on 05/21/18at 08:54; Start 05/21/18 at 09:00 Oxycodone HCl (Roxicodone) 5 mg PRN Q6HRS PRN PO PAIN Last administered on 05/21at 00:27; Start 05/20/18 at 16:45 Timolol Maleate (Timoptic 0.5% [facility]) 1 drop BID OS Last administered on at 08:57; Start 05/20/18 at 21:00 Info (FLU VACCINE per PROTOCOL) 1 ea PRN 1X PRN MC PER PROTOCOL; Start at 04:30; Status UNV Influenza Virus Vaccine (Afluria Trivalent [id number] Syringe) 0.5 ml ONCE ONCE VAX IM ; Start 05/21/18 at 09:00; Stop 05/21/18 at 09:01; Status DC Active Scripts Active Reported Pantoprazole Sodium 40 Mg Tablet.dr 1 Tab PO DAILY Zanaflex (Tizanidine HCl) 4 Mg Tablet 2 Mg PO TID Clonazepam 1 Mg Tablet 1 Tab PO BID Zyprexa Zydis (Olanzapine) 5 Mg Tab.rapdis 1.25 Mg PO PRN Q2HR PRN MDD 10mg/ 24hrs Seroquel (Quetiapine Fumarate) 25 Mg Tablet 37.5 Mg PO BID92 Vitamin D3 (Cholecalciferol (Vitamin D3)) 50,000 Unit Capsule 50,000 Unit PO QM start date: 05/31/17 Lidocaine 1 Each Adh..patch 1 Patch TP DAILY Seroquel (Quetiapine Fumarate) 50 Mg Tablet 50 Mg PO QHS Milk Of Magnesia (Magnesium Hydroxide) 400 Mg/5 Ml Oral.susp 2,400 Mg PO PRN HS Vitamin B-12 (Cyanocobalamin (Vitamin B-12)) 1,000 Mcg Tablet 1,000 Mcg PO DAILY Atorvastatin Calcium 80 Mg Tablet 80 Mg PO QHS Coreg (Carvedilol) 6.25 Mg Tablet 6.25 Mg PO BIDWMEALS Preservision Lutein Softgel (Vit C/Korey Ac/Lut/Copper/Znox) 1 Each Capsule 1 Cap PO DAILY Children's Aspirin (Aspirin) 81 Mg Tab.chew 81 Mg PO DAILY Metoprolol Succinate ( Xl ) (Metoprolol Succinate) 25 Mg Tab.er.24h 25 Mg PO DAILY Plavix (Clopidogrel Bisulfate) 75 Mg Tablet 75 Mg PO DAILY Cymbalta (Duloxetine Hcl) 30 Mg Capsule.dr 90 Mg PO DAILY Tamsulosin Hcl 0.4 Mg Cap.er.24h 0.4 Mg PO QHS Xalatan (Latanoprost) 2.5 Ml Drops 1 Drop OU QHS Combigan Eye Drops (Brimonidine Tartrate/Timolol) 5 Ml Drops 1 Drop LEFTEYE BID Exam Vital Signs Vital Signs Date Time Temp Pulse Resp B/P (MAP) Pulse Ox O2 Delivery O2 Flow Rate FiO2 05/21/18 11:00 98.1 116/74 (88) 96 Room Air 05/21/18 08:56 58 05/21/18 06:38 18 General Appearance: Alert, Oriented X3, Cooperative, No acute distress HEENT: Atraumatic, PERRLA, EOMI, Mucous membr. moist/pink Respiratory: Clear to auscultation, Normal air movement Heart: Regular rate, No murmurs Abdominal: Normal bowel sounds, Soft, No tenderness Extremities: No clubbing, No cyanosis, No edema Neuro: Normal speech, Strength at 5/5 X4 ext, Normal tone (no tremor), Sensation intact, Cranial nerves 3-12 NL Psych/Mental Status: Mental status NL (mildly anxious speech and affect appear to be normal) Assessment/Plan Assessment/Plan Worsening depression: Consult Dr. Ho for evaluation Chronic back pain: Controlled with oxycodone 5 mg every 6 hours when necessary Alcoholism relapse: No evidence of DTs at this time Hyponatremia: Sodium improved from 129 up to 135 with IV hydration COURSE Allergies Coded Allergies Type Severity Reaction Last Updated Verified Sulfa (Sulfonamide Antibiotics) Allergy Intermediate 05/28/17 Yes prednisone Allergy Intermediate 05/28/17 Yes Laboratory Tests Test 05/21/18 06:33 White Blood Count 7.9 x10^3/uL (4.0-11.0) Red Blood Count 3.56 x10^6/uL (4.30-5.70) Hemoglobin 11.7 g/dL (13.0-17.5) Hematocrit 35.7 % (39.0-53.0) Mean Corpuscular Volume 100 fL (79-100) Mean Corpuscular Hemoglobin 33 pg (25-35) Mean Corpuscular Hemoglobin Concent 33 g/dL (31-37) Red Cell Distribution Width 15.6 % (11.5-14.5) Platelet Count 248 x10^3/uL (140-400) Neutrophils (%) (Auto) 51 % (31-73) Lymphocytes (%) (Auto) 38 % (24-48) Monocytes (%) (Auto) 9 % (0-9) Eosinophils (%) (Auto) 2 % (0-3) Basophils (%) (Auto) 1 % (0-3) Neutrophils # (Auto) 4.0 x10^3uL (1.8-7.7) Lymphocytes # (Auto) 3.0 x10^3/uL (1.0-4.8) Monocytes # (Auto) 0.7 x10^3/uL (0.0-1.1) Eosinophils # (Auto) 0.1 x10^3/uL (0.0-0.7) Basophils # (Auto) 0.1 x10^3/uL (0.0-0.2) Sodium Level 135 mmol/L (136-145) Potassium Level 4.3 mmol/L (3.5-5.1) Chloride Level 105 mmol/L (98-107) Carbon Dioxide Level 22 mmol/L (21-32) Anion Gap 8 (6-14) Blood Urea Nitrogen 9 mg/dL (8-26) Creatinine 0.8 mg/dL (0.7-1.3) Estimated GFR (Cockcroft-Gault) 93.7 BUN/Creatinine Ratio 11 (6-20) Glucose Level 75 mg/dL (70-99) Calcium Level 8.1 mg/dL (8.5-10.1) Total Bilirubin 0.4 mg/dL (0.2-1.0) Aspartate Amino Transf (AST/SGOT) 16 U/L (15-37) Alanine Aminotransferase (ALT/SGPT) 15 U/L (16-63) Alkaline Phosphatase 67 U/L (46-116) Total Protein 6.2 g/dL (6.4-8.2) Albumin 2.7 g/dL (3.4-5.0) Albumin/Globulin Ratio 0.8 (1.0-1.7) Current Medications Medications (Trade) Dose Ordered Sig/Vimal Route PRN Reason Start Time Stop Time Status Last Admin Dose Admin Multivitamins/ Minerals 10 ml/ Thiamine HCl 100 mg/Folic Acid 1 mg/Sodium Chloride 1,011.2 ml @ 100 mls/ hr DAILY IV 05/21/18 18:00 05/21/18 18:00 DC Lorazepam (Ativan) 4 mg PRN Q1HR PRN PO For CIWA 8-14 05/20/18 16:30 05/20/18 17:00 Lorazepam (Ativan) 2 mg PRN Q1HR PRN IV For CIWA 8-14 05/20/18 16:30 05/20/18 19:07 Haloperidol Lactate (Haldol) 5 mg PRN Q4HRS PRN IM Hallucinatns,Confusn,Delirium 05/20/18 16:30 Diphenhydramine HCl (Benadryl) 25 mg PRN Q15MIN PRN IVP EPS symptoms 2'Haldol admin 05/20/18 16:30 Clonidine HCl (Catapres) 0.1 mg PRN Q1HR PRN PO SBP>180 OR DBP>100, MR X 3 05/20/18 16:30 Multivitamins/ Minerals 10 ml/ Thiamine HCl 100 mg/Folic Acid 1 mg/Sodium Chloride 1,011.2 ml @ 100 mls/ hr DAILY IV 05/20/18 18:00 05/21/18 08:58 Vitamin D (Vitamin D3) 50,000 unit QM PO 05/23/18 16:00 Clopidogrel Bisulfate (Plavix) 75 mg DAILY PO 05/21/18 09:00 05/21/18 08:55 Cyanocobalamin (Vitamin B-12) 1,000 mcg DAILY PO 05/21/18 09:00 05/21/18 08:56 Metoprolol Succinate (Toprol Xl) 25 mg DAILY PO 05/21/18 09:00 05/21/18 08:54 Olanzapine (ZyPREXA ZYDIS) 1.25 mg PRN Q2HR PRN PO PSYCHOSIS 05/20/18 16:45 05/20/18 19:46 Tamsulosin HCl (Flomax) 0.4 mg QHS PO 05/20/18 21:00 05/20/18 19:47 Aspirin (Children'S Aspirin) 81 mg DAILYWBKFT PO 05/21/18 08:00 05/21/18 08:56 Atorvastatin Calcium (Lipitor) 80 mg QHS PO 05/20/18 21:00 05/20/18 19:50 Brimonidine Tartrate (Alphagan) 1 drop BID OS 05/20/18 21:00 05/21/18 08:57 Carvedilol (Coreg) 6.25 mg BIDWMEALS PO 05/20/18 17:00 05/21/18 08:56 Duloxetine HCl (Cymbalta) 90 mg DAILY PO 05/21/18 09:00 05/21/18 08:54 Latanoprost (Xalatan) 1 drop QHS OU 05/20/18 21:00 05/20/18 19:46 Lidocaine (Lidoderm) 1 patch DAILY TD 05/21/18 09:00 05/21/18 08:56 Pantoprazole Sodium (Protonix) 40 mg DAILYAC PO 05/21/18 07:30 05/21/18 08:55 Quetiapine Fumarate (SEROquel) 37.5 mg BID92 PO 05/21/18 09:00 05/21/18 08:55 Quetiapine Fumarate (SEROquel) 50 mg QHS PO 05/20/18 21:00 05/20/18 19:47 Tizanidine HCl (Zanaflex) 2 mg TID PO 05/20/18 21:00 05/21/18 08:55 Multivitamins/ Minerals (I-Korey) 1 tab DAILY PO 05/21/18 09:00 05/21/18 08:54 Oxycodone HCl (Roxicodone) 5 mg PRN Q6HRS PRN PO PAIN 05/20/18 16:45 05/21/18 00:27 Timolol Maleate (Timoptic 0.5% Ophth) 1 drop BID OS 05/20/18 21:00 05/21/18 08:57 Info (FLU VACCINE per PROTOCOL) 1 ea PRN 1X PRN MC PER PROTOCOL 05/21/18 04:30 UNV Influenza Virus Vaccine (Afluria Trivalent [id number] Syringe) 0.5 ml ONCE ONCE VAX IM 05/21/18 09:00 05/21/18 09:01 DC I & O 05/21/18 00:00 Intake Total 120 ml Balance 120 ml Orders Procedure Category Date Status Time Mvi, Adult No.4 With PHA 05/21/18 Complete Vit K (Infuvite Kenan 18:00 Lorazepam (Ativan) PHA 05/20/18 In Process 16:30 Lorazepam (Ativan) PHA 05/20/18 In Process 16:30 Haloperidol Lact PHA 05/20/18 In Process (Haldol) 16:30 Diphenhydramine PHA 05/20/18 In Process (Benadryl) 16:30 Clonidine Hcl PHA 05/20/18 In Process (Catapres) 16:30 Cbc W Autodiff LAB 05/21/18 Complete 05:00 Comprehensive LAB 05/21/18 Complete Metabolic Panel 05:00 Seizure Precautions, SHEY 05/20/18 In Process Implement 16:21 Mvi, Adult No.4 With PHA 05/20/18 In Process Vit K (Infuvite Kenan 18:00 Cholecalciferol PHA 05/23/18 In Process (Vitamin D3) (Vitamin 16:00 Clopidogrel Bisulfate PHA 05/21/18 In Process (Plavix) 09:00 Cyanocobalamin PHA 05/21/18 In Process (Vitamin B-12) 09:00 Metoprolol Succ 24hr PHA 05/21/18 In Process Er (Toprol Xl) 09:00 Olanzapine Zydis PHA 05/20/18 In Process (Zyprexa Zydis) 16:45 Tamsulosin (Flomax) PHA 05/20/18 In Process 21:00 Aspirin (Children's PHA 05/21/18 In Process Aspirin) 08:00 Atorvastatin Calcium PHA 05/20/18 In Process (Lipitor) 21:00 Brimonidine 0.2% PHA 05/20/18 In Process Ophth (Alphagan) 21:00 Carvedilol (Coreg) PHA 05/20/18 In Process 17:00 Duloxetine Hcl PHA 05/21/18 In Process (Cymbalta) 09:00 Latanoprost 0.005% PHA 05/20/18 In Process Ophth (Xalatan) 21:00 Lidocaine PHA 05/21/18 In Process (700mg/Patch) 09:00 Pantoprazole PHA 05/21/18 In Process (Protonix) 07:30 Quetiapine (Seroquel) PHA 05/21/18 In Process 09:00 Quetiapine (Seroquel) PHA 18 In Process 21:00 Tizanidine (Zanaflex) PHA 18 In Process 21:00 Multivitamin I-Korey PHA 05/21/18 In Process Tablet. (I-Korey) 09:00 Oxycodone Ir PHA 05/20/18 In Process (Roxicodone) 16:45 Admit Orders ADT 05/20/18 Transmitted Timolol 0.5% Ophth PHA 05/20/18 In Process (Timoptic 0.5% Ophth) 21:00 Apply Henri Stockings SHEY 05/20/18 In Process And Kwaku Wr 17:22 Pneumatic Compression SHEY 05/20/18 In Process Device 17:22 Suicide Precautions SHEY 05/20/18 Complete 17:33 Case Management CM1 05/21/18 Transmitted Referral 07:00 Rehab Screening (Pt, REHAB 05/21/18 Logged [address], [address]) 07:00 Admission Screening CONS 05/20/18 Transmitted 17:39 Smoking Cessation RT 05/20/18 Logged 3-10 Min 17:39 Regular DIET 05/21/18 Transmitted Breakfast Consult Physician By CONS 05/20/18 Transmitted Name 19:18 Nutrition Consult NOURISH 05/20/18 Transmitted 22:13 Flu Vacc Ts 2017- PHA 05/21/18 Complete (5yr+)/Pf (Afluria T 09:00 Consult Physician By CONS 05/21/18 Transmitted Name 14:31 Vital Signs Date Time Temp Pulse Resp B/P (MAP) Pulse Ox O2 Delivery O2 Flow Rate FiO2 05/21/18 11:00 98.1 116/74 (88) 96 Room Air 05/21/18 08:56 58 05/21/18 06:38 18 YARELY HER DO May 21, 2018 14:39
[2018-05-21 15:00] VITALS: BP 129/76
[2018-05-21] MEDS: LORazepam 2 MG/ML VIAL IV PRN (16:35)
[2018-05-21] MEDS ORDERED: MVI, ADULT NO.4 WITH VIT K 10 ML, THIAMINE INJ 100 MG, FOLIC ACID INJ 1 MG in IV NORMAL... IV SCH ×4 (18:00)
[2018-05-21 19:21] VITALS: BP 99/69
--- NOTE | 2018-05-21 19:54 | PDOC ---
Exam Note: Kel Note: Please also refer to the separate dictated note~for this date of service dictated separately.~Patient seen individually. Discussed the patient with Nursing staff reviewed the chart.~Reviewed interim history and current functioning. Reviewed vital signs,~Labs/ Radiology~and current medications noted below. Continue current treatment with the changes noted in the dictated addendum note Assessment: Vital Signs: Vital Signs Date Time Temp Pulse Resp B/P (MAP) Pulse Ox O2 Delivery O2 Flow Rate FiO2 05/21/18 19:21 98.2 67 18 99/69 (79) 97 Room Air I&O Intake and Output 05/21/18 07:00 Intake Total 1110 ml Balance 1110 ml Intake Oral 120 ml IV Total 990 ml # Voids 5 Labs: Laboratory Tests Test 05/21/18 06:33 White Blood Count 7.9 x10^3/uL (4.0-11.0) Red Blood Count 3.56 x10^6/uL (4.30-5.70) L Hemoglobin 11.7 g/dL (13.0-17.5) L Hematocrit 35.7 % (39.0-53.0) L Mean Corpuscular Volume 100 fL (79-100) # Mean Corpuscular Hemoglobin 33 pg (25-35) Mean Corpuscular Hemoglobin Concent 33 g/dL (31-37) Red Cell Distribution Width 15.6 % (11.5-14.5) H Platelet Count 248 x10^3/uL (140-400) Neutrophils (%) (Auto) 51 % (31-73) Lymphocytes (%) (Auto) 38 % (24-48) Monocytes (%) (Auto) 9 % (0-9) Eosinophils (%) (Auto) 2 % (0-3) Basophils (%) (Auto) 1 % (0-3) Neutrophils # (Auto) 4.0 x10^3uL (1.8-7.7) Lymphocytes # (Auto) 3.0 x10^3/uL (1.0-4.8) Monocytes # (Auto) 0.7 x10^3/uL (0.0-1.1) Eosinophils # (Auto) 0.1 x10^3/uL (0.0-0.7) Basophils # (Auto) 0.1 x10^3/uL (0.0-0.2) Sodium Level 135 mmol/L (136-145) L Potassium Level 4.3 mmol/L (3.5-5.1) Chloride Level 105 mmol/L (98-107) Carbon Dioxide Level 22 mmol/L (21-32) Anion Gap 8 (6-14) Blood Urea Nitrogen 9 mg/dL (8-26) Creatinine 0.8 mg/dL (0.7-1.3) Estimated GFR (Cockcroft-Gault) 93.7 BUN/Creatinine Ratio 11 (6-20) Glucose Level 75 mg/dL (70-99) Calcium Level 8.1 mg/dL (8.5-10.1) L Total Bilirubin 0.4 mg/dL (0.2-1.0) Aspartate Amino Transferase (AST) 16 U/L (15-37) Alanine Aminotransferase (ALT) 15 U/L (16-63) L Alkaline Phosphatase 67 U/L (46-116) Total Protein 6.2 g/dL (6.4-8.2) L Albumin 2.7 g/dL (3.4-5.0) L Albumin/Globulin Ratio 0.8 (1.0-1.7) L Current Medications: Meds: Current Medications Lorazepam (Ativan) 1 mg 1X ONCE IV Last administered on 05/20/18at 14:00; Start 05/20/18 at 14:15; Stop 05/20/18 at 14:16; Status DC Multivitamins/ Minerals 10 ml/ Thiamine HCl 100 mg/Folic Acid 1 mg/Sodium Chloride 1,011.2 ml @ 100 mls/ hr DAILY IV ; Start 05/21/18 at 18:00; Stop at 18:00; Status DC Lorazepam (Ativan) 4 mg PRN Q1HR PRN PO For CIWA 8-14 Last administered on 05/20at 17:00; Start 05/20/18 at 16:30 Lorazepam (Ativan) 2 mg PRN Q1HR PRN IV For CIWA 8-14 Last administered on 05/21at 16:35; Start 05/20/18 at 16:30 Haloperidol Lactate (Haldol) 5 mg PRN Q4HRS PRN IM Hallucinatns,Confusn, Delirium; Start 05/20/18 at 16:30 Diphenhydramine HCl (Benadryl) 25 mg PRN Q15MIN PRN IVP EPS symptoms 2'Haldol admin; Start 05/20/18 at 16:30 Clonidine HCl (Catapres) 0.1 mg PRN Q1HR PRN PO SBP>180 OR DBP>100, MR X 3; Start 05/20/18 at 16:30 Multivitamins/ Minerals 10 ml/ Thiamine HCl 100 mg/Folic Acid 1 mg/Sodium Chloride 1,011.2 ml @ 100 mls/ hr DAILY IV Last administered on 05/21/18at 08: 58; Start 05/20/18 at 18:00 Vitamin D (Vitamin D3) 50,000 unit QM PO ; Start 05/23/18 at 16:00 Clopidogrel Bisulfate (Plavix) 75 mg DAILY PO Last administered on 05/21/18 08 :55; Start 05/21/18 at 09:00 Cyanocobalamin (Vitamin B-12) 1,000 mcg DAILY PO Last administered on 08:56; Start 05/21/18 at 09:00 Metoprolol Succinate (Toprol Xl) 25 mg DAILY PO Last administered on 05/21/18 08:54; Start 05/21/18 at 09:00 Olanzapine (ZyPREXA ZYDIS) 1.25 mg PRN Q2HR PRN PO PSYCHOSIS Last administered on 05/20/18at 19:46; Start 05/20/18 at 16:45 Tamsulosin HCl (Flomax) 0.4 mg QHS PO Last administered on 05/20/18 19:47; Start 05/20/18 at 21:00 Aspirin (Children'S Aspirin) 81 mg DAILYWBKFT PO Last administered on 08:56; Start 05/21/18 at 08:00 Atorvastatin Calcium (Lipitor) 80 mg QHS PO Last administered on 05/20/18 19: 50; Start 05/20/18 at 21:00 Brimonidine Tartrate (Alphagan) 1 drop BID OS Last administered on 05/21/18at 08 :57; Start 05/20/18 at 21:00 Carvedilol (Coreg) 6.25 mg BIDWMEALS PO Last administered on 05/21/18at 16:35; Start 05/20/18 at 17:00 Duloxetine HCl (Cymbalta) 90 mg DAILY PO Last administered on 05/21/18at 08:54; Start 05/21/18 at 09:00 Latanoprost (Xalatan) 1 drop QHS OU Last administered on 05/20/18at 19:46; Start 05/20/18 at 21:00 Lidocaine (Lidoderm) 1 patch DAILY TD Last administered on 05/21/18 08:56; Start 05/21/18 at 09:00 Pantoprazole Sodium (Protonix) 40 mg DAILYAC PO Last administered on 05/21/18 08:55; Start 05/21/18 at 07:30 Quetiapine Fumarate (SEROquel) 37.5 mg BID92 PO Last administered on 05/21/18 16:14; Start 05/21/18 at 09:00 Quetiapine Fumarate (SEROquel) 50 mg QHS PO Last administered on 05/20/18at 19: 47; Start 05/20/18 at 21:00 Tizanidine HCl (Zanaflex) 2 mg TID PO Last administered on 05/21/18at 16:14; Start 05/20/18 at 21:00 Multivitamins/ Minerals (I-Kore[place]) 1 tab DAILY PO Last administered on 05/21/18at 08:54; Start 05/21/18 at 09:00 Oxycodone HCl (Roxicodone) 5 mg PRN Q6HRS PRN PO PAIN Last administered on 05/21at 16:34; Start 05/20/18 at 16:45 Timolol Maleate (Timoptic 0.5% [facility]) 1 drop BID OS Last administered on at 08:57; Start 05/20/18 at 21:00 Info (FLU VACCINE per PROTOCOL) 1 ea PRN 1X PRN MC PER PROTOCOL; Start at 04:30; Status UNV Influenza Virus Vaccine (Afluria Trivalent 2995-0822 Syringe) 0.5 ml ONCE ONCE VAX IM ; Start 05/21/18 at 09:00; Stop 05/21/18 at 09:01; Status DC Active Scripts Active Reported Pantoprazole Sodium 40 Mg Tablet.dr 1 Tab PO DAILY Zanaflex (Tizanidine HCl) 4 Mg Tablet 2 Mg PO TID Clonazepam 1 Mg Tablet 1 Tab PO BID Zyprexa Zydis (Olanzapine) 5 Mg Tab.rapdis 1.25 Mg PO PRN Q2HR PRN MDD 10mg/ 24hrs Seroquel (Quetiapine Fumarate) 25 Mg Tablet 37.5 Mg PO BID92 Vitamin D3 (Cholecalciferol (Vitamin D3)) 50,000 Unit Capsule 50,000 Unit PO QM start date: 05/31/17 Lidocaine 1 Each Adh..patch 1 Patch TP DAILY Seroquel (Quetiapine Fumarate) 50 Mg Tablet 50 Mg PO QHS Milk Of Magnesia (Magnesium Hydroxide) 400 Mg/5 Ml Oral.susp 2,400 Mg PO PRN HS Vitamin B-12 (Cyanocobalamin (Vitamin B-12)) 1,000 Mcg Tablet 1,000 Mcg PO DAILY Atorvastatin Calcium 80 Mg Tablet 80 Mg PO QHS Coreg (Carvedilol) 6.25 Mg Tablet 6.25 Mg PO BIDWMEALS Preservision Lutein Softgel (Vit C/[place] Ac/Lut/Copper/Znox) 1 Each Capsule 1 Cap PO DAILY Children's Aspirin (Aspirin) 81 Mg Tab.chew 81 Mg PO DAILY Metoprolol Succinate ( Xl ) (Metoprolol Succinate) 25 Mg Tab.er.24h 25 Mg PO DAILY Plavix (Clopidogrel Bisulfate) 75 Mg Tablet 75 Mg PO DAILY Cymbalta (Duloxetine Hcl) 30 Mg Capsule.dr 90 Mg PO DAILY Tamsulosin Hcl 0.4 Mg Cap.er.24h 0.4 Mg PO QHS Xalatan (Latanoprost) 2.5 Ml Drops 1 Drop OU QHS Combigan Eye Drops (Brimonidine Tartrate/Timolol) 5 Ml Drops 1 Drop LEFTEYE BID I have reviewed the current psychotropics carefully including drug interactions. Risk benefit ratio favors no change other than as noted in my dictated progress note. Diagnosis: Problems: (1) Alcohol dependence (2) Major depressive disorder, recurrent episode (3) Impulse control disorder (4) Anxiety disorder (5) Alzheimer's dementia (6) Suicidal ideation (7) Chronic back pain JO DEWEY MD May 21, 2018 19:54
[2018-05-21] MEDS: QUEtiapine 50 MG TABLET. PO SCH (20:24)
[2018-05-21] MEDS: TAMSULOSIN 0.4 MG CAP.ER.24H. PO SCH (20:24)
[2018-05-21] MEDS: LATANOPROST 0.005% OPHTH SOLUTION 2.5ML BOTTLE. OU SCH (20:24)
[2018-05-21] MEDS: ATORVASTATIN CALCIUM 20 MG TABLET PO SCH (20:24)
[2018-05-21 22:06] VITALS: BP 123/66
[2018-05-22 05:17] VITALS: BP 102/68
[2018-05-22] MEDS: MVI, ADULT NO.4 WITH VIT K 10 ML, THIAMINE INJ 100 MG, FOLIC ACID INJ 1 MG in IV NORMAL... IV SCH ×4 (09:00)
[2018-05-22] MEDS: TIMOLOL 0.5% OPHTH SOLUTION 5ML BOTTLE. OS SCH (09:01)
[2018-05-22] MEDS: BRIMONIDINE 0.2% OPHTH SOLUTION 5ML BOTTLE. OS SCH (09:01)
[2018-05-22] MEDS: CYANOCOBALAMIN (VITAMIN B-12) 1,000 MCG TABLET. PO SCH (09:02)
[2018-05-22] MEDS: LIDOCAINE (700MG/PATCH) PATCH. TD SCH (09:02)
[2018-05-22] MEDS: tiZANidine 4 MG TABLET. PO SCH ×2 (09:02→13:57)
[2018-05-22] MEDS: DULoxetine HCL 30 MG CAPSULE.DR PO SCH (09:02)
[2018-05-22] MEDS: CARVEDILOL 6.25 MG TABLET PO SCH (09:03)
[2018-05-22] MEDS: QUEtiapine 25 MG TABLET. PO SCH ×2 (09:03→13:57)
[2018-05-22] MEDS: MULTIVITAMIN I-VITE TABLET. PO SCH (09:03)
[2018-05-22] MEDS: CLOPIDOGREL BISULFATE 75 MG TABLET PO SCH (09:03)
[2018-05-22] MEDS: PANTOPRAZOLE 40 MG TABLET. PO SCH (09:04)
[2018-05-22] MEDS: ASPIRIN 81 MG TAB.CHEW PO SCH (09:04)
[2018-05-22] MEDS: METOPROLOL SUCC 24HR ER 25 MG TAB.ER.24H. PO SCH (09:04)
[2018-05-22 11:00] VITALS: BP 102/51
[2018-05-22] MEDS: oxyCODONE IR 5 MG TABLET PO PRN (13:57)
--- NOTE | 2018-05-22 14:07 | PDOC ---
SUBJECTIVE: I find the patient sitting up in bed watching television and eating lunch once again. His is at the bedside, they remain no symptoms of alcohol withdrawal. Patient is medically stable for discharge home however patient and his who is his healthcare proxy remain very concerned about his depression. Awaiting recommendations per Dr. Ho, and perhaps the possibility of senior behavioral admission for further evaluation and medication adjustment if necessary. OBJECTIVE: Problems: Problems Medical Problems: (1) Chronic back pain Status: Acute (2) Delirium tremens Status: Acute (3) Suicidal ideation Status: Acute Vital Signs: Vital Signs Date Time Temp Pulse Resp B/P (MAP) Pulse Ox O2 Delivery O2 Flow Rate FiO2 05/22/18 11:00 97.7 70 16 102/51 (68) 97 Room Air I & O Intake and Output 05/22/18 07:00 Intake Total 1380 ml Output Total 2 ml Balance 1378 ml Intake Oral 400 ml IV Total 980 ml Output Urine Total 2 ml # Voids 4 Labs: Laboratory Tests Test 05/21/18 06:33 White Blood Count 7.9 x10^3/uL (4.0-11.0) Red Blood Count 3.56 x10^6/uL (4.30-5.70) Hemoglobin 11.7 g/dL (13.0-17.5) Hematocrit 35.7 % (39.0-53.0) Mean Corpuscular Volume 100 fL (79-100) Mean Corpuscular Hemoglobin 33 pg (25-35) Mean Corpuscular Hemoglobin Concent 33 g/dL (31-37) Red Cell Distribution Width 15.6 % (11.5-14.5) Platelet Count 248 x10^3/uL (140-400) Neutrophils (%) (Auto) 51 % (31-73) Lymphocytes (%) (Auto) 38 % (24-48) Monocytes (%) (Auto) 9 % (0-9) Eosinophils (%) (Auto) 2 % (0-3) Basophils (%) (Auto) 1 % (0-3) Neutrophils # (Auto) 4.0 x10^3uL (1.8-7.7) Lymphocytes # (Auto) 3.0 x10^3/uL (1.0-4.8) Monocytes # (Auto) 0.7 x10^3/uL (0.0-1.1) Eosinophils # (Auto) 0.1 x10^3/uL (0.0-0.7) Basophils # (Auto) 0.1 x10^3/uL (0.0-0.2) Sodium Level 135 mmol/L (136-145) Potassium Level 4.3 mmol/L (3.5-5.1) Chloride Level 105 mmol/L (98-107) Carbon Dioxide Level 22 mmol/L (21-32) Anion Gap 8 (6-14) Blood Urea Nitrogen 9 mg/dL (8-26) Creatinine 0.8 mg/dL (0.7-1.3) Estimated GFR (Cockcroft-Gault) 93.7 BUN/Creatinine Ratio 11 (6-20) Glucose Level 75 mg/dL (70-99) Calcium Level 8.1 mg/dL (8.5-10.1) Total Bilirubin 0.4 mg/dL (0.2-1.0) Aspartate Amino Transf (AST/SGOT) 16 U/L (15-37) Alanine Aminotransferase (ALT/SGPT) 15 U/L (16-63) Alkaline Phosphatase 67 U/L (46-116) Total Protein 6.2 g/dL (6.4-8.2) Albumin 2.7 g/dL (3.4-5.0) Albumin/Globulin Ratio 0.8 (1.0-1.7) Physical Exam: Gen.: No apparent distress alert and oriented 3 HEENT: Normocephalic/atraumatic, extraocular muscles intact. Mucosa is pink and moist Neck: Supple and nontender Pulmonary: Lungs are clear bilaterally no respiratory distress Cardio: Normal S1 and S2 no murmur Extremities: No clubbing cyanosis or edema Neuro: No tremor noted no pronator drift no lateralizing neuro deficits ASSESSMENT: Major depressive disorder Suicidal ideation per spouse Chronic back pain: symptoms controlled oxycodone 5mg q6h prn Etoh relapse: no withdrawal symptoms Patient is medically stable for discharge or [facility] admission. YARELY HER DO May 22, 2018 14:07
[2018-05-22 14:52] VITALS: BP 103/61
[2018-05-22] MEDS ORDERED: OXYC5CAP PO (17:58)
[2018-05-22] MEDS ORDERED: TIMO10DR5 EACHEYE (18:00)
--- NOTE | 2018-05-23 02:09 | CONS ---
DATE OF CONSULTATION: 05/21/2018 PSYCHIATRIC CONSULTATION This is a late entry of 05/21/2018, covers elements not covered in my initial note. The patient was seen individually evening of 05/21/2018. IDENTIFYING DATA: The patient is a 78-year-old male, seen on [address] [place] [address] for a psychiatric consult requested by Dr. Owens on account of the patient's alcohol abuse and restarting use of alcohol for the past 2 weeks after being sober for 30 years. The patient has had increasing chronic back pain and he states he has been drinking to take care of the pain because nothing else has helped. I met with him in room 124. I have been asked to consult for his alcohol abuse and depression. CHIEF COMPLAINT: "Yes, I have a lot of pain. I have been depressed. I will stop drinking." HISTORY OF PRESENT ILLNESS: The patient has a history of mild cognitive impairment and worsening symptoms of depression. He has been sleepy during the day, tired, withdrawn and then restarted significant amount of alcohol abuse over the past 2 weeks. No clear psychotic symptoms or homicidal ideation. He voiced suicidal ideation of wishing he were consequent to his pain, but no suicidal plans, intent or attempt is noted. No clear history of bipolar disorder. The patient has had significant insomnia and he has been drinking half to one pint of liquor per day. Reportedly, the patient's hid his guns and then brought him to the ED. PAST PSYCHIATRIC HISTORY: As above. In the past, the patient has had a history of extensive alcohol abuse and DTs 30 years ago. His last alcohol use was 05/20/2018 at 0400 hours. He is not having any tremors or withdrawal symptoms, but he is on the withdrawal protocol. PAST MEDICAL HISTORY: Osteoarthritis, chronic back pain and he has got an appointment at the pain clinic early June. History of hypertension, fibromyalgia, glaucoma, BPH, chronic back pain, and coronary artery disease. PAST SURGICAL HISTORY: Cardiac stent. CURRENT PSYCHOTROPICS: Cymbalta 90 mg a day and Seroquel 37.5 mg twice a day and 50 mg at bedtime. ALLERGIES: SULFA, PREDNISONE. FAMILY HISTORY: Noncontributory. SOCIAL HISTORY: The patient lives at home with his . Alcohol history is noted above. MENTAL STATUS EXAMINATION: The patient was seen individually evening of 05/21/2018. He said he remembered me, but in fact did not. He is aware he is in the hospital, unaware of the date. Speech is coherent, otherwise pleasant. No active suicidal or homicidal ideation. Mood is depressed, anxious. Affect is mood congruent, short term memory is impaired. Attention span short. Language function intact. IMPRESSION: Major depressive disorder, recurrent. 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 Rest as above. PLAN: From a psychiatric standpoint, I would not change anything for now. I would be happy to follow him and once he has completed any detox protocol, we will see if it would benefit him for coming to the [facility]. If not, he could follow as an outpatient. Dr. Owens, thank you for the opportunity to participate in your patient's care. We will follow with you. MAN Eduin DEWEY MD DR: SANJEEV/margo JOB#: [id number] / [id number]
[2018-05-23] MEDS ORDERED: CHOLECALCIFEROL (VITAMIN D3) 50,000 UNIT CAPSULE PO SCH (16:00)
== END 2018-05-22 17:45 | DRG 641 ==
LOC: ER 11:17 → 1 SOUTH 14:19
PROVIDERS: ADMIT Neuromusculoskeletal Medicine & OMM; ATTEND Neuromusculoskeletal Medicine & OMM
DX: E87.1 Hypo-osmolality and hyponatremia (principal); F33.9 Major depressive disorder, recurrent, unspecified; R45.851 Suicidal ideations; G30.9 Alzheimer's disease, unspecified; F02.80 Dementia in other diseases classified elsewhere, unspecified severity, without behavioral disturbance, psychotic disturbance, mood disturbance, and anxiety; F41.9 Anxiety disorder, unspecified; F63.9 Impulse disorder, unspecified; F10.20 Alcohol dependence, uncomplicated; G89.29 Other chronic pain; H40.9 Unspecified glaucoma; I10 Essential (primary) hypertension; I25.10 Atherosclerotic heart disease of native coronary artery without angina pectoris; M79.7 Fibromyalgia; N40.0 Benign prostatic hyperplasia without lower urinary tract symptoms; F17.200 Nicotine dependence, unspecified, uncomplicated; M19.90 Unspecified osteoarthritis, unspecified site; M54.9 Dorsalgia, unspecified; Y90.0 Blood alcohol level of less than 20 mg/100 ml; F01.50 Vascular dementia, unspecified severity, without behavioral disturbance, psychotic disturbance, mood disturbance, and anxiety; Z95.5 Presence of coronary angioplasty implant and graft; Z87.440 Personal history of urinary (tract) infections; Z88.2 Allergy status to sulfonamides; Z88.8 Allergy status to other drugs, medicaments and biological substances; Z79.82 Long term (current) use of aspirin; Z79.899 Other long term (current) drug therapy
CPT/HCPCS: 36415; 80053; 80307; 81001; 83735; 85025; 87086; 90471; 90756; 93005; 96374; 99406; G0480; J2060; 99285-25; G0479; J7030; Q2035

== ENCOUNTER 2018-05-22 18:29 | Inpatient (IN) | payer MEDICARE, BC ==
[~2018-05-22] VITALS: Ht 167.6 cm; Wt 71.7 kg
[~2018-05-22 18:29] MED LIST changes: +CLON1TAB4 PO; +OXYC5CAP PO; +PANT40TA5 PO; +TIMO10DR5 EACHEYE; +TIZA4TAB8 PO
[2018-05-22 19:17] VITALS: BP 114/66
--- NOTE | 2018-05-22 19:30 | HP ---
ADMIT DATE: 05/22/2018 PSYCHIATRIC ADMISSION HISTORY AND EVALUATION This note covers elements not covered in my initial note 05/22/2018. I have also talked to the patient's at length over the telephone to gather further historical information and address her concerns about the patient's over sedation during the day, worsening pain, worsening symptoms of depression, suicidal ideation, and reinitiation of alcohol abuse, prompting this referral. I had seen the patient for a psychiatric consultation in and the plan was to transfer him outpatient, but the was concerned about his safety since he has voiced suicidal ideation at home. She had hidden the guns, but she felt he was extremely depressed consequent to his chronic pain and is quite insistent that he be transferred to the [facility] for stabilization before transferring to outpatient treatment. CHIEF COMPLAINT: "Yes, I have pain. No I will not hurt myself." HISTORY OF PRESENT ILLNESS: The patient has a history of fairly extensive alcohol abuse in the past, but he has not used anything for about 30 years. About 2 weeks back, he is appearing increasingly depressed, tired, sleeping "all the time." He started using half to one pint of liquor per day. has been encouraging him to stop drinking. The day prior to admission on , the patient voiced to his that he did not want to live because of his pain. She reportedly hid the guns in the home, brought him to the ED. He admits to feeling depressed, hopeless and worthless. No symptoms of bipolar disorder. He has had short term memory deficits. PAST PSYCHIATRIC HISTORY: As above and he was an inpatient here with us in the past. PAST MEDICAL HISTORY: Positive for osteoarthritis, chronic back pain, hypertension, mild cognitive impairment, fibromyalgia, glaucoma, BPH, and coronary artery disease. PAST SURGICAL HISTORY: Cardiac stent. ALLERGIES: SULFA, PREDNISONE. FAMILY HISTORY: Noncontributory. SOCIAL HISTORY: The patient lives at home with his . 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 CURRENT PSYCHOTROPICS: Cymbalta 90 mg a day and Seroquel 37.5 mg b.i.d. and 50 mg at bedtime. FAMILY HISTORY: Noncontributory. SOCIAL HISTORY: The patient lives at home with his . Alcohol abuse history as noted above. No physical, sexual or elder abuse history is noted. He is not known to be a perpetrator. REACTION TO HOSPITALIZATION: The patient is accepting of this and his was very insistent on transferring him to the [facility]. ASSETS: Supportive family. MENTAL STATUS EXAM: The patient was seen individually evening of 05/22/2018. He is oriented to himself, situation, unaware of the date. Short-term memory is impaired. Speech coherent. Mood is depressed, anxious. Affect is mood congruent. Intellect average. Insight fair. Judgment intact to standard questioning. Attention span short. LABORATORY DATA: Reviewed. IMPRESSION: Major depressive disorder, recurrent. 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 Rest as above. PLAN: Admit to geropsychiatry unit at [facility]. I will see the patient daily individually from a psychiatric standpoint and I have talked to the over the phone extensively this evening. Continue current psychotropics, observe baseline, may taper and stop the daytime Seroquel if he is overly sedated. Estimated length of stay is 7-9 days. Disposition would be home to outpatient treatment. JO DEWEY MD DR: SANJEEV/margo JOB#: [id number] / [id number]
[2018-05-22] MEDS ORDERED: MAG HYDROX/AL HYDROX/SIMETH 30 ML ORAL.SUSP PO PRN (20:00)
[2018-05-22] MEDS ORDERED: METHYL SALICYLATE/MENTHOL TOPICAL OINTMENT 29GM TUBE. TP PRN (20:00)
--- NOTE | 2018-05-22 20:53 | PDOC ---
Exam Note: Kel Note: Please also refer to the separate dictated note~for this date of service dictated separately.~Patient seen individually. Discussed the patient with Nursing staff reviewed the chart.~Reviewed interim history and current functioning. Reviewed vital signs,~Labs/ Radiology~and current medications noted below. Continue current treatment with the changes noted in the dictated addendum note Assessment: Vital Signs: Vital Signs Date Time Temp Pulse Resp B/P (MAP) Pulse Ox O2 Delivery O2 Flow Rate FiO2 05/22/18 19:17 97.8 66 20 114/66 (82) 96 Current Medications: Meds: Current Medications Acetaminophen (Tylenol) 650 mg PRN Q6HRS PRN PO PAIN / TEMP; Start 05/22/18 at 20:00 Multi-Ingredient Ointment (Analgesic [place]) 1 aubree PRN QID PRN TP MUSCLE PAIN; Start 05/22/18 at 20:00 Al Hydroxide/Mg Hydroxide (Mylanta Plus Xs) 15 ml PRN AFTMEALHC PRN PO DYSPEPSIA; Start 05/22/18 at 20:00 Nicotine (Nicoderm Cq 21mg) 1 patch DAILY TD ; Start 05/23/18 at 09:00 Active Scripts Active Reported Timoptic (Timolol Maleate) 10 Ml Drops 1 Drop EACHEYE BID Oxycodone Hcl 5 Mg Capsule 1 Cap PO QID Pantoprazole Sodium 40 Mg Tablet.dr 1 Tab PO DAILY Zanaflex (Tizanidine HCl) 4 Mg Tablet 2 Mg PO TID Clonazepam 1 Mg Tablet 1 Tab PO BID Zyprexa Zydis (Olanzapine) 5 Mg Tab.rapdis 1.25 Mg PO PRN Q2HR PRN MDD 10mg/ 24hrs Seroquel (Quetiapine Fumarate) 25 Mg Tablet 37.5 Mg PO BID92 Vitamin D3 (Cholecalciferol (Vitamin D3)) 50,000 Unit Capsule 50,000 Unit PO QM start date: 05/31/17 Lidocaine 1 Each Adh..patch 1 Patch TP DAILY Seroquel (Quetiapine Fumarate) 50 Mg Tablet 50 Mg PO QHS Milk Of Magnesia (Magnesium Hydroxide) 400 Mg/5 Ml Oral.susp 2,400 Mg PO PRN HS Vitamin B-12 (Cyanocobalamin (Vitamin B-12)) 1,000 Mcg Tablet 1,000 Mcg PO DAILY Atorvastatin Calcium 80 Mg Tablet 80 Mg PO QHS Coreg (Carvedilol) 6.25 Mg Tablet 6.25 Mg PO BIDWMEALS Preservision Lutein Softgel (Vit C/[place] Ac/Lut/Copper/Znox) 1 Each Capsule 1 Cap PO DAILY Children's Aspirin (Aspirin) 81 Mg Tab.chew 81 Mg PO DAILY Metoprolol Succinate ( Xl ) (Metoprolol Succinate) 25 Mg Tab.er.24h 25 Mg PO DAILY Plavix (Clopidogrel Bisulfate) 75 Mg Tablet 75 Mg PO DAILY Cymbalta (Duloxetine Hcl) 30 Mg Capsule.dr 90 Mg PO DAILY Tamsulosin Hcl 0.4 Mg Cap.er.24h 0.4 Mg PO QHS Xalatan (Latanoprost) 2.5 Ml Drops 1 Drop OU QHS Combigan Eye Drops (Brimonidine Tartrate/Timolol) 5 Ml Drops 1 Drop LEFTEYE BID I have reviewed the current psychotropics carefully including drug interactions. Risk benefit ratio favors no change other than as noted in my dictated progress note. Diagnosis: Problems: (1) Urinary tract infection (2) Hyponatremia (3) Tobacco abuse (4) Alzheimer's dementia (5) Anxiety disorder (6) Mild cognitive impairment (7) Impulse control disorder (8) Major depressive disorder, recurrent episode (9) Alcohol dependence JO DEWEY MD May 22, 2018 20:53
[2018-05-22] MEDS: TAMSULOSIN 0.4 MG CAP.ER.24H. PO SCH (23:23)
[2018-05-22] MEDS: ATORVASTATIN CALCIUM 20 MG TABLET PO SCH (23:23)
[2018-05-22] MEDS: oxyCODONE IR 5 MG TABLET PO PRN (23:23)
[2018-05-22] MEDS: BRIMONIDINE 0.2% OPHTH SOLUTION 5ML BOTTLE. OU SCH (23:24)
[2018-05-22] MEDS: LATANOPROST 0.005% OPHTH SOLUTION 2.5ML BOTTLE. OU SCH (23:24)
[2018-05-22] MEDS: QUEtiapine 50 MG TABLET. PO SCH (23:30)
[2018-05-23 06:19] VITALS: BP 122/62
[2018-05-23 06:30] LABS: BASO % 1 % (0-3); EOS # 0.2 x10^3/uL (0.0-0.7); EOS % 2 % (0-3); HEMATOCRIT 29.6 % (39.0-53.0); HEMOGLOBIN 10.1 g/dL (13.0-17.5); LYMPH # 3.4 x10^3/uL (1.0-4.8); LYMPH % 35 % (24-48); MEAN CORPUSCULAR HEMOGLOBIN 33 pg (25-35); MEAN CORPUSCULAR HGB CONC 34 g/dL (31-37); MEAN CORPUSCULAR VOLUME 95 fL (79-100); MONO # 0.9 x10^3/uL (0.0-1.1); MONO % 10 % (0-9); NEUT # 5.1 x10^3uL (1.8-7.7); NEUT % 53 % (31-73); PLATELET COUNT 263 x10^3/uL (140-400); RED BLOOD COUNT 3.11 x10^6/uL (4.30-5.70); RED CELL DISTRIBUTION WIDTH 15.2 % (11.5-14.5); WHITE BLOOD COUNT 9.6 x10^3/uL (4.0-11.0)
[2018-05-23 06:50] LABS: ALBUMIN 2.8 g/dL (3.4-5.0); ALBUMIN/GLOBULIN RATIO 0.9 (1.0-1.7); CALCIUM 8.2 mg/dL (8.5-10.1); CREATININE 0.9 mg/dL (0.7-1.3); GFR 81.8; POTASSIUM 3.9 mmol/L (3.5-5.1); TOTAL BILIRUBIN 0.2 mg/dL (0.2-1.0); TOTAL PROTEIN 5.8 g/dL (6.4-8.2)
[2018-05-23] MEDS: ASPIRIN 81 MG TAB.CHEW PO SCH (08:02)
[2018-05-23] MEDS: PANTOPRAZOLE 40 MG TABLET. PO SCH (08:02)
[2018-05-23] MEDS: CARVEDILOL 6.25 MG TABLET PO SCH ×2 (08:03→17:22)
[2018-05-23] MEDS: PATCH REMOVAL. MC SCH (08:04)
[2018-05-23] MEDS: MULTIVITAMIN I-VITE TABLET. PO SCH (08:04)
[2018-05-23] MEDS: BRIMONIDINE 0.2% OPHTH SOLUTION 5ML BOTTLE. OU SCH ×2 (08:04→19:23)
[2018-05-23] MEDS: TIMOLOL 0.5% OPHTH SOLUTION 5ML BOTTLE. OU SCH ×2 (08:04→19:23)
[2018-05-23] MEDS: CLOPIDOGREL BISULFATE 75 MG TABLET PO SCH (08:05)
[2018-05-23 08:06] LABS: BACTERIA,URINE 0 /HPF (0-FEW); BILIRUBIN,URINE NEG (NEG); CLARITY,URINE CLEAR; COLOR,URINE YELLOW; GLUCOSE,URINE NEG (NEG); NITRITE,URINE NEG (NEG); RBC,URINE RARE /HPF (0-2); UROBILINOGEN,URINE 0.2 mg/dL (0.2 mg/dL); WBC,URINE OCC /HPF (0-4)
[2018-05-23] MEDS: CYANOCOBALAMIN (VITAMIN B-12) 1,000 MCG TABLET. PO SCH (08:06)
[2018-05-23] MEDS: tiZANidine 4 MG TABLET. PO SCH ×3 (08:06→19:22)
[2018-05-23] MEDS: PYRIDOXINE 50 MG TABLET. PO SCH (08:06)
[2018-05-23 08:07] LABS: SQUAMOUS EPITHELIAL CELL,UR OCC /LPF
[2018-05-23] MEDS: NICOTINE 21MG PATCH. TD SCH (08:07)
[2018-05-23] MEDS ORDERED: BRIMONIDINE 0.2% OPHTH SOLUTION 5ML BOTTLE. OU SCH (09:00)
[2018-05-23] MEDS ORDERED: LIDOCAINE (700MG/PATCH) PATCH. TD SCH (09:00)
[2018-05-23] MEDS ORDERED: METOPROLOL SUCC 24HR ER 25 MG TAB.ER.24H. PO SCH (09:00)
[2018-05-23] MEDS: oxyCODONE IR 5 MG TABLET PO PRN ×3 (10:15→23:38)
[2018-05-23 13:08] LABS: THYROID STIM HORMONE (TSH) 1.54 uIU/mL (0.358-3.740)
[2018-05-23] MEDS: ACETAMINOPHEN 325 MG TABLET PO PRN (13:55)
[2018-05-23 14:11] VITALS: BP 162/86
[2018-05-23 15:47] VITALS: BP 164/81
[2018-05-23] MEDS: hydrOXYzine HCL 25 MG TABLET PO PRN ×2 (17:21→23:38)
[2018-05-23] MEDS: CHOLECALCIFEROL (VITAMIN D3) 50,000 UNIT CAPSULE PO SCH (17:22)
[2018-05-23 18:09] LABS: THYROXINE 4.9 ug/dL (4.5-12.0)
[2018-05-23] MEDS: ATORVASTATIN CALCIUM 20 MG TABLET PO SCH (19:22)
[2018-05-23] MEDS: QUEtiapine 50 MG TABLET. PO SCH (19:22)
[2018-05-23] MEDS: TAMSULOSIN 0.4 MG CAP.ER.24H. PO SCH (19:23)
[2018-05-23] MEDS: LATANOPROST 0.005% OPHTH SOLUTION 2.5ML BOTTLE. OU SCH (19:23)
[2018-05-23] MEDS: IBUPROFEN 800 MG TABLET. PO PRN (20:33)
[2018-05-23] MEDS: oxyCODONE ER 10 MG TAB.ER.12H PO SCH (20:34)
--- NOTE | 2018-05-23 20:46 | PDOC ---
Exam Note: Kel Note: Please also refer to the separate dictated note~for this date of service dictated separately.~Patient seen individually. Discussed the patient with Nursing staff reviewed the chart.~Reviewed interim history and current functioning. Reviewed vital signs,~Labs/ Radiology~and current medications noted below. Continue current treatment with the changes noted in the dictated addendum note Assessment: Vital Signs: Vital Signs Date Time Temp Pulse Resp B/P (MAP) Pulse Ox O2 Delivery O2 Flow Rate FiO2 05/23/18 20:34 20 98 Room Air 05/23/18 17:22 66 164/81 05/23/18 15:47 98.2 I&O Intake and Output 05/23/18 07:00 Intake Total 120 ml Balance 120 ml Intake Oral 120 ml # Voids 1 Labs: Laboratory Tests Test 05/22/18 21:20 05/23/18 05:15 05/23/18 05:55 Magnesium Level 1.8 mg/dL (1.8-2.4) Iron Level 31 ug/dL (65-175) L Total Iron Binding Capacity 237 ug/dL (250-450) L Iron Saturation 13 % (15-34) L Triglycerides Level 119 mg/dL (0-150) Cholesterol Level 94 mg/dL (0-200) LDL Cholesterol, Calculated 37 mg/dL (0-100) VLDL Cholesterol, Calculated 23 mg/dL (0-40) Non-HDL Cholesterol Calculated 60 mg/dL (0-129) HDL Cholesterol 34 mg/dL (40-60) L Cholesterol/HDL Ratio 2.0 Vitamin B12 Level 1437 pg/mL (247-911) H 25-Hydroxy Vitamin D Total 19.3 ng/mL (30-100) L Thyroid Stimulating Hormone (TSH) 1.540 uIU/mL (0.358-3.740) Thyroxine (T4) 4.9 ug/dL (4.5-12.0) Total Triiodothyronine (TT3) 83 ng/dL (71-180) Treponema pallidum Antibody Nonreactive (Nonreactive) Urine Collection Type Void Urine Color Yellow Urine Clarity Clear Urine pH 6.0 Urine Specific Cook 1.025 Urine Protein Neg (NEG-TRACE) Urine Glucose (UA) Neg mg/dL (NEG) Urine Ketones (Stick) Neg mg/dL (NEG) Urine Blood Neg (NEG) Urine Nitrite Neg (NEG) Urine Bilirubin Neg (NEG) Urine Urobilinogen Dipstick 0.2 mg/dL (0.2 mg/dL) Urine Leukocyte Esterase Neg (NEG) Urine RBC Rare /HPF (0-2) Urine WBC Occ /HPF (0-4) Urine Squamous Epithelial Cells Occ /LPF Urine Bacteria 0 /HPF (0-FEW) Urine Mucus Slight /LPF White Blood Count 9.6 x10^3/uL (4.0-11.0) Red Blood Count 3.11 x10^6/uL (4.30-5.70) L Hemoglobin 10.1 g/dL (13.0-17.5) L Hematocrit 29.6 % (39.0-53.0) L Mean Corpuscular Volume 95 fL (79-100) Mean Corpuscular Hemoglobin 33 pg (25-35) Mean Corpuscular Hemoglobin Concent 34 g/dL (31-37) Red Cell Distribution Width 15.2 % (11.5-14.5) H Platelet Count 263 x10^3/uL (140-400) Neutrophils (%) (Auto) 53 % (31-73) Lymphocytes (%) (Auto) 35 % (24-48) Monocytes (%) (Auto) 10 % (0-9) H Eosinophils (%) (Auto) 2 % (0-3) Basophils (%) (Auto) 1 % (0-3) Neutrophils # (Auto) 5.1 x10^3uL (1.8-7.7) Lymphocytes # (Auto) 3.4 x10^3/uL (1.0-4.8) Monocytes # (Auto) 0.9 x10^3/uL (0.0-1.1) Eosinophils # (Auto) 0.2 x10^3/uL (0.0-0.7) Basophils # (Auto) 0.0 x10^3/uL (0.0-0.2) Sodium Level 140 mmol/L (136-145) Potassium Level 3.9 mmol/L (3.5-5.1) Chloride Level 107 mmol/L (98-107) Carbon Dioxide Level 29 mmol/L (21-32) Anion Gap 4 (6-14) L Blood Urea Nitrogen 18 mg/dL (8-26) Creatinine 0.9 mg/dL (0.7-1.3) Estimated GFR (Cockcroft-Gault) 81.8 BUN/Creatinine Ratio 20 (6-20) Glucose Level 86 mg/dL (70-99) Calcium Level 8.2 mg/dL (8.5-10.1) L Total Bilirubin 0.2 mg/dL (0.2-1.0) Aspartate Amino Transferase (AST) 12 U/L (15-37) L Alanine Aminotransferase (ALT) 16 U/L (16-63) Alkaline Phosphatase 75 U/L (46-116) Total Protein 5.8 g/dL (6.4-8.2) L Albumin 2.8 g/dL (3.4-5.0) L Albumin/Globulin Ratio 0.9 (1.0-1.7) L Current Medications: Meds: Current Medications Acetaminophen (Tylenol) 650 mg PRN Q6HRS PRN PO PAIN / TEMP Last administered on 05/23/18at 13:55; Start 05/22/18 at 20:00 Multi-Ingredient Ointment (Analgesic [place]) 1 aubree PRN QID PRN TP MUSCLE PAIN; Start 05/22/18 at 20:00 Al Hydroxide/Mg Hydroxide (Mylanta Plus Xs) 15 ml PRN AFTMEALHC PRN PO DYSPEPSIA; Start 05/22/18 at 20:00 Nicotine (Nicoderm Cq 21mg) 1 patch DAILY TD Last administered on 05/23/18at 08: 07; Start 05/23/18 at 09:00 Vitamin D (Vitamin D3) 50,000 unit QM PO Last administered on 05/23/18at 17:22; Start 05/23/18 at 16:00 Clopidogrel Bisulfate (Plavix) 75 mg DAILY PO Last administered on 05/23/18at 08 :05; Start 05/23/18 at 09:00 Metoprolol Succinate (Toprol Xl) 25 mg DAILY PO ; Start 05/23/18 at 09:00; Stop 05/23/18 at 12:06; Status DC Tamsulosin HCl (Flomax) 0.4 mg QHS PO ; Start 05/23/18 at 21:00; Stop 05/23/18 at 21:00; Status DC Aspirin (Children'S Aspirin) 81 mg DAILYWBKFT PO Last administered on at 08:02; Start 05/23/18 at 08:00 Atorvastatin Calcium (Lipitor) 80 mg QHS PO ; Start 05/23/18 at 21:00; Stop at 21:00; Status DC Brimonidine Tartrate (Alphagan) 1 drop BID OU ; Start 05/23/18 at 09:00; Stop at 09:00; Status DC Carvedilol (Coreg) 6.25 mg BIDWMEALS PO Last administered on 05/23/18at 17:22; Start 05/23/18 at 08:00 Latanoprost (Xalatan) 1 drop QHS OU ; Start 05/23/18 at 21:00; Stop 05/23/18 at 21:00; Status DC Lidocaine (Lidoderm) 1 patch DAILY TD Last administered on 05/23/18at 08:07; Start 05/23/18 at 09:00; Stop 05/23/18 at 20:33; Status DC Miscellaneous (Lidoderm Patch Removal) 1 ea DAILY MC Last administered on at 08:04; Start 05/23/18 at 09:00 Pantoprazole Sodium (Protonix) 40 mg DAILYAC PO Last administered on 05/23/18at 08:02; Start 05/23/18 at 07:30 Timolol Maleate (Timoptic 0.5% [facility]) 1 drop BID OU Last administered on at 19:23; Start 05/23/18 at 09:00 Tizanidine HCl (Zanaflex) 2 mg TID PO Last administered on 05/23/18at 19:22; Start 05/23/18 at 09:00 Multivitamins/ Minerals (I-Korey) 1 tab DAILY PO Last administered on 05/23/18at 08:04; Start 05/23/18 at 09:00 Magnesium Hydroxide (Milk Of Magnesia) 2,400 mg PRN DAILY PRN PO CONSTIPATION; Start 05/22/18 at 21:45 Bupropion HCl (Wellbutrin Xl) 150 mg DAILY PO ; Start 05/25/18 at 09:00 Duloxetine HCl (Cymbalta) 30 mg DAILY PO ; Start 05/25/18 at 09:00; Stop at 10:00 Atorvastatin Calcium (Lipitor) 80 mg QHS PO Last administered on 05/23/18at 19: 22; Start 05/22/18 at 23:30 Brimonidine Tartrate (Alphagan) 1 drop BID OU Last administered on 05/23/18at 19 :23; Start 05/22/18 at 23:30 Latanoprost (Xalatan) 1 drop QHS OU Last administered on 05/23/18at 19:23; Start 05/22/18 at 23:30 Tamsulosin HCl (Flomax) 0.4 mg QHS PO Last administered on 05/23/18at 19:23; Start 05/22/18 at 23:30 Cyanocobalamin (Vitamin B-12) 3,000 mcg DAILY PO Last administered on at 08:06; Start 05/23/18 at 09:00 Duloxetine HCl (Cymbalta) 30 mg DAILY PO ; Start 05/25/18 at 09:00; Stop at 10:00 Oxycodone HCl (Roxicodone) 5 mg PRN Q6HRS PRN PO SEVERE PAIN Last administered on 05/23/18at 19:43; Start 05/22/18 at 23:15; Stop 05/23/18 at 20:21; Status DC Quetiapine Fumarate (SEROquel) 50 mg HS PO ; Start 05/23/18 at 21:00; Stop 05/23 at 21:00; Status DC Pyridoxine HCl (Vitamin B-6) 50 mg DAILY PO ; Start 05/23/18 at 09:00 Quetiapine Fumarate (SEROquel) 50 mg HS PO Last administered on 05/23/18at 19:22 ; Start 05/22/18 at 23:30; Stop 05/23/18 at 23:00 Hydroxyzine HCl (Atarax) 25 mg TID PRN PRN PO ANXIETY Last administered on 05/23at 17:21; Start 05/23/18 at 17:15 Oxycodone HCl (Roxicodone) 5 mg PRN Q4HRS PRN PO SEVERE PAIN; Start 05/23/18 at 20:30 Oxycodone HCl (OxyCONTIN) 10 mg Q12HR PO Last administered on 05/23/18at 20:34; Start 05/23/18 at 21:00 Ibuprofen (Motrin) 800 mg PRN Q8HRS PRN PO INFLAMMATION Last administered on at 20:33; Start 05/23/18 at 20:30 Lidocaine (Lidoderm) 3 patch DAILY TD ; Start 05/24/18 at 09:00; Status UNV Active Scripts Active Reported Timoptic (Timolol Maleate) 10 Ml Drops 1 Drop EACHEYE BID Oxycodone Hcl 5 Mg Capsule 1 Cap PO PRN Q6HRS PRN Pantoprazole Sodium 40 Mg Tablet.dr 1 Tab PO DAILY Zanaflex (Tizanidine HCl) 4 Mg Tablet 2 Mg PO TID Vitamin D3 (Cholecalciferol (Vitamin D3)) 50,000 Unit Capsule 50,000 Unit PO QM start date: 05/31/17 Lidocaine 1 Each Adh..patch 1 Patch TP DAILY Seroquel (Quetiapine Fumarate) 50 Mg Tablet 50 Mg PO QHS 2 Days Milk Of Magnesia (Magnesium Hydroxide) 400 Mg/5 Ml Oral.susp 2,400 Mg PO PRN HS Vitamin B-12 (Cyanocobalamin (Vitamin B-12)) 1,000 Mcg Tablet 3,000 Mcg PO DAILY Atorvastatin Calcium 80 Mg Tablet 80 Mg PO QHS Coreg (Carvedilol) 6.25 Mg Tablet 6.25 Mg PO BIDWMEALS Preservision Lutein Softgel (Vit C/[place] Ac/Lut/Copper/Znox) 1 Each Capsule 1 Cap PO DAILY Children's Aspirin (Aspirin) 81 Mg Tab.chew 81 Mg PO DAILY Metoprolol Succinate ( Xl ) (Metoprolol Succinate) 25 Mg Tab.er.24h 25 Mg PO DAILY Plavix (Clopidogrel Bisulfate) 75 Mg Tablet 75 Mg PO DAILY Cymbalta (Duloxetine Hcl) 30 Mg Capsule.dr 60 Mg PO DAILY 2 Days Tamsulosin Hcl 0.4 Mg Cap.er.24h 0.4 Mg PO QHS Xalatan (Latanoprost) 2.5 Ml Drops 1 Drop OU QHS Combigan Eye Drops (Brimonidine Tartrate/Timolol) 5 Ml Drops 1 Drop LEFTEYE BID I have reviewed the current psychotropics carefully including drug interactions. Risk benefit ratio favors no change other than as noted in my dictated progress note. Diagnosis: Problems: (1) Urinary tract infection (2) Hyponatremia (3) Tobacco abuse (4) Alzheimer's dementia (5) Anxiety disorder (6) Mild cognitive impairment (7) Impulse control disorder (8) Major depressive disorder, recurrent episode (9) Alcohol dependence JO DEWEY MD May 23, 2018 20:46
[2018-05-23] MEDS ORDERED: ATORVASTATIN CALCIUM 20 MG TABLET PO SCH (21:00)
[2018-05-23] MEDS ORDERED: LATANOPROST 0.005% OPHTH SOLUTION 2.5ML BOTTLE. OU SCH (21:00)
[2018-05-23] MEDS ORDERED: TAMSULOSIN 0.4 MG CAP.ER.24H. PO SCH (21:00)
[2018-05-23] MEDS ORDERED: QUEtiapine 50 MG TABLET. PO SCH (21:00)
--- NOTE | 2018-05-23 23:29 | CONS ---
DATE OF CONSULTATION: 05/23/2018 ADDENDUM HISTORY OF PRESENT ILLNESS: The patient is a 78-year-old male patient who was admitted originally to [address] [place] [address] on account of the patient's alcohol abuse and restarting use of alcohol for the past 2 weeks after being sober for more than 30 years. The patient has had increasing chronic back pain and stated that he has been drinking to take care of the pain because nothing else has helped. Apparently, he has a stent in for his coronary artery disease and was supposed to be [facility]. He was admitted to [address] [place] [address] and after stabilization, he was transferred to [facility] for inpatient psychiatric stabilization. PAST MEDICAL HISTORY: Significant for osteoarthritis, chronic back pain. Apparently, he has an appointment with the [facility] in early June. He is known to have hypertension, fibromyalgia, glaucoma, benign prostatic hypertrophy, and coronary artery disease. PAST SURGICAL HISTORY: Significant for PCI with stent deployment. ALLERGIES: He is allergic to SULFA DRUGS and prednisone. MEDICATIONS: He is currently on following medications: He is on Flomax 0.4 mg at bedtime, tizanidine 2 mg 3 times a day, Plavix 75 mg once a day, atorvastatin calcium 80 mg at bedtime, carvedilol 6.25 mg twice a day, metoprolol succinate 25 mg once a day, aspirin 81 mg once a day, oxycodone 5 mg every 6 hours, duloxetine 60 mg daily, quetiapine fumarate 50 mg at bedtime, brimonidine tartrate and timolol 1 drop to the left eye twice a day, timolol maleate 1 drop to both eyes twice a day, latanoprost for Xalatan 1 drop to both eyes at bedtime, milk of magnesia 30 mL p.o. daily p.r.n. for constipation, Protonix 40 mg once a day, Lidoderm patch topically daily, cyanocobalamin 3000 mcg p.o. daily, vitamin D 50,000 International Unit once a week, and PreserVision, Lutein softgel 1 capsule daily. FAMILY HISTORY: Unremarkable. SOCIAL HISTORY: He lives with his . He apparently has been sober for almost 30 years and now started drinking about 2 weeks ago. 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 He does not smoke or use any recreational drugs. REVIEW OF SYSTEMS: As per history of present illness. PHYSICAL EXAMINATION GENERAL: When I saw him this morning, he looked well and was clearly in no apparent respiratory distress, slightly pale, but no jaundice, cyanosis, or thyromegaly. No jugular venous distention. No limb edema. VITAL SIGNS: His heart rate was 68, blood pressure 122/62, temperature was 99.4, respiratory rate was 14 and oxygen saturation was 98%. HEAD, EYES, EARS, NOSE, AND THROAT: Showed normocephalic, atraumatic. NECK: Supple. HEART: Showed normal first and second heart sounds with no gallop, rub, or murmur. CHEST: Clear to auscultation. No crepitation or rhonchi. ABDOMEN: Distended, soft, nontender. NEUROLOGIC: He is awake, alert, responding appropriately. All cranial nerves intact. EXTREMITIES: He moves extremities without difficulty, ambulates without assistance or assistive devices. LABORATORY DATA: Showed a white cell count of 9600, hemoglobin 10, hematocrit 30, MCV 95, platelet count of 263,000. His chemistry showed a serum sodium 140, potassium 3.9, chloride 107, bicarbonate 29, anion gap of 4, BUN 18, creatinine 0.9, estimated GFR was 82 mL per minute. His glucose was 86, calcium was 8.2, magnesium was 1.8. Total bilirubin, AST, ALT, alkaline phosphatase were normal. His total protein was 5.8, albumin 2.8. His urinalysis was essentially unremarkable. IMPRESSION: In summary, this is a 78-year-old male patient who was transferred from [address] [place] [address] where he was admitted on account of suicidal ideation, stating that he does not want to live anymore. He started drinking heavily again as a way to control his pain medication as well as chronic back pain. Apparently, he has an appointment to be seen at [facility] at the beginning of June. [facility] inpatient [facility]. Medically, all his vital signs were stable as well as his lab work. He is already on oxycodone 5 mg every 6 hours for pain management as well as Cymbalta and so all in all he seemed to be medically stable. Thank you, Dr. Ho, for allowing me to participate in the care of this patient. VIKTORIYA KNAPP MD DR: MELVIN/margo JOB#: [id number] / [id number]
[2018-05-24 04:13] LABS: HEMOGLOBIN A1C 5.1 % (4.8-5.6)
[2018-05-24 05:54] VITALS: BP 117/64
[2018-05-24] MEDS: CLOPIDOGREL BISULFATE 75 MG TABLET PO SCH (07:43)
[2018-05-24] MEDS: BRIMONIDINE 0.2% OPHTH SOLUTION 5ML BOTTLE. OU SCH ×2 (07:43→19:24)
[2018-05-24] MEDS: CYANOCOBALAMIN (VITAMIN B-12) 1,000 MCG TABLET. PO SCH (07:43)
[2018-05-24] MEDS: ASPIRIN 81 MG TAB.CHEW PO SCH (07:43)
[2018-05-24] MEDS: TIMOLOL 0.5% OPHTH SOLUTION 5ML BOTTLE. OU SCH ×2 (07:43→19:24)
[2018-05-24] MEDS: tiZANidine 4 MG TABLET. PO SCH ×3 (07:44→19:21)
[2018-05-24] MEDS: PANTOPRAZOLE 40 MG TABLET. PO SCH (07:44)
[2018-05-24] MEDS: PYRIDOXINE 50 MG TABLET. PO SCH (07:44)
[2018-05-24] MEDS: NICOTINE 21MG PATCH. TD SCH (07:45)
[2018-05-24] MEDS: CARVEDILOL 6.25 MG TABLET PO SCH ×2 (07:50→17:07)
[2018-05-24] MEDS: oxyCODONE ER 10 MG TAB.ER.12H PO SCH ×2 (07:50→19:24)
[2018-05-24] MEDS: MULTIVITAMIN I-VITE TABLET. PO SCH (07:50)
[2018-05-24] MEDS: LIDOCAINE (700MG/PATCH) PATCH. TD SCH (07:51)
[2018-05-24] MEDS: PATCH REMOVAL. MC SCH (07:56)
[2018-05-24 15:40] VITALS: BP 159/83
[2018-05-24] MEDS: hydrOXYzine HCL 25 MG TABLET PO PRN (18:44)
[2018-05-24] MEDS: ATORVASTATIN CALCIUM 20 MG TABLET PO SCH (19:20)
[2018-05-24] MEDS: TAMSULOSIN 0.4 MG CAP.ER.24H. PO SCH (19:20)
[2018-05-24] MEDS: LATANOPROST 0.005% OPHTH SOLUTION 2.5ML BOTTLE. OU SCH (19:25)
[2018-05-24] MEDS: oxyCODONE IR 5 MG TABLET PO PRN (19:44)
--- NOTE | 2018-05-24 19:58 | PN ---
DATE: 05/23/2018 PSYCHIATRIC PROGRESS NOTE This late entry 05/23/2018 covers elements not covered in my initial note. SUBJECTIVE: Met with the patient at length in his room the evening of 05/23/2018. The patient slept 6-1/4 hours previous night. He remains somewhat anxious, much more awake, pleasant, cooperative. Nursing staff had paged me earlier in the day for anxiety and we started hydroxyzine p.r.n. He was wanting Klonopin, but given his history of alcohol abuse, benzodiazepines are best avoided. REVIEW OF SYSTEMS: Complains of feeling cold and asked the nursing staff to turn down the fan and the AC in his room. No CV, , pulmonary, eye, ENT system symptoms on review. MENTAL STATUS EXAM: Oriented to himself and situation. Speech is coherent, has some latency. Abstraction fair, computation impaired, short term memory is impaired. No suicidal or homicidal ideation. LABORATORY DATA: Reviewed. IMPRESSION: Unchanged from initial note, major depressive disorder, recurrent, in partial remission; history of alcohol abuse or dependence. Rest unchanged; anxiety disorder, unspecified. PLAN: Hydroxyzine has been added, Cymbalta is being tapered. Daytime Seroquel has been stopped and then we will stop the nighttime Seroquel and he started on Wellbutrin XL 150 mg a day. Adjust further as clinically indicated. MAN Eduin DEWEY MD DR: SANJEEV/margo JOB#: [id number] / [id number]
--- NOTE | 2018-05-24 20:46 | PDOC ---
Exam Note: Kel Note: Please also refer to the separate dictated note~for this date of service dictated separately.~Patient seen individually. Discussed the patient with Nursing staff reviewed the chart.~Reviewed interim history and current functioning. Reviewed vital signs,~Labs/ Radiology~and current medications noted below. Continue current treatment with the changes noted in the dictated addendum note Assessment: Vital Signs: Vital Signs Date Time Temp Pulse Resp B/P (MAP) Pulse Ox O2 Delivery O2 Flow Rate FiO2 05/24/18 19:44 20 98 05/24/18 19:24 Room Air 05/24/18 17:07 72 159/83 05/24/18 15:40 97.4 I&O Intake and Output 05/24/18 07:00 Intake Total 1200 ml Balance 1200 ml Intake Oral 1200 ml # Voids 1 Current Medications: Meds: Current Medications Acetaminophen (Tylenol) 650 mg PRN Q6HRS PRN PO PAIN / TEMP Last administered on 05/23/18at 13:55; Start 05/22/18 at 20:00 Multi-Ingredient Ointment (Analgesic [place]) 1 aubree PRN QID PRN TP MUSCLE PAIN; Start 05/22/18 at 20:00 Al Hydroxide/Mg Hydroxide (Mylanta Plus Xs) 15 ml PRN AFTMEALHC PRN PO DYSPEPSIA; Start 05/22/18 at 20:00 Nicotine (Nicoderm Cq 21mg) 1 patch DAILY TD Last administered on 05/24/18at 07: 45; Start 05/23/18 at 09:00 Vitamin D (Vitamin D3) 50,000 unit QM PO Last administered on 05/23/18at 17:22; Start 05/23/18 at 16:00 Clopidogrel Bisulfate (Plavix) 75 mg DAILY PO Last administered on 05/24/18at 07 :43; Start 05/23/18 at 09:00 Metoprolol Succinate (Toprol Xl) 25 mg DAILY PO ; Start 05/23/18 at 09:00; Stop 05/23/18 at 12:06; Status DC Tamsulosin HCl (Flomax) 0.4 mg QHS PO ; Start 05/23/18 at 21:00; Stop 05/23/18 at 21:00; Status DC Aspirin (Children'S Aspirin) 81 mg DAILYWBKFT PO Last administered on at 07:43; Start 05/23/18 at 08:00 Atorvastatin Calcium (Lipitor) 80 mg QHS PO ; Start 05/23/18 at 21:00; Stop at 21:00; Status DC Brimonidine Tartrate (Alphagan) 1 drop BID OU ; Start 05/23/18 at 09:00; Stop at 09:00; Status DC Carvedilol (Coreg) 6.25 mg BIDWMEALS PO Last administered on 05/24/18at 17:07; Start 05/23/18 at 08:00 Latanoprost (Xalatan) 1 drop QHS OU ; Start 05/23/18 at 21:00; Stop 05/23/18 at 21:00; Status DC Lidocaine (Lidoderm) 1 patch DAILY TD Last administered on 05/23/18at 08:07; Start 05/23/18 at 09:00; Stop 05/23/18 at 20:33; Status DC Miscellaneous (Lidoderm Patch Removal) 1 ea DAILY MC Last administered on at 07:56; Start 05/23/18 at 09:00 Pantoprazole Sodium (Protonix) 40 mg DAILYAC PO Last administered on 05/24/18at 07:44; Start 05/23/18 at 07:30 Timolol Maleate (Timoptic 0.5% [facility]) 1 drop BID OU Last administered on at 19:24; Start 05/23/18 at 09:00 Tizanidine HCl (Zanaflex) 2 mg TID PO Last administered on 05/24/18at 19:21; Start 05/23/18 at 09:00 Multivitamins/ Minerals (I-[place]) 1 tab DAILY PO Last administered on 05/24/18at 07:50; Start 05/23/18 at 09:00 Magnesium Hydroxide (Milk Of Magnesia) 2,400 mg PRN DAILY PRN PO CONSTIPATION; Start 05/22/18 at 21:45 Bupropion HCl (Wellbutrin Xl) 150 mg DAILY PO ; Start 05/25/18 at 09:00 Duloxetine HCl (Cymbalta) 30 mg DAILY PO ; Start 05/25/18 at 09:00; Stop at 10:00 Atorvastatin Calcium (Lipitor) 80 mg QHS PO Last administered on 05/24/18 19: 20; Start 05/22/18 at 23:30 Brimonidine Tartrate (Alphagan) 1 drop BID OU Last administered on 05/24/18 19 :24; Start 05/22/18 at 23:30 Latanoprost (Xalatan) 1 drop QHS OU Last administered on 05/24/18at 19:25; Start 05/22/18 at 23:30 Tamsulosin HCl (Flomax) 0.4 mg QHS PO Last administered on 05/24/18at 19:20; Start 05/22/18 at 23:30 Cyanocobalamin (Vitamin B-12) 3,000 mcg DAILY PO Last administered on at 08:06; Start 05/23/18 at 09:00 Duloxetine HCl (Cymbalta) 30 mg DAILY PO ; Start 05/25/18 at 09:00; Stop at 10:00; Status Cancel Oxycodone HCl (Roxicodone) 5 mg PRN Q6HRS PRN PO SEVERE PAIN Last administered on 05/23/18at 19:43; Start 05/22/18 at 23:15; Stop 05/23/18 at 20:21; Status DC Quetiapine Fumarate (SEROquel) 50 mg HS PO ; Start 05/23/18 at 21:00; Stop 05/23 at 21:00; Status DC Pyridoxine HCl (Vitamin B-6) 50 mg DAILY PO Last administered on 05/24/18at 07: 44; Start 05/23/18 at 09:00 Quetiapine Fumarate (SEROquel) 50 mg HS PO Last administered on 05/23/18at 19:22 ; Start 05/22/18 at 23:30; Stop 05/23/18 at 23:00; Status DC Hydroxyzine HCl (Atarax) 25 mg TID PRN PRN PO ANXIETY Last administered on 05/24at 18:44; Start 05/23/18 at 17:15 Oxycodone HCl (Roxicodone) 5 mg PRN Q4HRS PRN PO SEVERE PAIN Last administered on 05/24/18at 19:44; Start 05/23/18 at 20:30 Oxycodone HCl (OxyCONTIN) 10 mg Q12HR PO Last administered on 05/24/18at 19:24; Start 05/23/18 at 21:00 Ibuprofen (Motrin) 800 mg PRN Q8HRS PRN PO INFLAMMATION Last administered on at 20:33; Start 05/23/18 at 20:30 Lidocaine (Lidoderm) 3 patch DAILY TD Last administered on 05/24/18at 07:51; Start 05/24/18 at 09:00 Active Scripts Active Reported Timoptic (Timolol Maleate) 10 Ml Drops 1 Drop EACHEYE BID Oxycodone Hcl 5 Mg Capsule 1 Cap PO PRN Q6HRS PRN Pantoprazole Sodium 40 Mg Tablet.dr 1 Tab PO DAILY Zanaflex (Tizanidine HCl) 4 Mg Tablet 2 Mg PO TID Vitamin D3 (Cholecalciferol (Vitamin D3)) 50,000 Unit Capsule 50,000 Unit PO QM start date: 05/31/17 Lidocaine 1 Each Adh..patch 1 Patch TP DAILY Seroquel (Quetiapine Fumarate) 50 Mg Tablet 50 Mg PO QHS 2 Days Milk Of Magnesia (Magnesium Hydroxide) 400 Mg/5 Ml Oral.susp 2,400 Mg PO PRN HS Vitamin B-12 (Cyanocobalamin (Vitamin B-12)) 1,000 Mcg Tablet 3,000 Mcg PO DAILY Atorvastatin Calcium 80 Mg Tablet 80 Mg PO QHS Coreg (Carvedilol) 6.25 Mg Tablet 6.25 Mg PO BIDWMEALS Preservision Lutein Softgel (Vit C/[place] Ac/Lut/Copper/Znox) 1 Each Capsule 1 Cap PO DAILY Children's Aspirin (Aspirin) 81 Mg Tab.chew 81 Mg PO DAILY Metoprolol Succinate ( Xl ) (Metoprolol Succinate) 25 Mg Tab.er.24h 25 Mg PO DAILY Plavix (Clopidogrel Bisulfate) 75 Mg Tablet 75 Mg PO DAILY Cymbalta (Duloxetine Hcl) 30 Mg Capsule.dr 60 Mg PO DAILY 2 Days Tamsulosin Hcl 0.4 Mg Cap.er.24h 0.4 Mg PO QHS Xalatan (Latanoprost) 2.5 Ml Drops 1 Drop OU QHS Combigan Eye Drops (Brimonidine Tartrate/Timolol) 5 Ml Drops 1 Drop LEFTEYE BID I have reviewed the current psychotropics carefully including drug interactions. Risk benefit ratio favors no change other than as noted in my dictated progress note. Diagnosis: Problems: (1) Urinary tract infection (2) Hyponatremia (3) Tobacco abuse (4) Alzheimer's dementia (5) Anxiety disorder (6) Mild cognitive impairment (7) Impulse control disorder (8) Major depressive disorder, recurrent episode (9) Alcohol dependence JO DEWEY MD May 24, 2018 20:46
[2018-05-25 05:50] VITALS: BP 139/55
[2018-05-25] MEDS: PANTOPRAZOLE 40 MG TABLET. PO SCH (07:19)
[2018-05-25] MEDS: ASPIRIN 81 MG TAB.CHEW PO SCH (07:19)
[2018-05-25] MEDS: CARVEDILOL 6.25 MG TABLET PO SCH ×2 (07:20→15:52)
[2018-05-25] MEDS: PATCH REMOVAL. MC SCH (07:20)
[2018-05-25] MEDS: BRIMONIDINE 0.2% OPHTH SOLUTION 5ML BOTTLE. OU SCH ×2 (07:21→20:30)
[2018-05-25] MEDS: TIMOLOL 0.5% OPHTH SOLUTION 5ML BOTTLE. OU SCH ×2 (07:21→20:30)
[2018-05-25] MEDS: MULTIVITAMIN I-VITE TABLET. PO SCH (07:22)
[2018-05-25] MEDS: oxyCODONE ER 10 MG TAB.ER.12H PO SCH ×2 (07:22→20:32)
[2018-05-25] MEDS: CLOPIDOGREL BISULFATE 75 MG TABLET PO SCH (07:23)
[2018-05-25] MEDS: CYANOCOBALAMIN (VITAMIN B-12) 1,000 MCG TABLET. PO SCH (07:23)
[2018-05-25] MEDS: PYRIDOXINE 50 MG TABLET. PO SCH (07:23)
[2018-05-25] MEDS: tiZANidine 4 MG TABLET. PO SCH ×3 (07:24→20:31)
[2018-05-25] MEDS: NICOTINE 21MG PATCH. TD SCH (07:32)
[2018-05-25] MEDS: LIDOCAINE (700MG/PATCH) PATCH. TD SCH (07:32)
[2018-05-25] MEDS: hydrOXYzine HCL 25 MG TABLET PO PRN ×2 (07:34→15:52)
[2018-05-25] MEDS ORDERED: DULoxetine HCL 30 MG CAPSULE.DR PO SCH (09:00)
[2018-05-25] MEDS: DULoxetine HCL 30 MG CAPSULE.DR PO SCH (09:14)
[2018-05-25] MEDS: buPROPion XL 150 MG TAB.ER.24H PO SCH (09:14)
[2018-05-25] MEDS: oxyCODONE IR 5 MG TABLET PO PRN ×2 (12:48→18:05)
--- NOTE | 2018-05-25 15:04 | PN ---
DATE: 05/24/2018 This late entry, 05/24/2018, covers elements not covered in my initial note. SUBJECTIVE: I met with the patient in the evening. The patient has been somewhat withdrawn, isolative. I have been called by the nursing staff on 2 or 3 occasions as the patient is complaining of increased anxiety, wanting Klonopin. I have explained that we should avoid benzodiazepines given his history of alcohol abuse. He slept 6-1/2 hours previous evening. I met with him in his room at length. He is wearing a jacket, complained of feeling cold. Nursing staff will adjust the room temperature to help with this. REVIEW OF SYSTEMS: Positive for anxiety and feeling butterflies in his stomach. No CV, , pulmonary, eye system symptoms on review. MENTAL STATUS EXAM: Oriented to himself and situations. Speech is coherent, has some latency. Abstraction fair, computation impaired. He is able to do one-step serial 7's. Language function intact. No active suicidal or homicidal ideation. Mood and affect depressed, anxious. He followed me around the unit wanting something for his anxiety and we will go ahead and add Zyprexa p.r.n. to help with this. LABORATORY DATA: Reviewed. IMPRESSION: Major depressive disorder, recurrent; moderate to severe anxiety disorder, unspecified; alcohol abuse and dependence, in partial remission. PLAN: The patient's Cymbalta is being tapered as is the Seroquel. We started Wellbutrin along with hydroxyzine p.r.n. May add Zyprexa p.r.n. and adjust further as clinically indicated. MAN Eduin DEWEY MD DR: SNAJEEV/margo JOB#: [id number] / [id number]
[2018-05-25] MEDS: IBUPROFEN 800 MG TABLET. PO PRN (15:53)
[2018-05-25 16:38] VITALS: BP 186/87
[2018-05-25] MEDS: LATANOPROST 0.005% OPHTH SOLUTION 2.5ML BOTTLE. OU SCH (20:30)
[2018-05-25] MEDS: ATORVASTATIN CALCIUM 20 MG TABLET PO SCH (20:31)
[2018-05-25] MEDS: TAMSULOSIN 0.4 MG CAP.ER.24H. PO SCH (20:31)
--- NOTE | 2018-05-25 21:05 | PDOC ---
Exam Note: Kel Note: Please also refer to the separate dictated note~for this date of service dictated separately.~Patient seen individually. Discussed the patient with Nursing staff reviewed the chart.~Reviewed interim history and current functioning. Reviewed vital signs,~Labs/ Radiology~and current medications noted below. Continue current treatment with the changes noted in the dictated addendum note Assessment: Vital Signs: Vital Signs Date Time Temp Pulse Resp B/P (MAP) Pulse Ox O2 Delivery O2 Flow Rate FiO2 05/25/18 20:41 20 05/25/18 20:32 Room Air 05/25/18 16:38 98.2 70 186/87 (120) 97 I&O Intake and Output 05/25/18 07:00 Intake Total 1200 ml Balance 1200 ml Intake Oral 1200 ml Current Medications: Meds: Current Medications Acetaminophen (Tylenol) 650 mg PRN Q6HRS PRN PO PAIN / TEMP Last administered on 05/23/18at 13:55; Start 05/22/18 at 20:00 Multi-Ingredient Ointment (Analgesic [place]) 1 aubree PRN QID PRN TP MUSCLE PAIN; Start 05/22/18 at 20:00 Al Hydroxide/Mg Hydroxide (Mylanta Plus Xs) 15 ml PRN AFTMEALHC PRN PO DYSPEPSIA; Start 05/22/18 at 20:00 Nicotine (Nicoderm Cq 21mg) 1 patch DAILY TD Last administered on 05/25/18at 07: 32; Start 05/23/18 at 09:00 Vitamin D (Vitamin D3) 50,000 unit QM PO Last administered on 05/23/18at 17:22; Start 05/23/18 at 16:00 Clopidogrel Bisulfate (Plavix) 75 mg DAILY PO Last administered on 05/25/18at 07 :23; Start 05/23/18 at 09:00 Metoprolol Succinate (Toprol Xl) 25 mg DAILY PO ; Start 05/23/18 at 09:00; Stop 05/23/18 at 12:06; Status DC Tamsulosin HCl (Flomax) 0.4 mg QHS PO ; Start 05/23/18 at 21:00; Stop 05/23/18 at 21:00; Status DC Aspirin (Children'S Aspirin) 81 mg DAILYWBKFT PO Last administered on at 07:19; Start 05/23/18 at 08:00 Atorvastatin Calcium (Lipitor) 80 mg QHS PO ; Start 05/23/18 at 21:00; Stop at 21:00; Status DC Brimonidine Tartrate (Alphagan) 1 drop BID OU ; Start 05/23/18 at 09:00; Stop at 09:00; Status DC Carvedilol (Coreg) 6.25 mg BIDWMEALS PO Last administered on 05/25/18at 15:52; Start 05/23/18 at 08:00 Latanoprost (Xalatan) 1 drop QHS OU ; Start 05/23/18 at 21:00; Stop 05/23/18 at 21:00; Status DC Lidocaine (Lidoderm) 1 patch DAILY TD Last administered on 05/23/18at 08:07; Start 05/23/18 at 09:00; Stop 05/23/18 at 20:33; Status DC Miscellaneous (Lidoderm Patch Removal) 1 ea DAILY MC Last administered on at 07:20; Start 05/23/18 at 09:00 Pantoprazole Sodium (Protonix) 40 mg DAILYAC PO Last administered on 05/25/18at 07:19; Start 05/23/18 at 07:30 Timolol Maleate (Timoptic 0.5% [facility]) 1 drop BID OU Last administered on at 20:30; Start 05/23/18 at 09:00 Tizanidine HCl (Zanaflex) 2 mg TID PO Last administered on 05/25/18at 20:31; Start 05/23/18 at 09:00 Multivitamins/ Minerals (I-[place]) 1 tab DAILY PO Last administered on 05/25/18at 07:22; Start 05/23/18 at 09:00 Magnesium Hydroxide (Milk Of Magnesia) 2,400 mg PRN DAILY PRN PO CONSTIPATION; Start 05/22/18 at 21:45 Bupropion HCl (Wellbutrin Xl) 150 mg DAILY PO Last administered on 05/25/18at 09 :14; Start 05/25/18 at 09:00 Duloxetine HCl (Cymbalta) 30 mg DAILY PO Last administered on 05/25/18at 09:14; Start 05/25/18 at 09:00; Stop 05/26/18 at 10:00 Atorvastatin Calcium (Lipitor) 80 mg QHS PO Last administered on 05/25/18at 20: 31; Start 05/22/18 at 23:30 Brimonidine Tartrate (Alphagan) 1 drop BID OU Last administered on 05/25/18at 20 :30; Start 05/22/18 at 23:30 Latanoprost (Xalatan) 1 drop QHS OU Last administered on 05/25/18at 20:30; Start 05/22/18 at 23:30 Tamsulosin HCl (Flomax) 0.4 mg QHS PO Last administered on 05/25/18at 20:31; Start 05/22/18 at 23:30 Cyanocobalamin (Vitamin B-12) 3,000 mcg DAILY PO Last administered on at 07:23; Start 05/23/18 at 09:00 Duloxetine HCl (Cymbalta) 30 mg DAILY PO ; Start 05/25/18 at 09:00; Stop at 10:00; Status Cancel Oxycodone HCl (Roxicodone) 5 mg PRN Q6HRS PRN PO SEVERE PAIN Last administered on 05/23/18at 19:43; Start 05/22/18 at 23:15; Stop 05/23/18 at 20:21; Status DC Quetiapine Fumarate (SEROquel) 50 mg HS PO ; Start 05/23/18 at 21:00; Stop 05/23 at 21:00; Status DC Pyridoxine HCl (Vitamin B-6) 50 mg DAILY PO Last administered on 05/24/18at 07: 44; Start 05/23/18 at 09:00 Quetiapine Fumarate (SEROquel) 50 mg HS PO Last administered on 05/23/18at 19:22 ; Start 05/22/18 at 23:30; Stop 05/23/18 at 23:00; Status DC Hydroxyzine HCl (Atarax) 25 mg TID PRN PRN PO ANXIETY Last administered on 05/25at 15:52; Start 05/23/18 at 17:15 Oxycodone HCl (Roxicodone) 5 mg PRN Q4HRS PRN PO SEVERE PAIN Last administered on 05/25/18at 18:05; Start 05/23/18 at 20:30 Oxycodone HCl (OxyCONTIN) 10 mg Q12HR PO Last administered on 05/25/18at 20:32; Start 05/23/18 at 21:00 Ibuprofen (Motrin) 800 mg PRN Q8HRS PRN PO INFLAMMATION Last administered on at 15:53; Start 05/23/18 at 20:30 Lidocaine (Lidoderm) 3 patch DAILY TD Last administered on 05/25/18at 07:32; Start 05/24/18 at 09:00 Influenza Virus Vaccine (Afluria Trivalent [id number] Syringe) 0.5 ml ONCE ONCE VAX IM ; Start 05/25/18 at 11:30; Stop 05/25/18 at 11:31; Status UNV Active Scripts Active Reported Timoptic (Timolol Maleate) 10 Ml Drops 1 Drop EACHEYE BID Oxycodone Hcl 5 Mg Capsule 1 Cap PO PRN Q6HRS PRN Pantoprazole Sodium 40 Mg Tablet.dr 1 Tab PO DAILY Zanaflex (Tizanidine HCl) 4 Mg Tablet 2 Mg PO TID Vitamin D3 (Cholecalciferol (Vitamin D3)) 50,000 Unit Capsule 50,000 Unit PO QM start date: 05/31/17 Lidocaine 1 Each Adh..patch 1 Patch TP DAILY Seroquel (Quetiapine Fumarate) 50 Mg Tablet 50 Mg PO QHS 2 Days Milk Of Magnesia (Magnesium Hydroxide) 400 Mg/5 Ml Oral.susp 2,400 Mg PO PRN HS Vitamin B-12 (Cyanocobalamin (Vitamin B-12)) 1,000 Mcg Tablet 3,000 Mcg PO DAILY Atorvastatin Calcium 80 Mg Tablet 80 Mg PO QHS Coreg (Carvedilol) 6.25 Mg Tablet 6.25 Mg PO BIDWMEALS Preservision Lutein Softgel (Vit C/[place] Ac/Lut/Copper/Znox) 1 Each Capsule 1 Cap PO DAILY Children's Aspirin (Aspirin) 81 Mg Tab.chew 81 Mg PO DAILY Metoprolol Succinate ( Xl ) (Metoprolol Succinate) 25 Mg Tab.er.24h 25 Mg PO DAILY Plavix (Clopidogrel Bisulfate) 75 Mg Tablet 75 Mg PO DAILY Cymbalta (Duloxetine Hcl) 30 Mg Capsule.dr 60 Mg PO DAILY 2 Days Tamsulosin Hcl 0.4 Mg Cap.er.24h 0.4 Mg PO QHS Xalatan (Latanoprost) 2.5 Ml Drops 1 Drop OU QHS Combigan Eye Drops (Brimonidine Tartrate/Timolol) 5 Ml Drops 1 Drop LEFTEYE BID I have reviewed the current psychotropics carefully including drug interactions. Risk benefit ratio favors no change other than as noted in my dictated progress note. Diagnosis: Problems: (1) Urinary tract infection (2) Hyponatremia (3) Tobacco abuse (4) Alzheimer's dementia (5) Anxiety disorder (6) Mild cognitive impairment (7) Impulse control disorder (8) Major depressive disorder, recurrent episode (9) Alcohol dependence JO DEWEY MD May 25, 2018 21:05
[2018-05-25] MEDS: ACETAMINOPHEN 325 MG TABLET PO PRN (22:31)
[2018-05-26] MEDS: hydrOXYzine HCL 25 MG TABLET PO PRN ×3 (05:12→17:47)
[2018-05-26 05:37] VITALS: BP 171/94
[2018-05-26] MEDS: IBUPROFEN 800 MG TABLET. PO PRN ×2 (06:16→14:33)
[2018-05-26 06:27] VITALS: BP 180/83
[2018-05-26] MEDS: CARVEDILOL 6.25 MG TABLET PO SCH ×2 (06:30→16:52)
[2018-05-26] MEDS: tiZANidine 4 MG TABLET. PO SCH ×3 (09:14→20:36)
[2018-05-26] MEDS: buPROPion XL 150 MG TAB.ER.24H PO SCH (09:14)
[2018-05-26] MEDS: MULTIVITAMIN I-VITE TABLET. PO SCH (09:14)
[2018-05-26] MEDS: CLOPIDOGREL BISULFATE 75 MG TABLET PO SCH (09:14)
[2018-05-26] MEDS: NICOTINE 21MG PATCH. TD SCH (09:14)
[2018-05-26] MEDS: DULoxetine HCL 30 MG CAPSULE.DR PO SCH (09:15)
[2018-05-26] MEDS: PYRIDOXINE 50 MG TABLET. PO SCH (09:15)
[2018-05-26] MEDS: ASPIRIN 81 MG TAB.CHEW PO SCH (09:15)
[2018-05-26] MEDS: PANTOPRAZOLE 40 MG TABLET. PO SCH (09:15)
[2018-05-26] MEDS: CYANOCOBALAMIN (VITAMIN B-12) 1,000 MCG TABLET. PO SCH (09:15)
[2018-05-26] MEDS: LIDOCAINE (700MG/PATCH) PATCH. TD SCH (09:17)
[2018-05-26] MEDS: oxyCODONE ER 10 MG TAB.ER.12H PO SCH ×2 (09:22→20:39)
[2018-05-26] MEDS: BRIMONIDINE 0.2% OPHTH SOLUTION 5ML BOTTLE. OU SCH ×2 (09:23→20:40)
[2018-05-26] MEDS: TIMOLOL 0.5% OPHTH SOLUTION 5ML BOTTLE. OU SCH ×2 (09:23→20:39)
[2018-05-26] MEDS: oxyCODONE IR 5 MG TABLET PO PRN ×2 (12:45→20:39)
[2018-05-26 16:44] VITALS: BP 175/99
[2018-05-26] MEDS: TAMSULOSIN 0.4 MG CAP.ER.24H. PO SCH (20:36)
[2018-05-26] MEDS: ATORVASTATIN CALCIUM 20 MG TABLET PO SCH (20:36)
[2018-05-26] MEDS: PATCH REMOVAL. MC SCH (20:36)
--- NOTE | 2018-05-26 20:38 | PDOC ---
Exam Note: Kel Note: Please also refer to the separate dictated note~for this date of service dictated separately.~Patient seen individually. Discussed the patient with Nursing staff reviewed the chart.~Reviewed interim history and current functioning. Reviewed vital signs,~Labs/ Radiology~and current medications noted below. Continue current treatment with the changes noted in the dictated addendum note Assessment: Vital Signs: Vital Signs Date Time Temp Pulse Resp B/P (MAP) Pulse Ox O2 Delivery O2 Flow Rate FiO2 05/26/18 16:52 74 175/99 05/26/18 16:44 98.4 16 97 05/26/18 13:44 Room Air I&O Intake and Output 05/26/18 07:00 Intake Total 1200 ml Balance 1200 ml Intake Oral 1200 ml # Voids 1 Current Medications: Meds: Current Medications Acetaminophen (Tylenol) 650 mg PRN Q6HRS PRN PO PAIN / TEMP Last administered on 05/25/18at 22:31; Start 05/22/18 at 20:00 Multi-Ingredient Ointment (Analgesic [place]) 1 aubree PRN QID PRN TP MUSCLE PAIN; Start 05/22/18 at 20:00 Al Hydroxide/Mg Hydroxide (Mylanta Plus Xs) 15 ml PRN AFTMEALHC PRN PO DYSPEPSIA; Start 05/22/18 at 20:00 Nicotine (Nicoderm Cq 21mg) 1 patch DAILY TD Last administered on 05/26/18at 09: 14; Start 05/23/18 at 09:00 Vitamin D (Vitamin D3) 50,000 unit QM PO Last administered on 05/23/18at 17:22; Start 05/23/18 at 16:00 Clopidogrel Bisulfate (Plavix) 75 mg DAILY PO Last administered on 05/26/18at 09 :14; Start 05/23/18 at 09:00 Metoprolol Succinate (Toprol Xl) 25 mg DAILY PO ; Start 05/23/18 at 09:00; Stop 05/23/18 at 12:06; Status DC Tamsulosin HCl (Flomax) 0.4 mg QHS PO ; Start 05/23/18 at 21:00; Stop 05/23/18 at 21:00; Status DC Aspirin (Children'S Aspirin) 81 mg DAILYWBKFT PO Last administered on at 09:15; Start 05/23/18 at 08:00 Atorvastatin Calcium (Lipitor) 80 mg QHS PO ; Start 05/23/18 at 21:00; Stop at 21:00; Status DC Brimonidine Tartrate (Alphagan) 1 drop BID OU ; Start 05/23/18 at 09:00; Stop at 09:00; Status DC Carvedilol (Coreg) 6.25 mg BIDWMEALS PO Last administered on 05/26/18at 16:52; Start 05/23/18 at 08:00 Latanoprost (Xalatan) 1 drop QHS OU ; Start 05/23/18 at 21:00; Stop 05/23/18 at 21:00; Status DC Lidocaine (Lidoderm) 1 patch DAILY TD Last administered on 05/23/18at 08:07; Start 05/23/18 at 09:00; Stop 05/23/18 at 20:33; Status DC Miscellaneous (Lidoderm Patch Removal) 1 ea DAILY MC Last administered on at 07:20; Start 05/23/18 at 09:00; Stop 05/26/18 at 09:29; Status DC Pantoprazole Sodium (Protonix) 40 mg DAILYAC PO Last administered on 05/26/18at 09:15; Start 05/23/18 at 07:30 Timolol Maleate (Timoptic 0.5% [facility]) 1 drop BID OU Last administered on at 09:23; Start 05/23/18 at 09:00 Tizanidine HCl (Zanaflex) 2 mg TID PO Last administered on 05/26/18at 13:45; Start 05/23/18 at 09:00 Multivitamins/ Minerals (I-[place]) 1 tab DAILY PO Last administered on 05/26/18at 09:14; Start 05/23/18 at 09:00 Magnesium Hydroxide (Milk Of Magnesia) 2,400 mg PRN DAILY PRN PO CONSTIPATION; Start 05/22/18 at 21:45 Bupropion HCl (Wellbutrin Xl) 150 mg DAILY PO Last administered on 05/26/18at 09 :14; Start 05/25/18 at 09:00 Duloxetine HCl (Cymbalta) 30 mg DAILY PO Last administered on 05/26/18at 09:15; Start 05/25/18 at 09:00; Stop 05/26/18 at 10:00; Status DC Atorvastatin Calcium (Lipitor) 80 mg QHS PO Last administered on 05/25/18at 20: 31; Start 05/22/18 at 23:30 Brimonidine Tartrate (Alphagan) 1 drop BID OU Last administered on 05/26/18at 09 :23; Start 05/22/18 at 23:30 Latanoprost (Xalatan) 1 drop QHS OU Last administered on 05/25/18at 20:30; Start 05/22/18 at 23:30 Tamsulosin HCl (Flomax) 0.4 mg QHS PO Last administered on 05/25/18at 20:31; Start 05/22/18 at 23:30 Cyanocobalamin (Vitamin B-12) 3,000 mcg DAILY PO Last administered on at 09:15; Start 05/23/18 at 09:00 Duloxetine HCl (Cymbalta) 30 mg DAILY PO ; Start 05/25/18 at 09:00; Stop at 10:00; Status Cancel Oxycodone HCl (Roxicodone) 5 mg PRN Q6HRS PRN PO SEVERE PAIN Last administered on 05/23/18at 19:43; Start 05/22/18 at 23:15; Stop 05/23/18 at 20:21; Status DC Quetiapine Fumarate (SEROquel) 50 mg HS PO ; Start 05/23/18 at 21:00; Stop 05/23 at 21:00; Status DC Pyridoxine HCl (Vitamin B-6) 50 mg DAILY PO Last administered on 05/26/18at 09: 15; Start 05/23/18 at 09:00 Quetiapine Fumarate (SEROquel) 50 mg HS PO Last administered on 05/23/18at 19:22 ; Start 05/22/18 at 23:30; Stop 05/23/18 at 23:00; Status DC Hydroxyzine HCl (Atarax) 25 mg TID PRN PRN PO ANXIETY Last administered on 05/26at 17:47; Start 05/23/18 at 17:15 Oxycodone HCl (Roxicodone) 5 mg PRN Q4HRS PRN PO SEVERE PAIN Last administered on 05/26/18at 12:45; Start 05/23/18 at 20:30 Oxycodone HCl (OxyCONTIN) 10 mg Q12HR PO Last administered on 05/26/18at 09:22; Start 05/23/18 at 21:00 Ibuprofen (Motrin) 800 mg PRN Q8HRS PRN PO INFLAMMATION Last administered on at 14:33; Start 05/23/18 at 20:30 Lidocaine (Lidoderm) 3 patch DAILY TD Last administered on 05/26/18at 09:17; Start 05/24/18 at 09:00 Influenza Virus Vaccine (Afluria Trivalent [id number] Syringe) 0.5 ml ONCE ONCE VAX IM ; Start 05/25/18 at 11:30; Stop 05/25/18 at 11:31; Status UNV Miscellaneous (Lidoderm Patch Removal) 1 ea QHS MC ; Start 05/26/18 at 21:00 Active Scripts Active Reported Timoptic (Timolol Maleate) 10 Ml Drops 1 Drop EACHEYE BID Oxycodone Hcl 5 Mg Capsule 1 Cap PO PRN Q6HRS PRN Pantoprazole Sodium 40 Mg Tablet.dr 1 Tab PO DAILY Zanaflex (Tizanidine HCl) 4 Mg Tablet 2 Mg PO TID Vitamin D3 (Cholecalciferol (Vitamin D3)) 50,000 Unit Capsule 50,000 Unit PO QM start date: 05/31/17 Lidocaine 1 Each Adh..patch 1 Patch TP DAILY Seroquel (Quetiapine Fumarate) 50 Mg Tablet 50 Mg PO QHS 2 Days Milk Of Magnesia (Magnesium Hydroxide) 400 Mg/5 Ml Oral.susp 2,400 Mg PO PRN HS Vitamin B-12 (Cyanocobalamin (Vitamin B-12)) 1,000 Mcg Tablet 3,000 Mcg PO DAILY Atorvastatin Calcium 80 Mg Tablet 80 Mg PO QHS Coreg (Carvedilol) 6.25 Mg Tablet 6.25 Mg PO BIDWMEALS Preservision Lutein Softgel (Vit C/[place] Ac/Lut/Copper/Znox) 1 Each Capsule 1 Cap PO DAILY Children's Aspirin (Aspirin) 81 Mg Tab.chew 81 Mg PO DAILY Metoprolol Succinate ( Xl ) (Metoprolol Succinate) 25 Mg Tab.er.24h 25 Mg PO DAILY Plavix (Clopidogrel Bisulfate) 75 Mg Tablet 75 Mg PO DAILY Cymbalta (Duloxetine Hcl) 30 Mg Capsule.dr 60 Mg PO DAILY 2 Days Tamsulosin Hcl 0.4 Mg Cap.er.24h 0.4 Mg PO QHS Xalatan (Latanoprost) 2.5 Ml Drops 1 Drop OU QHS Combigan Eye Drops (Brimonidine Tartrate/Timolol) 5 Ml Drops 1 Drop LEFTEYE BID I have reviewed the current psychotropics carefully including drug interactions. Risk benefit ratio favors no change other than as noted in my dictated progress note. Diagnosis: Problems: (1) Urinary tract infection (2) Hyponatremia (3) Tobacco abuse (4) Alzheimer's dementia (5) Anxiety disorder (6) Mild cognitive impairment (7) Impulse control disorder (8) Major depressive disorder, recurrent episode (9) Alcohol dependence JO DEWEY MD May 26, 2018 20:38
[2018-05-26] MEDS: LATANOPROST 0.005% OPHTH SOLUTION 2.5ML BOTTLE. OU SCH (20:40)
[2018-05-27 06:07] VITALS: BP 154/76
[2018-05-27] MEDS: MULTIVITAMIN I-VITE TABLET. PO SCH (07:53)
[2018-05-27] MEDS: NICOTINE 21MG PATCH. TD SCH (07:53)
[2018-05-27] MEDS: CARVEDILOL 6.25 MG TABLET PO SCH ×2 (07:53→16:55)
[2018-05-27] MEDS: PANTOPRAZOLE 40 MG TABLET. PO SCH (07:54)
[2018-05-27] MEDS: tiZANidine 4 MG TABLET. PO SCH ×3 (07:54→19:45)
[2018-05-27] MEDS: CYANOCOBALAMIN (VITAMIN B-12) 1,000 MCG TABLET. PO SCH (07:54)
[2018-05-27] MEDS: CLOPIDOGREL BISULFATE 75 MG TABLET PO SCH (07:54)
[2018-05-27] MEDS: ASPIRIN 81 MG TAB.CHEW PO SCH (07:54)
[2018-05-27] MEDS: oxyCODONE ER 10 MG TAB.ER.12H PO SCH ×2 (07:55→19:45)
[2018-05-27] MEDS: buPROPion XL 150 MG TAB.ER.24H PO SCH (07:55)
[2018-05-27] MEDS: LIDOCAINE (700MG/PATCH) PATCH. TD SCH (07:57)
[2018-05-27] MEDS: PYRIDOXINE 50 MG TABLET. PO SCH (08:03)
[2018-05-27] MEDS: TIMOLOL 0.5% OPHTH SOLUTION 5ML BOTTLE. OU SCH ×2 (08:04→19:47)
[2018-05-27] MEDS: BRIMONIDINE 0.2% OPHTH SOLUTION 5ML BOTTLE. OU SCH ×2 (08:04→19:47)
[2018-05-27 11:20] VITALS: BP 186/107
[2018-05-27] MEDS: hydrOXYzine HCL 25 MG TABLET PO PRN (11:27)
[2018-05-27 12:32] VITALS: BP 196/102
[2018-05-27] MEDS: oxyCODONE IR 5 MG TABLET PO PRN ×2 (12:57→16:55)
[2018-05-27] MEDS ORDERED: amLODIPine BESYLATE 10 MG TABLET PO ONE (13:00)
[2018-05-27 16:29] VITALS: BP 152/82
[2018-05-27] MEDS: busPIRone 5 MG TABLET. PO SCH (18:00)
[2018-05-27] MEDS: ATORVASTATIN CALCIUM 20 MG TABLET PO SCH (19:45)
[2018-05-27] MEDS: TAMSULOSIN 0.4 MG CAP.ER.24H. PO SCH (19:45)
[2018-05-27] MEDS: PATCH REMOVAL. MC SCH (19:47)
[2018-05-27] MEDS: LATANOPROST 0.005% OPHTH SOLUTION 2.5ML BOTTLE. OU SCH (19:47)
--- NOTE | 2018-05-27 20:39 | PDOC ---
Exam Note: Kel Note: Please also refer to the separate dictated note~for this date of service dictated separately.~Patient seen individually. Discussed the patient with Nursing staff reviewed the chart.~Reviewed interim history and current functioning. Reviewed vital signs,~Labs/ Radiology~and current medications noted below. Continue current treatment with the changes noted in the dictated addendum note Assessment: Vital Signs: Vital Signs Date Time Temp Pulse Resp B/P (MAP) Pulse Ox O2 Delivery O2 Flow Rate FiO2 05/27/18 19:45 97 05/27/18 18:24 18 Room Air 05/27/18 16:55 72 152/82 05/27/18 16:29 98.1 I&O Intake and Output 05/27/18 07:00 Intake Total 1198 ml Balance 1198 ml Intake Oral 1198 ml # Voids 1 Current Medications: Meds: Current Medications Acetaminophen (Tylenol) 650 mg PRN Q6HRS PRN PO PAIN / TEMP Last administered on 05/25/18at 22:31; Start 05/22/18 at 20:00 Multi-Ingredient Ointment (Analgesic [place]) 1 aubree PRN QID PRN TP MUSCLE PAIN; Start 05/22/18 at 20:00 Al Hydroxide/Mg Hydroxide (Mylanta Plus Xs) 15 ml PRN AFTMEALHC PRN PO DYSPEPSIA; Start 05/22/18 at 20:00 Nicotine (Nicoderm Cq 21mg) 1 patch DAILY TD Last administered on 05/27/18at 07: 53; Start 05/23/18 at 09:00 Vitamin D (Vitamin D3) 50,000 unit QM PO Last administered on 05/23/18at 17:22; Start 05/23/18 at 16:00 Clopidogrel Bisulfate (Plavix) 75 mg DAILY PO Last administered on 05/27/18at 07 :54; Start 05/23/18 at 09:00 Metoprolol Succinate (Toprol Xl) 25 mg DAILY PO ; Start 05/23/18 at 09:00; Stop 05/23/18 at 12:06; Status DC Tamsulosin HCl (Flomax) 0.4 mg QHS PO ; Start 05/23/18 at 21:00; Stop 05/23/18 at 21:00; Status DC Aspirin (Children'S Aspirin) 81 mg DAILYWBKFT PO Last administered on at 07:54; Start 05/23/18 at 08:00 Atorvastatin Calcium (Lipitor) 80 mg QHS PO ; Start 05/23/18 at 21:00; Stop at 21:00; Status DC Brimonidine Tartrate (Alphagan) 1 drop BID OU ; Start 05/23/18 at 09:00; Stop at 09:00; Status DC Carvedilol (Coreg) 6.25 mg BIDWMEALS PO Last administered on 05/27/18at 16:55; Start 05/23/18 at 08:00 Latanoprost (Xalatan) 1 drop QHS OU ; Start 05/23/18 at 21:00; Stop 05/23/18 at 21:00; Status DC Lidocaine (Lidoderm) 1 patch DAILY TD Last administered on 05/23/18at 08:07; Start 05/23/18 at 09:00; Stop 05/23/18 at 20:33; Status DC Miscellaneous (Lidoderm Patch Removal) 1 ea DAILY MC Last administered on at 07:20; Start 05/23/18 at 09:00; Stop 05/26/18 at 09:29; Status DC Pantoprazole Sodium (Protonix) 40 mg DAILYAC PO Last administered on 05/27/18at 07:54; Start 05/23/18 at 07:30 Timolol Maleate (Timoptic 0.5% [facility]) 1 drop BID OU Last administered on at 19:47; Start 05/23/18 at 09:00 Tizanidine HCl (Zanaflex) 2 mg TID PO Last administered on 05/27/18at 19:45; Start 05/23/18 at 09:00 Multivitamins/ Minerals (I-[place]) 1 tab DAILY PO Last administered on 05/27/18at 07:53; Start 05/23/18 at 09:00 Magnesium Hydroxide (Milk Of Magnesia) 2,400 mg PRN DAILY PRN PO CONSTIPATION; Start 05/22/18 at 21:45 Bupropion HCl (Wellbutrin Xl) 150 mg DAILY PO Last administered on 05/27/18at 07 :55; Start 05/25/18 at 09:00 Duloxetine HCl (Cymbalta) 30 mg DAILY PO Last administered on 05/26/18at 09:15; Start 05/25/18 at 09:00; Stop 05/26/18 at 10:00; Status DC Atorvastatin Calcium (Lipitor) 80 mg QHS PO Last administered on 05/27/18at 19: 45; Start 05/22/18 at 23:30 Brimonidine Tartrate (Alphagan) 1 drop BID OU Last administered on 05/27/18at 19 :47; Start 05/22/18 at 23:30 Latanoprost (Xalatan) 1 drop QHS OU Last administered on 05/27/18at 19:47; Start 05/22/18 at 23:30 Tamsulosin HCl (Flomax) 0.4 mg QHS PO Last administered on 05/27/18at 19:45; Start 05/22/18 at 23:30 Cyanocobalamin (Vitamin B-12) 3,000 mcg DAILY PO Last administered on at 07:54; Start 05/23/18 at 09:00 Duloxetine HCl (Cymbalta) 30 mg DAILY PO ; Start 05/25/18 at 09:00; Stop at 10:00; Status Cancel Oxycodone HCl (Roxicodone) 5 mg PRN Q6HRS PRN PO SEVERE PAIN Last administered on 05/23/18at 19:43; Start 05/22/18 at 23:15; Stop 05/23/18 at 20:21; Status DC Quetiapine Fumarate (SEROquel) 50 mg HS PO ; Start 05/23/18 at 21:00; Stop 05/23 at 21:00; Status DC Pyridoxine HCl (Vitamin B-6) 50 mg DAILY PO Last administered on 05/27/18at 08: 03; Start 05/23/18 at 09:00 Quetiapine Fumarate (SEROquel) 50 mg HS PO Last administered on 05/23/18at 19:22 ; Start 05/22/18 at 23:30; Stop 05/23/18 at 23:00; Status DC Hydroxyzine HCl (Atarax) 25 mg TID PRN PRN PO ANXIETY Last administered on 05/27at 11:27; Start 05/23/18 at 17:15 Oxycodone HCl (Roxicodone) 5 mg PRN Q4HRS PRN PO SEVERE PAIN Last administered on 05/27/18at 16:55; Start 05/23/18 at 20:30 Oxycodone HCl (OxyCONTIN) 10 mg Q12HR PO Last administered on 05/27/18at 19:45; Start 05/23/18 at 21:00 Ibuprofen (Motrin) 800 mg PRN Q8HRS PRN PO INFLAMMATION Last administered on at 14:33; Start 05/23/18 at 20:30; Stop 05/27/18 at 16:14; Status DC Lidocaine (Lidoderm) 3 patch DAILY TD Last administered on 05/27/18at 07:57; Start 05/24/18 at 09:00 Influenza Virus Vaccine (Afluria Trivalent [id number] Syringe) 0.5 ml ONCE ONCE VAX IM ; Start 05/25/18 at 11:30; Stop 05/25/18 at 11:31; Status UNV Miscellaneous (Lidoderm Patch Removal) 1 ea QHS MC Last administered on at 19:47; Start 05/26/18 at 21:00 Amlodipine Besylate (Norvasc) 10 mg 1X ONCE PO Last administered on 05/27/18at 12:57; Start 05/27/18 at 13:00; Stop 05/27/18 at 13:01; Status DC Buspirone HCl (Buspar) 5 mg 0900,1300,1700 PO Last administered on 05/27/18at 18 :00; Start 05/27/18 at 17:30 Amlodipine Besylate (Norvasc) 10 mg DAILY PO ; Start 05/28/18 at 09:00 Active Scripts Active Reported Timoptic (Timolol Maleate) 10 Ml Drops 1 Drop EACHEYE BID Oxycodone Hcl 5 Mg Capsule 1 Cap PO PRN Q6HRS PRN Pantoprazole Sodium 40 Mg Tablet.dr 1 Tab PO DAILY Zanaflex (Tizanidine HCl) 4 Mg Tablet 2 Mg PO TID Vitamin D3 (Cholecalciferol (Vitamin D3)) 50,000 Unit Capsule 50,000 Unit PO QM start date: 05/31/17 Lidocaine 1 Each Adh..patch 1 Patch TP DAILY Seroquel (Quetiapine Fumarate) 50 Mg Tablet 50 Mg PO QHS 2 Days Milk Of Magnesia (Magnesium Hydroxide) 400 Mg/5 Ml Oral.susp 2,400 Mg PO PRN HS Vitamin B-12 (Cyanocobalamin (Vitamin B-12)) 1,000 Mcg Tablet 3,000 Mcg PO DAILY Atorvastatin Calcium 80 Mg Tablet 80 Mg PO QHS Coreg (Carvedilol) 6.25 Mg Tablet 6.25 Mg PO BIDWMEALS Preservision Lutein Softgel (Vit C/[place] Ac/Lut/Copper/Znox) 1 Each Capsule 1 Cap PO DAILY Children's Aspirin (Aspirin) 81 Mg Tab.chew 81 Mg PO DAILY Metoprolol Succinate ( Xl ) (Metoprolol Succinate) 25 Mg Tab.er.24h 25 Mg PO DAILY Plavix (Clopidogrel Bisulfate) 75 Mg Tablet 75 Mg PO DAILY Cymbalta (Duloxetine Hcl) 30 Mg Capsule.dr 60 Mg PO DAILY 2 Days Tamsulosin Hcl 0.4 Mg Cap.er.24h 0.4 Mg PO QHS Xalatan (Latanoprost) 2.5 Ml Drops 1 Drop OU QHS Combigan Eye Drops (Brimonidine Tartrate/Timolol) 5 Ml Drops 1 Drop LEFTEYE BID I have reviewed the current psychotropics carefully including drug interactions. Risk benefit ratio favors no change other than as noted in my dictated progress note. Diagnosis: Problems: (1) Urinary tract infection (2) Hyponatremia (3) Tobacco abuse (4) Alzheimer's dementia (5) Anxiety disorder (6) Mild cognitive impairment (7) Impulse control disorder (8) Major depressive disorder, recurrent episode (9) Alcohol dependence JO DEWEY MD May 27, 2018 20:39
--- NOTE | 2018-05-27 23:00 | PN ---
DATE: 05/25/2018 PSYCHIATRIC PROGRESS NOTE This is a late entry 05/25/2018 covers elements not covered in my initial note. SUBJECTIVE: I met with the patient in the evening. The patient has been somewhat anxious, slept 7 hours previous evening, received p.r.n. Atarax x 2. REVIEW OF SYSTEMS: He has had some chronic back pain, which worsens his anxiety. Other than this, no CV, , pulmonary, eye, ENT system symptoms on review. MENTAL STATUS EXAM: The patient is much more awake, alert since the Seroquel and Cymbalta were discontinued and he started on Wellbutrin. Speech has some latency, coherent. Abstraction fair, computation impaired, language function intact, attention span short. Mood and affect still remains anxious. He followed me around the unit wanting something for anxiety. No suicidal or homicidal ideation. LABORATORY DATA: Reviewed. IMPRESSION: Unchanged from initial note. PLAN: No change from initial note, may need to increase Wellbutrin gradually. MAN Eduin DEWEY MD DR: [email or web address]/margo JOB#: [id number] / [id number]
--- NOTE | 2018-05-28 00:20 | PN ---
DATE: 05/26/2018 This is a late entry for 05/26/2018 covers elements not covered in my initial note. SUBJECTIVE: I met with the patient in the evening. The patient was staffed at a treatment team meeting with the entire team in the morning. The patient's Cande, attended this conference and I met with the at some length in the evening as well. Discussed the patient's diagnosis, progress. He has been withdrawn, extremely anxious, restless. REVIEW OF SYSTEMS: No CV, , pulmonary, eye, ENT system symptoms on review. He has vague somatic symptoms. MENTAL STATUS EXAM: Reasonably oriented. Speech coherent, rapid at times. Abstraction fair, computation impaired, language function intact. Mood and affect anxious, labile at times. LABORATORY DATA: Reviewed. IMPRESSION: Unchanged from initial note. PLAN: Continue current psychotropics. Adjust as clinically indicated. MAN Eduin DEWEY MD DR: [email or web address]/margo JOB#: [id number] / [id number]
[2018-05-28 01:54] LABS: BILIRUBIN,URINE NEG (NEG); CLARITY,URINE CLEAR; COLOR,URINE STRAW; GLUCOSE,URINE NEG (NEG); NITRITE,URINE NEG (NEG); UROBILINOGEN,URINE 0.2 mg/dL (0.2 mg/dL)
[2018-05-28 01:55] LABS: BACTERIA,URINE FEW /HPF (0-FEW); SQUAMOUS EPITHELIAL CELL,UR OCC /LPF; WBC,URINE 0 /HPF (0-4)
[2018-05-28] MEDS: hydrOXYzine HCL 25 MG TABLET PO PRN ×3 (05:51→19:31)
[2018-05-28 06:29] VITALS: BP 170/84
[2018-05-28] MEDS: NICOTINE 21MG PATCH. TD SCH (08:26)
[2018-05-28] MEDS: buPROPion XL 150 MG TAB.ER.24H PO SCH (08:26)
[2018-05-28] MEDS: LIDOCAINE (700MG/PATCH) PATCH. TD SCH ×2 (08:26→09:00)
[2018-05-28] MEDS: busPIRone 5 MG TABLET. PO SCH ×3 (08:27→16:22)
[2018-05-28] MEDS: CYANOCOBALAMIN (VITAMIN B-12) 1,000 MCG TABLET. PO SCH (08:27)
[2018-05-28] MEDS: MULTIVITAMIN I-VITE TABLET. PO SCH (08:27)
[2018-05-28] MEDS: CARVEDILOL 6.25 MG TABLET PO SCH ×2 (08:27→16:23)
[2018-05-28] MEDS: tiZANidine 4 MG TABLET. PO SCH ×3 (08:28→19:26)
[2018-05-28] MEDS: PYRIDOXINE 50 MG TABLET. PO SCH (08:28)
[2018-05-28] MEDS: CLOPIDOGREL BISULFATE 75 MG TABLET PO SCH (08:28)
[2018-05-28] MEDS: ASPIRIN 81 MG TAB.CHEW PO SCH (08:28)
[2018-05-28] MEDS: PANTOPRAZOLE 40 MG TABLET. PO SCH (08:28)
[2018-05-28] MEDS: amLODIPine BESYLATE 10 MG TABLET PO SCH (08:31)
[2018-05-28] MEDS: oxyCODONE ER 10 MG TAB.ER.12H PO SCH ×2 (08:32→19:27)
[2018-05-28] MEDS: BRIMONIDINE 0.2% OPHTH SOLUTION 5ML BOTTLE. OU SCH ×2 (08:32→19:28)
[2018-05-28] MEDS: TIMOLOL 0.5% OPHTH SOLUTION 5ML BOTTLE. OU SCH ×2 (08:32→19:28)
[2018-05-28] MEDS: oxyCODONE IR 5 MG TABLET PO PRN ×2 (14:30→20:46)
[2018-05-28 16:01] VITALS: BP 138/74
[2018-05-28] MEDS: ACETAMINOPHEN 325 MG TABLET PO PRN (16:23)
[2018-05-28] MEDS: TAMSULOSIN 0.4 MG CAP.ER.24H. PO SCH (19:26)
[2018-05-28] MEDS: ATORVASTATIN CALCIUM 20 MG TABLET PO SCH (19:27)
[2018-05-28] MEDS: LATANOPROST 0.005% OPHTH SOLUTION 2.5ML BOTTLE. OU SCH (19:28)
[2018-05-28] MEDS: PATCH REMOVAL. MC SCH (19:29)
--- NOTE | 2018-05-28 22:52 | PDOC ---
Exam Note: Kel Note: Please also refer to the separate dictated note~for this date of service dictated separately.~Patient seen individually. Discussed the patient with Nursing staff reviewed the chart.~Reviewed interim history and current functioning. Reviewed vital signs,~Labs/ Radiology~and current medications noted below. Continue current treatment with the changes noted in the dictated addendum note Assessment: Vital Signs: Vital Signs Date Time Temp Pulse Resp B/P (MAP) Pulse Ox O2 Delivery O2 Flow Rate FiO2 05/28/18 21:59 97 05/28/18 16:23 76 138/74 05/28/18 16:16 18 Room Air 05/28/18 16:01 98.2 I&O Intake and Output 05/28/18 07:00 Intake Total 1160 ml Balance 1160 ml Intake Oral 1160 ml Labs: Laboratory Tests Test 05/28/18 01:15 Urine Collection Type Unknown Urine Color Straw Urine Clarity Clear Urine pH 6.0 Urine Specific [place] <=1.005 Urine Protein Neg (NEG-TRACE) Urine Glucose (UA) Neg mg/dL (NEG) Urine Ketones (Stick) Neg mg/dL (NEG) Urine Blood Trace (NEG) Urine Nitrite Neg (NEG) Urine Bilirubin Neg (NEG) Urine Urobilinogen Dipstick 0.2 mg/dL (0.2 mg/dL) Urine Leukocyte Esterase Neg (NEG) Urine RBC 1-2 /HPF (0-2) Urine WBC 0 /HPF (0-4) Urine Squamous Epithelial Cells Occ /LPF Urine Transitional Epithelial Cells Occ /LPF Urine Bacteria Few /HPF (0-FEW) Current Medications: Meds: Current Medications Acetaminophen (Tylenol) 650 mg PRN Q6HRS PRN PO PAIN / TEMP Last administered on 05/28/18at 16:23; Start 05/22/18 at 20:00 Multi-Ingredient Ointment (Analgesic [place]) 1 aubree PRN QID PRN TP MUSCLE PAIN; Start 05/22/18 at 20:00 Al Hydroxide/Mg Hydroxide (Mylanta Plus Xs) 15 ml PRN AFTMEALHC PRN PO DYSPEPSIA; Start 05/22/18 at 20:00 Nicotine (Nicoderm Cq 21mg) 1 patch DAILY TD Last administered on 05/28/18at 08: 26; Start 05/23/18 at 09:00 Vitamin D (Vitamin D3) 50,000 unit QM PO Last administered on 05/23/18at 17:22; Start 05/23/18 at 16:00 Clopidogrel Bisulfate (Plavix) 75 mg DAILY PO Last administered on 05/28/18at 08 :28; Start 05/23/18 at 09:00 Metoprolol Succinate (Toprol Xl) 25 mg DAILY PO ; Start 05/23/18 at 09:00; Stop 05/23/18 at 12:06; Status DC Tamsulosin HCl (Flomax) 0.4 mg QHS PO ; Start 05/23/18 at 21:00; Stop 05/23/18 at 21:00; Status DC Aspirin (Children'S Aspirin) 81 mg DAILYWBKFT PO Last administered on at 08:28; Start 05/23/18 at 08:00 Atorvastatin Calcium (Lipitor) 80 mg QHS PO ; Start 05/23/18 at 21:00; Stop at 21:00; Status DC Brimonidine Tartrate (Alphagan) 1 drop BID OU ; Start 05/23/18 at 09:00; Stop at 09:00; Status DC Carvedilol (Coreg) 6.25 mg BIDWMEALS PO Last administered on 05/28/18at 16:23; Start 05/23/18 at 08:00 Latanoprost (Xalatan) 1 drop QHS OU ; Start 05/23/18 at 21:00; Stop 05/23/18 at 21:00; Status DC Lidocaine (Lidoderm) 1 patch DAILY TD Last administered on 05/23/18at 08:07; Start 05/23/18 at 09:00; Stop 05/23/18 at 20:33; Status DC Miscellaneous (Lidoderm Patch Removal) 1 ea DAILY MC Last administered on at 07:20; Start 05/23/18 at 09:00; Stop 05/26/18 at 09:29; Status DC Pantoprazole Sodium (Protonix) 40 mg DAILYAC PO Last administered on 05/28/18at 08:28; Start 05/23/18 at 07:30 Timolol Maleate (Timoptic 0.5% [facility]) 1 drop BID OU Last administered on at 19:28; Start 05/23/18 at 09:00 Tizanidine HCl (Zanaflex) 2 mg TID PO Last administered on 05/28/18 19:26; Start 05/23/18 at 09:00 Multivitamins/ Minerals (I-[place]) 1 tab DAILY PO Last administered on 05/28/18at 08:27; Start 05/23/18 at 09:00 Magnesium Hydroxide (Milk Of Magnesia) 2,400 mg PRN DAILY PRN PO CONSTIPATION; Start 05/22/18 at 21:45 Bupropion HCl (Wellbutrin Xl) 150 mg DAILY PO Last administered on 05/28/18 08 :26; Start 05/25/18 at 09:00 Duloxetine HCl (Cymbalta) 30 mg DAILY PO Last administered on 05/26/18at 09:15; Start 05/25/18 at 09:00; Stop 05/26/18 at 10:00; Status DC Atorvastatin Calcium (Lipitor) 80 mg QHS PO Last administered on 05/28/18 19: 27; Start 05/22/18 at 23:30 Brimonidine Tartrate (Alphagan) 1 drop BID OU Last administered on 05/28/18 19 :28; Start 05/22/18 at 23:30 Latanoprost (Xalatan) 1 drop QHS OU Last administered on 05/28/18 19:28; Start 05/22/18 at 23:30 Tamsulosin HCl (Flomax) 0.4 mg QHS PO Last administered on 05/28/18 19:26; Start 05/22/18 at 23:30 Cyanocobalamin (Vitamin B-12) 3,000 mcg DAILY PO Last administered on at 08:27; Start 05/23/18 at 09:00; Stop 05/28/18 at 15:25; Status DC Duloxetine HCl (Cymbalta) 30 mg DAILY PO ; Start 05/25/18 at 09:00; Stop at 10:00; Status Cancel Oxycodone HCl (Roxicodone) 5 mg PRN Q6HRS PRN PO SEVERE PAIN Last administered on 05/23/18at 19:43; Start 05/22/18 at 23:15; Stop 05/23/18 at 20:21; Status DC Quetiapine Fumarate (SEROquel) 50 mg HS PO ; Start 05/23/18 at 21:00; Stop 05/23 at 21:00; Status DC Pyridoxine HCl (Vitamin B-6) 50 mg DAILY PO Last administered on 05/28/18at 08: 28; Start 05/23/18 at 09:00 Quetiapine Fumarate (SEROquel) 50 mg HS PO Last administered on 05/23/18at 19:22 ; Start 05/22/18 at 23:30; Stop 05/23/18 at 23:00; Status DC Hydroxyzine HCl (Atarax) 25 mg TID PRN PRN PO ANXIETY Last administered on 05/28at 19:31; Start 05/23/18 at 17:15 Oxycodone HCl (Roxicodone) 5 mg PRN Q4HRS PRN PO SEVERE PAIN Last administered on 05/28/18at 20:46; Start 05/23/18 at 20:30 Oxycodone HCl (OxyCONTIN) 10 mg Q12HR PO Last administered on 05/28/18at 19:27; Start 05/23/18 at 21:00 Ibuprofen (Motrin) 800 mg PRN Q8HRS PRN PO INFLAMMATION Last administered on 14:33; Start 05/23/18 at 20:30; Stop 05/27/18 at 16:14; Status DC Lidocaine (Lidoderm) 3 patch DAILY TD Last administered on 05/27/18at 07:57; Start 05/24/18 at 09:00 Influenza Virus Vaccine (Afluria Trivalent [id number] Syringe) 0.5 ml ONCE ONCE VAX IM ; Start 05/25/18 at 11:30; Stop 05/25/18 at 11:31; Status UNV Miscellaneous (Lidoderm Patch Removal) 1 ea QHS MC Last administered on at 19:47; Start 05/26/18 at 21:00 Amlodipine Besylate (Norvasc) 10 mg 1X ONCE PO Last administered on 05/27/18at 12:57; Start 05/27/18 at 13:00; Stop 05/27/18 at 13:01; Status DC Buspirone HCl (Buspar) 5 mg 0900,1300,1700 PO Last administered on 05/28/18at 16 :22; Start 05/27/18 at 17:30 Amlodipine Besylate (Norvasc) 10 mg DAILY PO Last administered on 05/28/18at 08: 31; Start 05/28/18 at 09:00 Cyanocobalamin (Vitamin B-12) 1,000 mcg DAILY PO ; Start 05/29/18 at 09:00 Active Scripts Active Reported Timoptic (Timolol Maleate) 10 Ml Drops 1 Drop EACHEYE BID Oxycodone Hcl 5 Mg Capsule 1 Cap PO PRN Q6HRS PRN Pantoprazole Sodium 40 Mg Tablet.dr 1 Tab PO DAILY Zanaflex (Tizanidine HCl) 4 Mg Tablet 2 Mg PO TID Vitamin D3 (Cholecalciferol (Vitamin D3)) 50,000 Unit Capsule 50,000 Unit PO QM start date: 05/31/17 Lidocaine 1 Each Adh..patch 1 Patch TP DAILY Seroquel (Quetiapine Fumarate) 50 Mg Tablet 50 Mg PO QHS 2 Days Milk Of Magnesia (Magnesium Hydroxide) 400 Mg/5 Ml Oral.susp 2,400 Mg PO PRN HS Vitamin B-12 (Cyanocobalamin (Vitamin B-12)) 1,000 Mcg Tablet 3,000 Mcg PO DAILY Atorvastatin Calcium 80 Mg Tablet 80 Mg PO QHS Coreg (Carvedilol) 6.25 Mg Tablet 6.25 Mg PO BIDWMEALS Preservision Lutein Softgel (Vit C/[place] Ac/Lut/Copper/Znox) 1 Each Capsule 1 Cap PO DAILY Children's Aspirin (Aspirin) 81 Mg Tab.chew 81 Mg PO DAILY Metoprolol Succinate ( Xl ) (Metoprolol Succinate) 25 Mg Tab.er.24h 25 Mg PO DAILY Plavix (Clopidogrel Bisulfate) 75 Mg Tablet 75 Mg PO DAILY Cymbalta (Duloxetine Hcl) 30 Mg Capsule.dr 60 Mg PO DAILY 2 Days Tamsulosin Hcl 0.4 Mg Cap.er.24h 0.4 Mg PO QHS Xalatan (Latanoprost) 2.5 Ml Drops 1 Drop OU QHS Combigan Eye Drops (Brimonidine Tartrate/Timolol) 5 Ml Drops 1 Drop LEFTEYE BID I have reviewed the current psychotropics carefully including drug interactions. Risk benefit ratio favors no change other than as noted in my dictated progress note. Diagnosis: Problems: (1) Alzheimer's dementia (2) Anxiety disorder (3) Mild cognitive impairment (4) Impulse control disorder (5) Major depressive disorder, recurrent episode (6) Alcohol dependence JO DEWEY MD May 28, 2018 22:51
[2018-05-29 06:04] VITALS: BP 104/72
[2018-05-29] MEDS: PANTOPRAZOLE 40 MG TABLET. PO SCH (07:39)
[2018-05-29] MEDS: ASPIRIN 81 MG TAB.CHEW PO SCH (07:40)
[2018-05-29] MEDS: CARVEDILOL 6.25 MG TABLET PO SCH ×2 (07:41→16:50)
[2018-05-29] MEDS: PYRIDOXINE 50 MG TABLET. PO SCH (07:42)
[2018-05-29] MEDS: buPROPion XL 150 MG TAB.ER.24H PO SCH (07:42)
[2018-05-29] MEDS: tiZANidine 4 MG TABLET. PO SCH ×3 (07:42→21:16)
[2018-05-29] MEDS: busPIRone 5 MG TABLET. PO SCH ×3 (07:43→16:50)
[2018-05-29] MEDS: CLOPIDOGREL BISULFATE 75 MG TABLET PO SCH (07:43)
[2018-05-29] MEDS: MULTIVITAMIN I-VITE TABLET. PO SCH (07:43)
[2018-05-29] MEDS: amLODIPine BESYLATE 10 MG TABLET PO SCH (07:44)
[2018-05-29] MEDS: NICOTINE 21MG PATCH. TD SCH (07:45)
[2018-05-29] MEDS: LIDOCAINE (700MG/PATCH) PATCH. TD SCH (07:51)
[2018-05-29] MEDS: oxyCODONE ER 10 MG TAB.ER.12H PO SCH ×2 (07:52→21:15)
[2018-05-29] MEDS: CYANOCOBALAMIN (VITAMIN B-12) 1,000 MCG TABLET. PO SCH (07:52)
[2018-05-29] MEDS: BRIMONIDINE 0.2% OPHTH SOLUTION 5ML BOTTLE. OU SCH ×2 (07:53→21:16)
[2018-05-29] MEDS: TIMOLOL 0.5% OPHTH SOLUTION 5ML BOTTLE. OU SCH ×2 (07:53→21:16)
[2018-05-29 08:16] LABS: BASO % 0 % (0-3); EOS # 0.1 x10^3/uL (0.0-0.7); EOS % 1 % (0-3); HEMATOCRIT 37.5 % (39.0-53.0); HEMOGLOBIN 12.5 g/dL (13.0-17.5); LYMPH # 2.4 x10^3/uL (1.0-4.8); LYMPH % 21 % (24-48); MEAN CORPUSCULAR HEMOGLOBIN 32 pg (25-35); MEAN CORPUSCULAR HGB CONC 34 g/dL (31-37); MEAN CORPUSCULAR VOLUME 95 fL (79-100); MONO # 0.7 x10^3/uL (0.0-1.1); MONO % 6 % (0-9); NEUT # 8.1 x10^3uL (1.8-7.7); NEUT % 72 % (31-73); PLATELET COUNT 296 x10^3/uL (140-400); RED BLOOD COUNT 3.94 x10^6/uL (4.30-5.70); RED CELL DISTRIBUTION WIDTH 15.1 % (11.5-14.5); WHITE BLOOD COUNT 11.3 x10^3/uL (4.0-11.0)
[2018-05-29 08:36] LABS: ALBUMIN 3.7 g/dL (3.4-5.0); ALBUMIN/GLOBULIN RATIO 1.1 (1.0-1.7); CALCIUM 8.8 mg/dL (8.5-10.1); CREATININE 1.1 mg/dL (0.7-1.3); GFR 64.9; POTASSIUM 3.4 mmol/L (3.5-5.1); TOTAL BILIRUBIN 0.6 mg/dL (0.2-1.0); TOTAL PROTEIN 7.2 g/dL (6.4-8.2)
--- NOTE | 2018-05-29 10:10 | PN ---
DATE: 05/27/2018 PSYCHIATRIC PROGRESS NOTE This late entry, 05/27/2018, covers elements not covered in my initial note. SUBJECTIVE: I met with the patient in the evening of 05/27/2018. The patient slept 7-1/2 hours previous night. He has been somewhat anxious. Blood pressure elevated, possibly consequent to this. Reportedly, his went to the hospital previous evening and he is worried about her. REVIEW OF SYSTEMS: Positive for feeling cold. He is wearing a jacket inside. No CV, , pulmonary, eye, ENT system symptoms on review. Does have back pain. MENTAL STATUS EXAMINATION: Oriented to himself and situation. Speech is coherent, abstraction fair, computation impaired, language function intact, attention span short. Mood and affect appears anxious. During the individual visit, I processed his 's health and he was better at the end of the visit, able to accept the reality as it is rather than magnifying it or obsessing about it. LABORATORY DATA: Reviewed. IMPRESSION: Unchanged from initial note. PLAN: Start BuSpar 5 mg at 9:00 a.m., 1:00 p.m., 5:00 p.m. Continue rest of the psychotropics unchanged. JO DEWEY MD DR: SANJEEV/margo JOB#: [id number] / [id number]
[2018-05-29] MEDS: oxyCODONE IR 5 MG TABLET PO PRN ×3 (11:07→17:44)
[2018-05-29] MEDS: hydrOXYzine HCL 25 MG TABLET PO PRN (13:51)
[2018-05-29 16:15] VITALS: BP 153/68
--- NOTE | 2018-05-29 20:54 | PDOC ---
Exam Note: Kel Note: Please also refer to the separate dictated note~for this date of service dictated separately.~Patient seen individually. Discussed the patient with Nursing staff reviewed the chart.~Reviewed interim history and current functioning. Reviewed vital signs,~Labs/ Radiology~and current medications noted below. Continue current treatment with the changes noted in the dictated addendum note Assessment: Vital Signs: Vital Signs Date Time Temp Pulse Resp B/P (MAP) Pulse Ox O2 Delivery O2 Flow Rate FiO2 05/29/18 18:44 20 05/29/18 16:50 84 153/68 05/29/18 16:15 97.8 97 05/29/18 06:04 Room Air I&O Intake and Output 05/29/18 07:00 Intake Total 1040 ml Output Total 1 ml Balance 1039 ml Intake Oral 1040 ml Output Urine Total 1 ml Labs: Laboratory Tests Test 05/29/18 07:44 White Blood Count 11.3 x10^3/uL (4.0-11.0) H Red Blood Count 3.94 x10^6/uL (4.30-5.70) L Hemoglobin 12.5 g/dL (13.0-17.5) L Hematocrit 37.5 % (39.0-53.0) L Mean Corpuscular Volume 95 fL (79-100) Mean Corpuscular Hemoglobin 32 pg (25-35) Mean Corpuscular Hemoglobin Concent 34 g/dL (31-37) Red Cell Distribution Width 15.1 % (11.5-14.5) H Platelet Count 296 x10^3/uL (140-400) Neutrophils (%) (Auto) 72 % (31-73) Lymphocytes (%) (Auto) 21 % (24-48) L Monocytes (%) (Auto) 6 % (0-9) Eosinophils (%) (Auto) 1 % (0-3) Basophils (%) (Auto) 0 % (0-3) Neutrophils # (Auto) 8.1 x10^3uL (1.8-7.7) H Lymphocytes # (Auto) 2.4 x10^3/uL (1.0-4.8) Monocytes # (Auto) 0.7 x10^3/uL (0.0-1.1) Eosinophils # (Auto) 0.1 x10^3/uL (0.0-0.7) Basophils # (Auto) 0.0 x10^3/uL (0.0-0.2) Sodium Level 138 mmol/L (136-145) Potassium Level 3.4 mmol/L (3.5-5.1) L Chloride Level 104 mmol/L (98-107) Carbon Dioxide Level 25 mmol/L (21-32) Anion Gap 9 (6-14) Blood Urea Nitrogen 20 mg/dL (8-26) Creatinine 1.1 mg/dL (0.7-1.3) Estimated GFR (Cockcroft-Gault) 64.9 BUN/Creatinine Ratio 18 (6-20) Glucose Level 103 mg/dL (70-99) H Calcium Level 8.8 mg/dL (8.5-10.1) Total Bilirubin 0.6 mg/dL (0.2-1.0) Aspartate Amino Transferase (AST) 13 U/L (15-37) L Alanine Aminotransferase (ALT) 20 U/L (16-63) Alkaline Phosphatase 67 U/L (46-116) Total Protein 7.2 g/dL (6.4-8.2) Albumin 3.7 g/dL (3.4-5.0) Albumin/Globulin Ratio 1.1 (1.0-1.7) Current Medications: Meds: Current Medications Acetaminophen (Tylenol) 650 mg PRN Q6HRS PRN PO PAIN / TEMP Last administered on 05/28/18at 16:23; Start 05/22/18 at 20:00 Multi-Ingredient Ointment (Analgesic [place]) 1 aubree PRN QID PRN TP MUSCLE PAIN; Start 05/22/18 at 20:00 Al Hydroxide/Mg Hydroxide (Mylanta Plus Xs) 15 ml PRN AFTMEALHC PRN PO DYSPEPSIA; Start 05/22/18 at 20:00 Nicotine (Nicoderm Cq 21mg) 1 patch DAILY TD Last administered on 05/29/18at 07: 45; Start 05/23/18 at 09:00 Vitamin D (Vitamin D3) 50,000 unit QM PO Last administered on 05/23/18at 17:22; Start 05/23/18 at 16:00 Clopidogrel Bisulfate (Plavix) 75 mg DAILY PO Last administered on 05/29/18at 07 :43; Start 05/23/18 at 09:00 Metoprolol Succinate (Toprol Xl) 25 mg DAILY PO ; Start 05/23/18 at 09:00; Stop 05/23/18 at 12:06; Status DC Tamsulosin HCl (Flomax) 0.4 mg QHS PO ; Start 05/23/18 at 21:00; Stop 05/23/18 at 21:00; Status DC Aspirin (Children'S Aspirin) 81 mg DAILYWBKFT PO Last administered on at 07:40; Start 05/23/18 at 08:00 Atorvastatin Calcium (Lipitor) 80 mg QHS PO ; Start 05/23/18 at 21:00; Stop at 21:00; Status DC Brimonidine Tartrate (Alphagan) 1 drop BID OU ; Start 05/23/18 at 09:00; Stop at 09:00; Status DC Carvedilol (Coreg) 6.25 mg BIDWMEALS PO Last administered on 05/29/18at 16:50; Start 05/23/18 at 08:00 Latanoprost (Xalatan) 1 drop QHS OU ; Start 05/23/18 at 21:00; Stop 05/23/18 at 21:00; Status DC Lidocaine (Lidoderm) 1 patch DAILY TD Last administered on 05/23/18at 08:07; Start 05/23/18 at 09:00; Stop 05/23/18 at 20:33; Status DC Miscellaneous (Lidoderm Patch Removal) 1 ea DAILY MC Last administered on at 07:20; Start 05/23/18 at 09:00; Stop 05/26/18 at 09:29; Status DC Pantoprazole Sodium (Protonix) 40 mg DAILYAC PO Last administered on 05/29/18at 07:39; Start 05/23/18 at 07:30 Timolol Maleate (Timoptic 0.5% Oph) 1 drop BID OU Last administered on at 07:53; Start 05/23/18 at 09:00 Tizanidine HCl (Zanaflex) 2 mg TID PO Last administered on 05/29/18at 13:51; Start 05/23/18 at 09:00 Multivitamins/ Minerals (I-[place]) 1 tab DAILY PO Last administered on 05/29/18 07:43; Start 05/23/18 at 09:00 Magnesium Hydroxide (Milk Of Magnesia) 2,400 mg PRN DAILY PRN PO CONSTIPATION; Start 05/22/18 at 21:45 Bupropion HCl (Wellbutrin Xl) 150 mg DAILY PO Last administered on 05/29/18 07 :42; Start 05/25/18 at 09:00 Duloxetine HCl (Cymbalta) 30 mg DAILY PO Last administered on 05/26/18at 09:15; Start 05/25/18 at 09:00; Stop 05/26/18 at 10:00; Status DC Atorvastatin Calcium (Lipitor) 80 mg QHS PO Last administered on 05/28/18 19: 27; Start 05/22/18 at 23:30 Brimonidine Tartrate (Alphagan) 1 drop BID OU Last administered on 05/29/18at 07 :53; Start 05/22/18 at 23:30 Latanoprost (Xalatan) 1 drop QHS OU Last administered on 05/28/18at 19:28; Start 05/22/18 at 23:30 Tamsulosin HCl (Flomax) 0.4 mg QHS PO Last administered on 05/28/18 19:26; Start 05/22/18 at 23:30 Cyanocobalamin (Vitamin B-12) 3,000 mcg DAILY PO Last administered on 08:27; Start 05/23/18 at 09:00; Stop 05/28/18 at 15:25; Status DC Duloxetine HCl (Cymbalta) 30 mg DAILY PO ; Start 05/25/18 at 09:00; Stop at 10:00; Status Cancel Oxycodone HCl (Roxicodone) 5 mg PRN Q6HRS PRN PO SEVERE PAIN Last administered on 05/23/18at 19:43; Start 05/22/18 at 23:15; Stop 05/23/18 at 20:21; Status DC Quetiapine Fumarate (SEROquel) 50 mg HS PO ; Start 05/23/18 at 21:00; Stop 05/23 at 21:00; Status DC Pyridoxine HCl (Vitamin B-6) 50 mg DAILY PO Last administered on 05/29/18at 07: 42; Start 05/23/18 at 09:00 Quetiapine Fumarate (SEROquel) 50 mg HS PO Last administered on 05/23/18 19:22 ; Start 05/22/18 at 23:30; Stop 05/23/18 at 23:00; Status DC Hydroxyzine HCl (Atarax) 25 mg TID PRN PRN PO ANXIETY Last administered on 05/29 13:51; Start 05/23/18 at 17:15 Oxycodone HCl (Roxicodone) 5 mg PRN Q4HRS PRN PO SEVERE PAIN Last administered on 05/29/18 17:44; Start 05/23/18 at 20:30 Oxycodone HCl (OxyCONTIN) 10 mg Q12HR PO Last administered on 05/29/18 07:52; Start 05/23/18 at 21:00 Ibuprofen (Motrin) 800 mg PRN Q8HRS PRN PO INFLAMMATION Last administered on 14:33; Start 05/23/18 at 20:30; Stop 05/27/18 at 16:14; Status DC Lidocaine (Lidoderm) 3 patch DAILY TD Last administered on 05/29/18 07:51; Start 05/24/18 at 09:00 Influenza Virus Vaccine (Afluria Trivalent [id number] Syringe) 0.5 ml ONCE ONCE VAX IM ; Start 05/25/18 at 11:30; Stop 05/25/18 at 11:31; Status UNV Miscellaneous (Lidoderm Patch Removal) 1 ea QHS MC Last administered on at 19:47; Start 05/26/18 at 21:00 Amlodipine Besylate (Norvasc) 10 mg 1X ONCE PO Last administered on 05/27/18at 12:57; Start 05/27/18 at 13:00; Stop 05/27/18 at 13:01; Status DC Buspirone HCl (Buspar) 5 mg 0900,1300,1700 PO Last administered on 05/29/18 16 :50; Start 05/27/18 at 17:30 Amlodipine Besylate (Norvasc) 10 mg DAILY PO Last administered on 05/29/18 07: 44; Start 05/28/18 at 09:00 Cyanocobalamin (Vitamin B-12) 1,000 mcg DAILY PO Last administered on at 07:52; Start 05/29/18 at 09:00 Active Scripts Active Reported Timoptic (Timolol Maleate) 10 Ml Drops 1 Drop EACHEYE BID Oxycodone Hcl 5 Mg Capsule 1 Cap PO PRN Q6HRS PRN Pantoprazole Sodium 40 Mg Tablet.dr 1 Tab PO DAILY Zanaflex (Tizanidine HCl) 4 Mg Tablet 2 Mg PO TID Vitamin D3 (Cholecalciferol (Vitamin D3)) 50,000 Unit Capsule 50,000 Unit PO QM start date: 05/31/17 Lidocaine 1 Each Adh..patch 1 Patch TP DAILY Seroquel (Quetiapine Fumarate) 50 Mg Tablet 50 Mg PO QHS 2 Days Milk Of Magnesia (Magnesium Hydroxide) 400 Mg/5 Ml Oral.susp 2,400 Mg PO PRN HS Vitamin B-12 (Cyanocobalamin (Vitamin B-12)) 1,000 Mcg Tablet 3,000 Mcg PO DAILY Atorvastatin Calcium 80 Mg Tablet 80 Mg PO QHS Coreg (Carvedilol) 6.25 Mg Tablet 6.25 Mg PO BIDWMEALS Preservision Lutein Softgel (Vit C/[place] Ac/Lut/Copper/Znox) 1 Each Capsule 1 Cap PO DAILY Children's Aspirin (Aspirin) 81 Mg Tab.chew 81 Mg PO DAILY Metoprolol Succinate ( Xl ) (Metoprolol Succinate) 25 Mg Tab.er.24h 25 Mg PO DAILY Plavix (Clopidogrel Bisulfate) 75 Mg Tablet 75 Mg PO DAILY Cymbalta (Duloxetine Hcl) 30 Mg Capsule.dr 60 Mg PO DAILY 2 Days Tamsulosin Hcl 0.4 Mg Cap.er.24h 0.4 Mg PO QHS Xalatan (Latanoprost) 2.5 Ml Drops 1 Drop OU QHS Combigan Eye Drops (Brimonidine Tartrate/Timolol) 5 Ml Drops 1 Drop LEFTEYE BID I have reviewed the current psychotropics carefully including drug interactions. Risk benefit ratio favors no change other than as noted in my dictated progress note. Diagnosis: Problems: (1) Urinary tract infection (2) Hyponatremia (3) Tobacco abuse (4) Alzheimer's dementia (5) Anxiety disorder (6) Mild cognitive impairment (7) Impulse control disorder (8) Major depressive disorder, recurrent episode (9) Alcohol dependence JO DEWEY MD May 29, 2018 20:54
[2018-05-29] MEDS: PATCH REMOVAL. MC SCH (21:00)
[2018-05-29] MEDS: TAMSULOSIN 0.4 MG CAP.ER.24H. PO SCH (21:15)
[2018-05-29] MEDS: ATORVASTATIN CALCIUM 20 MG TABLET PO SCH (21:15)
[2018-05-29] MEDS: LATANOPROST 0.005% OPHTH SOLUTION 2.5ML BOTTLE. OU SCH (21:16)
[2018-05-30] MEDS: oxyCODONE IR 5 MG TABLET PO PRN ×3 (04:15→17:58)
[2018-05-30 05:44] VITALS: BP 153/85
[2018-05-30] MEDS: CLOPIDOGREL BISULFATE 75 MG TABLET PO SCH (07:50)
[2018-05-30] MEDS: buPROPion XL 150 MG TAB.ER.24H PO SCH (07:50)
[2018-05-30] MEDS: busPIRone 5 MG TABLET. PO SCH ×3 (07:50→16:13)
[2018-05-30] MEDS: CARVEDILOL 6.25 MG TABLET PO SCH ×2 (07:51→16:17)
[2018-05-30] MEDS: MULTIVITAMIN I-VITE TABLET. PO SCH (07:51)
[2018-05-30] MEDS: PANTOPRAZOLE 40 MG TABLET. PO SCH (07:51)
[2018-05-30] MEDS: amLODIPine BESYLATE 10 MG TABLET PO SCH (07:51)
[2018-05-30] MEDS: NICOTINE 21MG PATCH. TD SCH (07:52)
[2018-05-30] MEDS: ASPIRIN 81 MG TAB.CHEW PO SCH (07:52)
[2018-05-30] MEDS: tiZANidine 4 MG TABLET. PO SCH ×3 (07:52→21:14)
[2018-05-30] MEDS: CYANOCOBALAMIN (VITAMIN B-12) 1,000 MCG TABLET. PO SCH (07:52)
[2018-05-30] MEDS: BRIMONIDINE 0.2% OPHTH SOLUTION 5ML BOTTLE. OU SCH ×2 (07:57→21:14)
[2018-05-30] MEDS: oxyCODONE ER 10 MG TAB.ER.12H PO SCH ×2 (07:57→21:15)
[2018-05-30] MEDS: TIMOLOL 0.5% OPHTH SOLUTION 5ML BOTTLE. OU SCH ×2 (07:57→21:14)
[2018-05-30] MEDS: PYRIDOXINE 50 MG TABLET. PO SCH (08:01)
[2018-05-30] MEDS: LIDOCAINE (700MG/PATCH) PATCH. TD SCH (08:01)
[2018-05-30 16:02] VITALS: BP 128/76
[2018-05-30] MEDS: CHOLECALCIFEROL (VITAMIN D3) 50,000 UNIT CAPSULE PO SCH (16:13)
--- NOTE | 2018-05-30 20:45 | PN ---
DATE: 05/28/2018 This is a late entry for 05/28/2018 covers elements not covered in my initial note. SUBJECTIVE: I met with the patient in the evening at length in his room. He slept 5-3/4 hours previous evening. Overall, he is doing better, slightly less anxious, received Atarax x 2 and has received some PRN for his pain. Other than pain, complains of some anxiety. REVIEW OF SYSTEMS: No CV, , pulmonary, eye system symptoms on review. MENTAL STATUS EXAM: Reasonably oriented. Speech is coherent, low in volume. Abstraction fair, computation impaired, language function intact, attention span short. Mood is somewhat dysphoric, anxious. Affect is mood congruent, but he is much less sedated during the day. LABORATORY DATA: Reviewed. IMPRESSION: Unchanged from initial note. PLAN: No change from initial note. MAN Eduin DEWEY MD DR: SANJEEV/margo JOB#: [id number] / [id number]
--- NOTE | 2018-05-30 20:47 | PN ---
DATE: 05/29/2018 This is a late entry for 05/29/2018 covers elements not covered in my initial note. SUBJECTIVE: I met with the patient in the evening. The patient slept 8 hours previous evening, remains somewhat anxious, but better. Anxiety is better, but the pain persisted and I will defer to Dr. Barksdale. REVIEW OF SYSTEMS: No CV, , pulmonary, eye system symptoms on review. Complains of back pain. MENTAL STATUS EXAM: Reasonably oriented. Speech is coherent, low in volume. Abstraction fair, computation impaired, language function intact, attention span short. Mood and affect showing improved anxiety, slightly less dysphoric. LABORATORY DATA: Reviewed. IMPRESSION: Unchanged from initial note. PLAN: Continue current psychotropics, Wellbutrin along with BuSpar and hydroxyzine as p.r.n. Adjust further as clinically indicated. MAN Eduin DEWEY MD DR: SANJEEV/margo JOB#: [id number] / [id number]
[2018-05-30] MEDS: PATCH REMOVAL. MC SCH (21:00)
[2018-05-30] MEDS: ATORVASTATIN CALCIUM 20 MG TABLET PO SCH (21:13)
[2018-05-30] MEDS: TAMSULOSIN 0.4 MG CAP.ER.24H. PO SCH (21:13)
[2018-05-30] MEDS: LATANOPROST 0.005% OPHTH SOLUTION 2.5ML BOTTLE. OU SCH (21:14)
--- NOTE | 2018-05-30 22:38 | PDOC ---
Exam Note: Kel Note: Please also refer to the separate dictated note~for this date of service dictated separately.~Patient seen individually. Discussed the patient with Nursing staff reviewed the chart.~Reviewed interim history and current functioning. Reviewed vital signs,~Labs/ Radiology~and current medications noted below. Continue current treatment with the changes noted in the dictated addendum note Assessment: Vital Signs: Vital Signs Date Time Temp Pulse Resp B/P (MAP) Pulse Ox O2 Delivery O2 Flow Rate FiO2 05/30/18 21:15 95 05/30/18 18:56 18 05/30/18 16:17 86 128/76 05/30/18 16:02 98.4 Room Air I&O Intake and Output 05/30/18 07:00 Intake Total 1320 ml Output Total 1 ml Balance 1319 ml Intake Oral 1320 ml Output Urine Total 1 ml Current Medications: Meds: Current Medications Acetaminophen (Tylenol) 650 mg PRN Q6HRS PRN PO PAIN / TEMP Last administered on 05/28/18at 16:23; Start 05/22/18 at 20:00 Multi-Ingredient Ointment (Analgesic [place]) 1 aubree PRN QID PRN TP MUSCLE PAIN; Start 05/22/18 at 20:00 Al Hydroxide/Mg Hydroxide (Mylanta Plus Xs) 15 ml PRN AFTMEALHC PRN PO DYSPEPSIA; Start 05/22/18 at 20:00 Nicotine (Nicoderm Cq 21mg) 1 patch DAILY TD Last administered on 05/30/18at 07: 52; Start 05/23/18 at 09:00 Vitamin D (Vitamin D3) 50,000 unit QM PO Last administered on 05/30/18at 16:13; Start 05/23/18 at 16:00 Clopidogrel Bisulfate (Plavix) 75 mg DAILY PO Last administered on 05/30/18at 07 :50; Start 05/23/18 at 09:00 Metoprolol Succinate (Toprol Xl) 25 mg DAILY PO ; Start 05/23/18 at 09:00; Stop 05/23/18 at 12:06; Status DC Tamsulosin HCl (Flomax) 0.4 mg QHS PO ; Start 05/23/18 at 21:00; Stop 05/23/18 at 21:00; Status DC Aspirin (Children'S Aspirin) 81 mg DAILYWBKFT PO Last administered on at 07:52; Start 05/23/18 at 08:00 Atorvastatin Calcium (Lipitor) 80 mg QHS PO ; Start 05/23/18 at 21:00; Stop at 21:00; Status DC Brimonidine Tartrate (Alphagan) 1 drop BID OU ; Start 05/23/18 at 09:00; Stop at 09:00; Status DC Carvedilol (Coreg) 6.25 mg BIDWMEALS PO Last administered on 05/30/18at 16:17; Start 05/23/18 at 08:00 Latanoprost (Xalatan) 1 drop QHS OU ; Start 05/23/18 at 21:00; Stop 05/23/18 at 21:00; Status DC Lidocaine (Lidoderm) 1 patch DAILY TD Last administered on 05/23/18at 08:07; Start 05/23/18 at 09:00; Stop 05/23/18 at 20:33; Status DC Miscellaneous (Lidoderm Patch Removal) 1 ea DAILY MC Last administered on at 07:20; Start 05/23/18 at 09:00; Stop 05/26/18 at 09:29; Status DC Pantoprazole Sodium (Protonix) 40 mg DAILYAC PO Last administered on 05/30/18 07:51; Start 05/23/18 at 07:30 Timolol Maleate (Timoptic 0.5% Oph) 1 drop BID OU Last administered on 21:14; Start 05/23/18 at 09:00 Tizanidine HCl (Zanaflex) 2 mg TID PO Last administered on 05/30/18 21:14; Start 05/23/18 at 09:00 Multivitamins/ Minerals (I-[place]) 1 tab DAILY PO Last administered on 05/30/18 07:51; Start 05/23/18 at 09:00 Magnesium Hydroxide (Milk Of Magnesia) 2,400 mg PRN DAILY PRN PO CONSTIPATION; Start 05/22/18 at 21:45 Bupropion HCl (Wellbutrin Xl) 150 mg DAILY PO Last administered on 05/30/18at 07 :50; Start 05/25/18 at 09:00 Duloxetine HCl (Cymbalta) 30 mg DAILY PO Last administered on 05/26/18at 09:15; Start 05/25/18 at 09:00; Stop 05/26/18 at 10:00; Status DC Atorvastatin Calcium (Lipitor) 80 mg QHS PO Last administered on 05/30/18at 21: 13; Start 05/22/18 at 23:30 Brimonidine Tartrate (Alphagan) 1 drop BID OU Last administered on 05/30/18at 21 :14; Start 05/22/18 at 23:30 Latanoprost (Xalatan) 1 drop QHS OU Last administered on 05/30/18at 21:14; Start 05/22/18 at 23:30 Tamsulosin HCl (Flomax) 0.4 mg QHS PO Last administered on 05/30/18at 21:13; Start 05/22/18 at 23:30 Cyanocobalamin (Vitamin B-12) 3,000 mcg DAILY PO Last administered on at 08:27; Start 05/23/18 at 09:00; Stop 05/28/18 at 15:25; Status DC Duloxetine HCl (Cymbalta) 30 mg DAILY PO ; Start 05/25/18 at 09:00; Stop at 10:00; Status Cancel Oxycodone HCl (Roxicodone) 5 mg PRN Q6HRS PRN PO SEVERE PAIN Last administered on 05/23/18at 19:43; Start 05/22/18 at 23:15; Stop 05/23/18 at 20:21; Status DC Quetiapine Fumarate (SEROquel) 50 mg HS PO ; Start 05/23/18 at 21:00; Stop 05/23 at 21:00; Status DC Pyridoxine HCl (Vitamin B-6) 50 mg DAILY PO Last administered on 05/30/18at 08: 01; Start 05/23/18 at 09:00 Quetiapine Fumarate (SEROquel) 50 mg HS PO Last administered on 05/23/18at 19:22 ; Start 05/22/18 at 23:30; Stop 05/23/18 at 23:00; Status DC Hydroxyzine HCl (Atarax) 25 mg TID PRN PRN PO ANXIETY Last administered on 05/29at 13:51; Start 05/23/18 at 17:15 Oxycodone HCl (Roxicodone) 5 mg PRN Q4HRS PRN PO SEVERE PAIN Last administered on 05/30/18at 17:58; Start 05/23/18 at 20:30 Oxycodone HCl (OxyCONTIN) 10 mg Q12HR PO Last administered on 05/30/18at 21:15; Start 05/23/18 at 21:00 Ibuprofen (Motrin) 800 mg PRN Q8HRS PRN PO INFLAMMATION Last administered on at 14:33; Start 05/23/18 at 20:30; Stop 05/27/18 at 16:14; Status DC Lidocaine (Lidoderm) 3 patch DAILY TD Last administered on 05/30/18at 08:01; Start 05/24/18 at 09:00 Influenza Virus Vaccine (Afluria Trivalent [id number] Syringe) 0.5 ml ONCE ONCE VAX IM ; Start 05/25/18 at 11:30; Stop 05/25/18 at 11:31; Status UNV Miscellaneous (Lidoderm Patch Removal) 1 ea QHS MC Last administered on at 19:47; Start 05/26/18 at 21:00 Amlodipine Besylate (Norvasc) 10 mg 1X ONCE PO Last administered on 05/27/18at 12:57; Start 05/27/18 at 13:00; Stop 05/27/18 at 13:01; Status DC Buspirone HCl (Buspar) 5 mg 0900,1300,1700 PO Last administered on 05/30/18at 16 :13; Start 05/27/18 at 17:30 Amlodipine Besylate (Norvasc) 10 mg DAILY PO Last administered on 05/30/18at 07: 51; Start 05/28/18 at 09:00 Cyanocobalamin (Vitamin B-12) 1,000 mcg DAILY PO Last administered on at 07:52; Start 05/29/18 at 09:00 Active Scripts Active Reported Timoptic (Timolol Maleate) 10 Ml Drops 1 Drop EACHEYE BID Oxycodone Hcl 5 Mg Capsule 1 Cap PO PRN Q6HRS PRN Pantoprazole Sodium 40 Mg Tablet.dr 1 Tab PO DAILY Zanaflex (Tizanidine HCl) 4 Mg Tablet 2 Mg PO TID Vitamin D3 (Cholecalciferol (Vitamin D3)) 50,000 Unit Capsule 50,000 Unit PO QM start date: 05/31/17 Lidocaine 1 Each Adh..patch 1 Patch TP DAILY Seroquel (Quetiapine Fumarate) 50 Mg Tablet 50 Mg PO QHS 2 Days Milk Of Magnesia (Magnesium Hydroxide) 400 Mg/5 Ml Oral.susp 2,400 Mg PO PRN HS Vitamin B-12 (Cyanocobalamin (Vitamin B-12)) 1,000 Mcg Tablet 3,000 Mcg PO DAILY Atorvastatin Calcium 80 Mg Tablet 80 Mg PO QHS Coreg (Carvedilol) 6.25 Mg Tablet 6.25 Mg PO BIDWMEALS Preservision Lutein Softgel (Vit C/[place] Ac/Lut/Copper/Znox) 1 Each Capsule 1 Cap PO DAILY Children's Aspirin (Aspirin) 81 Mg Tab.chew 81 Mg PO DAILY Metoprolol Succinate ( Xl ) (Metoprolol Succinate) 25 Mg Tab.er.24h 25 Mg PO DAILY Plavix (Clopidogrel Bisulfate) 75 Mg Tablet 75 Mg PO DAILY Cymbalta (Duloxetine Hcl) 30 Mg Capsule.dr 60 Mg PO DAILY 2 Days Tamsulosin Hcl 0.4 Mg Cap.er.24h 0.4 Mg PO QHS Xalatan (Latanoprost) 2.5 Ml Drops 1 Drop OU QHS Combigan Eye Drops (Brimonidine Tartrate/Timolol) 5 Ml Drops 1 Drop LEFTEYE BID I have reviewed the current psychotropics carefully including drug interactions. Risk benefit ratio favors no change other than as noted in my dictated progress note. Diagnosis: Problems: (1) Alzheimer's dementia (2) Anxiety disorder (3) Mild cognitive impairment (4) Impulse control disorder (5) Major depressive disorder, recurrent episode (6) Alcohol dependence JO DEWEY MD May 30, 2018 22:38
[2018-05-31 05:31] VITALS: BP 165/92
[2018-05-31 07:20] LABS: BASO % 0 % (0-3); EOS # 0.1 x10^3/uL (0.0-0.7); EOS % 1 % (0-3); HEMATOCRIT 42.6 % (39.0-53.0); HEMOGLOBIN 14.2 g/dL (13.0-17.5); LYMPH # 3.1 x10^3/uL (1.0-4.8); LYMPH % 24 % (24-48); MEAN CORPUSCULAR HEMOGLOBIN 32 pg (25-35); MEAN CORPUSCULAR HGB CONC 33 g/dL (31-37); MEAN CORPUSCULAR VOLUME 95 fL (79-100); MONO # 0.9 x10^3/uL (0.0-1.1); MONO % 7 % (0-9); NEUT # 8.7 x10^3uL (1.8-7.7); NEUT % 68 % (31-73); PLATELET COUNT 283 x10^3/uL (140-400); RED CELL DISTRIBUTION WIDTH 15.3 % (11.5-14.5); WHITE BLOOD COUNT 12.7 x10^3/uL (4.0-11.0)
[2018-05-31] MEDS: NICOTINE 21MG PATCH. TD SCH (07:24)
[2018-05-31] MEDS: PANTOPRAZOLE 40 MG TABLET. PO SCH (07:24)
[2018-05-31] MEDS: ASPIRIN 81 MG TAB.CHEW PO SCH (07:24)
[2018-05-31] MEDS: tiZANidine 4 MG TABLET. PO SCH ×3 (07:24→20:44)
[2018-05-31] MEDS: CYANOCOBALAMIN (VITAMIN B-12) 1,000 MCG TABLET. PO SCH (07:24)
[2018-05-31] MEDS: amLODIPine BESYLATE 10 MG TABLET PO SCH (07:25)
[2018-05-31] MEDS: busPIRone 5 MG TABLET. PO SCH ×3 (07:25→17:41)
[2018-05-31] MEDS: MULTIVITAMIN I-VITE TABLET. PO SCH (07:25)
[2018-05-31] MEDS: buPROPion XL 150 MG TAB.ER.24H PO SCH (07:25)
[2018-05-31] MEDS: CARVEDILOL 6.25 MG TABLET PO SCH ×2 (07:25→17:28)
[2018-05-31] MEDS: CLOPIDOGREL BISULFATE 75 MG TABLET PO SCH (07:25)
[2018-05-31] MEDS: BRIMONIDINE 0.2% OPHTH SOLUTION 5ML BOTTLE. OU SCH ×2 (07:27→20:44)
[2018-05-31] MEDS: PYRIDOXINE 50 MG TABLET. PO SCH (07:27)
[2018-05-31] MEDS: oxyCODONE ER 10 MG TAB.ER.12H PO SCH ×2 (07:27→20:43)
[2018-05-31] MEDS: TIMOLOL 0.5% OPHTH SOLUTION 5ML BOTTLE. OU SCH ×2 (07:27→20:44)
[2018-05-31] MEDS: LIDOCAINE (700MG/PATCH) PATCH. TD SCH (07:28)
[2018-05-31 07:34] LABS: CALCIUM 9.1 mg/dL (8.5-10.1); CREATININE 1.2 mg/dL (0.7-1.3); GFR 58.7; POTASSIUM 3.4 mmol/L (3.5-5.1); TOTAL BILIRUBIN 0.7 mg/dL (0.2-1.0); TOTAL PROTEIN 7.9 g/dL (6.4-8.2)
[2018-05-31] MEDS: MAGNESIUM HYDROXIDE 2,400 MG/30 ML ORAL.SUSP. PO PRN (14:15)
--- NOTE | 2018-05-31 14:38 | PN ---
DATE: 05/31/2018 This is a late entry for 05/30/2018 and covers elements not covered in my initial note 05/30/2018. SUBJECTIVE: I met with the patient in the evening. Overall, per nursing report, the patient has done better. He does complain of chronic pain, slept reasonably well and states he is more awake, alert, less anxious as I questioned him individually. REVIEW OF SYSTEMS: Positive for the back pain. No CV, , pulmonary, eye system symptoms on review. MENTAL STATUS EXAM: Reasonably oriented. Speech is coherent. He follows me around the unit as usual, wanting something for the pain. Abstraction fair. Computation, able to do two steps on serial sevens, remember 2/3 objects at 3 minutes. Mood remains somewhat anxious, but improved. Depressive symptoms are better. No suicidal or homicidal ideation. LABORATORY DATA: Reviewed. IMPRESSION: Major depressive disorder, in partial remission; history of alcohol abuse, cognitive disorder, unspecified. PLAN: No change from a psychiatric standpoint, maintain Wellbutrin, BuSpar, along with hydroxyzine p.r.n. JO DEWEY MD DR: [email or web address]/margo JOB#: [id number] / [id number]
[2018-05-31 15:39] VITALS: BP 151/93
[2018-05-31] MEDS: ACETAMINOPHEN 325 MG TABLET PO PRN (15:51)
[2018-05-31] MEDS: TAMSULOSIN 0.4 MG CAP.ER.24H. PO SCH (20:41)
[2018-05-31] MEDS: ATORVASTATIN CALCIUM 20 MG TABLET PO SCH (20:41)
[2018-05-31] MEDS: PATCH REMOVAL. MC SCH (20:43)
[2018-05-31] MEDS: LATANOPROST 0.005% OPHTH SOLUTION 2.5ML BOTTLE. OU SCH (20:44)
--- NOTE | 2018-05-31 20:48 | PDOC ---
Exam Note: Kel Note: Please also refer to the separate dictated note~for this date of service dictated separately.~Patient seen individually. Discussed the patient with Nursing staff reviewed the chart.~Reviewed interim history and current functioning. Reviewed vital signs,~Labs/ Radiology~and current medications noted below. Continue current treatment with the changes noted in the dictated addendum note Assessment: Vital Signs: Vital Signs Date Time Temp Pulse Resp B/P (MAP) Pulse Ox O2 Delivery O2 Flow Rate FiO2 05/31/18 20:43 97 Room Air 05/31/18 17:28 96 151/93 05/31/18 15:39 97.8 22 I&O Intake and Output 05/31/18 07:00 Intake Total 1440 ml Output Total 1 ml Balance 1439 ml Intake Oral 1440 ml Output Urine Total 1 ml Labs: Laboratory Tests Test 05/31/18 07:04 White Blood Count 12.7 x10^3/uL (4.0-11.0) H Red Blood Count 4.50 x10^6/uL (4.30-5.70) Hemoglobin 14.2 g/dL (13.0-17.5) Hematocrit 42.6 % (39.0-53.0) Mean Corpuscular Volume 95 fL (79-100) Mean Corpuscular Hemoglobin 32 pg (25-35) Mean Corpuscular Hemoglobin Concent 33 g/dL (31-37) Red Cell Distribution Width 15.3 % (11.5-14.5) H Platelet Count 283 x10^3/uL (140-400) Neutrophils (%) (Auto) 68 % (31-73) Lymphocytes (%) (Auto) 24 % (24-48) Monocytes (%) (Auto) 7 % (0-9) Eosinophils (%) (Auto) 1 % (0-3) Basophils (%) (Auto) 0 % (0-3) Neutrophils # (Auto) 8.7 x10^3uL (1.8-7.7) H Lymphocytes # (Auto) 3.1 x10^3/uL (1.0-4.8) Monocytes # (Auto) 0.9 x10^3/uL (0.0-1.1) Eosinophils # (Auto) 0.1 x10^3/uL (0.0-0.7) Basophils # (Auto) 0.0 x10^3/uL (0.0-0.2) Sodium Level 139 mmol/L (136-145) Potassium Level 3.4 mmol/L (3.5-5.1) L Chloride Level 103 mmol/L (98-107) Carbon Dioxide Level 27 mmol/L (21-32) Anion Gap 9 (6-14) Blood Urea Nitrogen 19 mg/dL (8-26) Creatinine 1.2 mg/dL (0.7-1.3) Estimated GFR (Cockcroft-Gault) 58.7 BUN/Creatinine Ratio 16 (6-20) Glucose Level 126 mg/dL (70-99) H Calcium Level 9.1 mg/dL (8.5-10.1) Total Bilirubin 0.7 mg/dL (0.2-1.0) Aspartate Amino Transferase (AST) 14 U/L (15-37) L Alanine Aminotransferase (ALT) 23 U/L (16-63) Alkaline Phosphatase 80 U/L (46-116) Total Protein 7.9 g/dL (6.4-8.2) Albumin 4.0 g/dL (3.4-5.0) Albumin/Globulin Ratio 1.0 (1.0-1.7) Current Medications: Meds: Current Medications Acetaminophen (Tylenol) 650 mg PRN Q6HRS PRN PO PAIN / TEMP Last administered on 05/31/18at 15:51; Start 05/22/18 at 20:00 Multi-Ingredient Ointment (Analgesic [place]) 1 aubree PRN QID PRN TP MUSCLE PAIN; Start 05/22/18 at 20:00 Al Hydroxide/Mg Hydroxide (Mylanta Plus Xs) 15 ml PRN AFTMEALHC PRN PO DYSPEPSIA; Start 05/22/18 at 20:00 Nicotine (Nicoderm Cq 21mg) 1 patch DAILY TD Last administered on 05/31/18at 07: 24; Start 05/23/18 at 09:00 Vitamin D (Vitamin D3) 50,000 unit QM PO Last administered on 05/30/18at 16:13; Start 05/23/18 at 16:00 Clopidogrel Bisulfate (Plavix) 75 mg DAILY PO Last administered on 05/31/18at 07 :25; Start 05/23/18 at 09:00 Metoprolol Succinate (Toprol Xl) 25 mg DAILY PO ; Start 05/23/18 at 09:00; Stop 05/23/18 at 12:06; Status DC Tamsulosin HCl (Flomax) 0.4 mg QHS PO ; Start 05/23/18 at 21:00; Stop 05/23/18 at 21:00; Status DC Aspirin (Children'S Aspirin) 81 mg DAILYWBKFT PO Last administered on at 07:24; Start 05/23/18 at 08:00 Atorvastatin Calcium (Lipitor) 80 mg QHS PO ; Start 05/23/18 at 21:00; Stop at 21:00; Status DC Brimonidine Tartrate (Alphagan) 1 drop BID OU ; Start 05/23/18 at 09:00; Stop at 09:00; Status DC Carvedilol (Coreg) 6.25 mg BIDWMEALS PO Last administered on 05/31/18at 17:28; Start 05/23/18 at 08:00 Latanoprost (Xalatan) 1 drop QHS OU ; Start 05/23/18 at 21:00; Stop 05/23/18 at 21:00; Status DC Lidocaine (Lidoderm) 1 patch DAILY TD Last administered on 05/23/18at 08:07; Start 05/23/18 at 09:00; Stop 05/23/18 at 20:33; Status DC Miscellaneous (Lidoderm Patch Removal) 1 ea DAILY MC Last administered on at 07:20; Start 05/23/18 at 09:00; Stop 05/26/18 at 09:29; Status DC Pantoprazole Sodium (Protonix) 40 mg DAILYAC PO Last administered on 05/31/18at 07:24; Start 05/23/18 at 07:30 Timolol Maleate (Timoptic 0.5% [facility]) 1 drop BID OU Last administered on at 20:44; Start 05/23/18 at 09:00 Tizanidine HCl (Zanaflex) 2 mg TID PO Last administered on 05/31/18at 20:44; Start 05/23/18 at 09:00 Multivitamins/ Minerals (I-[place]) 1 tab DAILY PO Last administered on 05/31/18at 07:25; Start 05/23/18 at 09:00 Magnesium Hydroxide (Milk Of Magnesia) 2,400 mg PRN DAILY PRN PO CONSTIPATION Last administered on 05/31/18 14:15; Start 05/22/18 at 21:45 Bupropion HCl (Wellbutrin Xl) 150 mg DAILY PO Last administered on 05/31/18 07 :25; Start 05/25/18 at 09:00 Duloxetine HCl (Cymbalta) 30 mg DAILY PO Last administered on 05/26/18at 09:15; Start 05/25/18 at 09:00; Stop 05/26/18 at 10:00; Status DC Atorvastatin Calcium (Lipitor) 80 mg QHS PO Last administered on 05/31/18 20: 41; Start 05/22/18 at 23:30 Brimonidine Tartrate (Alphagan) 1 drop BID OU Last administered on 05/31/18 20 :44; Start 05/22/18 at 23:30 Latanoprost (Xalatan) 1 drop QHS OU Last administered on 05/31/18at 20:44; Start 05/22/18 at 23:30 Tamsulosin HCl (Flomax) 0.4 mg QHS PO Last administered on 05/31/18 20:41; Start 05/22/18 at 23:30 Cyanocobalamin (Vitamin B-12) 3,000 mcg DAILY PO Last administered on 08:27; Start 05/23/18 at 09:00; Stop 05/28/18 at 15:25; Status DC Duloxetine HCl (Cymbalta) 30 mg DAILY PO ; Start 05/25/18 at 09:00; Stop at 10:00; Status Cancel Oxycodone HCl (Roxicodone) 5 mg PRN Q6HRS PRN PO SEVERE PAIN Last administered on 05/23/18at 19:43; Start 05/22/18 at 23:15; Stop 05/23/18 at 20:21; Status DC Quetiapine Fumarate (SEROquel) 50 mg HS PO ; Start 05/23/18 at 21:00; Stop 05/23 at 21:00; Status DC Pyridoxine HCl (Vitamin B-6) 50 mg DAILY PO Last administered on 05/31/18at 07: 27; Start 05/23/18 at 09:00 Quetiapine Fumarate (SEROquel) 50 mg HS PO Last administered on 05/23/18 19:22 ; Start 05/22/18 at 23:30; Stop 05/23/18 at 23:00; Status DC Hydroxyzine HCl (Atarax) 25 mg TID PRN PRN PO ANXIETY Last administered on 05/29 13:51; Start 05/23/18 at 17:15 Oxycodone HCl (Roxicodone) 5 mg PRN Q4HRS PRN PO SEVERE PAIN Last administered on 05/30/18 17:58; Start 05/23/18 at 20:30 Oxycodone HCl (OxyCONTIN) 10 mg Q12HR PO Last administered on 05/31/18 20:43; Start 05/23/18 at 21:00 Ibuprofen (Motrin) 800 mg PRN Q8HRS PRN PO INFLAMMATION Last administered on at 14:33; Start 05/23/18 at 20:30; Stop 05/27/18 at 16:14; Status DC Lidocaine (Lidoderm) 3 patch DAILY TD Last administered on 05/31/18 07:28; Start 05/24/18 at 09:00 Influenza Virus Vaccine (Afluria Trivalent [id number] Syringe) 0.5 ml ONCE ONCE VAX IM ; Start 05/25/18 at 11:30; Stop 05/25/18 at 11:31; Status UNV Miscellaneous (Lidoderm Patch Removal) 1 ea QHS MC Last administered on at 20:43; Start 05/26/18 at 21:00 Amlodipine Besylate (Norvasc) 10 mg 1X ONCE PO Last administered on 05/27/18at 12:57; Start 05/27/18 at 13:00; Stop 05/27/18 at 13:01; Status DC Buspirone HCl (Buspar) 5 mg 0900,1300,1700 PO Last administered on 05/31/18 17 :41; Start 05/27/18 at 17:30 Amlodipine Besylate (Norvasc) 10 mg DAILY PO Last administered on 05/31/18at 07: 25; Start 05/28/18 at 09:00 Cyanocobalamin (Vitamin B-12) 1,000 mcg DAILY PO Last administered on at 07:24; Start 05/29/18 at 09:00 Active Scripts Active Reported Timoptic (Timolol Maleate) 10 Ml Drops 1 Drop EACHEYE BID Oxycodone Hcl 5 Mg Capsule 1 Cap PO PRN Q6HRS PRN Pantoprazole Sodium 40 Mg Tablet.dr 1 Tab PO DAILY Zanaflex (Tizanidine HCl) 4 Mg Tablet 2 Mg PO TID Vitamin D3 (Cholecalciferol (Vitamin D3)) 50,000 Unit Capsule 50,000 Unit PO QM start date: 05/31/17 Lidocaine 1 Each Adh..patch 1 Patch TP DAILY Seroquel (Quetiapine Fumarate) 50 Mg Tablet 50 Mg PO QHS 2 Days Milk Of Magnesia (Magnesium Hydroxide) 400 Mg/5 Ml Oral.susp 2,400 Mg PO PRN HS Vitamin B-12 (Cyanocobalamin (Vitamin B-12)) 1,000 Mcg Tablet 3,000 Mcg PO DAILY Atorvastatin Calcium 80 Mg Tablet 80 Mg PO QHS Coreg (Carvedilol) 6.25 Mg Tablet 6.25 Mg PO BIDWMEALS Preservision Lutein Softgel (Vit C/[place] Ac/Lut/Copper/Znox) 1 Each Capsule 1 Cap PO DAILY Children's Aspirin (Aspirin) 81 Mg Tab.chew 81 Mg PO DAILY Metoprolol Succinate ( Xl ) (Metoprolol Succinate) 25 Mg Tab.er.24h 25 Mg PO DAILY Plavix (Clopidogrel Bisulfate) 75 Mg Tablet 75 Mg PO DAILY Cymbalta (Duloxetine Hcl) 30 Mg Capsule.dr 60 Mg PO DAILY 2 Days Tamsulosin Hcl 0.4 Mg Cap.er.24h 0.4 Mg PO QHS Xalatan (Latanoprost) 2.5 Ml Drops 1 Drop OU QHS Combigan Eye Drops (Brimonidine Tartrate/Timolol) 5 Ml Drops 1 Drop LEFTEYE BID I have reviewed the current psychotropics carefully including drug interactions. Risk benefit ratio favors no change other than as noted in my dictated progress note. Diagnosis: Problems: (1) Urinary tract infection (2) Hyponatremia (3) Tobacco abuse (4) Alzheimer's dementia (5) Anxiety disorder (6) Mild cognitive impairment (7) Impulse control disorder (8) Major depressive disorder, recurrent episode (9) Alcohol dependence JO DEWEY MD May 31, 2018 20:48
[2018-06-01] MEDS: oxyCODONE IR 5 MG TABLET PO PRN ×2 (02:18→12:17)
[2018-06-01 05:33] VITALS: BP 125/75
[2018-06-01] MEDS: MAGNESIUM HYDROXIDE 2,400 MG/30 ML ORAL.SUSP. PO PRN (06:30)
[2018-06-01] MEDS: PANTOPRAZOLE 40 MG TABLET. PO SCH (07:51)
[2018-06-01] MEDS: ASPIRIN 81 MG TAB.CHEW PO SCH (07:51)
[2018-06-01] MEDS: CARVEDILOL 6.25 MG TABLET PO SCH ×2 (07:51→16:39)
[2018-06-01] MEDS: amLODIPine BESYLATE 10 MG TABLET PO SCH (07:52)
[2018-06-01] MEDS: busPIRone 5 MG TABLET. PO SCH ×3 (07:52→16:39)
[2018-06-01] MEDS: MULTIVITAMIN I-VITE TABLET. PO SCH (07:52)
[2018-06-01] MEDS: CYANOCOBALAMIN (VITAMIN B-12) 1,000 MCG TABLET. PO SCH (07:53)
[2018-06-01] MEDS: buPROPion XL 150 MG TAB.ER.24H PO SCH (07:53)
[2018-06-01] MEDS: tiZANidine 4 MG TABLET. PO SCH ×3 (07:53→19:28)
[2018-06-01] MEDS: CLOPIDOGREL BISULFATE 75 MG TABLET PO SCH (07:53)
[2018-06-01] MEDS: LIDOCAINE (700MG/PATCH) PATCH. TD SCH (07:54)
[2018-06-01] MEDS: NICOTINE 21MG PATCH. TD SCH (07:55)
[2018-06-01] MEDS: oxyCODONE ER 10 MG TAB.ER.12H PO SCH ×2 (07:57→19:31)
[2018-06-01] MEDS: hydrOXYzine HCL 25 MG TABLET PO PRN ×2 (07:57→16:40)
[2018-06-01] MEDS: BRIMONIDINE 0.2% OPHTH SOLUTION 5ML BOTTLE. OU SCH ×2 (07:59→19:27)
[2018-06-01] MEDS: TIMOLOL 0.5% OPHTH SOLUTION 5ML BOTTLE. OU SCH ×2 (07:59→19:28)
[2018-06-01] MEDS: PYRIDOXINE 50 MG TABLET. PO SCH (07:59)
[2018-06-01 16:10] VITALS: BP 118/77
[2018-06-01] MEDS: PATCH REMOVAL. MC SCH (19:27)
[2018-06-01] MEDS: LATANOPROST 0.005% OPHTH SOLUTION 2.5ML BOTTLE. OU SCH (19:28)
[2018-06-01] MEDS: TAMSULOSIN 0.4 MG CAP.ER.24H. PO SCH (19:28)
[2018-06-01] MEDS: ATORVASTATIN CALCIUM 20 MG TABLET PO SCH (19:28)
[2018-06-01] MEDS: MIRTAZAPINE 7.5 MG TABLET. PO SCH (19:31)
--- NOTE | 2018-06-01 20:39 | PDOC ---
Exam Note: Kel Note: Please also refer to the separate dictated note~for this date of service dictated separately.~Patient seen individually. Discussed the patient with Nursing staff reviewed the chart.~Reviewed interim history and current functioning. Reviewed vital signs,~Labs/ Radiology~and current medications noted below. Continue current treatment with the changes noted in the dictated addendum note Assessment: Vital Signs: Vital Signs Date Time Temp Pulse Resp B/P (MAP) Pulse Ox O2 Delivery O2 Flow Rate FiO2 06/01/18 19:31 96 Room Air 06/01/18 16:39 80 118/77 06/01/18 16:10 98.3 18 I&O Intake and Output 06/01/18 07:00 Intake Total 960 ml Output Total 1 ml Balance 959 ml Intake Oral 960 ml Output Urine Total 1 ml Current Medications: Meds: Current Medications Acetaminophen (Tylenol) 650 mg PRN Q6HRS PRN PO PAIN / TEMP Last administered on 05/31/18at 15:51; Start 05/22/18 at 20:00 Multi-Ingredient Ointment (Analgesic [place]) 1 aubree PRN QID PRN TP MUSCLE PAIN; Start 05/22/18 at 20:00 Al Hydroxide/Mg Hydroxide (Mylanta Plus Xs) 15 ml PRN AFTMEALHC PRN PO DYSPEPSIA; Start 05/22/18 at 20:00 Nicotine (Nicoderm Cq 21mg) 1 patch DAILY TD Last administered on 06/01/18at 07: 55; Start 05/23/18 at 09:00 Vitamin D (Vitamin D3) 50,000 unit QM PO Last administered on 05/30/18at 16:13; Start 05/23/18 at 16:00 Clopidogrel Bisulfate (Plavix) 75 mg DAILY PO Last administered on 06/01/18at 07 :53; Start 05/23/18 at 09:00 Metoprolol Succinate (Toprol Xl) 25 mg DAILY PO ; Start 05/23/18 at 09:00; Stop 05/23/18 at 12:06; Status DC Tamsulosin HCl (Flomax) 0.4 mg QHS PO ; Start 05/23/18 at 21:00; Stop 05/23/18 at 21:00; Status DC Aspirin (Children'S Aspirin) 81 mg DAILYWBKFT PO Last administered on at 07:51; Start 05/23/18 at 08:00 Atorvastatin Calcium (Lipitor) 80 mg QHS PO ; Start 05/23/18 at 21:00; Stop at 21:00; Status DC Brimonidine Tartrate (Alphagan) 1 drop BID OU ; Start 05/23/18 at 09:00; Stop at 09:00; Status DC Carvedilol (Coreg) 6.25 mg BIDWMEALS PO Last administered on 06/01/18at 16:39; Start 05/23/18 at 08:00 Latanoprost (Xalatan) 1 drop QHS OU ; Start 05/23/18 at 21:00; Stop 05/23/18 at 21:00; Status DC Lidocaine (Lidoderm) 1 patch DAILY TD Last administered on 05/23/18at 08:07; Start 05/23/18 at 09:00; Stop 05/23/18 at 20:33; Status DC Miscellaneous (Lidoderm Patch Removal) 1 ea DAILY MC Last administered on at 07:20; Start 05/23/18 at 09:00; Stop 05/26/18 at 09:29; Status DC Pantoprazole Sodium (Protonix) 40 mg DAILYAC PO Last administered on 06/01/18 07:51; Start 05/23/18 at 07:30 Timolol Maleate (Timoptic 0.5% Oph) 1 drop BID OU Last administered on 19:28; Start 05/23/18 at 09:00 Tizanidine HCl (Zanaflex) 2 mg TID PO Last administered on 06/01/18 19:28; Start 05/23/18 at 09:00 Multivitamins/ Minerals (I-[place]ore[place]) 1 tab DAILY PO Last administered on 06/01/18 07:52; Start 05/23/18 at 09:00 Magnesium Hydroxide (Milk Of Magnesia) 2,400 mg PRN DAILY PRN PO CONSTIPATION Last administered on 06/01/18 06:30; Start 05/22/18 at 21:45 Bupropion HCl (Wellbutrin Xl) 150 mg DAILY PO Last administered on 06/01/18at 07 :53; Start 05/25/18 at 09:00 Duloxetine HCl (Cymbalta) 30 mg DAILY PO Last administered on 05/26/18 09:15; Start 05/25/18 at 09:00; Stop 05/26/18 at 10:00; Status DC Atorvastatin Calcium (Lipitor) 80 mg QHS PO Last administered on 06/01/18at 19: 28; Start 05/22/18 at 23:30 Brimonidine Tartrate (Alphagan) 1 drop BID OU Last administered on 06/01/18 19 :27; Start 05/22/18 at 23:30 Latanoprost (Xalatan) 1 drop QHS OU Last administered on 06/01/18 19:28; Start 05/22/18 at 23:30 Tamsulosin HCl (Flomax) 0.4 mg QHS PO Last administered on 06/01/18 19:28; Start 05/22/18 at 23:30 Cyanocobalamin (Vitamin B-12) 3,000 mcg DAILY PO Last administered on 08:27; Start 05/23/18 at 09:00; Stop 05/28/18 at 15:25; Status DC Duloxetine HCl (Cymbalta) 30 mg DAILY PO ; Start 05/25/18 at 09:00; Stop at 10:00; Status Cancel Oxycodone HCl (Roxicodone) 5 mg PRN Q6HRS PRN PO SEVERE PAIN Last administered on 05/23/18at 19:43; Start 05/22/18 at 23:15; Stop 05/23/18 at 20:21; Status DC Quetiapine Fumarate (SEROquel) 50 mg HS PO ; Start 05/23/18 at 21:00; Stop 05/23 at 21:00; Status DC Pyridoxine HCl (Vitamin B-6) 50 mg DAILY PO Last administered on 06/01/18at 07: 59; Start 05/23/18 at 09:00 Quetiapine Fumarate (SEROquel) 50 mg HS PO Last administered on 05/23/18at 19:22 ; Start 05/22/18 at 23:30; Stop 05/23/18 at 23:00; Status DC Hydroxyzine HCl (Atarax) 25 mg TID PRN PRN PO ANXIETY Last administered on 06/01at 16:40; Start 05/23/18 at 17:15 Oxycodone HCl (Roxicodone) 5 mg PRN Q4HRS PRN PO SEVERE PAIN Last administered on 06/01/18at 12:17; Start 05/23/18 at 20:30 Oxycodone HCl (OxyCONTIN) 10 mg Q12HR PO Last administered on 06/01/18 19:31; Start 05/23/18 at 21:00 Ibuprofen (Motrin) 800 mg PRN Q8HRS PRN PO INFLAMMATION Last administered on at 14:33; Start 05/23/18 at 20:30; Stop 05/27/18 at 16:14; Status DC Lidocaine (Lidoderm) 3 patch DAILY TD Last administered on 06/01/18 07:54; Start 05/24/18 at 09:00 Influenza Virus Vaccine (Afluria Trivalent [id number] Syringe) 0.5 ml ONCE ONCE VAX IM ; Start 05/25/18 at 11:30; Stop 05/25/18 at 11:31; Status UNV Miscellaneous (Lidoderm Patch Removal) 1 ea QHS MC Last administered on 19:27; Start 05/26/18 at 21:00 Amlodipine Besylate (Norvasc) 10 mg 1X ONCE PO Last administered on 05/27/18at 12:57; Start 05/27/18 at 13:00; Stop 05/27/18 at 13:01; Status DC Buspirone HCl (Buspar) 5 mg 0900,1300,1700 PO Last administered on 06/01/18at 16 :39; Start 05/27/18 at 17:30 Amlodipine Besylate (Norvasc) 10 mg DAILY PO Last administered on 06/01/18 07: 52; Start 05/28/18 at 09:00 Cyanocobalamin (Vitamin B-12) 1,000 mcg DAILY PO Last administered on 07:53; Start 05/29/18 at 09:00 Mirtazapine (Remeron) 7.5 mg QHS PO Last administered on 06/01/18at 19:31; Start 06/01/18 at 21:00 Active Scripts Active Reported Timoptic (Timolol Maleate) 10 Ml Drops 1 Drop EACHEYE BID Oxycodone Hcl 5 Mg Capsule 1 Cap PO PRN Q6HRS PRN Pantoprazole Sodium 40 Mg Tablet.dr 1 Tab PO DAILY Zanaflex (Tizanidine HCl) 4 Mg Tablet 2 Mg PO TID Vitamin D3 (Cholecalciferol (Vitamin D3)) 50,000 Unit Capsule 50,000 Unit PO QM start date: 05/31/17 Lidocaine 1 Each Adh..patch 1 Patch TP DAILY Seroquel (Quetiapine Fumarate) 50 Mg Tablet 50 Mg PO QHS 2 Days Milk Of Magnesia (Magnesium Hydroxide) 400 Mg/5 Ml Oral.susp 2,400 Mg PO PRN HS Vitamin B-12 (Cyanocobalamin (Vitamin B-12)) 1,000 Mcg Tablet 3,000 Mcg PO DAILY Atorvastatin Calcium 80 Mg Tablet 80 Mg PO QHS Coreg (Carvedilol) 6.25 Mg Tablet 6.25 Mg PO BIDWMEALS Preservision Lutein Softgel (Vit C/[place] Ac/Lut/Copper/Znox) 1 Each Capsule 1 Cap PO DAILY Children's Aspirin (Aspirin) 81 Mg Tab.chew 81 Mg PO DAILY Metoprolol Succinate ( Xl ) (Metoprolol Succinate) 25 Mg Tab.er.24h 25 Mg PO DAILY Plavix (Clopidogrel Bisulfate) 75 Mg Tablet 75 Mg PO DAILY Cymbalta (Duloxetine Hcl) 30 Mg Capsule.dr 60 Mg PO DAILY 2 Days Tamsulosin Hcl 0.4 Mg Cap.er.24h 0.4 Mg PO QHS Xalatan (Latanoprost) 2.5 Ml Drops 1 Drop OU QHS Combigan Eye Drops (Brimonidine Tartrate/Timolol) 5 Ml Drops 1 Drop LEFTEYE BID I have reviewed the current psychotropics carefully including drug interactions. Risk benefit ratio favors no change other than as noted in my dictated progress note. Diagnosis: Problems: (1) Urinary tract infection (2) Hyponatremia (3) Tobacco abuse (4) Alzheimer's dementia (5) Anxiety disorder (6) Mild cognitive impairment (7) Impulse control disorder (8) Major depressive disorder, recurrent episode (9) Alcohol dependence JO DEWEY MD Jun 01, 2018 20:39
--- NOTE | 2018-06-01 22:54 | PN ---
DATE: 05/31/2018 This is a late entry for 05/31/2018 covers elements not covered in my initial note. SUBJECTIVE: I met with the patient in the evening. The patient slept 5 hours previous evening. He complains of back pain, but otherwise doing better. He is more awake during the day, more alert. REVIEW OF SYSTEMS: No CV, , pulmonary, eye system symptoms on review. MENTAL STATUS EXAM: The patient is reasonably oriented. Speech has some latency, coherent. Abstraction fair, computation impaired. Mood and affect, less anxious, less depressed. LABORATORY DATA: Reviewed. IMPRESSION: Unchanged from initial note. PLAN: No change from initial note. JO DEWEY MD DR: [email or web address]/margo JOB#: [id number] / [id number]
[2018-06-02] MEDS ORDERED: OXYC10TA45 PO ×2 (01:31→01:34)
[2018-06-02] MEDS ORDERED: MAG30ORA2 PO (01:40)
[2018-06-02] MEDS ORDERED: ACET325T9 PO (01:42)
[2018-06-02] MEDS ORDERED: METH29OI TP (01:44)
[2018-06-02] MEDS ORDERED: MIRT15TA3 PO (01:45)
[2018-06-02] MEDS ORDERED: NICO1PAT21 TD (01:46)
[2018-06-02] MEDS ORDERED: PANT40TA5 PO (01:47)
[2018-06-02] MEDS ORDERED: PYRI50TA8 PO (01:48)
[2018-06-02] MEDS ORDERED: AMLO10TA6 PO (01:49)
[2018-06-02] MEDS ORDERED: BUPR-192 PO (01:50)
[2018-06-02] MEDS ORDERED: BUSP5TAB PO (01:51)
[2018-06-02] MEDS ORDERED: HYDR25TA PO (01:52)
[2018-06-02 05:16] VITALS: BP 119/78
[2018-06-02] MEDS: PANTOPRAZOLE 40 MG TABLET. PO SCH (07:39)
[2018-06-02] MEDS: busPIRone 5 MG TABLET. PO SCH ×3 (08:15→17:01)
[2018-06-02] MEDS: amLODIPine BESYLATE 10 MG TABLET PO SCH (08:15)
[2018-06-02] MEDS: ASPIRIN 81 MG TAB.CHEW PO SCH (08:15)
[2018-06-02] MEDS: buPROPion XL 150 MG TAB.ER.24H PO SCH (08:15)
[2018-06-02] MEDS: tiZANidine 4 MG TABLET. PO SCH ×3 (08:16→19:38)
[2018-06-02] MEDS: MULTIVITAMIN I-VITE TABLET. PO SCH (08:16)
[2018-06-02] MEDS: CARVEDILOL 6.25 MG TABLET PO SCH ×3 (08:16→18:28)
[2018-06-02] MEDS: CYANOCOBALAMIN (VITAMIN B-12) 1,000 MCG TABLET. PO SCH (08:17)
[2018-06-02] MEDS: NICOTINE 21MG PATCH. TD SCH (08:17)
[2018-06-02] MEDS: CLOPIDOGREL BISULFATE 75 MG TABLET PO SCH (08:17)
[2018-06-02] MEDS: LIDOCAINE (700MG/PATCH) PATCH. TD SCH (08:21)
[2018-06-02] MEDS: oxyCODONE ER 10 MG TAB.ER.12H PO SCH ×2 (08:24→19:40)
[2018-06-02] MEDS: BRIMONIDINE 0.2% OPHTH SOLUTION 5ML BOTTLE. OU SCH ×2 (08:24→19:38)
[2018-06-02] MEDS: PYRIDOXINE 50 MG TABLET. PO SCH (08:25)
[2018-06-02] MEDS: TIMOLOL 0.5% OPHTH SOLUTION 5ML BOTTLE. OU SCH ×2 (08:25→19:37)
[2018-06-02 15:46] VITALS: BP 93/65
[2018-06-02] MEDS: oxyCODONE IR 5 MG TABLET PO PRN (18:16)
[2018-06-02 18:21] VITALS: BP 123/78
[2018-06-02] MEDS: PATCH REMOVAL. MC SCH (19:37)
[2018-06-02] MEDS: LATANOPROST 0.005% OPHTH SOLUTION 2.5ML BOTTLE. OU SCH (19:37)
[2018-06-02] MEDS: MIRTAZAPINE 7.5 MG TABLET. PO SCH (19:38)
[2018-06-02] MEDS: ATORVASTATIN CALCIUM 20 MG TABLET PO SCH (19:38)
[2018-06-02] MEDS: TAMSULOSIN 0.4 MG CAP.ER.24H. PO SCH (19:38)
--- NOTE | 2018-06-02 20:22 | PDOC ---
Exam Note: Kel Note: Please also refer to the separate dictated note~for this date of service dictated separately.~Patient seen individually. Discussed the patient with Nursing staff reviewed the chart.~Reviewed interim history and current functioning. Reviewed vital signs,~Labs/ Radiology~and current medications noted below. Continue current treatment with the changes noted in the dictated addendum note Assessment: Vital Signs: Vital Signs Date Time Temp Pulse Resp B/P (MAP) Pulse Ox O2 Delivery O2 Flow Rate FiO2 06/02/18 19:40 18 97 Room Air 06/02/18 18:28 87 123/78 06/02/18 15:46 98.4 I&O Intake and Output 06/02/18 07:00 Intake Total 1200 ml Balance 1200 ml Intake Oral 1200 ml # Bowel Movements 1 Current Medications: Meds: Current Medications Acetaminophen (Tylenol) 650 mg PRN Q6HRS PRN PO PAIN / TEMP Last administered on 05/31/18at 15:51; Start 05/22/18 at 20:00 Multi-Ingredient Ointment (Analgesic [place]) 1 mónica PRN QID PRN TP MUSCLE PAIN; Start 05/22/18 at 20:00 Al Hydroxide/Mg Hydroxide (Mylanta Plus Xs) 15 ml PRN AFTMEALHC PRN PO DYSPEPSIA; Start 05/22/18 at 20:00 Nicotine (Nicoderm Cq 21mg) 1 patch DAILY TD Last administered on 06/02/18at 08: 17; Start 05/23/18 at 09:00 Vitamin D (Vitamin D3) 50,000 unit QM PO Last administered on 05/30/18at 16:13; Start 05/23/18 at 16:00 Clopidogrel Bisulfate (Plavix) 75 mg DAILY PO Last administered on 06/02/18at 08 :17; Start 05/23/18 at 09:00 Metoprolol Succinate (Toprol Xl) 25 mg DAILY PO ; Start 05/23/18 at 09:00; Stop 05/23/18 at 12:06; Status DC Tamsulosin HCl (Flomax) 0.4 mg QHS PO ; Start 05/23/18 at 21:00; Stop 05/23/18 at 21:00; Status DC Aspirin (Children'S Aspirin) 81 mg DAILYWBKFT PO Last administered on at 08:15; Start 05/23/18 at 08:00 Atorvastatin Calcium (Lipitor) 80 mg QHS PO ; Start 05/23/18 at 21:00; Stop at 21:00; Status DC Brimonidine Tartrate (Alphagan) 1 drop BID OU ; Start 05/23/18 at 09:00; Stop at 09:00; Status DC Carvedilol (Coreg) 6.25 mg BIDWMEALS PO Last administered on 06/02/18at 18:28; Start 05/23/18 at 08:00 Latanoprost (Xalatan) 1 drop QHS OU ; Start 05/23/18 at 21:00; Stop 05/23/18 at 21:00; Status DC Lidocaine (Lidoderm) 1 patch DAILY TD Last administered on 05/23/18at 08:07; Start 05/23/18 at 09:00; Stop 05/23/18 at 20:33; Status DC Miscellaneous (Lidoderm Patch Removal) 1 ea DAILY MC Last administered on at 07:20; Start 05/23/18 at 09:00; Stop 05/26/18 at 09:29; Status DC Pantoprazole Sodium (Protonix) 40 mg DAILYAC PO Last administered on 06/02/18at 07:39; Start 05/23/18 at 07:30 Timolol Maleate (Timoptic 0.5% [facility]) 1 drop BID OU Last administered on at 19:37; Start 05/23/18 at 09:00 Tizanidine HCl (Zanaflex) 2 mg TID PO Last administered on 06/02/18at 19:38; Start 05/23/18 at 09:00 Multivitamins/ Minerals (I-[place]) 1 tab DAILY PO Last administered on 06/02/18at 08:16; Start 05/23/18 at 09:00 Magnesium Hydroxide (Milk Of Magnesia) 2,400 mg PRN DAILY PRN PO CONSTIPATION Last administered on 06/01/18at 06:30; Start 05/22/18 at 21:45 Bupropion HCl (Wellbutrin Xl) 150 mg DAILY PO Last administered on 06/02/18at 08 :15; Start 05/25/18 at 09:00 Duloxetine HCl (Cymbalta) 30 mg DAILY PO Last administered on 05/26/18at 09:15; Start 05/25/18 at 09:00; Stop 05/26/18 at 10:00; Status DC Atorvastatin Calcium (Lipitor) 80 mg QHS PO Last administered on 06/02/18at 19: 38; Start 05/22/18 at 23:30 Brimonidine Tartrate (Alphagan) 1 drop BID OU Last administered on 06/02/18 19 :38; Start 05/22/18 at 23:30 Latanoprost (Xalatan) 1 drop QHS OU Last administered on 06/02/18 19:37; Start 05/22/18 at 23:30 Tamsulosin HCl (Flomax) 0.4 mg QHS PO Last administered on 06/02/18 19:38; Start 05/22/18 at 23:30 Cyanocobalamin (Vitamin B-12) 3,000 mcg DAILY PO Last administered on at 08:27; Start 05/23/18 at 09:00; Stop 05/28/18 at 15:25; Status DC Duloxetine HCl (Cymbalta) 30 mg DAILY PO ; Start 05/25/18 at 09:00; Stop at 10:00; Status Cancel Oxycodone HCl (Roxicodone) 5 mg PRN Q6HRS PRN PO SEVERE PAIN Last administered on 05/23/18at 19:43; Start 05/22/18 at 23:15; Stop 05/23/18 at 20:21; Status DC Quetiapine Fumarate (SEROquel) 50 mg HS PO ; Start 05/23/18 at 21:00; Stop 05/23 at 21:00; Status DC Pyridoxine HCl (Vitamin B-6) 50 mg DAILY PO Last administered on 06/02/18at 08: 25; Start 05/23/18 at 09:00 Quetiapine Fumarate (SEROquel) 50 mg HS PO Last administered on 05/23/18at 19:22 ; Start 05/22/18 at 23:30; Stop 05/23/18 at 23:00; Status DC Hydroxyzine HCl (Atarax) 25 mg TID PRN PRN PO ANXIETY Last administered on 06/01at 16:40; Start 05/23/18 at 17:15 Oxycodone HCl (Roxicodone) 5 mg PRN Q4HRS PRN PO SEVERE PAIN Last administered on 06/02/18 18:16; Start 05/23/18 at 20:30 Oxycodone HCl (OxyCONTIN) 10 mg Q12HR PO Last administered on 06/02/18 19:40; Start 05/23/18 at 21:00 Ibuprofen (Motrin) 800 mg PRN Q8HRS PRN PO INFLAMMATION Last administered on 14:33; Start 05/23/18 at 20:30; Stop 05/27/18 at 16:14; Status DC Lidocaine (Lidoderm) 3 patch DAILY TD Last administered on 06/02/18 08:21; Start 05/24/18 at 09:00 Influenza Virus Vaccine (Afluria Trivalent [id number] Syringe) 0.5 ml ONCE ONCE VAX IM ; Start 05/25/18 at 11:30; Stop 05/25/18 at 11:31; Status UNV Miscellaneous (Lidoderm Patch Removal) 1 ea QHS MC Last administered on 19:37; Start 05/26/18 at 21:00 Amlodipine Besylate (Norvasc) 10 mg 1X ONCE PO Last administered on 05/27/18at 12:57; Start 05/27/18 at 13:00; Stop 05/27/18 at 13:01; Status DC Buspirone HCl (Buspar) 5 mg 0900,1300,1700 PO Last administered on 06/02/18at 17 :01; Start 05/27/18 at 17:30 Amlodipine Besylate (Norvasc) 10 mg DAILY PO Last administered on 06/02/18at 08: 15; Start 05/28/18 at 09:00 Cyanocobalamin (Vitamin B-12) 1,000 mcg DAILY PO Last administered on 08:17; Start 05/29/18 at 09:00 Mirtazapine (Remeron) 7.5 mg QHS PO Last administered on 06/02/18at 19:38; Start 06/01/18 at 21:00 Active Scripts Active Reported Hydroxyzine Hcl 25 Mg Tablet 25 Mg PO PRN TID PRN Buspirone Hcl 5 Mg Tablet 5 Mg PO TID @ 0900,1300,1700 Bupropion Xl (Bupropion Hcl) 150 Mg Tab.er.24h 150 Mg PO DAILY Amlodipine Besylate 10 Mg Tablet 10 Mg PO DAILY Pyridoxine Hcl 50 Mg Tablet 50 Mg PO DAILY Pantoprazole Sodium 40 Mg Tablet.dr 40 Mg PO DAILYAC NICODERM CQ 21mg (Nicotine) 1 Each Patch.td24 1 Patch TD DAILY Mirtazapine 15 Mg Tablet 7.5 Mg PO QHS Analgesic Eva (Methyl Salicylate/Menthol) 28 Gm Oint...g. 1 Mónica TP PRN QID PRN Tylenol (Acetaminophen) 325 Mg Tablet 650 Mg PO PRN Q6HRS PRN Mag-Al Plus Xs Suspension (Mag Hydrox/Al Hydrox/Simeth) 30 Ml Oral.susp 15 Ml PO PRN AFTMEALHC PRN Oxycontin (Oxycodone HCl) 10 Mg Tab.er.12h 10 Mg PO Q12HR Oxycontin (Oxycodone HCl) 10 Mg Tab.er.12h 5 Mg PO PRN Q4HRS PRN Timoptic (Timolol Maleate) 10 Ml Drops 1 Drop EACHEYE BID Oxycodone Hcl 5 Mg Capsule 1 Cap PO PRN Q6HRS PRN Pantoprazole Sodium 40 Mg Tablet. 1 Tab PO DAILY Zanaflex (Tizanidine HCl) 4 Mg Tablet 2 Mg PO TID Vitamin D3 (Cholecalciferol (Vitamin D3)) 50,000 Unit Capsule 50,000 Unit PO QM start date: 05/31/17 Lidocaine 1 Each Adh..patch 1 Patch TP DAILY Seroquel (Quetiapine Fumarate) 50 Mg Tablet 50 Mg PO QHS 2 Days Milk Of Magnesia (Magnesium Hydroxide) 400 Mg/5 Ml Oral.susp 2,400 Mg PO PRN HS Vitamin B-12 (Cyanocobalamin (Vitamin B-12)) 1,000 Mcg Tablet 3,000 Mcg PO DAILY Atorvastatin Calcium 80 Mg Tablet 80 Mg PO QHS Coreg (Carvedilol) 6.25 Mg Tablet 6.25 Mg PO BIDWMEALS Preservision Lutein Softgel (Vit C/[place] Ac/Lut/Copper/Znox) 1 Each Capsule 1 Cap PO DAILY Children's Aspirin (Aspirin) 81 Mg Tab.chew 81 Mg PO DAILY Metoprolol Succinate ( Xl ) (Metoprolol Succinate) 25 Mg Tab.er.24h 25 Mg PO DAILY Plavix (Clopidogrel Bisulfate) 75 Mg Tablet 75 Mg PO DAILY Cymbalta (Duloxetine Hcl) 30 Mg Capsule.dr 60 Mg PO DAILY 2 Days Tamsulosin Hcl 0.4 Mg Cap.er.24h 0.4 Mg PO QHS Xalatan (Latanoprost) 2.5 Ml Drops 1 Drop OU QHS Combigan Eye Drops (Brimonidine Tartrate/Timolol) 5 Ml Drops 1 Drop LEFTEYE BID I have reviewed the current psychotropics carefully including drug interactions. Risk benefit ratio favors no change other than as noted in my dictated progress note. Diagnosis: Problems: (1) Urinary tract infection (2) Hyponatremia (3) Tobacco abuse (4) Alzheimer's dementia (5) Anxiety disorder (6) Mild cognitive impairment (7) Impulse control disorder (8) Major depressive disorder, recurrent episode (9) Alcohol dependence JO DEWEY MD Jun 02, 2018 20:22
[2018-06-03] MEDS: oxyCODONE IR 5 MG TABLET PO PRN (04:57)
[2018-06-03 05:45] VITALS: BP 116/73
[2018-06-03] MEDS ORDERED: OXYC30TA21 PO (07:39)
[2018-06-03] MEDS: busPIRone 5 MG TABLET. PO SCH (08:35)
[2018-06-03] MEDS: CLOPIDOGREL BISULFATE 75 MG TABLET PO SCH (08:36)
[2018-06-03] MEDS: CARVEDILOL 6.25 MG TABLET PO SCH (08:36)
[2018-06-03] MEDS: tiZANidine 4 MG TABLET. PO SCH (08:36)
[2018-06-03] MEDS: PANTOPRAZOLE 40 MG TABLET. PO SCH (08:36)
[2018-06-03] MEDS: ASPIRIN 81 MG TAB.CHEW PO SCH (08:36)
[2018-06-03 08:37] VITALS: BP 116/73
[2018-06-03] MEDS: amLODIPine BESYLATE 10 MG TABLET PO SCH (08:37)
[2018-06-03] MEDS: NICOTINE 21MG PATCH. TD SCH (08:37)
[2018-06-03] MEDS: CYANOCOBALAMIN (VITAMIN B-12) 1,000 MCG TABLET. PO SCH (08:37)
[2018-06-03] MEDS: PYRIDOXINE 50 MG TABLET. PO SCH (08:37)
[2018-06-03] MEDS: MULTIVITAMIN I-VITE TABLET. PO SCH (08:37)
[2018-06-03] MEDS: LIDOCAINE (700MG/PATCH) PATCH. TD SCH (08:37)
[2018-06-03] MEDS: buPROPion XL 150 MG TAB.ER.24H PO SCH (08:37)
[2018-06-03] MEDS: oxyCODONE ER 10 MG TAB.ER.12H PO SCH (08:38)
[2018-06-03] MEDS: BRIMONIDINE 0.2% OPHTH SOLUTION 5ML BOTTLE. OU SCH (08:38)
[2018-06-03] MEDS: TIMOLOL 0.5% OPHTH SOLUTION 5ML BOTTLE. OU SCH (08:38)
--- NOTE | 2018-06-03 20:38 | PDOC ---
Exam Note: Kel Note: Please also refer to the separate dictated note~for this date of service dictated separately.~Patient seen individually. Discussed the patient with Nursing staff reviewed the chart.~Reviewed interim history and current functioning. Reviewed vital signs,~Labs/ Radiology~and current medications noted below. Continue current treatment with the changes noted in the dictated addendum note Assessment: Vital Signs: Vital Signs Date Time Temp Pulse Resp B/P (MAP) Pulse Ox O2 Delivery O2 Flow Rate FiO2 06/03/18 08:38 100 06/03/18 08:37 92 116/73 06/03/18 05:57 20 Room Air 06/03/18 05:45 98.6 I&O Intake and Output 06/03/18 07:00 Intake Total 1200 ml Balance 1200 ml Intake Oral 1200 ml # Bowel Movements 1 Current Medications: Meds: Current Medications Acetaminophen (Tylenol) 650 mg PRN Q6HRS PRN PO PAIN / TEMP Last administered on 05/31/18at 15:51; Start 05/22/18 at 20:00; Stop 06/03/18 at 11:06; Status DC Multi-Ingredient Ointment (Analgesic Reading) 1 mónica PRN QID PRN TP MUSCLE PAIN; Start 05/22/18 at 20:00; Stop 06/03/18 at 11:06; Status DC Al Hydroxide/Mg Hydroxide (Mylanta Plus Xs) 15 ml PRN AFTMEALHC PRN PO DYSPEPSIA; Start 05/22/18 at 20:00; Stop 06/03/18 at 11:06; Status DC Nicotine (Nicoderm Cq 21mg) 1 patch DAILY TD Last administered on 06/03/18at 08: 37; Start 05/23/18 at 09:00; Stop 06/03/18 at 11:06; Status DC Vitamin D (Vitamin D3) 50,000 unit QM PO Last administered on 05/30/18at 16:13; Start 05/23/18 at 16:00; Stop 06/03/18 at 11:06; Status DC Clopidogrel Bisulfate (Plavix) 75 mg DAILY PO Last administered on 06/03/18at 08 :36; Start 05/23/18 at 09:00; Stop 06/03/18 at 11:06; Status DC Metoprolol Succinate (Toprol Xl) 25 mg DAILY PO ; Start 05/23/18 at 09:00; Stop 05/23/18 at 12:06; Status DC Tamsulosin HCl (Flomax) 0.4 mg QHS PO ; Start 05/23/18 at 21:00; Stop 05/23/18 at 21:00; Status DC Aspirin (Children'S Aspirin) 81 mg DAILYWBKFT PO Last administered on at 08:36; Start 05/23/18 at 08:00; Stop 06/03/18 at 11:06; Status DC Atorvastatin Calcium (Lipitor) 80 mg QHS PO ; Start 05/23/18 at 21:00; Stop at 21:00; Status DC Brimonidine Tartrate (Alphagan) 1 drop BID OU ; Start 05/23/18 at 09:00; Stop at 09:00; Status DC Carvedilol (Coreg) 6.25 mg BIDWMEALS PO Last administered on 06/03/18at 08:36; Start 05/23/18 at 08:00; Stop 06/03/18 at 11:06; Status DC Latanoprost (Xalatan) 1 drop QHS OU ; Start 05/23/18 at 21:00; Stop 05/23/18 at 21:00; Status DC Lidocaine (Lidoderm) 1 patch DAILY TD Last administered on 05/23/18at 08:07; Start 05/23/18 at 09:00; Stop 05/23/18 at 20:33; Status DC Miscellaneous (Lidoderm Patch Removal) 1 ea DAILY MC Last administered on at 07:20; Start 05/23/18 at 09:00; Stop 05/26/18 at 09:29; Status DC Pantoprazole Sodium (Protonix) 40 mg DAILYAC PO Last administered on 06/03/18at 08:36; Start 05/23/18 at 07:30; Stop 06/03/18 at 11:06; Status DC Timolol Maleate (Timoptic 0.5% Oph) 1 drop BID OU Last administered on at 08:38; Start 05/23/18 at 09:00; Stop 06/03/18 at 11:06; Status DC Tizanidine HCl (Zanaflex) 2 mg TID PO Last administered on 06/03/18at 08:36; Start 05/23/18 at 09:00; Stop 06/03/18 at 11:06; Status DC Multivitamins/ Minerals (I-Korey) 1 tab DAILY PO Last administered on 06/03/18at 08:37; Start 05/23/18 at 09:00; Stop 06/03/18 at 11:06; Status DC Magnesium Hydroxide (Milk Of Magnesia) 2,400 mg PRN DAILY PRN PO CONSTIPATION Last administered on 06/01/18at 06:30; Start 05/22/18 at 21:45; Stop 06/03/18 at 11:06; Status DC Bupropion HCl (Wellbutrin Xl) 150 mg DAILY PO Last administered on 06/03/18at 08 :37; Start 05/25/18 at 09:00; Stop 06/03/18 at 11:06; Status DC Duloxetine HCl (Cymbalta) 30 mg DAILY PO Last administered on 05/26/18at 09:15; Start 05/25/18 at 09:00; Stop 05/26/18 at 10:00; Status DC Atorvastatin Calcium (Lipitor) 80 mg QHS PO Last administered on 06/02/18at 19: 38; Start 05/22/18 at 23:30; Stop 06/03/18 at 11:06; Status DC Brimonidine Tartrate (Alphagan) 1 drop BID OU Last administered on 06/03/18at 08 :38; Start 05/22/18 at 23:30; Stop 06/03/18 at 11:06; Status DC Latanoprost (Xalatan) 1 drop QHS OU Last administered on 06/02/18at 19:37; Start 05/22/18 at 23:30; Stop 06/03/18 at 11:06; Status DC Tamsulosin HCl (Flomax) 0.4 mg QHS PO Last administered on 06/02/18at 19:38; Start 05/22/18 at 23:30; Stop 06/03/18 at 11:06; Status DC Cyanocobalamin (Vitamin B-12) 3,000 mcg DAILY PO Last administered on at 08:27; Start 05/23/18 at 09:00; Stop 05/28/18 at 15:25; Status DC Duloxetine HCl (Cymbalta) 30 mg DAILY PO ; Start 05/25/18 at 09:00; Stop at 10:00; Status Cancel Oxycodone HCl (Roxicodone) 5 mg PRN Q6HRS PRN PO SEVERE PAIN Last administered on 05/23/18at 19:43; Start 05/22/18 at 23:15; Stop 05/23/18 at 20:21; Status DC Quetiapine Fumarate (SEROquel) 50 mg HS PO ; Start 05/23/18 at 21:00; Stop 05/23 at 21:00; Status DC Pyridoxine HCl (Vitamin B-6) 50 mg DAILY PO Last administered on 06/03/18at 08: 37; Start 05/23/18 at 09:00; Stop 06/03/18 at 11:06; Status DC Quetiapine Fumarate (SEROquel) 50 mg HS PO Last administered on 05/23/18at 19:22 ; Start 05/22/18 at 23:30; Stop 05/23/18 at 23:00; Status DC Hydroxyzine HCl (Atarax) 25 mg TID PRN PRN PO ANXIETY Last administered on 06/01at 16:40; Start 05/23/18 at 17:15; Stop 06/03/18 at 11:06; Status DC Oxycodone HCl (Roxicodone) 5 mg PRN Q4HRS PRN PO SEVERE PAIN Last administered on 06/03/18at 04:57; Start 05/23/18 at 20:30; Stop 06/03/18 at 11:06; Status DC Oxycodone HCl (OxyCONTIN) 10 mg Q12HR PO Last administered on 06/03/18at 08:38; Start 05/23/18 at 21:00; Stop 06/03/18 at 11:06; Status DC Ibuprofen (Motrin) 800 mg PRN Q8HRS PRN PO INFLAMMATION Last administered on at 14:33; Start 05/23/18 at 20:30; Stop 05/27/18 at 16:14; Status DC Lidocaine (Lidoderm) 3 patch DAILY TD Last administered on 06/03/18at 08:37; Start 05/24/18 at 09:00; Stop 06/03/18 at 11:06; Status DC Influenza Virus Vaccine (Afluria Trivalent 1698-9921 Syringe) 0.5 ml ONCE ONCE VAX IM ; Start 05/25/18 at 11:30; Stop 05/25/18 at 11:31; Status UNV Miscellaneous (Lidoderm Patch Removal) 1 ea QHS MC Last administered on at 19:37; Start 05/26/18 at 21:00; Stop 06/03/18 at 11:06; Status DC Amlodipine Besylate (Norvasc) 10 mg 1X ONCE PO Last administered on 05/27/18at 12:57; Start 05/27/18 at 13:00; Stop 05/27/18 at 13:01; Status DC Buspirone HCl (Buspar) 5 mg 0900,1300,1700 PO Last administered on 06/03/18at 08 :35; Start 05/27/18 at 17:30; Stop 06/03/18 at 11:06; Status DC Amlodipine Besylate (Norvasc) 10 mg DAILY PO Last administered on 06/03/18at 08: 37; Start 05/28/18 at 09:00; Stop 06/03/18 at 11:06; Status DC Cyanocobalamin (Vitamin B-12) 1,000 mcg DAILY PO Last administered on at 08:37; Start 05/29/18 at 09:00; Stop 06/03/18 at 11:06; Status DC Mirtazapine (Remeron) 7.5 mg QHS PO Last administered on 06/02/18at 19:38; Start 06/01/18 at 21:00; Stop 06/03/18 at 11:06; Status DC Active Scripts Active Reported Roxicodone (Oxycodone Hcl) 30 Mg Tablet 5 Mg PO PRN Q4HRS PRN Hydroxyzine Hcl 25 Mg Tablet 25 Mg PO PRN TID PRN Buspirone Hcl 5 Mg Tablet 5 Mg PO TID @ 0900,1300,1700 Bupropion Xl (Bupropion Hcl) 150 Mg Tab.er.24h 150 Mg PO DAILY Amlodipine Besylate 10 Mg Tablet 10 Mg PO DAILY Pyridoxine Hcl 50 Mg Tablet 50 Mg PO DAILY Pantoprazole Sodium 40 Mg Tablet.dr 40 Mg PO DAILYAC NICODERM CQ 21mg (Nicotine) 1 Each Patch.td24 1 Patch TD DAILY Mirtazapine 15 Mg Tablet 7.5 Mg PO QHS Analgesic Reading (Methyl Salicylate/Menthol) 28 Gm Oint...g. 1 Mónica TP PRN QID PRN Tylenol (Acetaminophen) 325 Mg Tablet 650 Mg PO PRN Q6HRS PRN Mag-Al Plus Xs Suspension (Mag Hydrox/Al Hydrox/Simeth) 30 Ml Oral.susp 15 Ml PO PRN AFTMEALHC PRN Oxycontin (Oxycodone HCl) 10 Mg Tab.er.12h 10 Mg PO Q12HR Timoptic (Timolol Maleate) 10 Ml Drops 1 Drop EACHEYE BID Pantoprazole Sodium 40 Mg Tablet.dr 1 Tab PO DAILY Zanaflex (Tizanidine HCl) 4 Mg Tablet 2 Mg PO TID Vitamin D3 (Cholecalciferol (Vitamin D3)) 50,000 Unit Capsule 50,000 Unit PO QM start date: 05/31/17 Lidocaine 1 Each Adh..patch 3 Patch TP DAILY Milk Of Magnesia (Magnesium Hydroxide) 400 Mg/5 Ml Oral.susp 2,400 Mg PO PRN HS Vitamin B-12 (Cyanocobalamin (Vitamin B-12)) 1,000 Mcg Tablet 1,000 Mcg PO DAILY Atorvastatin Calcium 80 Mg Tablet 80 Mg PO QHS Coreg (Carvedilol) 6.25 Mg Tablet 6.25 Mg PO BIDWMEALS Preservision Lutein Softgel (Vit C/Korey Ac/Lut/Copper/Znox) 1 Each Capsule 1 Cap PO DAILY Children's Aspirin (Aspirin) 81 Mg Tab.chew 81 Mg PO DAILY Plavix (Clopidogrel Bisulfate) 75 Mg Tablet 75 Mg PO DAILY Tamsulosin Hcl 0.4 Mg Cap.er.24h 0.4 Mg PO QHS Xalatan (Latanoprost) 2.5 Ml Drops 1 Drop OU QHS Combigan Eye Drops (Brimonidine Tartrate/Timolol) 5 Ml Drops 1 Drop LEFTEYE BID I have reviewed the current psychotropics carefully including drug interactions. Risk benefit ratio favors no change other than as noted in my dictated progress note. Diagnosis: Problems: (1) Urinary tract infection (2) Hyponatremia (3) Tobacco abuse (4) Alzheimer's dementia (5) Anxiety disorder (6) Mild cognitive impairment (7) Impulse control disorder (8) Major depressive disorder, recurrent episode (9) Alcohol dependence JO DEWEY MD Jun 03, 2018 20:38
--- NOTE | 2018-06-03 21:09 | PN ---
DATE: 06/01/2018 This is a late entry for 06/01/2018 covers elements not covered in my initial note. SUBJECTIVE: I met with the patient in the evening. The patient slept 3-3/4 hours previous night. He has been somewhat calm, was anxious in the afternoon, received Atarax, complaining of pain, also received Roxicodone. REVIEW OF SYSTEMS: No CV, , pulmonary, eye system symptoms on review, does complain of back pain. MENTAL STATUS EXAM: Oriented reasonably to place, person and situation. Speech moderate latency, often responses monosyllabic. Abstraction fair, computation impaired, language function intact, attention span short. Mood and affect somewhat withdrawn. LABORATORY DATA: Reviewed. IMPRESSION: Unchanged from initial note. PLAN: Start Remeron 7.5 mg p.o. at bedtime to help with insomnia. Rest unchanged per initial note. MAN Eduin DEWEY MD DR: SANJEEV/margo JOB#: [id number] / [id number]
--- NOTE | 2018-06-03 22:29 | PN ---
DATE: 06/02/2018 This is a late entry for 06/02/2018 covers elements not covered in my initial note. SUBJECTIVE: I met with the patient in the evening, staffed at treatment team meeting with the entire team in the morning. The patient slept 6 hours previous night. Discussion was held at treatment team meeting about the patient either returning home or assisted living and the family is preferring the former. REVIEW OF SYSTEMS: Positive for back pain. No CV, , pulmonary, eye system symptoms on review. MENTAL STATUS EXAM: Reasonably oriented. Speech low in rate and rhythm, low in volume, coherent, abstraction fair, computation impaired, language function intact. Mood and affect somewhat withdrawn. LABORATORY DATA: Reviewed. IMPRESSION: Major depressive disorder in partial remission; anxiety disorder, unspecified; cognitive disorder, unspecified; history of alcohol abuse dependence, status post withdrawal. PLAN: Continue psychotropics from initial note, Wellbutrin, hydroxyzine p.r.n., BuSpar, Remeron. JO DEWEY MD DR: SANJEEV/margo JOB#: [id number] / [id number]
--- NOTE | 2018-06-05 11:49 | DS ---
DATE OF DISCHARGE: 06/03/2018 DISCHARGE SUMMARY AND PSYCHIATRIC PROGRESS NOTE This is a late entry for 06/03/2018 and covers elements not covered in my initial note of 06/03/2018. REASON FOR ADMISSION: Please refer to the admission history for details. Briefly, the patient is a 78-year-old male who is referred to us from the Emergency Room at [facility] where he presented from home on account of threatening to shoot himself in the head and having increased his alcohol intake recently, having some alcohol withdrawal symptoms. He had failed outpatient psychiatric interventions and behaviors dangerous at home where he lived with his . SIGNIFICANT FINDINGS AND CLINICAL COURSE: Following admission, the patient was seen daily individually by myself from a psychiatric standpoint, medical followup with Dr. Barksdale/Dr. Owens. He was somewhat sedated and his Seroquel was tapered and discontinued as was his antidepressant and he was started instead on Wellbutrin XL 150 mg a day, remained on hydroxyzine 25 mg t.i.d. p.r.n. anxiety, BuSpar 5 mg t.i.d., Remeron 7.5 at bedtime for insomnia and anxiety. Gradually, mood appeared to improve. 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 Barksdale. He denied suicidal ideation, was much more insightful about abstaining from alcohol prior to discharge. CONDITION AT DISCHARGE: Improved. REVIEW OF SYSTEMS: Prior to discharge, ambulation impaired. No CV, , pulmonary, eye, ENT system symptoms on review, does complain of back pain. MENTAL STATUS EXAM: Reasonably oriented to place and situation. Speech has some latency, coherent. Abstraction fair. Computation, able to do one step on serial 7s. Mood and affect improved. FINAL DIAGNOSES: Major depressive disorder, recurrent, in partial remission; alcohol abuse, dependence, status post alcohol withdrawal; anxiety disorder, unspecified; impulse control disorder, unspecified; chronic pain. Rest unchanged from admission. DISCHARGE MEDICATIONS: Please refer to the EMRAD. DISCHARGE INSTRUCTIONS: Outpatient psychiatric and followup as arranged prior to discharge and documented in his electronic medical records. JO DEWEY MD DR: SANJEEV/margo JOB#: [id number] / [id number]
== END 2018-06-03 11:06 | disposition home or self-care (01) | DRG 885 ==
LOC: GEROPSY 18:29
PROVIDERS: ADMIT Psychiatry & Neurology Psychiatry; ATTEND Psychiatry & Neurology Psychiatry
DX: F33.2 Major depressive disorder, recurrent severe without psychotic features (principal); E43 Unspecified severe protein-calorie malnutrition; E87.1 Hypo-osmolality and hyponatremia; F10.239 Alcohol dependence with withdrawal, unspecified; N39.0 Urinary tract infection, site not specified; R45.851 Suicidal ideations; F02.81 Dementia in other diseases classified elsewhere, unspecified severity, with behavioral disturbance; F41.9 Anxiety disorder, unspecified; F63.9 Impulse disorder, unspecified; G30.9 Alzheimer's disease, unspecified; G47.00 Insomnia, unspecified; M19.90 Unspecified osteoarthritis, unspecified site; G89.29 Other chronic pain; H40.9 Unspecified glaucoma; I10 Essential (primary) hypertension; M54.9 Dorsalgia, unspecified; I25.10 Atherosclerotic heart disease of native coronary artery without angina pectoris; M79.7 Fibromyalgia; N40.0 Benign prostatic hyperplasia without lower urinary tract symptoms; Z72.0 Tobacco use; Z95.5 Presence of coronary angioplasty implant and graft; Z88.2 Allergy status to sulfonamides; Z88.8 Allergy status to other drugs, medicaments and biological substances; Z79.899 Other long term (current) drug therapy; Z68.25 Body mass index [BMI] 25.0-25.9, adult
CPT/HCPCS: 36415; 80053; 80061; 81001; 82306; 82607; 83036; 83540; 83550; 83735; 84436; 84443; 84480; 85025; 86592; 99407

== ENCOUNTER 2020-05-16 08:30 | Emergency (ER) | payer MEDICARE, BC ==
[~2020-05-16] VITALS: Ht 167.6 cm; Wt 61.2 kg
[~2020-05-16 08:30] MED LIST changes: +ACET325T9 PO; -AMLO10TA6 PO; +AMLO10TA8 PO; +BUPR-192 PO; +BUSP5TAB PO; +CLON1TAB11 PO; -CLON1TAB4 PO; +CYAN-25 IM; +CYAN-25 PO; -CYAN10005 IM; -CYAN10005 PO; +HYDR-2155 PO; -HYDR-2758 PO; +LIDO700A21 TP; -LIDO700A39 TP; +LOSA100T14 PO; -LOSA100T7 PO; -MAGN2400 PO; +MAGN24003 PO; +METH28OI2 TP; +MIRT15TA3 PO; -OLAN5TAB5 PO; +OLAN5TAB99 PO; -OXYC10TA45 PO; +OXYC10TA46 PO; +OXYC30TA21 PO; -PANT40TA5 PO; +PANT40TA6 PO; +PYRI50TA8 PO
[2020-05-16 08:38] VITALS: BP 113/62
--- NOTE | 2020-05-16 08:39 | PHYS DOC ---
Past History Past Medical History: Arthritis, Fibromyalgia, Glaucoma, Heart Disease, Hypertension Past Surgical History: Other Alcohol Use: Heavy Drug Use: None General Adult EDM: Chief Complaint: MECHANICAL FALL HPI: HPI: Patient is a 80-year-old male who was brought here from home after he fell this morning. Patient is on blood thinner. Patient has history of hip replacement, he complained of pain in her right-sided hip and low back. Patient said he hit the back of his head on the ground, not sure if he passed out. Patient denies any chest pain, no upper back pain, no headache. Patient denies any weakness or numbness in his extremities. Review of Systems: Review of Systems: Constitutional: Denies fever or chills Eyes: Denies change in visual acuity HENT: Denies nasal congestion or sore throat Respiratory: Denies cough or shortness of breath Cardiovascular: Denies chest pain or edema GI: Denies abdominal pain, nausea, vomiting, bloody stools or diarrhea : Denies dysuria Musculoskeletal: Positive for low back pain, right hip pain. Integument: Denies rash Neurologic: Denies headache, focal weakness or sensory changes Endocrine: Denies polyuria or polydipsia Lymphatic: Denies swollen glands Psychiatric: Denies depression or anxiety Heart Score: Risk Factors: Risk Factors: DM, Current or recent (<one month) smoker, HTN, HLP, family hist ory of CAD, obesity. Risk Scores: Score 0 - 3: 2.5% MACE over next 6 weeks - Discharge Home Score 4 - 6: 20.3% MACE over next 6 weeks - Admit for Clinical Observation Score 7 - 10: 72.7% MACE over next 6 weeks - Early Invasive Strategies Allergies: Allergies: Allergies Coded Allergies Type Severity Reaction Last Updated Verified Sulfa (Sulfonamide Antibiotics) Allergy Intermediate 05/22/18 Yes prednisone Allergy Intermediate 05/22/18 Yes Physical Exam: PE: Constitutional: Well developed, well nourished, no acute distress, non-toxic appearance. [] HENT: Normocephalic, atraumatic, bilateral external ears normal, oropharynx moist, no oral exudates, nose normal. [] Eyes: PERRLA, EOMI, conjunctiva normal, no discharge. [] Neck: Normal range of motion, no tenderness, supple, no stridor. [] Cardiovascular:Heart rate regular rhythm, no murmur [] Lungs & Thorax: Bilateral breath sounds clear to auscultation [] Abdomen: Bowel sounds normal, soft, no tenderness, no masses, no pulsatile masses. [] Skin: Warm, dry, no erythema, no rash. [] Back: No tenderness, no CVA tenderness. [] Extremities: No tenderness, no cyanosis, no clubbing, ROM intact, no edema. Patient can move his extremity without a problem, he can flex and extend his hips without any problem. There is some superficial skin contusion right-sided hip. Neurologic: Alert and oriented X 3, normal motor function, normal sensory function, no focal deficits noted. [] Psychologic: Affect normal, judgement normal, mood normal. [] EKG: EKG: [] Radiology/Procedures: Radiology/Procedures: [][address] [address] IMAGING REPORT Signed PATIENT: SCOTT DUFFY ACCOUNT: [id number] : 1940 LOCATION: ER AGE: 80 SEX: M EXAM STATUS: PRE ER ORD. PHYSICIAN: DERREK PATRICK DO REASON: fell, right side hip pain and pelvic pain PROCEDURE: HIP RIGHT 2V WITH PELVIS EXAM: CT Head without IV contrast INDICATION: Reason: fell, lower back pain / Spl. Instructions: / History: TECHNIQUE: Multi-detector row CT images were obtained of the head without the use of IV contrast. All CT scans performed at this facility utilize dose optimization techniques as appropriate to the exam, including the following: Automated exposure control and adjustment of the mA and/or KV according to patient size (this includes techniques or standardized protocols for targeted exams where dose is indication/reason for exam). COMPARISON: 03/16/[address] FINDINGS: BRAIN PARENCHYMA: No evidence of acute intraparenchymal hemorrhage or mass effect. Gestation is imaged in slight axial obliquity, resulting in differences in effects of beam hardening artifact in the middle cranial fossae, with lower density in the left anterior temporal tip and mesial temporal lobe noted. There is a chronic tiny lacunar infarct in the right thalamus and extensive white matter low density compatible chronic ischemic microvascular change. 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 Basilar cisterns are patent. No pathologic extra-axial fluid collection or mass. ORBITS: Orbital contents are unremarkable. SINUSES: Visualized paranasal sinuses and mastoid air cells are clear. OSSEOUS & SOFT TISSUES: Calvarium and skull base are intact. IMPRESSION: No acute intracranial pathology; there is asymmetry in density with lower density in the left temporal lobe, favored to reflect artifact of beam hardening. If clinically warranted, MRI or CT angiography could be pursued in further evaluation if an acute stroke is suspected. EXAM: CT Cervical Spine without IV contrast INDICATION: Reason: fell, lower back pain / Spl. Instructions: / History: TECHNIQUE: Multi-detector row CT images were obtained through the cervical spine without the use of IV contrast. Post-processing sagittal and coronal reconstructed images were obtained for interpretation. All CT scans performed at this facility utilize dose optimization techniques as appropriate to the exam, including the following: Automated exposure control and adjustment of the mA and/or KV according to patient size (this includes techniques or standardized protocols for targeted exams where dose is indication/reason for exam). COMPARISON: Noncontrast head CT same day FINDINGS: CRANIOCERVICAL JUNCTION: Unremarkable. ALIGNMENT: Alignment is within normal limits. OSSEOUS: No evidence of fracture or bone destruction. DISC SPACES: Disc space narrowing at C5-C6 is present. FACET JOINTS: Facet degenerative changes most conspicuous on the right at C6-C7 and C7-T1 and on the left at C4-C5 are noted. SPINAL CANAL: Unremarkable. NEUROFORAMINA: Unremarkable. SOFT TISSUES: Unremarkable. IMPRESSION: No acute traumatic findings in the cervical spine. PROCEDURE: LUMBAR SPINE 2-3V, CT HEAD AND CERVICAL SPINE WO, HIP RIGHT 2V WITH PELVIS CLINICAL INDICATION / HISTORY: Reason: fell, lower back pain / Spl. Instructions: / History: . TECHNIQUE: Three views of the right hip were obtained. COMPARISON: None FINDINGS: Pelvic ring is intact. Left dynamic hip screw fixation is present. There is callus formation around the left lesser trochanter, compatible with a healing response. No acute fracture or dislocation is evident in the right hip. There is right hip medial joint space narrowing, compatible with hip degenerative arthrosis. There is normal bony alignment present with the femoral heads well-seated within the acetabuli. There is no evidence of acute fracture or dislocation identified. Soft tissues show arterial calcifications and lucent centered calcifications in the right-sided pelvis that could reflect phleboliths. Incidental surgical clips projecting over the left pelvis are also noted. IMPRESSION: No acute fracture or hip dislocation identified. A chronic left hip fracture with dynamic hip screw fixation is present with evidence of healing L-spine 3 views INDICATION: Back pain after fall this morning COMPARISON: Abdomen pelvis CT without IV contrast 05/18/2017 FINDINGS: 5 lumbar type vertebrae. Alignment is anatomic and unchanged. Chronic appearing subtle superior end plate compression fracture at L3 is present. There are facet degenerative changes at multiple levels in the lumbar spine. Discs are slightly narrowed most conspicuously at L2-L3. The soft tissues show arterial calcifications. Course & Med Decision Making: Course & Med Decision Making Pertinent Labs and Imaging studies reviewed. (See chart for details) [] Dragon Disclaimer: Dragon Disclaimer: This electronic medical record was generated, in whole or in part, using a voice recognition dictation system. Departure Departure: Impression: Primary Impression: Back pain Additional Impression: Contusion of right hip Disposition: 01 HOME/RESIDENCE PRIOR TO ADM Condition: STABLE Referrals: GWEN LLANOS DO (PCP) please follow up with your family doctor as needed Patient Instructions: Back Pain, Adult, Hip Pointer (Iliac Crest Contusion)- [facility] Justification of Admission: Justification of Admission: Justification of Admission Dx: N/A DERREK PATRICK DO May 16, 2020 08:38
--- NOTE | 2020-05-16 09:47 | RAD ---
EXAM: CT Head without IV contrast INDICATION: Reason: fell, lower back pain / Spl. Instructions: / History: TECHNIQUE: Multi-detector row CT images were obtained of the head without the use of IV contrast. All CT scans performed at this facility utilize dose optimization techniques as appropriate to the exam, including the following: Automated exposure control and adjustment of the mA and/or KV according to patient size (this includes techniques or standardized protocols for targeted exams where dose is indication/reason for exam). COMPARISON: 03/16/[address] FINDINGS: BRAIN PARENCHYMA: No evidence of acute intraparenchymal hemorrhage or mass effect. Gestation is imaged in slight axial obliquity, resulting in differences in effects of beam hardening artifact in the middle cranial fossae, with lower density in the left anterior temporal tip and mesial temporal lobe noted. There is a chronic tiny lacunar infarct in the right thalamus and extensive white matter low density compatible chronic ischemic microvascular change. 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 Basilar cisterns are patent. No pathologic extra-axial fluid collection or mass. ORBITS: Orbital contents are unremarkable. SINUSES: Visualized paranasal sinuses and mastoid air cells are clear. OSSEOUS & SOFT TISSUES: Calvarium and skull base are intact. IMPRESSION: No acute intracranial pathology; there is asymmetry in density with lower density in the left temporal lobe, favored to reflect artifact of beam hardening. If clinically warranted, MRI or CT angiography could be pursued in further evaluation if an acute stroke is suspected. EXAM: CT Cervical Spine without IV contrast INDICATION: Reason: fell, lower back pain / Spl. Instructions: / History: TECHNIQUE: Multi-detector row CT images were obtained through the cervical spine without the use of IV contrast. Post-processing sagittal and coronal reconstructed images were obtained for interpretation. All CT scans performed at this facility utilize dose optimization techniques as appropriate to the exam, including the following: Automated exposure control and adjustment of the mA and/or KV according to patient size (this includes techniques or standardized protocols for targeted exams where dose is indication/reason for exam). COMPARISON: Noncontrast head CT same day FINDINGS: CRANIOCERVICAL JUNCTION: Unremarkable. ALIGNMENT: Alignment is within normal limits. OSSEOUS: No evidence of fracture or bone destruction. DISC SPACES: Disc space narrowing at C5-C6 is present. FACET JOINTS: Facet degenerative changes most conspicuous on the right at C6-C7 and C7-T1 and on the left at C4-C5 are noted. SPINAL CANAL: Unremarkable. NEUROFORAMINA: Unremarkable. SOFT TISSUES: Unremarkable. IMPRESSION: No acute traumatic findings in the cervical spine. PROCEDURE: LUMBAR SPINE 2-3V, CT HEAD AND CERVICAL SPINE WO, HIP RIGHT 2V WITH PELVIS CLINICAL INDICATION / HISTORY: Reason: fell, lower back pain / Spl. Instructions: / History: . TECHNIQUE: Three views of the right hip were obtained. COMPARISON: None FINDINGS: Pelvic ring is intact. Left dynamic hip screw fixation is present. There is callus formation around the left lesser trochanter, compatible with a healing response. No acute fracture or dislocation is evident in the right hip. There is right hip medial joint space narrowing, compatible with hip degenerative arthrosis. There is normal bony alignment present with the femoral heads well-seated within the acetabuli. There is no evidence of acute fracture or dislocation identified. Soft tissues show arterial calcifications and lucent centered calcifications in the right-sided pelvis that could reflect phleboliths. Incidental surgical clips projecting over the left pelvis are also noted. IMPRESSION: No acute fracture or hip dislocation identified. A chronic left hip fracture with dynamic hip screw fixation is present with evidence of healing L-spine 3 views INDICATION: Back pain after fall this morning COMPARISON: Abdomen pelvis CT without IV contrast 05/18/2017 FINDINGS: 5 lumbar type vertebrae. Alignment is anatomic and unchanged. Chronic appearing subtle superior end plate compression fracture at L3 is present. There are facet degenerative changes at multiple levels in the lumbar spine. Discs are slightly narrowed most conspicuously at L2-L3. The soft tissues show arterial calcifications. IMPRESSION: No acute traumatic findings in the lumbar spine. FOR INTERNAL CODING PURPOSES Critical result: Findings discussed with DERREK PATRICK at 05/16/2020 9:44 AM. RESULT CODE: (C) Electronically signed by: Nima Duncan MD (05/16/2020 9:44 AM) [id number]
== END 2020-05-16 10:31 | disposition home or self-care (01) ==
LOC: ER 08:30
DX: S70.01XA Contusion of right hip, initial encounter (principal); M54.5 Low back pain; M19.90 Unspecified osteoarthritis, unspecified site; M79.7 Fibromyalgia; I11.9 Hypertensive heart disease without heart failure; F10.20 Alcohol dependence, uncomplicated; Y90.9 Presence of alcohol in blood, level not specified; Z88.2 Allergy status to sulfonamides; Z88.8 Allergy status to other drugs, medicaments and biological substances; W18.39XA Other fall on same level, initial encounter; Y93.89 Activity, other specified; Y92.89 Other specified places as the place of occurrence of the external cause; Y99.8 Other external cause status
CPT/HCPCS: 70450; 72100; 72125; 73502; 99285-25